=== PATIENT | male | born 1945 | race Caucasian/White ===

== ENCOUNTER → 2019-11-22 09:41 | Outpatient (BNVA) | payer MEDICARE, MEDICAID, SELFPAY | PROVIDERS: Family Provider Nurse Practitioner Family; PCP Nurse Practitioner Family; Visit Provider Nurse Practitioner Family | DX: I10 Essential (primary) hypertension (principal); E78.5 Hyperlipidemia, unspecified; E11.9 Type 2 diabetes mellitus without complications | CPT/HCPCS: 80053; 80061; 83036; 85025 ==

== ENCOUNTER 2019-11-30 23:14 | Emergency (ER) | payer MEDICARE, MEDICAID, SELFPAY ==
[2019-11-30 23:17] VITALS: BP 130/69; PULSE 69; RESP 18; TEMP 36.6; O2SAT 96; BMI 29.5
--- NOTE | 2019-11-30 23:30 | W.ED.NAVMDI ---
HPI - Nausea/Vomiting/Diarrhea General: Chief complaint: Nausea/Vomiting/Diarrhea Stated complaint: N/V/D Time Seen by Provider: 11/30/19 23:24 History of Present Illness: HPI Narrative: Patient is a 74-year-old male who comes to the ED nausea, vomiting, diarrhea. The symptoms started 5 days ago. The diarrhea occurs 5+ times throughout the day for the last 5 days. Stool is brown liquid and does not have any blood in it. He has vomited about 3 times a day for the last 5 days. Vomited does not have any blood in it. He says the vomiting and nausea only occurs after he eats something. He says he has some mild abdominal pain. He feels like he is getting dehydrated and weak over the past 2 days. Denies any fever,chills, chest pain, shortness of breath, constipation, hematuria, dysuria. Review of Systems General: Reports: 10 or more systems reviewed and unremarkable except in HPI and below PFSH ED PFSH: Statuses (acute, chronic, etc) shown below reflect problem list status as previously entered and may not be historically accurate Medical History GERD (gastroesophageal reflux disease) (Acute) Hyperlipidemia (Acute) Hypertension (Acute) Surgical History Hx of cholecystectomy (Acute) Family History Other Diabetes Hypertension Social History Smoking and tobacco status: never smoked Quit status (tobacco): not considering quitting Physical Exam Const: COMMON NORMALS: oriented x3 HENMT: COMMON NORMALS: normocephalic and external nose normal HEAD & SCALP: normocephalic NOSE: external nose normal and no nasal discharge MOUTH: moist mucous membranes abnormal (Mild dryness) Details: parched THROAT: posterior oropharynx normal and uvula midline Eye: COMMON NORMALS: PERRL and conjunctivae normal CONJUNCTIVA: Yes conjunctivae normal PUPIL: Yes PERRL Neck/C-Spine: COMMON NORMALS: supple GENERAL: Yes normal visual inspection Resp: COMMON NORMALS: normal respiratory effort, no retractions, no use of accessory muscles and clear to auscultation bilaterally AUSCULTATION: clear to auscultation bilaterally Cardio: COMMON NORMALS: regular rate, regular rhythm, S1 normal heart sound, S2 normal heart sound, no gallops, no clicks, no murmurs and peripheral pulses 2+ throughout RATE: regular rate RHYTHM: regular rhythm HEART SOUNDS: S1 normal and S2 normal PERIPHERAL PULSES: pulses 2+ throughout GI: COMMON NORMALS: soft to palpation, non-tender, no hepatosplenomegaly and no masses INSPECTION: Yes normal to inspection AUSCULTATION: Yes hyperactive bowel sounds and Yes high-pitched bowel sounds PALPATION: Yes soft, No tender and Yes no hepatosplenomegaly : COMMON NORMALS: Yes no CVA tenderness BLADDER/KIDNEY EXAM: Yes no CVA tenderness Back/Pelvis: COMMON NORMALS: no CVA tenderness Extremity: COMMON NORMALS: normal to inspection Neuro: COMMON NORMALS: oriented x3 and moves all extremities Skin: COMMON NORMALS: skin turgor normal GENERAL SKIN EXAM: turgor normal Course ED course: While in the ED patient has been able to keep Sprite and crackers down and has not had any episodes of vomiting. Patient did have an episode when he called diarrhea. The nurse stated the stool was soft and not liquid. Vital Signs: Vital signs: Vital Signs Temperature 97.5 F L 12/01/19 02:18 Pulse Rate 63 12/01/19 02:18 Respiratory Rate 18 12/01/19 02:18 Blood Pressure 130/69 11/30/19 23:17 Pulse Oximetry 98 12/01/19 02:18 MDM - Nausea/Vomiting/Diarrhea Lab Data: Attestation: I reviewed the patient's lab results. Labs: Lab Results 11/30/19 11/30/19 11/30/19 Range/Units 23:35 23:35 23:35 WBC 9.3 (4.0-10.0) 10^3/ uL RBC 5.42 H (4.1-5.3) 10^6/u L Hgb 15.2 (11.7-16.6) g/dL Hct 45.9 (42.0-52.0) % MCV 84.7 (80-94) fL MCH 28.0 (28.0-34.0) pg MCHC 33.1 (30.0-36.0) g/dL RDW 13.0 (12.1-15.1) % Plt Count 169 (130-400) 10^3/c mm MPV 9.3 (7.4-10.4) fL Neut % (Auto) 69.3 % Lymph % (Auto) 21.4 % [place] % (Auto) 7.3 % Eos % (Auto) 1.3 % Baso % (Auto) 0.4 % Neut # (Auto) 6.4 (1.8-7.7) 10^3/u L Lymph # (Auto) 2.0 (0.8-4.8) 10^3/u L [place] # (Auto) 0.7 (0.2-0.9) 10^3/u L Eos # (Auto) 0.1 (0.0-0.8) 10^3/u L Baso # (Auto) 0.0 (0.0-0.1) 10^3/u L Nucleated RBC % (a uto) 0 % Nucleated RBCs # 0.0 /100WBC Sodium 133 L (136-145) mmol/L Potassium 3.9 (3.5-5.1) mmol/L Chloride 99 (98-107) mmol/L Carbon Dioxide 24 (22-29) mmol/L Anion Gap 13.9 (5-19) BUN 21 (8-23) mg/dL Creatinine 0.9 (0.7-1.2) mg/dL Glucose 160 H (65-115) mg/dL POC Glucose (70-110) mg/dL Calcium 9.7 (8.5-10.5) mg/dL Total Bilirubin 0.5 (0.15-1.2) mg/dL AST 19 (0-40) U/L ALT 17 (0-41) U/L Alkaline Phosphata se 80 (40-130) IU/L Total Protein 6.2 L (6.6-8.7) g/dL Albumin 4.0 (3.5-5.2) g/dL Globulin 2.2 (1.3-4.6) g/dL Lipase 27 (13-60) U/L Urine Color Yellow (Yellow) Urine Appearance Clear (CLEAR) Urine pH 5 (5-7) Ur Specific Gravit y 1.015 (1.005-1.030) Urine Protein Neg (Negative) Urine Glucose (UA) Norm (Normal) Urine Ketones Negative (Negative) Urine Occult Blood Neg (Negative) Urine Nitrate Negative (Negative) Urine Bilirubin Neg (NEGATIVE) Urine Urobilinogen Norm (Negative) mg/dL Ur Leukocyte Isela ase Negative (Negative) 12/01/19 Range/Units 00:39 WBC (4.0-10.0) 10^3/ uL RBC (4.1-5.3) 10^6/u L Hgb (11.7-16.6) g/dL Hct (42.0-52.0) % MCV (80-94) fL MCH (28.0-34.0) pg MCHC (30.0-36.0) g/dL RDW (12.1-15.1) % Plt Count (130-400) 10^3/c mm MPV (7.4-10.4) fL Neut % (Auto) % Lymph % (Auto) % [place] % (Auto) % Eos % (Auto) % Baso % (Auto) % Neut # (Auto) (1.8-7.7) 10^3/u L Lymph # (Auto) (0.8-4.8) 10^3/u L [place] # (Auto) (0.2-0.9) 10^3/u L Eos # (Auto) (0.0-0.8) 10^3/u L Baso # (Auto) (0.0-0.1) 10^3/u L Nucleated RBC % (a uto) % Nucleated RBCs # /100WBC Sodium (136-145) mmol/L Potassium (3.5-5.1) mmol/L Chloride (98-107) mmol/L Carbon Dioxide (22-29) mmol/L Anion Gap (5-19) BUN (8-23) mg/dL Creatinine (0.7-1.2) mg/dL Glucose (65-115) mg/dL POC Glucose 146 (70-110) mg/dL Calcium (8.5-10.5) mg/dL Total Bilirubin (0.15-1.2) mg/dL AST (0-40) U/L ALT (0-41) U/L Alkaline Phosphata se (40-130) IU/L Total Protein (6.6-8.7) g/dL Albumin (3.5-5.2) g/dL Globulin (1.3-4.6) g/dL Lipase (13-60) U/L Urine Color (Yellow) Urine Appearance (CLEAR) Urine pH (5-7) Ur Specific Gravit y (1.005-1.030) Urine Protein (Negative) Urine Glucose (UA) (Normal) Urine Ketones (Negative) Urine Occult Blood (Negative) Urine Nitrate (Negative) Urine Bilirubin (NEGATIVE) Urine Urobilinogen (Negative) mg/dL Ur Leukocyte Isela ase (Negative) Imaging Data^: CT Abd/Pel: Attestation: I personally reviewed and interpreted this imaging study as follows: Radiologist's impression: [place] [address] CT Scan Report Signed Patient: Christ Garza Unit #: [id number] : 1945 Age/Sex: 74 / M ADM Date: 11/30/19 Loc: ER Room/Bed: Attending Dr: Ordering Provider/Ordering MD: Bart Thomas Date of Service: 12/01/19 Procedure(s): CT abdomen pelvis w con* [id number] Accession Number(s): [id number] Report Number: [id number] PROCEDURE INFORMATION: Exam: CT Abdomen And Pelvis With Contrast Exam date and time: 12/01/2019 12:22 AM Age: 74 years old Clinical indication: Nausea and vomiting; Prior surgery; Surgery date: 6+ months; Surgery type: Cholecystectomy, back; Additional info: N/v/d TECHNIQUE: Imaging protocol: Computed tomography of the abdomen and pelvis with intravenous contrast. Total DLP: 1556.76 mGy-cm Radiation optimization: All CT scans at this facility use at least one of these dose optimization techniques: automated exposure control; mA and/or kV adjustment per patient size (includes targeted exams where dose is matched to clinical indication); or iterative reconstruction. Contrast material: OMNI 300; Contrast volume: 95 ml; Contrast route: 20G; COMPARISON: CT abdomen pelvis w con* [id number] 2016-12-02 00:15 FINDINGS: Lungs: There is a pulmonary parenchymal calcification consistent with remote granulomatous organism exposure. Dependent subsegmental pulmonary atelectasis. Liver: Small, less than 5 mm, liver hypodensity. Highly likely to be benign and does not require follow-up imaging or biopsy per ACR. Gallbladder and bile ducts: Cholecystectomy. Pancreas: Normal. No ductal dilation. Spleen: The spleen demonstrates punctate calcifications, consistent with remote granulomatous organism exposure. Adrenals: Left adrenal gland thickening. Kidneys and ureters: 11 mm indeterminate right inferior renal pole exophytic lesion and 12 mm lateral left exophytic renal lesion, previously 6 mm. Small, less than 5 mm, renal hypodensity. Highly likely to be benign and does not require follow-up imaging or biopsy per ACR. Stomach and bowel: Mild colonic diverticula. Appendix: No evidence of appendicitis. Intraperitoneal space: Unremarkable. No free air. No significant fluid collection. Vasculature: Mild to moderate aortic and iliac artery atherosclerotic calcification. Lymph nodes: Unremarkable. No enlarged lymph nodes. Bladder: Unremarkable as visualized. Reproductive: Prostate gland enlargement. Bones/joints: Lumbar laminectomy. Soft tissues: Unremarkable. CT/CT abdomen pelvis w con* [id number] IMPRESSION: 1. No acute abnormality. 2. 11 mm indeterminate right inferior renal pole exophytic lesion and 12 mm lateral left exophytic renal lesion, previously 6 mm. Recommend follow-up. COMMENT: Consistent with the [employer]'s Incidental Findings Committee white paper (J Am Reece Radiol 2018): Any incidental cystic renal lesion classified in this report as too small to characterize or simple appearing is likely a benign cyst. No follow-up imaging is recommended for these lesions per consensus recommendations based on imaging criteria. . Radiation Dose CTDIVOL = (mGy): DLP = 1556.76 (mGy-cm) Dictated By: Zane Hameed MD Signed By: Zane Hameed MD Signed Date/Time: 12/01/19142 DD/ 0 Discharge Plan Discharge Patient Disposition: Home, Self-Care Clinical Impression: Nausea vomiting and diarrhea Condition: Stable Prescriptions: New Zofran 4 mg tablet 4 mg PO Q8H 5 Days Qty: 15 RF: 0 No Action sertraline 100 mg tablet 100 mg PO DAILY RF: 0 quetiapine [Seroquel] 50 mg tablet 50 mg PO DAILY RF: 0 aripiprazole [Abilify] 5 mg tablet 5 mg PO DAILY RF: 0 meloxicam 7.5 mg tablet 7.5 mg PO DAILY RF: 0 Novolog Flexpen U-100 Insulin 100 unit/mL (3 mL) insulin pen 24 unit SUBCUT TID RF: 0 nitroglycerin [Nitrostat] 0.4 mg tablet, sublingual 0.4 mg SUBLINGUAL Q5M PRN (Reason: Chest Pain) RF: 0 pantoprazole [Protonix] 40 mg tablet,delayed release (DR/EC) 40 mg PO DAILY RF: 0 trazodone 50 mg tablet 25 mg PO .HS RF: 0 losartan 50 mg tablet 50 mg PO BID RF: 0 atenolol 25 mg tablet 25 mg PO DAILY RF: 0 buspirone 15 mg tablet 15 mg PO TID PRN (Reason: Anxiety) RF: 0 simvastatin 40 mg tablet 40 mg PO DAILY RF: 0 (DME) blood-glucose meter [Blood Glucose Monitoring] Kit See Rx Instructions .ROUTE .MEDSUPPLY Qty: 1 RF: 0 (DME) Blood Glucose Test Strip See Rx Instructions .ROUTE .MEDSUPPLY Qty: 10 RF: 0 famotidine 20 mg tablet 20 mg PO BID RF: 0 sertraline 50 mg tablet 50 mg PO QDAY RF: 0 Victoza 3-Ata 0.6 mg/0.1 mL (18 mg/3 mL) pen injector 1.8 mg SUBCUT Q24H Qty: 9 RF: 1 metformin 500 mg tablet extended release 24 hr 1,000 mg PO DAILY Qty: 60 RF: 2 insulin detemir U-100 100 unit/mL (3 mL) insulin pen 44 unit SUBCUT DAILY Qty: 3 RF: 2 Discharge Orders: Discharge Order (Routine); Ordered 12/01/19 Ordered By: Bart Thomas Discharge Diet: Regular Discharge Activity: Increase activity as tolerated Patient Instructions: Acute Nausea and Vomiting (ED) Activity Restrictions/Additional Instructions: Follow-up with PCP in 7 days for reevaluation. Take Tylenol or ibuprofen for fevers. I'm giving a prescription for Zofran and he can take this as needed for nausea and vomiting. Drink plenty of fluids and stay hydrated. Discuss with your PCP about the CT findings of left kidney lesion that increased in size from 6 mm to 12 mm--further evaluation and follow-up recommended. Coding Level of Care Code ED [employer] for Any Olguin
[2019-11-30 23:45] LABS: Basophils % 0.4 %; Eosinophils # 0.1 10^3/uL (0.0-0.8); Eosinophils % 1.3 %; Hematocrit 45.9 % (42.0-52.0); Hemoglobin 15.2 g/dL (11.7-16.6); Lymphocytes % 21.4 %; Mean Corpuscular HGB Conc 33.1 g/dL (30.0-36.0); Mean Corpuscular Volume 84.7 fL (80-94); Mean Platelet Volume 9.3 fL (7.4-10.4); Monocytes # 0.7 10^3/uL (0.2-0.9); Monocytes % 7.3 %; Neutrophils # 6.4 10^3/uL (1.8-7.7); Neutrophils % 69.3 %; Nucleated Red Blood Cells % 0 %; Platelet Count 169 10^3/cmm (130-400); Red Blood Count 5.42 10^6/uL (4.1-5.3); White Blood Count 9.3 10^3/uL (4.0-10.0)
[2019-11-30] MEDS: ondansetron 2 mg/ML SDV 2 mL 4 MG IVP (23:47)
[2019-11-30] MEDS: sodium chloride 0.9% 1,000 ML 750 ML IV (23:48)
[2019-12-01 00:07] LABS: Alanine Aminotransferase 17 U/L (0-41); Alkaline Phosphatase 80 IU/L (40-130); Anion Gap 13.9 (5-19); Aspartate Amino Transferase 19 U/L (0-40); Blood Urea Nitrogen 21 mg/dL (8-23); Calcium 9.7 mg/dL (8.5-10.5); Carbon Dioxide 24 mmol/L (22-29); Chloride 99 mmol/L (98-107); Creatinine Clr Calc Pharmacy 81.3794; Globulin 2.2 g/dL (1.3-4.6); Glucose 160 mg/dL (65-115); Lipase 27 U/L (13-60); Potassium 3.9 mmol/L (3.5-5.1); Sodium 133 mmol/L (136-145); Total Bilirubin 0.5 mg/dL (0.15-1.2); Total Protein 6.2 g/dL (6.6-8.7)
--- NOTE | 2019-12-01 00:17 | CTR_ITS ---
PROCEDURE INFORMATION: Exam: CT Abdomen And Pelvis With Contrast Exam date and time: 12/01/2019 12:22 AM Age: 74 years old Clinical indication: Nausea and vomiting; Prior surgery; Surgery date: 6+ months; Surgery type: Cholecystectomy, back; Additional info: N/v/d TECHNIQUE: Imaging protocol: Computed tomography of the abdomen and pelvis with intravenous contrast. Total DLP: 1556.76 mGy-cm Radiation optimization: All CT scans at this facility use at least one of these dose optimization techniques: automated exposure control; mA and/or kV adjustment per patient size (includes targeted exams where dose is matched to clinical indication); or iterative reconstruction. Contrast material: OMNI 300; Contrast volume: 95 ml; Contrast route: 20G; COMPARISON: CT abdomen pelvis w con* [id number] 2016-12-02 00:15 FINDINGS: Lungs: There is a pulmonary parenchymal calcification consistent with remote granulomatous organism exposure. Dependent subsegmental pulmonary atelectasis. Liver: Small, less than 5 mm, liver hypodensity. Highly likely to be benign and does not require follow-up imaging or biopsy per ACR. Gallbladder and bile ducts: Cholecystectomy. Pancreas: Normal. No ductal dilation. Spleen: The spleen demonstrates punctate calcifications, consistent with remote granulomatous organism exposure. Adrenals: Left adrenal gland thickening. Kidneys and ureters: 11 mm indeterminate right inferior renal pole exophytic lesion and 12 mm lateral left exophytic renal lesion, previously 6 mm. Small, less than 5 mm, renal hypodensity. Highly likely to be benign and does not require follow-up imaging or biopsy per ACR. Stomach and bowel: Mild colonic diverticula. Appendix: No evidence of appendicitis. Intraperitoneal space: Unremarkable. No free air. No significant fluid collection. Vasculature: Mild to moderate aortic and iliac artery atherosclerotic calcification. Lymph nodes: Unremarkable. No enlarged lymph nodes. Bladder: Unremarkable as visualized. Reproductive: Prostate gland enlargement. Bones/joints: Lumbar laminectomy. Soft tissues: Unremarkable. CT/CT abdomen pelvis w con* [id number] IMPRESSION: 1. No acute abnormality. 2. 11 mm indeterminate right inferior renal pole exophytic lesion and 12 mm lateral left exophytic renal lesion, previously 6 mm. Recommend follow-up. COMMENT: Consistent with the [employer]'s Incidental Findings Committee white paper (J Am Reece Radiol 2018): Any incidental cystic renal lesion classified in this report as too small to characterize or simple appearing is likely a benign cyst. No follow-up imaging is recommended for these lesions per consensus recommendations based on imaging criteria. . Radiation Dose CTDIVOL = (mGy): DLP = 1556.76 (mGy-cm)
[2019-12-01 00:22] LABS: Add Urine Microscopic? NO
[2019-12-01 00:25] LABS: Bilirubin Urine Neg (NEGATIVE); Blood Urine Neg (Negative); Glucose Urine UA Norm (Normal); Ketones Urine Negative (Negative); Leukocyte Esterase Urine Negative (Negative); Nitrate Urine Negative (Negative); Protein Urine Neg (Negative); Specific Gravity, Urine 1.015 (1.005-1.030); Urine Appearance Clear (CLEAR); Urine Color Yellow (Yellow); Urobilinogen Urine Norm (Negative); pH Urine 5 (5-7)
--- NOTE | 2019-12-01 00:41 | PC.NURSE ---
Blood sugar is 146, nurse notified.
[2019-12-01 00:43] LABS: Glucose Point of Care 146 mg/dL (70-110)
[2019-12-01] MEDS: iohexol 300 mg/mL 100 mL Btl IV (01:04)
[2019-12-01 02:18] VITALS: BP 129/62; PULSE 63; RESP 18; TEMP 36.4; O2SAT 98
--- NOTE | 2019-12-01 03:19 | PC.NURSE ---
resting quietly without c/o's
--- NOTE | 2019-12-01 04:40 | PC.NURSE ---
resting with eyes closed in attitude of sleep. no c/o's voiced
--- NOTE | 2019-12-01 05:49 | PC.NURSE ---
awake and alert sitting up on side of bed drinking coffe
== END 2019-12-01 07:56 | disposition home or self-care (01) ==
PROVIDERS: Emergency Provider Physician Assistant
DX: R11.2 Nausea with vomiting, unspecified (principal); R19.7 Diarrhea, unspecified; E78.5 Hyperlipidemia, unspecified; I10 Essential (primary) hypertension
CPT/HCPCS: 36415; 36416; 74177; 80053; 81003; 82962; 83690; 85025; 96361; 96374; 96375; 99283; A9270; J2405; J7030; Q9967

== ENCOUNTER → 2019-12-09 12:08 | Outpatient (BNVA) | payer MEDICARE, MEDICAID, SELFPAY | PROVIDERS: PCP Nurse Practitioner Family; Visit Provider Nurse Practitioner Family | DX: R19.7 Diarrhea, unspecified (principal) | CPT/HCPCS: 82270; 87493; 87505 ==

== ENCOUNTER 2019-12-29 07:20 | Day surgery (SDC) | payer MEDICARE, MEDICAID, SELFPAY ==
[2019-12-28 10:31] VITALS: BMI 31.0
--- NOTE | 2019-12-29 07:28 | ANES.PREANE2 ---
Pre-Anesthetic Assessment Pre-Anesthetic Assessment: Height/Weight: Height 1.75 m Weight 95.254 kg Preop Diagnosis: chronic diarrhea Proposed Procedure: Operation Date: 12/22/19 11:30 Proposed Procedures p [id number](Not Applicable) - Guzman Alonzo MD Operation Date: 12/29/19 08:30 Proposed Procedures p Colonoscopy(Not Applicable) - Guzman Alonzo MD Was Beta Laurie taken within 24 hours: Yes Last Intake: 18:00 Social: Packs per day: 1-2 cigs/d Pack years: 10 Exam: Pre-Anes Outpt Exam: alert, oriented x 3, clear to auscultation bilaterally and regular rate & rhythm Airway: Submandibular: WNL Cervical ROM: Other MP: 2 Dentition: False CV/HEM: CV/HEM: HTN Comments: rx'd x 10y : Comments: BPH, frequency GI: GI: GERD Metabolic: Metabolic: DM and Hyperlipidemia Comments: rx'd x 15y, normally 135-160 Musc/skel: Musc/skel: Lower Back Pain Comments: right radiculopathy Neuropsych: Neuropsych: Bipolar and Depression Anesthetic Plan: ASA status: 3 Anesthesia: MAC PFSH Anesthesia PFSH: Social History Smoking and tobacco status: never smoked Quit status (tobacco): has quit using tobacco Year quit tobacco: 1997 Former quit date comment: .5 PPD Alcohol intake: never Lives independently: Yes Marital status: Single Current occupational status: retired History of recent travel: No Current gender identity: Male Data Anesthesia Cardiac Studies: No Data to Display
[2019-12-29 07:57] VITALS: BP 128/66; PULSE 66; RESP 18; TEMP 36.4; O2SAT 96
[2019-12-29] MEDS: sodium chloride 0.9% 1,000 ML 30 ML (08:09)
[2019-12-29 08:10] LABS: Glucose Point of Care 248 mg/dL (70-110)
--- NOTE | 2019-12-29 08:45 | W.PM.OPSUD ---
Surgery/Procedure H&P Update DATE OF PROCEDURE: December 29, 2019 DATE H&P PERFORMED: 12/09/19 PREOP DIAGNOSIS: Chronic diarrhea PLANNED PROCEDURE: Operation Date: 12/22/19 11:30 Proposed Procedures p [id number](Not Applicable) - Guzman Alonzo MD Operation Date: 12/29/19 08:30 Proposed Procedures p Colonoscopy(Not Applicable) - Guzman Alonzo MD
[2019-12-29 08:58] VITALS: BP 108/49; PULSE 69; RESP 16; TEMP 36.4; O2SAT 95
--- NOTE | 2019-12-29 09:07 | P.PCN_ITS ---
PACU note Post-Anesthesia Exam: awake Disposition: discharged
--- NOTE | 2019-12-29 09:07 | PM.PACU ---
PACU note Post-Anesthesia Exam: awake Disposition: discharged
--- NOTE | 2019-12-29 09:07 | ANE.PACU2 ---
 Inpatient post-anesthesia follow up: Airway intact: Yes Vital signs: Temperature 97.6 F Pulse Rate 69 Respiratory Rate 16 Blood Pressure 108/49 Pulse Oximetry 95 Oxygen Delivery Me thod Nasal Cannula Oxygen Flow Rate 2 Fraction of Inspir ed Oxygen Hydration adequate: Yes Nausea and vomiting: No Pain level: 1 Mental status: Baseline
[2019-12-29 09:10] VITALS: BP 124/72; PULSE 62; RESP 18; O2SAT 95
== END 2019-12-29 09:20 | disposition home or self-care (01) ==
PROVIDERS: PCP Nurse Practitioner Family; Visit Provider Surgery
PROC: 0DJD8ZZ Inspection of Lower Intestinal Tract, Via Natural or Artificial Opening Endoscopic (ICD-10-PCS; CPT 45378; principal; 2019-12-29 08:30)
DX: K52.9 Noninfective gastroenteritis and colitis, unspecified (principal); Z79.4 Long term (current) use of insulin; E11.9 Type 2 diabetes mellitus without complications; E78.5 Hyperlipidemia, unspecified; I10 Essential (primary) hypertension; Z82.49 Family history of ischemic heart disease and other diseases of the circulatory system; Z53.8 Procedure and treatment not carried out for other reasons
CPT/HCPCS: 12345; 36416; 45330; 82962; J2704; J7030

== ENCOUNTER 2019-12-30 06:49 | Day surgery (SDC) | payer MEDICARE, MEDICAID, SELFPAY ==
--- NOTE | 2019-12-30 07:17 | P.ANESUD_ITS ---
Pre-Anesthetic Update Pre-Anesthetic Assessment: Date of Surgery/Procedure: 12/30/19 Preop Halima gnosis: Chronic diarrhea Proposed Procedure: Operation Date: 12/30/19 12:00 Proposed Procedures p Colonoscopy(Not Applicable) - Guzman Alonzo MD Any changes to Pre-Anesthetic Assessment?: No Last Intake: NPO > 8 hrs black coffee 4 am Exam: Pre-Anes Outpt Exam: alert, oriented x 3, clear to auscultation bilaterally and regular rate & rhythm Other Pertinent Information: Other Pertinent Information: Patient had attempted colonoscopy yesterday, but had inadequate prep. REpeat for today Cardiac Studies: No Data to Display
[2019-12-30 07:35] VITALS: BMI 29.5
[2019-12-30] MEDS: sodium chloride 0.9% 1,000 ML 30 ML IV (07:52)
[2019-12-30 07:54] VITALS: BP 119/65; PULSE 61; RESP 16; TEMP 36.2; O2SAT 99
[2019-12-30 07:56] LABS: Glucose Point of Care 305 mg/dL (70-110)
[2019-12-30 12:39] VITALS: BP 98/53; PULSE 60; RESP 16; TEMP 36.7; O2SAT 96
--- NOTE | 2019-12-30 12:39 | W.PM.OPSUD ---
Surgery/Procedure H&P Update DATE OF PROCEDURE: December 30, 2019 DATE H&P PERFORMED: 12/29/19 H&P UPDATE INFORMATION: I have reviewed H&P completed within last 30 days, I have examined patient prior to procedure and No changes to prior documentation PREOP DIAGNOSIS: diarrhea PLANNED PROCEDURE: Operation Date: 12/30/19 12:00 Proposed Procedures p Colonoscopy(Not Applicable) - Guzman Alonzo MD
[2019-12-30 12:45] VITALS: BP 89/45; PULSE 55; RESP 18; O2SAT 99
== END 2019-12-30 13:05 | disposition home or self-care (01) ==
PROVIDERS: PCP Nurse Practitioner Family; Visit Provider Surgery
PROC: 0DJD8ZZ Inspection of Lower Intestinal Tract, Via Natural or Artificial Opening Endoscopic (ICD-10-PCS; CPT 45378; principal; 2019-12-30 12:00)
DX: K52.9 Noninfective gastroenteritis and colitis, unspecified (principal); D12.3 Benign neoplasm of transverse colon; K57.30 Diverticulosis of large intestine without perforation or abscess without bleeding; E78.5 Hyperlipidemia, unspecified; I10 Essential (primary) hypertension; E11.9 Type 2 diabetes mellitus without complications; Z79.84 Long term (current) use of oral hypoglycemic drugs; Z87.891 Personal history of nicotine dependence
CPT/HCPCS: 12345; 36416; 45380; 82962; 88305; J2001; J2704; J7030

== ENCOUNTER 2020-01-06 10:40 | Emergency (ER) | payer MEDICARE, MEDICAID, SELFPAY ==
[2020-01-06 10:41] VITALS: BP 121/65; PULSE 66; RESP 17; TEMP 36.8; O2SAT 95; BMI 28.0
[2020-01-06 10:47] VITALS: BP 121/65; PULSE 68; RESP 16; O2SAT 94
[2020-01-06 10:58] LABS: Glucose Point of Care 201 mg/dL (70-110)
--- NOTE | 2020-01-06 11:17 | XR_ITS ---
WS: [id number] Portable AP upright chest, 01/06/2020 Clinical Data: dyspnea/cough Comparison: Portable chest, 07/31/2019. Findings: No nodules, masses or effusions are seen. The heart is normal. The pulmonary vascularity is not increased. No pneumonia or pneumothorax is seen. There are pellets overlying the right shoulder and the right chest. There is a single pellet overlying the left side of the T2 vertebra. XR/XR chest 1V portable [id number] Impression: Negative chest.
--- NOTE | 2020-01-06 11:26 | ED_ITS ---
Entered by Huseyin Denton LPN, acting as scribe for Bryan Cameron DO Jan 06, 2020 10:40 HPI - Nausea/Vomiting/Diarrhea General: Chief complaint: Nausea/Vomiting/Diarrhea Stated complaint: NAUSEA/ diarrhea, increased blood sugar Time Seen by Provider: 01/06/20 11:03 Source: patient Limitations: no limitations History of Present Illness: HPI Narrative: 74 yo male with h/o DM for 15 years presents stating he woke up this am with a sugar of 500. He reports nausea and diarrhea for quite awhile . Also c/o abd pain in the mid abd. No recent abx treatment. No recent med changes. Admits to recent cough, productive of green phlegm. Denies fever, sweats, chills. Denies any chest pain or sob. Smoker, < 1/2 ppd. PCP- [facility] in [place]. MD elicited complaint: nausea and diarrhea Associated nausea: Yes Associated symtoms: Reports nausea; Denies anxiety, change in vision, chest pain, dizziness, dysuria, fatigue, headache(s), malaise, palpitations or syncope Review of Systems Const: Reports: other (increased blood sugar this am); Denies: fever, chills, body aches, fatigue, malaise or night sweats Eyes: Denies: change in vision or blurry vision ENMT: Denies: throat pain, oral sores/lesions, dental pain, nasal discharge or nasal congestion Card: Denies: chest pain, palpitations, irregular heart rhythm, edema, syncope, shortness of breath on exertion, shortness of breath when lying down or leg pain with exertion Resp: Reports: productive cough; Denies: shortness of breath, non-productive cough or wheezing GI: Reports: abdominal pain, nausea and diarrhea; Denies: vomiting, vomiting blood, coffee grounds in vomit, difficulty swallowing, heartburn/indigestion, constipation, cramping, blood in stool or black tarry stool : Denies: flank pain, difficulty urinating, painful urination, urinary frequency, urinary urgency, urinary incontinence or blood in urine Musc: Denies: neck pain, back pain, extremity pain, extremity swelling, joint pain or joint swelling Skin/Breast: Denies: rash, itching or redness Neuro: Denies: headache, numbness in extremities, weakness in extremities, changes in sensation, lack of coordination, difficulty walking, frequent falls, dizziness, vertigo or confusion Psych: Denies: anxiety, depression, loss of interest, visual hallucinations, auditory hallucinations, suicidal ideation or homicidal ideation Endo: Denies: excessive urination, excessive thirst, tired all the time or cold intolerance Travis/Lymph: Denies: easy bruising, easy bleeding, petechiae, enlarged lymph nodes or tender lymph nodes PFSH ED PFSH: Medical History (Updated 01/06/20 @ 13:10 by Bryan Cameron DO) Bipolar 2 disorder Decreased hearing of right ear Diabetes Hyperlipidemia Hypertension Surgical History (Updated 12/30/19 @ 12:36 by Guzman Alonzo MD) H/O colonoscopy 12/29/19: transverse colon polyp, poor prep, sigmoid diverticulosis History of back surgery History of hand surgery due to injury and needed reattachment History of shoulder surgery Hx of cholecystectomy Social History Smoking and tobacco status: current some day smoker Quit status (tobacco): has quit using tobacco Year quit tobacco: 1997 Former quit date comment: .5 PPD Alcohol intake: never Lives independently: Yes Marital status: Single Current occupational status: retired History of recent travel: No Current gender identity: Male Physical Exam Const: COMMON NORMALS: average body habitus, oriented x3 and alert GENERAL APPEARANCE: cooperative, comfortable, well kempt and well developed NUTRITIONAL APPEARANCE: obese ORIENTATION/CONSCIOUSNESS: Yes awake, Yes oriented to person and Yes oriented to place HENMT: COMMON NORMALS: normocephalic, head/scalp atraumatic, EAC's normal, TM's normal bilaterally, external nose normal, moist oral mucous membranes and oropharynx normal HEAD & SCALP: normocephalic and atraumatic NOSE: external nose normal EXTERNAL AUDITORY CANAL: EAC's normal TYMPANIC MEMBRANE: TM's normal bilaterally MOUTH: oral and palatal mucosa normal, lip normal and tongue normal THROAT: posterior oropharynx normal and tonsils normal Eye: COMMON NORMALS: PERRL, EOMs intact bilaterally, conjunctivae normal and no scleral icterus CONJUNCTIVA: Yes conjunctivae normal PUPIL: Yes PERRL Neck/C-Spine: COMMON NORMALS: full ROM, no lymphadenopathy, supple, no meningeal signs and thyroid normal THYROID: thyroid normal and asymmetrical Lymph: LYMPHATIC: no lymphadenopathy noted Resp: COMMON NORMALS: normal respiratory effort, no retractions, no use of accessory muscles and clear to auscultation bilaterally AUSCULTATION: clear to auscultation bilaterally Cardio: COMMON NORMALS: regular rate and regular rhythm RATE: regular rate RHYTHM: regular rhythm HEART SOUNDS: no murmurs GI: COMMON NORMALS: normal to inspection, nondistended, normoactive bowel sounds, soft to palpation and no hepatosplenomegaly PALPATION: Yes soft and Yes no hepatosplenomegaly : COMMON NORMALS: Yes no CVA tenderness BLADDER/KIDNEY EXAM: Yes no CVA tenderness Back/Pelvis: COMMON NORMALS: no CVA tenderness LUMBAR SPINE/LOWER BACK: Yes normal to inspection Extremity: COMMON NORMALS: no clubbing, cyanosis or edema, no calf tenderness and no pedal edema Neuro: COMMON NORMALS: oriented x3 SENSORIUM/ORIENTATION: Yes alert, Yes oriented to person and Yes oriented to place MENINGEAL SIGNS: Yes no meningeal signs Psych: APPEARANCE: Yes well kempt Skin: COMMON NORMALS: no rashes or lesions noted and skin turgor normal GENERAL SKIN EXAM: no rashes or lesions noted and turgor normal Course ED course: Patient is feeling much better blood sugars improved. We will go ahead and discharge him home with Chong and Elie. He should have a clear liquid diet for the next 24 hours and then advance monitor blood sugars closely if has any worsening or change return immediately. Vital Signs: Vital signs: Vital Signs Temperature 98.2 F 01/06/20 10:41 Pulse Rate 65 01/06/20 13:23 Respiratory Rate 16 01/06/20 13:23 Blood Pressure 132/67 01/06/20 13:23 Pulse Oximetry 97 01/06/20 13:23 MDM - Nausea/Vomiting/Diarrhea Lab Data: Attestation: I reviewed the patient's lab results. Labs: Lab Results 01/06/20 01/06/20 01/06/20 Range/Units 10:53 10:56 10:56 WBC 7.1 (4.0-10.0) 10^3/ uL RBC 5.29 (4.1-5.3) 10^6/u L Hgb 15.5 (11.7-16.6) g/dL Hct 46.8 (42.0-52.0) % MCV 88.5 (80-94) fL MCH 29.3 (28.0-34.0) pg MCHC 33.1 (30.0-36.0) g/dL RDW 13.2 (12.1-15.1) % Plt Count 169 (130-400) 10^3/c mm MPV 10.1 (7.4-10.4) fL Neut % (Auto) 68.2 % Lymph % (Auto) 22.6 % [place] % (Auto) 7.4 % Eos % (Auto) 1.0 % Baso % (Auto) 0.4 % Neut # (Auto) 4.9 (1.8-7.7) 10^3/u L Lymph # (Auto) 1.6 (0.8-4.8) 10^3/u L [place] # (Auto) 0.5 (0.2-0.9) 10^3/u L Eos # (Auto) 0.1 (0.0-0.8) 10^3/u L Baso # (Auto) 0.0 (0.0-0.1) 10^3/u L Nucleated RBC % (a uto) 0 % Nucleated RBCs # 0.0 /100WBC Specimen Type Sample Site ABG pH (7.35-7.45) ABG pCO2 (35-45) mmHg ABG pO2 (80.0-100.0) mmH g ABG HCO3 (22-26) mmol/L ABG O2 Saturation ABG Base Excess (-2.0-2.0) mmol/ L Lucas Test A-a O2 Gradient (5-10) mmHg Hematocrit (42-52) % Hgb O2 Saturation (95-100) % Carboxyhemoglobin (0.4-20.1) %THgb Methemoglobin (0.4-1.5) % Total Hemoglobin (14-18) g/dL Ionized Calcium (1.1-1.4) mmol/L O2 Delivery Device Medical Physicist ID Sodium 139 (136-145) mmol/L Potassium 4.2 (3.5-5.1) mmol/L Chloride 102 (98-107) mmol/L Carbon Dioxide 27 (22-29) mmol/L Anion Gap 14.2 (5-19) BUN 21 (8-23) mg/dL Creatinine 0.9 (0.7-1.2) mg/dL Glucose 226 H (65-115) mg/dL POC Glucose 201 (70-110) mg/dL Calculated Osmolal ity 292 (285-295) mOsm/k g Calcium 10.3 (8.5-10.5) mg/dL Total Bilirubin 0.3 (0.15-1.2) mg/dL AST 15 (0-40) U/L ALT 22 (0-41) U/L Alkaline Phosphata se 115 (40-130) IU/L Total Protein 6.8 (6.6-8.7) g/dL Albumin 4.5 (3.5-5.2) g/dL Globulin 2.3 (1.3-4.6) g/dL Lipase 51 (13-60) U/L Urine Color (Yellow) Urine Appearance (CLEAR) Urine pH (5-7) Ur Specific Gravit y (1.005-1.030) Urine Protein (Negative) Urine Glucose (UA) (Normal) Urine Ketones (Negative) Urine Blood (Negative) Urine Nitrate (Negative) Urine Bilirubin (NEGATIVE) Urine Urobilinogen (Negative) mg/dL Ur Leukocyte Isela ase (Negative) Urine RBC (0-2) /hpf Urine WBC (0-5) /hpf Ur Squamous Epith Cells (0-5) Urine Bacteria (NONE) Serum Ketones (Negative) 01/06/20 01/06/20 01/06/20 Range/Units 10:56 11:28 11:57 WBC (4.0-10.0) 10^3/ uL RBC (4.1-5.3) 10^6/u L Hgb (11.7-16.6) g/dL Hct (42.0-52.0) % MCV (80-94) fL MCH (28.0-34.0) pg MCHC (30.0-36.0) g/dL RDW (12.1-15.1) % Plt Count (130-400) 10^3/c mm MPV (7.4-10.4) fL Neut % (Auto) % Lymph % (Auto) % [place] % (Auto) % Eos % (Auto) % Baso % (Auto) % Neut # (Auto) (1.8-7.7) 10^3/u L Lymph # (Auto) (0.8-4.8) 10^3/u L Osage # (Auto) (0.2-0.9) 10^3/u L Eos # (Auto) (0.0-0.8) 10^3/u L Baso # (Auto) (0.0-0.1) 10^3/u L Nucleated RBC % (a uto) % Nucleated RBCs # /100WBC Specimen Type Arterial Sample Site Radial, left ABG pH 7.38 (7.35-7.45) ABG pCO2 42.7 (35-45) mmHg ABG pO2 77.0 L (80.0-100.0) mmH g ABG HCO3 25.2 (22-26) mmol/L ABG O2 Saturation 97.5 ABG Base Excess -0.2 (-2.0-2.0) mmol/ L Lucas Test Pos A-a O2 Gradient 20.8 H (5-10) mmHg Hematocrit 47.3 (42-52) % Hgb O2 Saturation 93.3 L (95-100) % Carboxyhemoglobin 3.6 (0.4-20.1) %THgb Methemoglobin 0.8 (0.4-1.5) % Total Hemoglobin 15.4 (14-18) g/dL Ionized Calcium 1.3 (1.1-1.4) mmol/L O2 Delivery Device Room air Medical Physicist ID [id number] Sodium 139.0 (136-145) mmol/L Potassium 4.1 (3.5-5.1) mmol/L Chloride (98-107) mmol/L Carbon Dioxide (22-29) mmol/L Anion Gap (5-19) BUN (8-23) mg/dL Creatinine (0.7-1.2) mg/dL Glucose 178.0 H (65-115) mg/dL POC Glucose (70-110) mg/dL Calculated Osmolal ity (285-295) mOsm/k g Calcium (8.5-10.5) mg/dL Total Bilirubin (0.15-1.2) mg/dL AST (0-40) U/L ALT (0-41) U/L Alkaline Phosphata se (40-130) IU/L Total Protein (6.6-8.7) g/dL Albumin (3.5-5.2) g/dL Globulin (1.3-4.6) g/dL Lipase (13-60) U/L Urine Color Yellow (Yellow) Urine Appearance Clear (CLEAR) Urine pH 5 (5-7) Ur Specific Gravit y 1.015 (1.005-1.030) Urine Protein Neg (Negative) Urine Glucose (UA) 4+ H (Normal) Urine Ketones Negative (Negative) Urine Blood Trace H (Negative) Urine Nitrate Negative (Negative) Urine Bilirubin 1+ H (NEGATIVE) Urine Urobilinogen Norm (Negative) mg/dL Ur Leukocyte Isela ase Negative (Negative) Urine RBC 0-4 H (0-2) /hpf Urine WBC Rare (0-5) /hpf Ur Squamous Epith Cells None (0-5) Urine Bacteria Trace (NONE) Serum Ketones Negative (Negative) 01/06/20 Range/Units 13:18 WBC (4.0-10.0) 10^3/ uL RBC (4.1-5.3) 10^6/u L Hgb (11.7-16.6) g/dL Hct (42.0-52.0) % MCV (80-94) fL MCH (28.0-34.0) pg MCHC (30.0-36.0) g/dL RDW (12.1-15.1) % Plt Count (130-400) 10^3/c mm MPV (7.4-10.4) fL Neut % (Auto) % Lymph % (Auto) % [place] % (Auto) % Eos % (Auto) % Baso % (Auto) % Neut # (Auto) (1.8-7.7) 10^3/u L Lymph # (Auto) (0.8-4.8) 10^3/u L [place] # (Auto) (0.2-0.9) 10^3/u L Eos # (Auto) (0.0-0.8) 10^3/u L Baso # (Auto) (0.0-0.1) 10^3/u L Nucleated RBC % (a uto) % Nucleated RBCs # /100WBC Specimen Type Sample Site ABG pH (7.35-7.45) ABG pCO2 (35-45) mmHg ABG pO2 (80.0-100.0) mmH g ABG HCO3 (22-26) mmol/L ABG O2 Saturation ABG Base Excess (-2.0-2.0) mmol/ L Lucas Test A-a O2 Gradient (5-10) mmHg Hematocrit (42-52) % Hgb O2 Saturation (95-100) % Carboxyhemoglobin (0.4-20.1) %THgb Methemoglobin (0.4-1.5) % Total Hemoglobin (14-18) g/dL Ionized Calcium (1.1-1.4) mmol/L O2 Delivery Device Medical Physicist ID Sodium (136-145) mmol/L Potassium (3.5-5.1) mmol/L Chloride (98-107) mmol/L Carbon Dioxide (22-29) mmol/L Anion Gap (5-19) BUN (8-23) mg/dL Creatinine (0.7-1.2) mg/dL Glucose (65-115) mg/dL POC Glucose 101 (70-110) mg/dL Calculated Osmolal ity (285-295) mOsm/k g Calcium (8.5-10.5) mg/dL Total Bilirubin (0.15-1.2) mg/dL AST (0-40) U/L ALT (0-41) U/L Alkaline Phosphata se (40-130) IU/L Total Protein (6.6-8.7) g/dL Albumin (3.5-5.2) g/dL Globulin (1.3-4.6) g/dL Lipase (13-60) U/L Urine Color (Yellow) Urine Appearance (CLEAR) Urine pH (5-7) Ur Specific Gravit y (1.005-1.030) Urine Protein (Negative) Urine Glucose (UA) (Normal) Urine Ketones (Negative) Urine Blood (Negative) Urine Nitrate (Negative) Urine Bilirubin (NEGATIVE) Urine Urobilinogen (Negative) mg/dL Ur Leukocyte Isela ase (Negative) Urine RBC (0-2) /hpf Urine WBC (0-5) /hpf Ur Squamous Epith Cells (0-5) Urine Bacteria (NONE) Serum Ketones (Negative) Imaging Data^: CXR: Radiologist's impression: Impression: Negative chest. Dictated By:Em Palencia MD CT Abd/Pel: Radiologist's impression: Per Dr. Perez: possible small bowel enteritis, bladder wall thickening. Discharge Plan Discharge Patient Disposition: Home, Self-Care Clinical Impression: Colitis Condition: Stable Prescriptions: New ciprofloxacin HCl 500 mg tablet 500 mg PO BID Qty: 14 RF: 0 Flagyl 500 mg tablet 500 mg PO Q8H 7 Days Qty: 21 RF: 0 No Action quetiapine [Seroquel] 50 mg tablet 50 mg PO DAILY RF: 0 Novolog Flexpen U-100 Insulin 100 unit/mL (3 mL) insulin pen 24 unit SUBCUT TID RF: 0 nitroglycerin [Nitrostat] 0.4 mg tablet, sublingual 0.4 mg SUBLINGUAL Q5M PRN (Reason: Chest Pain) RF: 0 pantoprazole [Protonix] 40 mg tablet,delayed release (DR/EC) 40 mg PO DAILY RF: 0 trazodone 50 mg tablet 25 mg PO BEDTIME RF: 0 losartan 50 mg tablet 50 mg PO BID RF: 0 atenolol 25 mg tablet 25 mg PO DAILY RF: 0 (DME) blood-glucose meter [Blood Glucose Monitoring] Kit See Rx Instructions .ROUTE .MEDSUPPLY Qty: 1 RF: 0 (DME) Blood Glucose Test Strip See Rx Instructions .ROUTE .MEDSUPPLY Qty: 10 RF: 0 aripiprazole [Abilify] 5 mg tablet 5 mg PO DAILY Qty: 30 RF: 2 sertraline 100 mg tablet 100 mg PO DAILY Qty: 30 RF: 2 sertraline 50 mg tablet 50 mg PO QDAY Qty: 30 RF: 2 famotidine 20 mg tablet 20 mg PO BID RF: 0 Victoza 3-Ata 0.6 mg/0.1 mL (18 mg/3 mL) pen injector 1.8 mg SUBCUT Q24H Qty: 9 RF: 1 metformin 500 mg tablet extended release 24 hr 1,000 mg PO DAILY Qty: 60 RF: 2 insulin detemir U-100 100 unit/mL (3 mL) insulin pen 44 unit SUBCUT DAILY Qty: 3 RF: 2 (DME) OneTouch Ultra Blue Test Strip Strip See Rx Instructions .ROUTE .MEDSUPPLY Qty: 100 RF: 5 meloxicam 7.5 mg tablet 7.5 mg PO DAILY Qty: 30 RF: 0 buspirone 15 mg tablet 15 mg PO TID PRN (Reason: Anxiety) Qty: 90 RF: 0 simvastatin 40 mg tablet 40 mg PO DAILY Qty: 30 RF: 3 Discharge Orders: Discharge Order (Routine); Ordered 01/06/20 Ordered By: Bryan Cameron Referrals: Brandy Zamarripa FNP [Primary Care Provider] - Discharge Diet: Clear Liquid Discharge Activity: Increase activity as tolerated Activity Restrictions/Additional Instructions: Follow-up with your primary care doctor in 4 to 5 days Discharge Date/Time: 01/06/20 13:30 Coding Level of Care Code ED Cv Tech for Chg Fwd Exam Comprehensive The documentation recorded by the Bertin ford Dani Elizabeth, LPN, accurately reflects the service I personally performed and the decisions made by Nisha catherine Curtis L, DO Jan 06, 2020 10:40
[2020-01-06 11:27] VITALS: BP 104/74; PULSE 69; RESP 16; O2SAT 97
[2020-01-06 11:30] LABS: Basophils % 0.4 %; Eosinophils # 0.1 10^3/uL (0.0-0.8); Hematocrit 46.8 % (42.0-52.0); Hemoglobin 15.5 g/dL (11.7-16.6); Lymphocytes # 1.6 10^3/uL (0.8-4.8); Lymphocytes % 22.6 %; Mean Corpuscular HGB Conc 33.1 g/dL (30.0-36.0); Mean Corpuscular Hemoglobin 29.3 pg (28.0-34.0); Mean Corpuscular Volume 88.5 fL (80-94); Mean Platelet Volume 10.1 fL (7.4-10.4); Monocytes # 0.5 10^3/uL (0.2-0.9); Monocytes % 7.4 %; Neutrophils # 4.9 10^3/uL (1.8-7.7); Neutrophils % 68.2 %; Nucleated Red Blood Cells % 0 %; Platelet Count 169 10^3/cmm (130-400); Red Blood Count 5.29 10^6/uL (4.1-5.3); Red Cell Distribution Width 13.2 % (12.1-15.1); White Blood Count 7.1 10^3/uL (4.0-10.0)
--- NOTE | 2020-01-06 11:37 | CT_ITS ---
WS: [id number] CT ABDOMEN PELVIS TECHNIQUE: Contrast-enhanced CT of the abdomen and pelvis with coronal and sagittal reformatted image s. CLINICAL INFORMATION: abd pain COMPARISON: December 01, 2019 DLP: [id number] scans at [facility] use at least one of these dose optimization techniques: automat ed exposure control; mA and/or kV adjustment per patient size (includes targeted exams where dose is matched to clinical indication); or iterative reconstruction. FINDINGS: Liver is normal. Cholecystectomy clips. Normal spleen. Splenic granulomas. Normal GE junction. Subseg mental atelectasis the lung bases. Normal pancreas. Adrenal glands are normal. Normal renal parenchymal enhancement. No hydronephrosis. Cortical atrophy. Peripheral enhancing right lower pole exophytic lesion measuring 11 mm is stable since the recent examination. This is increase d since 2017. Additional left midpole 12 mm lesion left kidney with increased attenuation also increa sed since 2017. Recommend 6 month interval follow-up with CT. Normal caliber abdominal aorta. Fluid-filled loops of small bowel in the lower abdomen and pelvis judie suring 2.0 CM. Normal caliber colon. No evidence of high-grade small or large bowel obstruction. Sigm oid colon is decompressed. No abdominal lymphadenopathy. Diffuse bladder wall thickening can be seen with chronic cystitis. Blad rolly is decompressed. Prostate is slightly enlarged measuring 4.4 x 5.4 CM. Grade 1 anterolisthesis L5 on S1 with pedicle screw fixation. Notified Bryan Cameron DO at 01/06/2020 12:[address]/CT abdomen pelvis w con* [id number] IMPRESSION: 1. Slightly distended fluid-filled loops of small bowel in the lower abdomen a nd pelvis can be seen with small bowel enteritis 2. No evidence of small or large bowel obstruction. Colon is decompressed. 3. Prior cholecystectomy. 4. Diffuse bladder wall thickening can be seen with bladder outlet obstruction or chronic cystitis. 5. Slightly enlarged prostate measuring 4.4 x 5.1 CM. Recommend correlation PS A. 6. Indeterminant Small renal lesions described above increased since 2017. Rec ommend 6 month follow-up CT.
[2020-01-06 11:40] LABS: Alanine Aminotransferase 22 U/L (0-41); Albumin Level 4.5 g/dL (3.5-5.2); Alkaline Phosphatase 115 IU/L (40-130); Anion Gap 14.2 (5-19); Aspartate Amino Transferase 15 U/L (0-40); Blood Urea Nitrogen 21 mg/dL (8-23); Calcium 10.3 mg/dL (8.5-10.5); Carbon Dioxide 27 mmol/L (22-29); Chloride 102 mmol/L (98-107); Globulin 2.3 g/dL (1.3-4.6); Glucose 226 mg/dL (65-115); Lipase 51 U/L (13-60); Osmolality Calculated 292 mOsm/kg (285-295); Potassium 4.2 mmol/L (3.5-5.1); Sodium 139 mmol/L (136-145); Total Bilirubin 0.3 mg/dL (0.15-1.2); Total Protein 6.8 g/dL (6.6-8.7)
[2020-01-06 11:41] LABS: ABG PCO2 42.7 mmHg (35-45); ABG PH Result 7.38 (7.35-7.45); Alveolar-Arterial Oxygen Gradi 20.8 mmHg (5-10); Arterial Blood Gas Hematocrit 47.3 % (42-52); Base Excess ABG -0.2 mmol/L (-2.0-2.0); Blood Gas Allen Test Pos; Blood Gas Sample Site Radial, left; Blood Gas Sample Type Arterial; Carboxyhemoglobin 3.6 %THgb (0.4-20.1); HCO3 ABG 25.2 mmol/L (22-26); HGB O2 Sat 93.3 % (95-100); Ionized Calcium Level - ABG 1.3 mmol/L (1.1-1.4); Methemoglobin 0.8 % (0.4-1.5); Oxygen Device ROOM AIR; Oxygen Saturation ABG 97.5; Potassium Level - ABG 4.1 mmol/L (3.5-5.0); Total Hemoglobin 15.4 g/dL (14-18)
[2020-01-06 11:44] LABS: Ketone (Acetest) Serum Negative (Negative)
--- NOTE | 2020-01-06 11:54 | PC.NURSE ---
Pt to CT via ambulance
[2020-01-06 12:04] VITALS: BP 105/61; PULSE 69; RESP 16; O2SAT 97
[2020-01-06] MEDS: iohexol 300 mg/mL 100 mL Btl IV (12:15)
[2020-01-06 12:22] LABS: Add Urine Microscopic? YES; Bilirubin Urine 1+ (NEGATIVE); Blood Urine Trace (Negative); Glucose Urine UA 4+ (Normal); Ketones Urine Negative (Negative); Leukocyte Esterase Urine Negative (Negative); Nitrate Urine Negative (Negative); Protein Urine Neg (Negative); Specific Gravity, Urine 1.015 (1.005-1.030); Urine Appearance Clear (CLEAR); Urine Color Yellow (Yellow); Urobilinogen Urine Norm (Negative); pH Urine 5 (5-7)
[2020-01-06 12:29] LABS: Add Urine Culture? No; Bacteria Urine TRACE; RBC Urine 0-4 /hpf (0-2); WBC Urine RARE /hpf (0-5)
[2020-01-06] MEDS: sodium chloride 0.9% 500 ML 999 ML IV (12:43)
[2020-01-06] MEDS: insulin regular-human 100 units/1 mL 5 UNIT IVP (12:43)
[2020-01-06 12:46] VITALS: BP 134/75; PULSE 68; RESP 16; O2SAT 97
[2020-01-06 13:21] LABS: Glucose Point of Care 101 mg/dL (70-110)
[2020-01-06 13:23] VITALS: BP 132/67; PULSE 65; RESP 16; O2SAT 97
== END 2020-01-06 13:30 | disposition home or self-care (01) ==
PROVIDERS: Emergency Provider Family Medicine; PCP Nurse Practitioner Family
DX: K52.9 Noninfective gastroenteritis and colitis, unspecified (principal); E11.9 Type 2 diabetes mellitus without complications; I10 Essential (primary) hypertension; E78.5 Hyperlipidemia, unspecified; F17.200 Nicotine dependence, unspecified, uncomplicated; E66.9 Obesity, unspecified; Z68.28 Body mass index [BMI] 28.0-28.9, adult; Z79.4 Long term (current) use of insulin
CPT/HCPCS: 12345; 36415; 36416; 36600; 71045; 74177; 80051; 80053; 81001; 82009; 82810; 82962; 83690; 83986; 85025; 96360; 96374; 96375; 99283; 99284; A9270; J1815; J7040; Q9967

== ENCOUNTER 2020-01-20 11:47 | Outpatient (CLI) | payer MEDICARE, MEDICAID, SELFPAY ==
--- NOTE | 2020-01-20 11:56 | XR_ITS ---
WS: [id number] KUB, 01/20/2020 Clinical Data: rule out kidney stone Comparison: Abdomen series, 12/01/2016. Findings: No abnormal intraabdominal masses are seen. There is no dilatated small bowel or evidence of obstruc tion. The patient has a posterior lumbar fusion with bilateral pedicle screws and connecting rods at L5-S1. There are clips in the right upper abdomen from a cholecystectomy. There is a large amount of air th roughout the colon. The bladder is partly full. No definite renal or ureteral calculi are seen. There are vascular calcifications from the iliac arteries in the true pelvis. Degenerative change of both hips is seen. XR/XR abdomen 1V* [id number] Impression: Negative for definite renal or ureteral calculi.
== END 2020-01-20 11:48 | disposition home or self-care (01) ==
LOC: RADWPI 11:52
PROVIDERS: PCP Nurse Practitioner Family; Visit Provider Nurse Practitioner Family
DX: N39.0 Urinary tract infection, site not specified (principal); M54.5 Low back pain; E78.5 Hyperlipidemia, unspecified; I10 Essential (primary) hypertension; E11.9 Type 2 diabetes mellitus without complications
CPT/HCPCS: 74018; 80053; 80061; 81000; 83036; 85025

== ENCOUNTER → 2020-03-14 11:34 | Outpatient (BNVA) | payer MEDICARE, MEDICAID, SELFPAY | PROVIDERS: PCP Family Medicine; Visit Provider Family Medicine | DX: E11.65 Type 2 diabetes mellitus with hyperglycemia (principal); Z79.4 Long term (current) use of insulin; E78.5 Hyperlipidemia, unspecified; I10 Essential (primary) hypertension; K21.9 Gastro-esophageal reflux disease without esophagitis | CPT/HCPCS: 80053; 80061; 83036; 85025 ==

== ENCOUNTER 2020-05-16 21:52 | Emergency (ER) | payer MEDICARE, MEDICAID, SELFPAY ==
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
--- NOTE | 2020-05-16 22:09 | ECG_ITS ---
[facility] Test Date: 2020-05-16 Pat Name: Christ Garza Department: Room: Gender: Male [employer]: : 1945 Requested By: Mario Rodarte Order Number: [id number] Rebecca MD: Jorge A Ortega M.D. Measurements Intervals [place] Rate: 64 P: 73 TX: 218 QRS: 30 QRSD: 108 T: 60 QT: 388 QTc: 402 Interpretive Statements SINUS RHYTHM WITH FIRST DEGREE AV BLOCK WITH OCCASIONAL VENTRICULAR PREMATURE COMPLEXES Compared to ECG 07/31/2019 15:53:39 Right bundle-branch block no longer present Electronically Signed On 05-17-2020 17:06:31 CDT by Jorge A Ortega M.D. [email or web address]
[2020-05-16 22:24] VITALS: BP 135/64; PULSE 61; RESP 16; TEMP 36.8; O2SAT 95; BMI 29.5
[2020-05-16 22:33] VITALS: BP 129/61; PULSE 62; RESP 18; O2SAT 96
[2020-05-16 22:33] LABS: Basophils % 0.7 %; Eosinophils # 0.1 10^3/uL (0.0-0.8); Eosinophils % 1.8 %; Hematocrit 44.7 % (42.0-52.0); Hemoglobin 14.2 g/dL (11.7-16.6); Lymphocytes # 1.8 10^3/uL (0.8-4.8); Mean Corpuscular HGB Conc 31.8 g/dL (30.0-36.0); Mean Corpuscular Hemoglobin 28.3 pg (28.0-34.0); Mean Corpuscular Volume 89.2 fL (80-94); Mean Platelet Volume 9.8 fL (7.4-10.4); Monocytes # 0.5 10^3/uL (0.2-0.9); Monocytes % 8.3 %; Neutrophils % 58.9 %; Nucleated Red Blood Cells % 0 %; Platelet Count 151 10^3/cmm (130-400); Red Blood Count 5.01 10^6/uL (4.1-5.3); Red Cell Distribution Width 12.5 % (12.1-15.1); White Blood Count 6.1 10^3/uL (4.0-10.0)
[2020-05-16 22:47] VITALS: RESP 14; O2SAT 95
[2020-05-16] MEDS: morphine 4 mg/mL SDV 1 mL IVP (22:47)
[2020-05-16] MEDS: ondansetron 2 mg/ML SDV 2 mL 4 MG IVP (22:48)
[2020-05-16 22:55] LABS: Troponin(5th) Baseline 20 ng/L (0-15)
--- NOTE | 2020-05-16 23:02 | ED_ITS ---
HPI - SOB/Dyspnea General: Chief Complaint: Shortness of Breath/Dyspnea Stated Complaint: SOB Time Seen by Provider: 05/16/20 22:08 Source: patient and EMS Mode of arrival: EMS Limitations: no limitations History of Present Illness: HPI Narrative: 74-year-old male who came in by EMS for shortness of breath and chest pain. He states he is been having chest pains over the last week. He states the pain is sharp in nature rates it a 3 out of 10. He denies any worsening or improving factors. States his dyspnea is very mild. Patient here is 93% on room air. He denies any vomiting or diaphoresis. Associated symptoms: Reports chest pain; Deny abdominal pain, fever(s), nausea or vomiting Review of Systems Const: Denies: fever(s), chills, body aches or change in appetite Eyes: Denies: blurry vision or eye discomfort ENMT: Denies: throat pain or dental pain Card: Reports: chest pain Resp: Reports: dyspnea GI: Denies: abdominal pain, nausea, vomiting or diarrhea : Denies: dysuria Musc: Denies: neck pain or back pain Skin/Breast: Denies: rash Neuro: Denies: headache(s) Psych: Denies: depression Travis/Lymph: Denies: easy bruising All/Imm: Denies: urticaria PFSH ED PFSH: Medical History Bipolar 2 disorder Controlled diabetes mellitus with hyperglycemia, with long-term current use of insulin Decreased hearing of right ear Hyperlipidemia Hypertension Surgical History H/O colonoscopy 12/29/19: transverse colon polyp, poor prep, sigmoid diverticulosis History of back surgery History of hand surgery due to injury and needed reattachment History of shoulder surgery Hx of cholecystectomy Family History Other Diabetes Hypertension Denies family history of Anesthesia complication Bleeding disorder Social History Smoking and tobacco status: current every day smoker Alcohol intake: never Caregiver/support person: No Lives independently: Yes Household members: none Housing: Apartment Marital status: Single Number of children: 3 Current occupational status: retired History of recent travel: No Current gender identity: Male Physical Exam Const: COMMON NORMALS: no acute distress, patient oriented x3 and healthy appearing HENMT: COMMON NORMALS: normocephalic and atraumatic HEAD & SCALP: normocephalic and atraumatic Eye: COMMON NORMALS: Equal, round and reactive pupils present and EOMs intact bilaterally PUPIL: Yes Equal, round and reactive pupils present Neck/C-Spine: COMMON NORMALS: full ROM and supple Chest: COMMONS NORMALS: normal inspection of the chest and normal palpation of entire chest wall Resp: COMMON NORMALS: normal respiratory effort, No retractions, No use of accessory muscles and clear to auscultation bilaterally AUSCULTATION: clear to auscultation bilaterally Cardio: COMMON NORMALS: regular rate, regular rhythm and No murmurs present (Cardio) RATE: regular rate RHYTHM: regular rhythm GI: COMMON NORMALS: Normal to inspection, nondistended, normoactive bowel sounds present, Soft to palpation, non-tender and no masses PALPATION: Yes Soft to palpation Extremity: COMMON NORMALS: normal to inspection and full ROM Neuro: COMMON NORMALS: patient oriented x3, moves all extremities and no focal motor deficits Psych: COMMON NORMALS: mental status grossly normal, Normal thought process present and cooperative THOUGHT PROCESS: Normal thought process present Skin: COMMON NORMALS: no rashes or lesions noted and no wounds GENERAL SKIN EXAM: no rashes or lesions noted Course Vital Signs: Vital signs: Vital Signs Temperature 98.2 F 05/16/20 22:24 Pulse Rate 62 05/16/20 22:33 Respiratory Rate 18 05/17/20 01:30 Blood Pressure 129/61 05/16/20 22:33 Pulse Oximetry 95 05/16/20 22:47 MDM - SOB/Dyspnea MDM Narrative: Medical decision making narrative: Christ presents with chest pain that is atypical in nature. Patient's initial and repeat troponins here are negative CT chest is negative as well. He has had no pain here. He is stable for discharge and is to follow-up with his primary care doctor in 3 to 5 days. He is to return to the ER if worsening. Lab Data: Labs: Lab Results 05/16/20 05/16/20 05/16/20 Range/Units 22:23 22:23 22:23 WBC 6.1 (4.0-10.0) 10^3/ uL RBC 5.01 (4.1-5.3) 10^6/u L Hgb 14.2 (11.7-16.6) g/dL Hct 44.7 (42.0-52.0) % MCV 89.2 (80-94) fL MCH 28.3 (28.0-34.0) pg MCHC 31.8 (30.0-36.0) g/dL RDW 12.5 (12.1-15.1) % Plt Count 151 (130-400) 10^3/c mm MPV 9.8 (7.4-10.4) fL Neut % (Auto) 58.9 % Lymph % (Auto) 30.0 % [place] % (Auto) 8.3 % Eos % (Auto) 1.8 % Baso % (Auto) 0.7 % Neut # (Auto) 3.60 (1.8-7.7) 10^3/u L Lymph # (Auto) 1.8 (0.8-4.8) 10^3/u L [place] # (Auto) 0.5 (0.2-0.9) 10^3/u L Eos # (Auto) 0.1 (0.0-0.8) 10^3/u L Baso # (Auto) 0.0 (0.0-0.1) 10^3/u L Nucleated RBC % (a uto) 0 % Nucleated RBCs # 0.0 /100WBC APTT 35.0 (23.9-36.7) SECO NDS Sodium 136 (136-145) mmol/L Potassium 4.4 (3.5-5.1) mmol/L Chloride 100 (98-107) mmol/L Carbon Dioxide 27 (22-29) mmol/L Anion Gap 13.4 (5-19) BUN 19 (8-23) mg/dL Creatinine 0.8 (0.7-1.2) mg/dL GFR Calculation Not Reportable Glucose 395 H (65-115) mg/dL Calculated Osmolal ity 295 (285-295) mOsm/k g Calcium 9.8 (8.5-10.5) mg/dL Total Bilirubin 0.3 (0.15-1.2) mg/dL AST 17 (0-40) U/L ALT 23 (0-41) U/L Alkaline Phosphata se 113 (40-130) IU/L Troponin T Baselin e (0-15) ng/L Troponin T 120 Min cheesh-na (0-15) ng/L Delta Troponin T (0-10) ABS# NT-Pro-B Natriuret Pep 44 (0-125) pg/mL Total Protein 6.2 L (6.6-8.7) g/dL Albumin 4.4 (3.5-5.2) g/dL Globulin 1.8 (1.3-4.6) g/dL 05/16/20 05/17/20 Range/Units 22:23 00:17 WBC (4.0-10.0) 10^3/ uL RBC (4.1-5.3) 10^6/u L Hgb (11.7-16.6) g/dL Hct (42.0-52.0) % MCV (80-94) fL MCH (28.0-34.0) pg MCHC (30.0-36.0) g/dL RDW (12.1-15.1) % Plt Count (130-400) 10^3/c mm MPV (7.4-10.4) fL Neut % (Auto) % Lymph % (Auto) % [place] % (Auto) % Eos % (Auto) % Baso % (Auto) % Neut # (Auto) (1.8-7.7) 10^3/u L Lymph # (Auto) (0.8-4.8) 10^3/u L [place] # (Auto) (0.2-0.9) 10^3/u L Eos # (Auto) (0.0-0.8) 10^3/u L Baso # (Auto) (0.0-0.1) 10^3/u L Nucleated RBC % (a uto) % Nucleated RBCs # /100WBC APTT (23.9-36.7) SECO NDS Sodium (136-145) mmol/L Potassium (3.5-5.1) mmol/L Chloride (98-107) mmol/L Carbon Dioxide (22-29) mmol/L Anion Gap (5-19) BUN (8-23) mg/dL Creatinine (0.7-1.2) mg/dL GFR Calculation Glucose (65-115) mg/dL Calculated Osmolal ity (285-295) mOsm/k g Calcium (8.5-10.5) mg/dL Total Bilirubin (0.15-1.2) mg/dL AST (0-40) U/L ALT (0-41) U/L Alkaline Phosphata se (40-130) IU/L Troponin T Baselin e 20 H (0-15) ng/L Troponin T 120 Min cheesh-na 18.83 H (0-15) ng/L Delta Troponin T -1.17 L (0-10) ABS# NT-Pro-B Natriuret Pep (0-125) pg/mL Total Protein (6.6-8.7) g/dL Albumin (3.5-5.2) g/dL Globulin (1.3-4.6) g/dL Imaging Data^: CT Chest: Attestation: I personally reviewed and interpreted this imaging study as follows: Radiologist's impression: [place] [address] CT Scan Report Signed Patient: Christ Garza Unit #: [id number] : 1945 Age/Sex: 74 / M ADM Date: 05/16/20 Loc: ER Room/Bed: Attending Dr: Ordering Provider/Ordering MD: Mario Rodarte MD Date of Service: 05/16/20 Procedure(s): CT angio chest PE protcl [id number] Accession Number(s): [id number] Report Number: [id number] PROCEDURE INFORMATION: Exam: CT Angiography Chest With Contrast Exam date and time: 05/16/2020 11:13 PM Age: 74 years old Clinical indication: Pain; Shortness of breath; Prior surgery; Surgery type: Gb; Patient HX: Anterior chest pressure with SOB. TECHNIQUE: Imaging protocol: Computed tomographic angiography of the chest with intravenous contrast. 3D rendering (Not supervised by radiologist): MIP and/or 3D reconstructed images were created by the technologist. Radiation optimization: All CT scans at this facility use at least one of these dose optimization techniques: automated exposure control; mA and/or kV adjustment per patient size (includes targeted exams where dose is matched to clinical indication); or iterative reconstruction. Contrast material: OMNI 350; Contrast volume: 74 ml; Contrast route: INTRAVENOUS (IV); COMPARISON: CR XR chest 1V portable [id number] 05/16/2020 10:07 PM RADIATION DOSE METRICS: Total DLP (mGy-cm): 543.97 FINDINGS: Pulmonary arteries: Normal. No pulmonary emboli. Aorta: Unremarkable. No aortic aneurysm. No aortic dissection. Lungs: Right lower lobe atelectasis versus minimal infiltrate. Right lower lobe punctate metallic density likely reflecting a chronic foreign body. Pleural space: Unremarkable. No pneumothorax. No pleural effusion. Heart: Coronary artery atherosclerotic calcifications. Lymph nodes: Unremarkable. No enlarged lymph nodes. Bones/joints: Unremarkable. No acute fracture. Soft tissues: Unremarkable. CT/CT angio chest PE protcl [id number] IMPRESSION: 1. Negative for pulmonary embolus 2. Coronary artery atherosclerotic calcifications. 3. Right lower lobe atelectasis versus minimal infiltrate. 4. Right lower lobe punctate metallic density likely reflecting a chronic foreign body. EKG Data^: EKG 1: Attestation: I personally reviewed and interpreted this EKG as follows: EKG Interpretation Date: 05/16/20 EKG interpretation time: 22:41 Interpretation: nsr hr [address] or t wave abnormalities Discharge Plan Discharge Patient Disposition: Home, Self-Care Clinical Impression: Chest pain Qualifiers: Chest pain type: unspecified Qualified Code(s): R07.9 - Chest pain, unspecified Condition: Stable Prescriptions: No Action nitroglycerin [Nitrostat] 0.4 mg tablet, sublingual 0.4 mg SUBLINGUAL Q5M PRN (Reason: Chest Pain) RF: 0 (DME) blood-glucose meter [Blood Glucose Monitoring] Kit See Rx Instructions .ROUTE .MEDSUPPLY Qty: 1 RF: 0 (DME) Blood Glucose Test Strip See Rx Instructions .ROUTE .MEDSUPPLY Qty: 10 RF: 0 aripiprazole [Abilify] 5 mg tablet 5 mg PO DAILY Qty: 30 RF: 2 atenolol 25 mg tablet 25 mg PO DAILY Qty: 30 RF: 2 metformin 500 mg tablet extended release 24 hr 1,000 mg PO DAILY Qty: 60 RF: 2 sertraline 50 mg tablet 50 mg PO QDAY Qty: 30 RF: 2 trazodone 50 mg tablet 50 mg PO BEDTIME Qty: 30 RF: 2 Novolog Flexpen U-100 Insulin 100 unit/mL (3 mL) insulin pen 12 unit SUBCUT TID RF: 0 (DME) OneTouch Ultra Blue Test Strip Strip See Rx Instructions .ROUTE .MEDSUPPLY Qty: 100 RF: 5 (DME) lancets [OneTouch Delica Lancets] 30 gauge misc See Rx Instructions .ROUTE .MEDSUPPLY Qty: 100 RF: 2 insulin detemir U-100 100 unit/mL (3 mL) insulin pen 50 unit SUBCUT DAILY Qty: 15 RF: 2 simvastatin 40 mg tablet See Rx Instructions .ROUTE .COMPLEX Qty: 30 RF: 1 Victoza 3-Ata 0.6 mg/0.1 mL (18 mg/3 mL) pen injector 1.8 mg SUBCUT Q24H Qty: 9 RF: 0 buspirone 15 mg tablet See Rx Instructions .ROUTE .COMPLEX Qty: 90 RF: 1 sertraline 100 mg tablet See Rx Instructions .ROUTE .COMPLEX Qty: 30 RF: 0 famotidine 20 mg tablet See Rx Instructions .ROUTE .COMPLEX Qty: 60 RF: 0 meloxicam 7.5 mg tablet See Rx Instructions .ROUTE .COMPLEX Qty: 30 RF: 0 losartan 50 mg tablet 50 mg PO BID Qty: 120 RF: 0 Discharge Orders: Discharge Order (Routine); Ordered 05/17/20 Ordered By: Mario Rodarte Referrals: Laura John MD [Primary Care Provider] - 1-3 days Discharge Diet: Advance as tolerated Discharge Activity: Resume usual activity Patient Instructions: Chest Pain (ED) Discharge Date/Time: 05/17/20 01:30 Coding Level of Care Code ED Research Support Specialist for Chg Fwd Exam Comprehensive
[2020-05-16 23:04] LABS: Alanine Aminotransferase 23 U/L (0-41); Albumin Level 4.4 g/dL (3.5-5.2); Alkaline Phosphatase 113 IU/L (40-130); Anion Gap 13.4 (5-19); Aspartate Amino Transferase 17 U/L (0-40); Blood Urea Nitrogen 19 mg/dL (8-23); Calcium 9.8 mg/dL (8.5-10.5); Carbon Dioxide 27 mmol/L (22-29); Chloride 100 mmol/L (98-107); Globulin 1.8 g/dL (1.3-4.6); Glucose 395 mg/dL (65-115); NT Pro B Type Natriuretic Pept 44 pg/mL (0-125); Osmolality Calculated 295 mOsm/kg (285-295); Potassium 4.4 mmol/L (3.5-5.1); Sodium 136 mmol/L (136-145); Total Bilirubin 0.3 mg/dL (0.15-1.2); Total Protein 6.2 g/dL (6.6-8.7)
--- NOTE | 2020-05-16 23:12 | CTR_ITS ---
PROCEDURE INFORMATION: Exam: CT Angiography Chest With Contrast Exam date and time: 05/16/2020 11:13 PM Age: 74 years old Clinical indication: Pain; Shortness of breath; Prior surgery; Surgery type: Gb; Patient HX: Anterior chest pressure with SOB. TECHNIQUE: Imaging protocol: Computed tomographic angiography of the chest with intravenous contrast. 3D rendering (Not supervised by radiologist): MIP and/or 3D reconstructed images were created by the technologist. Radiation optimization: All CT scans at this facility use at least one of these dose optimization techniques: automated exposure control; mA and/or kV adjustment per patient size (includes targeted exams where dose is matched to clinical indication); or iterative reconstruction. Contrast material: OMNI 350; Contrast volume: 74 ml; Contrast route: INTRAVENOUS (IV); COMPARISON: CR XR chest 1V portable [id number] 05/16/2020 10:07 PM RADIATION DOSE METRICS: Total DLP (mGy-cm): 543.97 FINDINGS: Pulmonary arteries: Normal. No pulmonary emboli. Aorta: Unremarkable. No aortic aneurysm. No aortic dissection. Lungs: Right lower lobe atelectasis versus minimal infiltrate. Right lower lobe punctate metallic density likely reflecting a chronic foreign body. Pleural space: Unremarkable. No pneumothorax. No pleural effusion. Heart: Coronary artery atherosclerotic calcifications. Lymph nodes: Unremarkable. No enlarged lymph nodes. Bones/joints: Unremarkable. No acute fracture. Soft tissues: Unremarkable. CT/CT angio chest PE protcl [id number] IMPRESSION: 1. Negative for pulmonary embolus 2. Coronary artery atherosclerotic calcifications. 3. Right lower lobe atelectasis versus minimal infiltrate. 4. Right lower lobe punctate metallic density likely reflecting a chronic foreign body. Radiation Dose CTDIVOL = (mGy): DLP = 543.97 (mGy-cm)
--- NOTE | 2020-05-16 23:19 | PC.NURSE ---
REPORT GIVEN TO MARYANNE FERRO ASSUMED CARE.
[2020-05-16] MEDS: iohexol 350 mg/mL 100 mL Btl IV (23:25)
[2020-05-17 00:42] LABS: Troponin 5 2HR 18.83 ng/L (0-15)
[2020-05-17 00:47] LABS: Troponin 5 2HR Delta -1.17 ABS# (0-10)
[2020-05-17 01:25] VITALS: RESP 18
[2020-05-17 01:30] VITALS: RESP 18
== END 2020-05-17 01:30 | disposition home or self-care (01) ==
PROVIDERS: Emergency Provider Emergency Medicine; PCP Family Medicine
DX: R07.9 Chest pain, unspecified (principal); Z79.4 Long term (current) use of insulin; F17.210 Nicotine dependence, cigarettes, uncomplicated; E11.9 Type 2 diabetes mellitus without complications; E78.5 Hyperlipidemia, unspecified; I10 Essential (primary) hypertension
CPT/HCPCS: 12345; 36415; 71045; 71275; 80053; 83880; 84484; 85025; 85730; 93005; 96374; 96375; 99282; 99284; J2270; J2405; Q9967

== ENCOUNTER → 2020-06-09 19:10 | Outpatient (BNVA) | payer MEDICARE, MEDICAID, SELFPAY | PROVIDERS: PCP Family Medicine; Visit Provider Nurse Practitioner | DX: R19.7 Diarrhea, unspecified (principal); E11.9 Type 2 diabetes mellitus without complications; Z68.29 Body mass index [BMI] 29.0-29.9, adult; F17.210 Nicotine dependence, cigarettes, uncomplicated; Z71.89 Other specified counseling | CPT/HCPCS: 81000 ==

== ENCOUNTER → 2020-07-24 11:57 | Outpatient (BNVA) | payer MEDICARE, MEDICAID, SELFPAY | PROVIDERS: PCP Family Medicine; Visit Provider Nurse Practitioner Family | DX: E11.65 Type 2 diabetes mellitus with hyperglycemia (principal); F31.81 Bipolar II disorder; I10 Essential (primary) hypertension; E78.5 Hyperlipidemia, unspecified; K21.9 Gastro-esophageal reflux disease without esophagitis; H91.93 Unspecified hearing loss, bilateral; Z79.4 Long term (current) use of insulin | CPT/HCPCS: 80053; 80061; 82043; 83036; 85025 ==

== ENCOUNTER 2020-09-03 22:53 | Inpatient (IN) | payer MEDICARE, MEDICAID, SELFPAY ==
--- NOTE | 2020-09-03 23:08 | XR_ITS ---
WS: [id number] XR chest 1V portable [id number] REASON FOR EXAM: Chest pain FINDINGS: The chest is unchanged compared to 05/16/2020. The heart and mediastinum are within normal limits for age. There is calcified granulomatous change in both lungs. No acute lung infiltrate or acute pleural abno rmality is identified. There is parenchymal scarring in both lower lobes most notably the right. Mild changes of degenerative spondylosis in the lower thoracic spine. XR/XR chest 1V portable [id number] IMPRESSION: No acute chest abnormality.
--- NOTE | 2020-09-03 23:09 | ECG_ITS ---
[facility] Test Date: 2020-09-03 Pat Name: Christ Garza Department: Room: Gender: Male [employer] Supervisor: : 1945 Requested By: Ibeth Goncalves Order Number: [id number] MD: Miriam Felix M.D. Measurements Intervals [place] Rate: 51 P: 58 [place]: 231 QRS: 67 QRSD: 153 T: 49 QT: 464 QTc: 430 Interpretive Statements SINUS BRADYCARDIA WITH FIRST DEGREE AV BLOCK RIGHT BUNDLE BRANCH BLOCK [120+ ms QRS DURATION, UPRIGHT V1, 40+ ms S IN I/aVL/V4/V5/V6] Compared to ECG 05/16/2020 22:41:00 Right bundle-branch block now present Sinus rhythm no longer present Electronically Signed On 09-03-2020 23:39:15 COSMETOLOGY INSTRUCTOR by Miriam Felix M.D. [id number]
[2020-09-03 23:18] VITALS: BP 111/58; PULSE 52; RESP 16; TEMP 36.8; O2SAT 95; BMI 29.5
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
[2020-09-03 23:52] VITALS: BP 106/57
--- NOTE | 2020-09-03 23:52 | W.ED.CHESTPA ---
HPI - Chest Pain General: Chief Complaint: Chest Pain Stated Complaint: CP Time Seen by Provider: 09/03/20 23:08 Source: patient Mode of arrival: EMS Limitations: no limitations History of Present Illness: HPI narrative: Mr. Garza is a nice 75-year-old male who comes in with chest pain. States he got the pain at home while he was at rest. Describes it as a pressure. He has associated shortness of breath and diaphoresis. Patient denies any radiation of the pain. He took a nitroglycerin at home and then got up to walk to the kitchen and had a syncopal spell. He hit his head but denies any headache at this time. Patient denies any neck pain. He still states that he has chest pain at a 5 out of 10. Associated symptoms: Reports syncope; Deny abdominal pain, diaphoresis, dyspnea, fever(s), nausea, palpitations or vomiting Review of Systems Const: Denies: fever(s), chills, body aches, fatigue, malaise or diaphoresis Eyes: Denies: change in vision, blurry vision, photophobia, eye discomfort, eye discharge, eye redness or yellow eyes ENMT: Denies: throat pain, odynophagia, hoarseness, swelling of lips/tongue, ear or mastoid pain, ear discharge, change in hearing or nasal discharge Card: Reports: chest pain and syncope; Denies: palpitations, irregular heart rhythm, edema, lightheadedness, pre-syncope, dyspnea on exertion or orthopnea Resp: Denies: dyspnea, productive cough, non-productive cough, wheezing, hemoptysis or chest congestion GI: Denies: abdominal pain, nausea, vomiting, hematemesis, coffee ground emesis, heartburn, diarrhea, constipation, GI cramping, hematochezia or melena : Denies: flank pain, dysuria, urinary frequency, urinary urgency or hematuria Musc: Denies: neck pain, back pain, extremity pain, extremity swelling, joint pain, joint swelling, joint redness, joint warmth or joint stiffness Skin/Breast: Denies: rash, pruritus, erythema, skin pain or skin tenderness Neuro: Denies: headache(s), numbness in extremities, weakness in extremities, sensory changes, lack of coordination, difficulty walking, dizziness, vertigo, confusion, Slurred speech present or seizure-like activity Travis/Lymph: Denies: easy bruising, easy bleeding, petechiae, purpura or enlarged lymph nodes All/Imm: Denies: urticaria, throat swelling, tongue swelling, facial swelling or acute wheezing PFSH ED PFSH: Medical History (Updated 09/04/20 @ 02:34 by Ibeth Pandya) Bipolar 2 disorder Controlled diabetes mellitus with hyperglycemia, with long-term current use of insulin Decreased hearing of right ear Hyperlipidemia Hypertension Surgical History H/O colonoscopy 12/29/19: transverse colon polyp, poor prep, sigmoid diverticulosis History of back surgery History of hand surgery due to injury and needed reattachment History of shoulder surgery Hx of cholecystectomy Family History Other Diabetes Hypertension Denies family history of Anesthesia complication Bleeding disorder Social History Smoking and tobacco status: current some day smoker Alcohol intake: never Caregiver/support person: No Lives independently: Yes Household members: none Housing: Apartment Marital status: Single Number of children: 3 Current occupational status: retired History of recent travel: No Current gender identity: Male Physical Exam Const: COMMON NORMALS: no acute distress, patient oriented x3, no limitations and alert GENERAL APPEARANCE: cooperative HENMT: COMMON NORMALS: normocephalic, atraumatic, external ears normal, EAC's normal and Normal external nose present HEAD & SCALP: normal to inspection, normocephalic and atraumatic FACE & SINUS: normal facial exam and face symmetric NOSE: Normal external nose present and Normal nares present EXTERNAL EAR: Yes external ears normal EXTERNAL AUDITORY CANAL: EAC's normal MOUTH: Normal oral and palatal mucosa present, lip normal and tongue normal Eye: COMMON NORMALS: Equal, round and reactive pupils present and conjunctivae normal GENERAL EYE: appearance normal, both eyes and all related structures ALIGNMENT: Yes alignment normal PERIORBITAL: periorbital findings normal EYELID: eyelids normal CONJUNCTIVA: Yes conjunctivae normal SCLERA: sclerae normal PUPIL: Yes Equal, round and reactive pupils present Neck/C-Spine: COMMON NORMALS: full ROM, no lymphadenopathy, supple, no meningeal signs and no JVD GENERAL: Yes normal visual inspection and Yes trachea midline Chest: COMMONS NORMALS: normal inspection of the chest and normal palpation of entire chest wall Resp: COMMON NORMALS: normal respiratory effort, No retractions, No use of accessory muscles and clear to auscultation bilaterally EFFORT & INSPECTION: Yes able to speak in complete sentences and Yes symmetric chest movement AUSCULTATION: clear to auscultation bilaterally, no crackles, no rales, no rhonchi and no wheezes Cardio: COMMON NORMALS: no JVD, regular rate, regular rhythm, S1 normal heart sound present and S2 normal heart sound present RATE: regular rate RHYTHM: regular rhythm HEART SOUNDS: S1 normal heart sound present, S2 normal heart sound present, no click, no gallops, no murmurs and no rubs GI: COMMON NORMALS: Soft to palpation and No hepatosplenomegaly present PALPATION: Yes Soft to palpation, No Tenderness to palpation present (GI), No Guarding due to palpation present (GI), No Rigid due to palpation, Yes No hepatosplenomegaly present, No Hernia present, No Palpable mass present and No Pulsatile mass present : COMMON NORMALS: Yes no CVA tenderness BLADDER/KIDNEY EXAM: Yes no CVA tenderness Back/Pelvis: COMMON NORMALS: no CVA tenderness, thoracic and lumbar spine normal to inspection, no thoracic nor lumbar tenderness and thoraco-lumbar ROM normal Extremity: COMMON NORMALS: normal to inspection, full ROM, capillary refill normal, no joint enlargement, no clubbing, cyanosis or edema and no calf tenderness Neuro: COMMON NORMALS: patient oriented x3, CN's II-XII intact bilaterally, moves all extremities, no focal motor deficits and no sensory deficits noted SENSORIUM/ORIENTATION: Yes alert MENINGEAL SIGNS: Yes no meningeal signs SPEECH: speech normal Psych: COMMON NORMALS: mental status grossly normal, Normal thought process present, cooperative, normal affect, speech normal and activity/motor behavior normal SPEECH: Yes normal speech THOUGHT PROCESS: Normal thought process present Skin: COMMON NORMALS: no rashes or lesions noted, turgor normal, no jaundice, no petechiae and no mottling GENERAL SKIN EXAM: no rashes or lesions noted and turgor normal Course Vital Signs: Vital signs: Vital Signs Temperature 98.3 F 09/03/20 23:18 Pulse Rate 52 L 09/04/20 02:20 Respiratory Rate 15 09/04/20 02:20 Blood Pressure 94/49 09/04/20 02:20 Pulse Oximetry 95 09/04/20 02:20 MDM - Chest Pain MDM Narrative: Medical decision making narrative: 0226 -patient is pain-free and resting comfortably at this time. Patient has a new right bundle branch block, slightly elevated troponin and multiple risk factors for heart disease. I discussed the case with Dr. Hyde he is agreeable to admission and will place orders for the cardiac stepdown unit. Lab Data: Attestation: I reviewed the patient's lab results. Labs: Lab Results 09/03/20 09/03/20 09/03/20 Range/Units 00:30 00:30 00:30 WBC 11.3 H (4.0-10.0) 10^3/ uL RBC 5.01 (4.1-5.3) 10^6/u L Hgb 14.5 (11.7-16.6) g/dL Hct 44.6 (42.0-52.0) % MCV 89.0 (80-94) fL MCH 28.9 (28.0-34.0) pg MCHC 32.5 (30.0-36.0) g/dL RDW 12.7 (12.1-15.1) % Plt Count 151 (130-400) 10^3/c mm MPV 9.7 (7.4-10.4) fL Neut % (Auto) 80.3 % Lymph % (Auto) 12.3 % Williamson % (Auto) 6.3 % Eos % (Auto) 0.4 % Baso % (Auto) 0.3 % Neut # (Auto) 9.07 H (1.8-7.7) 10^3/u L Lymph # (Auto) 1.4 (0.8-4.8) 10^3/u L Williamson # (Auto) 0.7 (0.2-0.9) 10^3/u L Eos # (Auto) 0.1 (0.0-0.8) 10^3/u L Baso # (Auto) 0.0 (0.0-0.1) 10^3/u L Nucleated RBC % (a uto) 0 % Nucleated RBCs # 0.0 /100WBC PT 13.50 (12.1-14.9) SECO NDS INR 1.00 (0.8-1.2) Sodium 136 (136-145) mmol/L Potassium 4.2 (3.5-5.1) mmol/L Chloride 101 (98-107) mmol/L Carbon Dioxide 27 (22-29) mmol/L Anion Gap 12.2 (5-19) BUN 31 H (8-23) mg/dL Creatinine 0.9 (0.7-1.2) mg/dL GFR Calculation Not Reportable Glucose 178 H (65-115) mg/dL Calculated Osmolal ity 293 (285-295) mOsm/k g Calcium 9.1 (8.5-10.5) mg/dL Magnesium 1.9 (1.7-2.3) mg/dL Total Bilirubin 0.3 (0.15-1.2) mg/dL AST 16 (0-40) U/L ALT 33 (0-41) U/L Alkaline Phosphata se 83 (40-130) IU/L Troponin T Baselin e (0-15) ng/L Total Protein 5.6 L (6.6-8.7) g/dL Albumin 3.8 (3.5-5.2) g/dL Globulin 1.8 (1.3-4.6) g/dL Lipase 34 (13-60) U/L Urine Color (Yellow) Urine Appearance (CLEAR) Urine pH (5-7) Ur Specific Gravit y (1.005-1.030) Urine Protein (Negative) Urine Glucose (UA) (Normal) Urine Ketones (Negative) Urine Blood (Negative) Urine Nitrate (Negative) Urine Bilirubin (Negative) Urine Urobilinogen (Negative) mg/dL Ur Leukocyte Isela ase (Negative) 09/03/20 09/04/20 Range/Units 00:30 00:20 WBC (4.0-10.0) 10^3/ uL RBC (4.1-5.3) 10^6/u L Hgb (11.7-16.6) g/dL Hct (42.0-52.0) % MCV (80-94) fL MCH (28.0-34.0) pg MCHC (30.0-36.0) g/dL RDW (12.1-15.1) % Plt Count (130-400) 10^3/c mm MPV (7.4-10.4) fL Neut % (Auto) % Lymph % (Auto) % Williamson % (Auto) % Eos % (Auto) % Baso % (Auto) % Neut # (Auto) (1.8-7.7) 10^3/u L Lymph # (Auto) (0.8-4.8) 10^3/u L Williamson # (Auto) (0.2-0.9) 10^3/u L Eos # (Auto) (0.0-0.8) 10^3/u L Baso # (Auto) (0.0-0.1) 10^3/u L Nucleated RBC % (a uto) % Nucleated RBCs # /100WBC PT (12.1-14.9) SECO NDS INR (0.8-1.2) Sodium (136-145) mmol/L Potassium (3.5-5.1) mmol/L Chloride (98-107) mmol/L Carbon Dioxide (22-29) mmol/L Anion Gap (5-19) BUN (8-23) mg/dL Creatinine (0.7-1.2) mg/dL GFR Calculation Glucose (65-115) mg/dL Calculated Osmolal ity (285-295) mOsm/k g Calcium (8.5-10.5) mg/dL Magnesium (1.7-2.3) mg/dL Total Bilirubin (0.15-1.2) mg/dL AST (0-40) U/L ALT (0-41) U/L Alkaline Phosphata se (40-130) IU/L Troponin T Baselin e 22 H (0-15) ng/L Total Protein (6.6-8.7) g/dL Albumin (3.5-5.2) g/dL Globulin (1.3-4.6) g/dL Lipase (13-60) U/L Urine Color Yellow (Yellow) Urine Appearance Clear (CLEAR) Urine pH 5.0 (5-7) Ur Specific Gravit y 1.015 (1.005-1.030) Urine Protein Neg (Negative) Urine Glucose (UA) Trace H (Normal) Urine Ketones Negative (Negative) Urine Blood Neg (Negative) Urine Nitrate Negative (Negative) Urine Bilirubin Neg (Negative) Urine Urobilinogen Norm (Negative) mg/dL Ur Leukocyte Isela ase Negative (Negative) EKG Data^: EKG 1: Attestation: I personally reviewed and interpreted this EKG as follows: EKG interpretation date: 09/03/20 EKG interpretation time: 23:26 Interpretation: Normal sinus rhythm at 51 beats a minute, right bundle branch block, first-degree AV block, nonspecific ST and T wave changes. EKG 2: Attestation: I personally reviewed and interpreted this EKG as follows: EKG interpretation date: 09/04/20 EKG interpretation time: 00:55 Interpretation: Normal sinus rhythm at 53 beats a minute, right bundle branch block, non specific ST-T wave changes. Discharge Plan Discharge Patient Disposition: Placed in Observation Clinical Impression: Chest pain Condition: Stable Prescriptions: No Action nitroglycerin [Nitrostat] 0.4 mg tablet, sublingual 0.4 mg SUBLINGUAL Q5M PRN (Reason: Chest Pain) RF: 0 (DME) blood-glucose meter [Blood Glucose Monitoring] Kit See Rx Instructions .ROUTE .MEDSUPPLY Qty: 1 RF: 0 (DME) Blood Glucose Test Strip See Rx Instructions .ROUTE .MEDSUPPLY Qty: 10 RF: 0 (DME) OneTouch Ultra Blue Test Strip Strip See Rx Instructions .ROUTE .MEDSUPPLY Qty: 100 RF: 5 buspirone 30 mg tablet 30 mg PO BID Qty: 60 RF: 5 aripiprazole [Abilify] 10 mg tablet 10 mg PO DAILY Qty: 30 RF: 4 cefdinir 300 mg capsule 300 mg PO BID 10 Days Qty: 20 RF: 0 atenolol 25 mg tablet See Rx Instructions .ROUTE .COMPLEX Qty: 30 RF: 2 famotidine 20 mg tablet See Rx Instructions .ROUTE .COMPLEX Qty: 60 RF: 2 Victoza 3-Ata 0.6 mg/0.1 mL (18 mg/3 mL) pen injector See Rx Instructions .ROUTE .COMPLEX Qty: 9 RF: 2 losartan 50 mg tablet 50 mg PO BID Qty: 120 RF: 2 meloxicam 7.5 mg tablet See Rx Instructions .ROUTE .COMPLEX Qty: 30 RF: 2 metformin 500 mg tablet extended release 24 hr See Rx Instructions .ROUTE .COMPLEX Qty: 60 RF: 2 pantoprazole 40 mg tablet,delayed release (DR/EC) 40 mg PO DAILY Qty: 30 RF: 2 sertraline 50 mg tablet See Rx Instructions .ROUTE .COMPLEX Qty: 30 RF: 2 sertraline 100 mg tablet See Rx Instructions .ROUTE .COMPLEX Qty: 30 RF: 2 simvastatin 40 mg tablet See Rx Instructions .ROUTE .COMPLEX Qty: 30 RF: 2 trazodone 50 mg tablet See Rx Instructions .ROUTE .COMPLEX Qty: 30 RF: 2 loperamide [Imodium A-D] 2 mg capsule 2 mg PO QID PRN (Reason: loose stool) Qty: 20 RF: 0 (DME) lancets [OneTouch Delica Lancets] 30 gauge misc See Rx Instructions .ROUTE .MEDSUPPLY Qty: 100 RF: 2 Levemir FlexTouch U-100 Insuln 100 unit/mL (3 mL) insulin pen See Rx Instructions .ROUTE .COMPLEX Qty: 15 RF: 2 meclizine 25 mg tablet 25 mg .ROUTE BID PRN (Reason: dizziness) 15 Days Qty: 30 RF: 0 Referrals: Laura John MD [Primary Care Provider] - Coding Level of Care Code ED Registered Nurse for Chg Fwd Exam Comprehensive
--- NOTE | 2020-09-03 23:53 | PC.NURSE ---
Received report from KASIE Lucas. Pt in CT Assume care
[2020-09-03 23:55] VITALS: BP 106/57
[2020-09-04] VITALS (85 sets, daily range): BP systolic 81–144; BP diastolic 49–77; PULSE 46–67; RESP 10–27; TEMP 36.6–37.2; O2SAT 88–98
--- NOTE | 2020-09-04 00:11 | PC.NURSE ---
pt return from CT. stated he had pain in chest /, SOA, no N/V
[2020-09-04] MEDS: ondansetron 2 mg/ML SDV 2 mL 4 MG IVP (00:16)
[2020-09-04] MEDS: morphine 4 mg/mL SDV 1 mL IVP (00:16)
--- NOTE | 2020-09-04 00:36 | PC.NURSE ---
lab drawn and sent from [facility], per protocol.
[2020-09-04 00:39] LABS: Add Urine Microscopic? NO
[2020-09-04 00:43] LABS: Basophils % 0.3 %; Eosinophils # 0.1 10^3/uL (0.0-0.8); Eosinophils % 0.4 %; Hematocrit 44.6 % (42.0-52.0); Hemoglobin 14.5 g/dL (11.7-16.6); Lymphocytes # 1.4 10^3/uL (0.8-4.8); Lymphocytes % 12.3 %; Mean Corpuscular HGB Conc 32.5 g/dL (30.0-36.0); Mean Corpuscular Hemoglobin 28.9 pg (28.0-34.0); Mean Platelet Volume 9.7 fL (7.4-10.4); Monocytes # 0.7 10^3/uL (0.2-0.9); Monocytes % 6.3 %; Neutrophils # 9.07 10^3/uL (1.8-7.7); Neutrophils % 80.3 %; Nucleated Red Blood Cells % 0 %; Platelet Count 151 10^3/cmm (130-400); Red Blood Count 5.01 10^6/uL (4.1-5.3); Red Cell Distribution Width 12.7 % (12.1-15.1); White Blood Count 11.3 10^3/uL (4.0-10.0)
--- NOTE | 2020-09-04 01:09 | ECG_ITS ---
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 Measurements Intervals [place] Rate: 53 P: 61 UT: 224 QRS: 63 QRSD: 143 T: 42 QT: 455 QTc: 428 Interpretive Statements SINUS BRADYCARDIA WITH FIRST DEGREE AV BLOCK RIGHT BUNDLE BRANCH BLOCK [120+ ms QRS DURATION, UPRIGHT V1, 40+ ms S IN I/aVL/V4/V5/V6] Compared to ECG 09/03/2020 23:26:38 No significant changes Electronically Signed On 09-04-2020 19:24:47 CLINICAL SUPPORT SPECIALIST by Angel Orta M.D. [id number]
[2020-09-04 01:11] LABS: Specific Gravity, Urine 1.015 (1.005-1.030); Urine Appearance Clear (CLEAR); Urine Color Yellow (Yellow)
[2020-09-04 01:12] LABS: Bilirubin Urine Neg (Negative); Blood Urine Neg (Negative); Glucose Urine UA Trace (Normal); Ketones Urine Negative (Negative); Leukocyte Esterase Urine Negative (Negative); Nitrate Urine Negative (Negative); Protein Urine Neg (Negative); Urobilinogen Urine Norm (Negative)
[2020-09-04 01:14] LABS: Alanine Aminotransferase 33 U/L (0-41); Albumin Level 3.8 g/dL (3.5-5.2); Alkaline Phosphatase 83 IU/L (40-130); Anion Gap 12.2 (5-19); Aspartate Amino Transferase 16 U/L (0-40); Blood Urea Nitrogen 31 mg/dL (8-23); Calcium 9.1 mg/dL (8.5-10.5); Carbon Dioxide 27 mmol/L (22-29); Chloride 101 mmol/L (98-107); Globulin 1.8 g/dL (1.3-4.6); Glucose 178 mg/dL (65-115); Lipase 34 U/L (13-60); Magnesium 1.9 mg/dL (1.7-2.3); Osmolality Calculated 293 mOsm/kg (285-295); Potassium 4.2 mmol/L (3.5-5.1); Sodium 136 mmol/L (136-145); Total Bilirubin 0.3 mg/dL (0.15-1.2); Total Protein 5.6 g/dL (6.6-8.7)
[2020-09-04 01:16] LABS: Troponin(5th) Baseline 22 ng/L (0-15)
--- NOTE | 2020-09-04 01:48 | PC.NURSE ---
waiting on results
--- NOTE | 2020-09-04 02:23 | PM.HP ---
Providers/Chief Complaint Primary Care Provider: Laura John MD Chief Complaint: CP History of Present Illness Christ Garza is a 75 year old male who does not carry significant cardiac history came in today with chief complaint of chest pain. Patient is stating that today chest discomfort woke him up while he was in his bed, he went to the kitchen took 1 dose of sublingual nitroglycerin, shortly after taking nitroglycerin he experienced syncopal event. EMS was called, he was hypotensive, bradycardic, he was managed conservatively. Patient is describing chest discomfort as pressure-like sensation, 5-6/10 intensity, nonradiating, not associated with vomiting however he is endorsing nausea and diaphoresis. Denies previous history of [place] CHF coronary disease/CABG. He smokes 2 to 3 cigarettes occasionally, does not drink alcohol. Chest pain subsided after taking sublingual nitroglycerin. Diagnosis in the ER revealed soft blood pressure, bradycardia, new right bundle branch block, I have requested D-dimer and TSH, hold atenolol, EKG is showing new right bundle branch block, sinus bradycardia, at the time my evaluation patient is not complaining of active chest pain, he was asleep when I entered the room, patient is stating that nitroglycerin really helped to relieve his chest discomfort. Troponin not significantly high, TSH 1.5, D-dimer 0.6 Review of Systems Const: Reports: fatigue; Denies: fever(s) Eyes: Denies: change in vision ENMT: Denies: throat pain Card: Reports: chest pain and syncope; Denies: irregular heart rhythm or dyspnea on exertion Resp: Denies: dyspnea GI: Denies: abdominal pain : Denies: flank pain Musc: Denies: neck pain Skin/Breast: Denies: rash Neuro: Denies: headache(s) Psych: Denies: anxiety Endo: Denies: polyuria Travis/Lymph: Denies: easy bruising All/Imm: Denies: urticaria Medications/Allergies Home Medications Medication Instructions Recorded Confirmed Last Taken Type blood sugar diagnostic #10 each 10/21/19 07/24/20 Unknown History blood-glucose meter #1 each 10/21/19 07/24/20 Unknown History nitroglycerin 0.4 mg sublingual 0.4 mg SUBLINGUAL Q5M PRN 10/21/19 07/24/20 Unknown History tablet lancets 30 gauge #100 each 04/24/20 09/29/20 Unknown Rx loperamide 2 mg capsule 2 mg PO QID PRN #20 cap 06/09/20 07/24/20 Unknown Rx aripiprazole 10 mg tablet 10 mg PO DAILY #30 tab 06/18/20 07/24/20 Unknown Rx blood sugar diagnostic #100 each 06/18/20 07/24/20 Unknown Rx buspirone 30 mg tablet 30 mg PO BID #60 tab 06/18/20 07/24/20 Unknown Rx cefdinir 300 mg capsule 300 mg PO BID 10 Days #20 cap 07/16/20 07/24/20 Unknown Rx atenolol 25 mg tablet See Rx Instructions .ROUTE 07/24/20 07/24/20 Unknown Rx .COMPLEX #30 tab famotidine 20 mg tablet See Rx Instructions .ROUTE 07/24/20 07/24/20 Unknown Rx .COMPLEX #60 tab liraglutide 0.6 mg/0.1 mL (18 mg/3 See Rx Instructions .ROUTE 07/24/20 07/24/20 Unknown Rx mL) subcutaneous pen injector .COMPLEX #9 ml losartan 50 mg tablet 50 mg PO BID #120 tab 07/24/20 07/24/20 Unknown Rx meloxicam 7.5 mg tablet See Rx Instructions .ROUTE 07/24/20 07/24/20 Unknown Rx .COMPLEX #30 tab metformin 500 mg tablet,extended See Rx Instructions .ROUTE 07/24/20 07/24/20 Unknown Rx release 24 hr .COMPLEX #60 tab pantoprazole 40 mg tablet,delayed 40 mg PO DAILY #30 tab 07/24/20 07/24/20 Unknown Rx release sertraline 100 mg tablet See Rx Instructions .ROUTE 07/24/20 07/24/20 Unknown Rx .COMPLEX #30 tab sertraline 50 mg tablet See Rx Instructions .ROUTE 07/24/20 07/24/20 Unknown Rx .COMPLEX #30 tab simvastatin 40 mg tablet See Rx Instructions .ROUTE 07/24/20 07/24/20 Unknown Rx .COMPLEX #30 tab trazodone 50 mg tablet See Rx Instructions .ROUTE 07/24/20 07/24/20 Unknown Rx .COMPLEX #30 tab insulin detemir U-100 100 unit/mL See Rx Instructions .ROUTE 07/26/20 Unknown Rx (3 mL) subcutaneous pen .COMPLEX #15 ml meclizine 25 mg tablet 25 mg .ROUTE BID PRN 15 Days #30 08/03/20 Unknown Rx tab Allergies Allergy/AdvReac Type Severity Reaction Status Date / Time No Known Allergies Allergy Verified 07/24/20 11:26 PFSH Acute PFSH: Medical History (Updated 09/04/20 @ 03:22 by Maria De Jesus Hyde MD) Bipolar 2 disorder Controlled diabetes mellitus with hyperglycemia, with long-term current use of insulin Decreased hearing of right ear Hyperlipidemia Hypertension Surgical History H/O colonoscopy 12/29/19: transverse colon polyp, poor prep, sigmoid diverticulosis History of back surgery History of hand surgery due to injury and needed reattachment History of shoulder surgery Hx of cholecystectomy Family History Other Diabetes Hypertension Denies family history of Anesthesia complication Bleeding disorder Social History Smoking and tobacco status: current some day smoker Alcohol intake: never Caregiver/support person: No Lives independently: Yes Household members: none Housing: Apartment Marital status: Single Number of children: 3 Current occupational status: retired History of recent travel: No Current gender identity: Male Vitals/I&O/Wt Last Vital Signs Temp 98.3 F 09/03/20 23:18 Pulse 52 L 09/04/20 01:45 Resp 17 09/04/20 01:45 BP 125/69 09/04/20 01:45 Pulse Ox 95 09/04/20 01:45 Weight last 48 hrs Weight 90.718 kg Physical Exam Narrative: EXAM NARRATIVE: Elderly male Very pleasant Saturating well on room air No active chest discomfort Patient was asleep when I entered the room Soft systolic blood pressure 99-100, heart rate in low 50s Patient is able to protect airways, awake alert oriented x3 GCS 15 EOMI, PERRLA S1, S2 sinus bradycardia, no sign of heart failure Abdomen soft distended bowel sound present nontender Lower extremity no edema gangrene or ulcer Appropriate mood and affect No active respiratory distress Data : 09/03/20 00:30 09/03/20 00:30 A&P Assessment and plan (1) Unstable angina: Unstable angina, typical chest pain substernal lasting more than 30 minutes relieved with nitroglycerin, Has multiple risk factors for coronary disease such as hypertension, diabetes, dyslipidemia, age, smoker, Considering moderate risk factors for cardiac disease I would proceed with Lexiscan stress test and echo Patient is currently chest pain-free, Status: Acute (2) New onset right bundle branch block (RBBB): New onset right bundle branch block, D-dimer not significantly high I would not order CTA chest at this point Status: Acute (3) Sinus bradycardia: Hold atenolol Right bundle branch block, sinus bradycardia, check TSH Syncopal event most likely secondary to nitroglycerin use, closely monitor overnight on telemetry monitored floor No arrhythmia noted on EKG Status: Acute Additional A&P Information Cardiac diet/consistent carb DVT prophylaxis Lovenox Full code Type 2 diabetes continue long-acting insulin, repeat A1c level last A1c 9 Attestations Medical Necessity Statement*: Anticipating discharge in less than 48 hours continue Lexiscan stress test rule out coronary ischemia for his symptoms of chest discomfort, bradycardia & syncopal Time Spent in Patient Care: (>than 50% of time spent in counselling and/or direct pt care on unit). 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
[2020-09-04] MEDS: acetaminophen 500 mg Tablet 1000 MG PO (02:41)
[2020-09-04 02:52] LABS: D Dimer 0.67 ug/mIFEU (0-0.59)
[2020-09-04 03:03] LABS: Thyroid Stimulating Hormone 1.59 uIU/mL (0.27-4.20)
[2020-09-04 03:44] LABS: Troponin 5 2HR 19.81 ng/L (0-15)
--- NOTE | 2020-09-04 05:09 | ECG_ITS ---
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 Measurements Intervals [place] Rate: 49 P: [place]: -1 QRS: 76 QRSD: 156 T: 32 QT: 452 QTc: 409 Interpretive Statements IDIOVENTRICULAR RHYTHM CRITICAL TEST RESULT Compared to ECG 09/04/2020 00:55:27 Idioventricular rhythm now present Sinus bradycardia no longer present First degree AV block no longer present Right bundle-branch block no longer present Electronically Signed On 09-04-2020 19:25:14 SOFTWARE APPLICATIONS DEVELOPER by Angle Orta M.D. [id number]
--- NOTE | 2020-09-04 06:17 | PC.NURSE ---
Pt resting with eyes closed. pt aware of admission.
--- NOTE | 2020-09-04 07:02 | PC.NURSE ---
Report to KASIE Sandoval
--- NOTE | 2020-09-04 17:22 | P.PN_ITS ---
Subjective Subjective: Interval history: no acute evnets , no chest pain, stres test tomorrow Medications: Reviewed: Yes Vitals/I&O/Wt Last Vital Signs Temp 98.7 F 09/04/20 10:55 Pulse 60 09/04/20 10:55 Resp 18 09/04/20 10:55 BP 97/57 09/04/20 10:55 Pulse Ox 95 09/04/20 10:55 Weight last 48 hrs Weight 90.718 kg Physical Exam Narrative: EXAM NARRATIVE: GEN: Awake, alert and oriented, no acute distress CVS: S1S2 N RS: CTA B/L Abd: Soft, nt/nd , bs+ FINANCIAL COST ANALYST: no focal neuro deficits Data : 09/03/20 00:30 09/03/20 00:30 A&P Assessment and plan (1) Unstable angina: Unstable angina, typical chest pain substernal lasting more than 30 minutes relieved with nitroglycerin, Has multiple risk factors for coronary disease such as hypertension, diabetes, dyslipidemia, age, smoker, Considering moderate risk factors for cardiac disease I would proceed with Rigoberto iscan stress test and echo Patient is currently chest pain-free, Status: Acute (2) New onset right bundle branch block (RBBB): New onset right bundle branch block, D-dimer not significantly high I would not order CTA chest at this point Status: Acute (3) Sinus bradycardia: Hold atenolol Right bundle branch block, sinus bradycardia, check TSH Syncopal event most likely secondary to nitroglycerin use, closely monitor overnight on telemetry monitored floor No arrhythmia noted on EKG Status: Acute Additional A&P Information Cardiac diet/consistent carb DVT prophylaxis Lovenox Full code Type 2 diabetes continue long-acting insulin, repeat A1c level last A1c 9 Attestations Medical Necessity Statement*: stresstest tomorrow Coding Level of Care Code Acute Geological E Logger for Chg Fwd Diagnoses Unstable angina I20.0 New onset right bundle branch block (RBBB) I45.10 Sinus bradycardia R00.1
[2020-09-04] MEDS: enoxaparin 40 mg/0.4 mL Syringe SUBCUT (18:42)
[2020-09-04] MEDS: pantoprazole DR 40 mg Tablet PO (18:42)
[2020-09-04 18:48] LABS: Glucose Point of Care 251 mg/dL (70-110)
[2020-09-04] MEDS: insulin glargine 100 units/1 mL 25 UNIT SUBCUT (20:41)
[2020-09-04 21:53] LABS: Glucose Point of Care 284 mg/dL (70-110)
[2020-09-04] MEDS: atorvastatin 40 mg Tablet 20 MG PO (22:24)
[2020-09-05] VITALS: BP 142/71; PULSE 60; RESP 16; TEMP 36.6; O2SAT 95
[2020-09-05 04:00] VITALS: BP 119/57; PULSE 70; RESP 18; TEMP 37.1; O2SAT 93
--- NOTE | 2020-09-05 06:00 | ECG_ITS ---
[facility] Test Date: 2020-09-05 Pat Name: Christ Garza Department: Room: 254 Gender: Male Hand Inspector: Angeles Clark : 1945 Requested By: Maria De Jesus Hyde Order Number: [id number] Rebecca MD: Angle Orta M.D. Interpretive Statements NAME OF STUDY: LEXISCAN SESTAMIBI STRESS TEST INDICATION: Chest Pain, PROCEDURE: At the baseline, the EKG revealed normal sinus rhythm with right bundle branch block pattern. The baseline blood pressure was 144/71 mm Hg with a heart rate of 64 beats/min. Lexiscan was infused over a period of 20 seconds. A total of 0.4 milligrams of Lexiscan was infused. The stress phase was continued for a total of 5 minutes. Heart rate at the end of the stress phase was 88 with a blood pressure 173/65. The EKG at the peak infusion revealed no significant changes. Sestamibi was injected 20 seconds after the Lexiscan infusion. Blood pressure at the end of the recovery phase was 174/63 with a heart rate of 87 per minute. CONCLUSION: 1. No significant EKG changes with the LexiScan infusion 2. No LexiScan induced chest pain or cardiac arrhythmia 3. Normal blood pressure and heart rate response 4. Sestamibi/sestamibi perfusion scan pending; see separate report. Electronically Signed On 09-05-2020 19:11:36 DRAFTER CARTOGRAPHIC by Angle Orta M.D. [id number]
[2020-09-05 06:55] LABS: Glucose Point of Care 203 mg/dL (70-110)
[2020-09-05 07:48] VITALS: BP 132/70; PULSE 67; RESP 18; TEMP 36.9; O2SAT 94
[2020-09-05 10:40] LABS: Glucose Point of Care 178 mg/dL (70-110)
[2020-09-05 11:09] LABS: Glucose Point of Care 182 mg/dL (70-110)
[2020-09-05 12:50] VITALS: BP 173/75; PULSE 85
[2020-09-05] MEDS: regadenoson 0.4 Mg/5 ml Syringe IVP (12:50)
--- NOTE | 2020-09-05 13:13 | PC.CHAP ---
Pastoral Care Encounter/Spiritual Assessment Type of Contact [] Declined gallery or museum technician visit [] Patient/Family/Request visit [] Outpatient visit [] Follow-up visit [] Physician referral [] Code/Alert [xx] Routine visit [] Staff referral [] Actively dying [] Patient sleeping [] Family support [] [xx] Out of room [] Palliative care [] [] Receiving care in room [] Pre-surgical visit [] Trauma [] Long length of stay [] ICU visit [] Other: Relational/Emotional Strength [] Patient feels connected with others/family/visitors/staff [] Distress [] Loneliness/isolation [] Abandonment Spirituality of Patient [] Person of Claudia [] Attends Shinto of their Claudia [] Believes in Prayer [] Reads Bible or Episcopalian materials [] There are Spiritual issues to be addressed Scraper Operator Interventions [] Prayer [] Active listening [] Non-anxious presence [] Spiritual/emotional support [] Crisis/trauma care [] Spiritual counseling [] Bereavement support [] Provided bereavement packet [] Provided Bible/devotional materials [] Provided toy/stuffed animal, coloring book to patient or family member [] Provided Communion [] Anointing/[place] [] Salvation [] Completed spiritual assessment [] Other: Impact on Illness or Injury [] Angry [] Fearful [] Anxious [] Often cries [] Exhaustion [] Unable to work [] Unable to attend baptist [] Unable to walk/stand [] Unable to read [] Unable to drive [] Unable to eat/drink [] Unable to sleep [] Unable to be with family [] Patient intubated [] Other: Summary Scraper Operator visit attempted but patient was out of room for tests. Follow up needed. Time spent with patient 2 minutes
[2020-09-05 15:07] VITALS: BP 119/55; PULSE 85; RESP 18; TEMP 36.9; O2SAT 92
[2020-09-05 16:54] LABS: Glucose Point of Care 314 mg/dL (70-110)
--- NOTE | 2020-09-05 17:11 | PC.RESP ---
Smoking Cessation information sent to patient.
[2020-09-05] MEDS: enoxaparin 40 mg/0.4 mL Syringe SUBCUT (17:34)
--- NOTE | 2020-09-05 18:20 | PC.NURSE ---
SHIFT SUMMARY PATIENT HAS DONE WELL TODAY. AMBULATING WELL. RONEN THIS AM. DR. CONTRERAS WOULD LIKE TO KEEP PATIENT OVERNIGHT TO MONITOR. PATIENT HAD A 4 SECOND PAUSE IN HIS HEART RHYTHM AT 1130 THIS AM. PATIENT MADE AWARE. CONTINUE TO MONITOR.
--- NOTE | 2020-09-05 18:22 | P.PN_ITS ---
Subjective Subjective: Interval history: He says he is doing well. Denies any chest pain or pressure. Denies any shortness of breath. Denies any lightheadedness or presyncopal symptoms. Vitals/I&O/Wt Last Vital Signs Temp 98.4 F 09/05/20 15:07 Pulse 85 09/05/20 15:07 Resp 18 09/05/20 15:07 BP 119/55 09/05/20 15:07 Pulse Ox 92 09/05/20 15:07 09/05/20 09/05/20 09/05/20 06:59 14:59 22:59 Intake Total 240 / 240 Output Total 1100 / 1600 440 / 440 375 / 815 Balance -1100 / -1600 -440 / -440 -135 / -575 Weight last 48 hrs Weight 90.718 kg Physical Exam Const: COMMON NORMALS: no acute distress, patient oriented x3 and alert GENERAL APPEARANCE: cooperative and comfortable ORIENTATION/CONSCIOUSNESS: Yes awake OTHER: Pleasant elderly gentleman. HENMT: COMMON NORMALS: oropharynx normal OTHER: Well-healing shallow abrasion on the right forehead. Neck/C-Spine: COMMON NORMALS: no JVD Resp: COMMON NORMALS: normal respiratory effort and clear to auscultation bilaterally AUSCULTATION: clear to auscultation bilaterally Cardio: COMMON NORMALS: no JVD, regular rhythm, S1 normal heart sound present, S2 normal heart sound present and No murmurs present (Cardio) RHYTHM: regular rhythm HEART SOUNDS: S1 normal heart sound present and S2 normal heart sound present GI: COMMON NORMALS: Normal to inspection, nondistended, normoactive bowel s ounds present, Soft to palpation and non-tender PALPATION: Yes Soft to palpation Extremity: COMMON NORMALS: no joint enlargement and no pedal edema Neuro: COMMON NORMALS: patient oriented x3 and moves all extremities SENSORIUM/ORIENTATION: Yes alert Skin: COMMON NORMALS: no rashes or lesions noted GENERAL SKIN EXAM: no rashes or lesions noted Data : 09/03/20 00:30 09/03/20 00:30 A&P Assessment and plan (1) Sinus bradycardia: Atenolol had not been restarted. Heart rate is otherwise better, however, this morning at 1126 noted to have 4.15-second pause. Deferred discharge at this time. Discussed with cardiology. Will monitor additionally on telemetry. Will be assessed in consultation. TSH is normal. Magnesium, potassium normal. No chest pain. Stress test not suggestive of acute ischemia. Status: Acute (2) Unstable angina: Chest pain-free. No suggestion of acute ischemia on stress test currently. Myocardial perfusion imaging revealing moderate area of persistent decreased uptake in the inferior, inferoseptal and inferolateral regions suggestive of myocardial scarring versus attenuation artifacts. After discharge continue to optimize multiple risk factors for coronary disease such as hypertension, diabetes, dyslipidemia, age, smoking Status: Acute (3) New onset right bundle branch block (RBBB): New onset right bundle branch block, D-dimer not significantly high enough to order CTA chest at this point Status: Acute Additional A&P Information Cardiac diet/consistent carb DVT prophylaxis Lovenox Full code Type 2 diabetes continue long-acting insulin, repeat A1c level last A1c 9 Attestations Medical Necessity Statement*: Continued hospitalization is needed for additional monitoring due to prolonged pauses on telemetry, cardiology assessm ent due to this after syncopal event. 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
--- NOTE | 2020-09-05 18:24 | USCV_ITS ---
Christ Garza Age: 75 Gender: M : 1945 Exam Date: 09/05/2020 05:17 Ordering Phys: Maria De Jesus Hyde MD Technologist: Teetee Abarca [place] [facility] [place]: SY[place] BP: 142 / 71 HR: 63 Rhythm: Sinus Technical Quality: Adequate MEASUREMENTS (Male / Female) Normal Values 2D ECHO LV Diastolic Diameter PLAX 3.0 cm 4.2 - 5.9 / 3.9 - 5.3 cm LV Systolic Diameter PLAX 2.3 cm LV Chamber Size 3.3 cm IVS Diastolic Thickness 1.5 cm 0.6 - 1.0 / 0.6 - 0.9 cm IVS Systolic Thickness 1.8 cm LVPW Diastolic Thickness 2.2 cm 0.6 - 1.0 / 0.6 - 0.9 cm LVPW Systolic Thickness 2.5 cm RV Chamber Size 3.1 cm LVOT Diameter 2.1 cm LV Ejection Fraction 2D Teich 49.7 % LV Ejection Fraction MOD 2C 53.6 % LV Ejection Fraction 2C AL 52.3 % LA Diameter 3.6 cm LA Width 2.6 cm LA Height 5.4 cm RA Width 3.6 cm RA Height 4.5 cm Aorta at Sinotubular Diameter 2.7 cm M-MODE LV Diastolic Diameter MM 4.7 cm 4.2 - 5.9 / 3.9 - 5.3 cm LV Systolic Diameter MM 2.2 cm LV Ejection Fraction MM Teich 84.9 % IVS Diastolic Thickness MM 1.1 cm 0.6 - 1.0 / 0.6 - 0.9 cm IVS Systolic Thickness MM 1.4 cm LVPW Diastolic Thickness MM 1.1 cm 0.6 - 1.0 / 0.6 - 0.9 cm LVPW Systolic Thickness MM 1.6 cm Aortic Annulus Diameter 3.2 cm LA Ao Ratio MM 1.4 MV E Point Septal Separation 0.6 cm DOPPLER AV Peak Velocity 156.0 cm/s LVOT Peak Velocity 104.0 cm/s AV Area Cont Eq vti 2.1 cm squared AV Area Cont Eq pk 2.2 cm squared MV Area PHT 3.0 cm squared Mitral E to A Ratio 0.8 MV E' Velocity 45.5 cm/s Mitral E to MV E' Ratio 9.3 Mitral E to LV E' Lateral Ratio 9.7 Mitral E to LV E' Septal Ratio 9.0 TR Peak Velocity 128.0 cm/s TR Peak Gradient 6.6 mmHg TV Peak E Velocity 67.0 cm/s Right Atrial Pressure 3.0 mmHg Pulmonary Artery Systolic Pressu 9.6 mmHg PV Peak Velocity 78.0 cm/s RV Acceleration Time 0.2 s RV Ejection Time 0.4 s RV AcT/ET 0.4 FINDINGS Left Ventricle Normal left ventricular cavity size. Normal left ventricular systolic function. No regional wall motion abnormalities. Left ventricular ejection fraction is estimated at 65 %. Grade I/IV diastolic dysfunction (abnormal relaxation filling pattern), normal to mildly elevated filling pressures. Right Ventricle The right ventricle is normal in size and function. Right Atrium The right atrium is normal in size. Left Atrium The left atrium is normal in size. Mitral Valve Structurally normal mitral valve without significant stenosis or prolapse. There is no mitral regurgitation. Aortic Valve Structurally normal aortic valve without significant sclerosis or stenosis. There is no aortic regurgitation. Tricuspid Valve Structurally normal tricuspid valve without significant stenosis or regurgitation. Pulmonary artery systolic pressure is normal. Pulmonic Valve Structurally normal pulmonic valve without significant stenosis. There is no pulmonic regurgitation. Pericardium Normal pericardium without effusion. Aorta Normal ascending aorta dimension. CONCLUSIONS 1-Normal left ventricular cavity size. Normal left ventricular systolic function. No regional wall motion abnormalities. Left ventricular ejection fraction is estimated at 65 %. Grade I/IV diastolic dysfunction (abnormal relaxation filling pattern), normal to mildly elevated filling pressures. 2-There is no pericardial effusion. 3-No significant valve abnormalities. 4-Pulmonary artery systolic pressure is within normal limits. 5-Right atrial pressure is around 5 mm of mercury. 6-No significant change since the prior echocardiogram study of 03/09/2018. Maria De Jesus Willoughby MD (Electronically Signed) Final Date: 05 September 2020 18:48 S
--- NOTE | 2020-09-05 18:24 | NMCV_ITS ---
NM lilly perf SPECT r/s* [id number] Christ Garza Age: 75 Gender: M : 1945 Exam Date: 09/05/2020 11:43 Ordering Phys: Maria De Jesus Hyde MD Technologist: TAYLA Cevallos Exam Location: [facility] Indications: CHEST PAIN STRESS TEST Please see separate stress test report in [facility] for full findings IMAGE PROTOCOL Rest/Stress 1 Lexiscan Day Radiopharmaceutical Dose (mCi) Administration Site Administered by Rest: Tc-99m 11.0 IV TAYLA Cevallos Sestamibi Stress:Tc-99m 32.5 IV TAYLA Ribeiro Sestamibi Rest: 05-Sep-2020 60 Discovery 630 Stress: 05-Sep-2020 30 Discovery 630 0.4mg Lexiscan. Images obtained in supine and prone position. SPECT RESULTS Technical Quality: Excellent Raw Data Analysis: Normal Image Corrections: No attenuation or motion correction applied Summed Stress Score: 8 Summed Rest Score: 7 Summed Difference Score: 1 PERFUSION FINDINGS Moderate area of decreased tracer uptake was noted in the basal, mid and apical inferior, basal inferolateral and mid inferoseptal regions. No significant reversibility was noted in these regions. FUNCTIONAL RESULTS (calculated via Gated SPECT) Stress Image LV EF (%): 68 Stress EDV (mL):90 TID: 1 Stress ESV (mL):29 FUNCTIONAL FINDINGS: Segmental wall motion analysis revealing no gross wall motion normalities. IMPRESSIONS 1. Myocardial perfusion imaging revealing moderate area of persistent decreased uptake in the inferior, inferoseptal and inferolateral regions suggestive of myocardial scarring versus attenuation artifacts. 2. Normal LV ejection fraction of 68%. 3. LV wall motion analysis revealing no gross wall motion normalities 4. Normal LV volume No significant coronary ischemia, based on the above findings Dr Angle Orta MD FACC (Electronically Signed) Final Date: 05 September 2020 16:28 S
[2020-09-05 20:00] VITALS: BP 153/80; PULSE 72; RESP 17; TEMP 36.7; O2SAT 94
--- NOTE | 2020-09-05 20:26 | PM.CONSULT ---
Providers/Reason For Consult Consulting Physican/Specialty*: Cardiology Reason for Consult*: Syncope with symptomatic bradycardia Attending Physician: Laisha Nino MD Primary Care Provider: Laura John MD History of Present Illness History of Present Illness Christ Garza is a 75 year old male past medical history significant for hypertension hyperlipidemia diabetes mellitus hypertension on atenolol presented with syncope. According to the patient he got off from his bed may be too quickly while walking towards washroom he fell but regained conscious within few seconds it is the reason he was brought to the emergency room. Patient was ruled out for acute coronary syndrome and electrolyte imbalance however on telemetry he was noted to have 4.1-second pause while awake patient did not report significant dizziness. Please note that atenolol was not on board at that time last dose was given 12-hour before. During my interview patient denies any prior history of bradycardia shortness of breath dizziness presyncope or syncope while sitting he admits to occasional lightheadedness while standing up from a sitting position. He denies chest pain PND orthopnea. Echocardiogram was also normal without any significant valvular or structural abnormality. Review of Systems Const: Reports: fatigue; Denies: fever(s), chills, body aches, malaise or diaphoresis Eyes: Denies: change in vision, blurry vision, photophobia, eye discomfort, eye discharge, eye redness or yellow eyes ENMT: Denies: throat pain, odynophagia, hoarseness, swelling of lips/tongue, ear or mastoid pain, ear discharge, change in hearing or nasal discharge Card: Reports: chest pain and syncope; Denies: palpitations, irregular heart rhythm, edema, lightheadedness, pre-syncope, dyspnea on exertion or orthopnea Resp: Denies: dyspnea, productive cough, non-productive cough, wheezing, hemoptysis or chest congestion GI: Denies: abdominal pain, nausea, vomiting, hematemesis, coffee ground emesis, heartburn, diarrhea, constipation, GI cramping, hematochezia or melena : Denies: flank pain, dysuria, urinary frequency, urinary urgency or hematuria Musc: Denies: neck pain, back pain, extremity pain, extremity swelling, joint pain, joint swelling, joint redness, joint warmth or joint stiffness Skin/Breast: Denies: rash, pruritus, erythema, skin pain or skin tenderness Neuro: Denies: headache(s), numbness in extremities, weakness in extremities, sensory changes, lack of coordination, difficulty walking, dizziness, vertigo, confusion, Slurred speech present or seizure-like activity Psych: Denies: anxiety Endo: Denies: polyuria Travis/Lymph: Denies: easy bruising, easy bleeding, petechiae, purpura or enlarged lymph nodes All/Imm: Denies: urticaria, throat swelling, tongue swelling, facial swelling or acute wheezing Meds/Allergies Home Medications and Allergies Home Medications Medication Instructions Recorded Confirmed Last Taken Type nitroglycerin 0.4 mg sublingual 0.4 mg SUBLINGUAL Q5M PRN 10/21/19 09/04/20 Unknown History tablet aripiprazole 10 mg tablet 10 mg PO DAILY #30 tab 06/18/20 09/04/20 Unknown Rx buspirone 30 mg tablet 30 mg PO BID #60 tab 06/18/20 09/04/20 Unknown Rx liraglutide 0.6 mg/0.1 mL (18 mg/3 See Rx Instructions .ROUTE 07/24/20 09/04/20 Unknown Rx mL) subcutaneous pen injector .COMPLEX #9 ml losartan 50 mg tablet 50 mg PO BID #120 tab 07/24/20 09/04/20 Unknown Rx pantoprazole 40 mg tablet,delayed 40 mg PO DAILY #30 tab 07/24/20 09/04/20 Unknown Rx release acetaminophen [Tylenol Extra 1,000 mg PO PRN 09/04/20 09/04/20 Unknown History Strength] albuterol sulfate 2.5 mg INHALATION QID PRN 09/04/20 09/04/20 Unknown History atenolol 25 mg PO DAILY 09/04/20 09/04/20 Unknown History famotidine 20 mg PO BID 09/04/20 09/04/20 Unknown History insulin aspart U-100 [Novolog See Rx Instructions .ROUTE .COMPLEX 09/04/20 09/04/20 Unknown History Flexpen U-100 Insulin] insulin detemir U-100 [Levemir 30 unit SUBCUT BID 09/04/20 09/04/20 Unknown History FlexTouch U-100 Insuln] meclizine 25 mg PO BID PRN 09/04/20 09/04/20 Unknown History meloxicam 7.5 mg PO DAILY 09/04/20 09/04/20 Unknown History metformin 1,000 mg PO DAILY 09/04/20 09/04/20 Unknown History sertraline 50 mg PO DAILY 09/04/20 09/04/20 Unknown History sertraline 100 mg PO DAILY 09/04/20 09/04/20 Unknown History simvastatin 40 mg PO DAILY 09/04/20 09/04/20 Unknown History trazodone 50 mg PO BEDTIME 09/04/20 09/04/20 Unknown History Allergies Allergy/AdvReac Type Severity Reaction Status Date / Time No Known Allergies Allergy Verified 09/04/20 10:22 Current Medications Current Medications Generic Name Dose Route Start Last Admin Trade Name Freq PRN Reason Stop Dose Admin Atorvastatin Calcium 20 mg 09/04/20 21:00 09/04/20 22:24 Atorvastatin 40 Mg Tablet PO 20 mg BEDTIME CALVIN Administration Enoxaparin Sodium 40 mg 09/04/20 19:00 09/05/20 17:34 Enoxaparin 40 Mg/0.4 Ml Syringe SUBCUT 40 mg Q24H CALVIN Administration Insulin Aspart 0 unit 09/04/20 18:24 09/05/20 17:33 Insulin Aspart 100 Unit/1 Ml SUBCUT 10 unit WM&BEDTIME CALVIN Administration Protocol Insulin Glargine 25 unit 09/04/20 19:00 09/04/20 22:15 Insulin Glargine 100 Units/1 Ml SUBCUT Not Given BEDTIME CALVIN Pantoprazole Sodium 40 mg 09/04/20 18:24 09/05/20 07:[address] 40 Mg Tablet PO Not Given DAILY CALVIN Sertraline HCl 150 mg 09/05/20 09:00 09/05/20 10:05 Sertraline 100 Mg Tablet PO Not Given DAILY CALVIN PFSH Acute PFSH: Medical History (Updated 09/05/20 @ 20:59 by Maria De Jesus Willoughby MD) Bipolar 2 disorder Controlled diabetes mellitus with hyperglycemia, with long-term current use of insulin Decreased hearing of right ear Hyperlipidemia Hypertension Uncontrolled diabetes mellitus Surgical History H/O colonoscopy 12/29/19: transverse colon polyp, poor prep, sigmoid diverticulosis History of back surgery History of hand surgery due to injury and needed reattachment History of shoulder surgery Hx of cholecystectomy Family History Other Diabetes Hypertension Denies family history of Anesthesia complication Bleeding disorder Social History Smoking and tobacco status: current some day smoker Alcohol intake: never Caregiver/support person: No Lives independently: Yes Household members: none Housing: Apartment Marital status: Single Number of children: 3 Current occupational status: retired History of recent travel: No Current gender identity: Male Dietary Habits: Current diet type/program: regular Caffeine: Yes Safety: Seatbelt use: always Helmet use: No Drive intoxicated or ride with intoxicated front loader residential driver?: never NHANES Social Connection/Isolation: Are you now , , , , never or living with a partner?: Social isolation score (0-1 are the most socially isolated patients): 0 Vitals/I&O/Wt Last Vital Signs Temp 98.4 F 09/05/20 15:07 Pulse 85 09/05/20 15:07 Resp 18 09/05/20 15:07 BP 119/55 09/05/20 15:07 Pulse Ox 92 09/05/20 15:07 09/05/20 09/05/20 09/05/20 06:59 14:59 22:59 Intake Total 240 / 240 Output Total 1100 / 1600 440 / 440 675 / 1115 Balance -1100 / -1600 -440 / -440 -435 / -875 Weight last 48 hrs Weight 200 lb Physical Exam Narrative: EXAM NARRATIVE: GENERAL: Patient is alert, awake and oriented x3. NECK: No jugular vein distension. HEENT: No cyanosis. No icterus. No pallor. HEART: Regular S1 and S2. No murmur, rub or gallop. LUNGS: Clear to auscultate bilaterally. ABDOMEN: Soft, nontender and nondistended. Positive bowel sounds. No guarding, rebound or tenderness. CENTRAL NERVOUS SYSTEM: Grossly nonfocal. EXTREMITIES: Lower extremities without edema bilaterally. Pulses palpable in the lower extremities, both dorsalis pedis and posterior tibial. A&P Assessment and plan (1) Sinus pause: Patient had syncope at home and noted to have sinus pause more than 4-second on the telemetry while awake. There is no report regarding patient's symptoms. Patient was on atenolol which was discontinued nearly 12 hours before the pause. Since he continues to be in sinus rhythm without any more significant bradycardia or pauses we therefore recommend discontinuing atenolol and watch him for next 12 hours on telemetry. If we do not record any further significant bradycardia or pauses he may will be discharged home on event monitor for 21 days to rule out intermittent heart block. Further plan will be advised as per progress of the patient. Status: Acute (2) Sinus bradycardia: Atenolol was discontinued. Continue to monitor. Status: Acute (3) Syncope: Could be orthostatic however in the face of recent documented 4-second pause cannot rule out intermittent heart block. Atenolol has been discontinued continue to monitor on telemetry. Echocardiogram did not reveal any structural heart problem. Status: Acute Coding Level of Care Code New Pt Acute Safety Equipment Tester for Any Olguin Patient Type New History Detailed Exam Detailed Medical Decision Making Moderate Complexity Diagnoses Sinus pause I45.5 Sinus bradycardia R00.1 Syncope R55
[2020-09-05 21:30] LABS: Glucose Point of Care 188 mg/dL (70-110)
[2020-09-05] MEDS: atorvastatin 40 mg Tablet 20 MG PO (22:05)
[2020-09-05] MEDS: insulin glargine 100 units/1 mL 25 UNIT SUBCUT (22:06)
[2020-09-06] VITALS: BP 114/68; PULSE 66; RESP 18; TEMP 37.1; O2SAT 96
[2020-09-06 04:00] VITALS: BP 138/86; PULSE 65; RESP 18; TEMP 36.4; O2SAT 94
[2020-09-06 05:24] LABS: Basophils % 0.4 %; Eosinophils # 0.2 10^3/uL (0.0-0.8); Eosinophils % 2.4 %; Hemoglobin 15.3 g/dL (11.7-16.6); Lymphocytes # 1.6 10^3/uL (0.8-4.8); Lymphocytes % 23.6 %; Mean Corpuscular HGB Conc 32.6 g/dL (30.0-36.0); Mean Corpuscular Hemoglobin 28.5 pg (28.0-34.0); Mean Corpuscular Volume 87.7 fL (80-94); Mean Platelet Volume 9.7 fL (7.4-10.4); Monocytes # 0.5 10^3/uL (0.2-0.9); Monocytes % 7.7 %; Neutrophils # 4.41 10^3/uL (1.8-7.7); Neutrophils % 65.3 %; Nucleated Red Blood Cells % 0 %; Platelet Count 159 10^3/cmm (130-400); Red Blood Count 5.36 10^6/uL (4.1-5.3); Red Cell Distribution Width 12.5 % (12.1-15.1); White Blood Count 6.8 10^3/uL (4.0-10.0)
[2020-09-06 05:47] LABS: Alanine Aminotransferase 25 U/L (0-41); Albumin Level 3.8 g/dL (3.5-5.2); Alkaline Phosphatase 77 IU/L (40-130); Anion Gap 11.8 (5-19); Aspartate Amino Transferase 15 U/L (0-40); Blood Urea Nitrogen 13 mg/dL (8-23); Calcium 9.4 mg/dL (8.5-10.5); Carbon Dioxide 28 mmol/L (22-29); Chloride 103 mmol/L (98-107); Globulin 2.1 g/dL (1.3-4.6); Glucose 176 mg/dL (65-115); Magnesium 1.8 mg/dL (1.7-2.3); Osmolality Calculated 292 mOsm/kg (285-295); Potassium 3.8 mmol/L (3.5-5.1); Sodium 139 mmol/L (136-145); Total Bilirubin 0.5 mg/dL (0.15-1.2); Total Protein 5.9 g/dL (6.6-8.7)
[2020-09-06 07:09] LABS: Glucose Point of Care 170 mg/dL (70-110)
[2020-09-06] MEDS: sertraline 100 mg Tablet 150 MG PO (07:43)
[2020-09-06] MEDS: pantoprazole DR 40 mg Tablet PO (07:44)
[2020-09-06 07:55] VITALS: BP 134/83; PULSE 66; RESP 18; TEMP 36.8; O2SAT 94
--- NOTE | 2020-09-06 10:37 | PC.CHAP ---
Pastoral Care Encounter/Spiritual Assessment Type of Contact [] Declined paper sheeter visit [] Patient/Family/Request visit [] Outpatient visit [] Follow-up visit [] Physician referral [] Code/Alert [x] Routine visit [] Staff referral [] Actively dying [] Patient sleeping [] Family support [] [] Out of room [] Palliative care [] [x] Receiving care in room [] Pre-surgical visit [] Trauma [] Long length of stay [] ICU visit [] Other: Relational/Emotional Strength [x] Patient feels connected with others/family/visitors/staff [] Distress [] Loneliness/isolation [] Abandonment Spirituality of Patient [x] Person of Claudia [] Attends Judaism of their Claudia [x] Believes in Prayer [] Reads Bible or Druze materials [] There are Spiritual issues to be addressed Water Quality Specialist Interventions [x] Prayer [x] Active listening [x] Non-anxious presence [x] Spiritual/emotional support [] Crisis/trauma care [x] Spiritual counseling [] Bereavement support [] Provided bereavement packet [] Provided Bible/devotional materials [] Provided toy/stuffed animal, coloring book to patient or family member [] Provided Communion [] Anointing/Brady [] Salvation [x] Completed spiritual assessment [] Other: Impact on Illness or Injury [] Angry [] Fearful [] Anxious [] Often cries [] Exhaustion [] Unable to work [] Unable to attend sabianism [] Unable to walk/stand [] Unable to read [] Unable to drive [] Unable to eat/drink [] Unable to sleep [] Unable to be with family [] Patient intubated [] Other: Summary waiting for doctors report from tests, the heart not functing right, may need a Pace-maker has a good attirude, looking foeward to going home Time spent with patient 10 mins
[2020-09-06 11:32] VITALS: BP 163/75; PULSE 82; RESP 16; TEMP 36.4; O2SAT 95
[2020-09-06 11:33] LABS: Glucose Point of Care 228 mg/dL (70-110)
--- NOTE | 2020-09-06 12:23 | PM.PN ---
Subjective Subjective: Interval history: No significant bradycardia or pauses noted overnight. Artifact noted, 3-4 beats run of VT noted Vitals/I&O/Wt Last Vital Signs Temp 97.5 F L 09/06/20 11:32 Pulse 82 09/06/20 11:32 Resp 16 09/06/20 11:32 BP 163/75 09/06/20 11:32 Pulse Ox 95 09/06/20 11:32 09/05/20 09/06/20 09/06/20 22:59 06:59 14:59 Intake Total 480 / 480 360 / 360 Output Total 675 / 1115 775 / 1890 275 / 275 Balance -195 / -635 -775 / -1410 85 / 85 Physical Exam Narrative: EXAM NARRATIVE: GENERAL: Patient is alert, awake and oriented x3. NECK: No jugular vein distension. HEENT: No cyanosis. No icterus. No pallor. HEART: Regular S1 and S2. No murmur, rub or gallop. LUNGS: Clear to auscultate bilaterally. ABDOMEN: Soft, nontender and nondistended. Positive bowel sounds. No guarding, rebound or tenderness. CENTRAL NERVOUS SYSTEM: Grossly nonfocal. EXTREMITIES: Lower extremities without edema bilaterally. Data : 09/06/20 04:40 09/06/20 04:40 A&P Assessment and plan (1) Syncope: Most likely was vasovagal. Since we have seen month significant for second pause after taking off of atenolol not seen anymore. We recommend event monitor for 21 days if continues to have significant pauses or symptomatic bradycardia may will be requiring a pacemaker. We will follow up patient in the clinic. Status: Acute Qualifiers: Syncope type: vasovagal syncope Qualified Code(s): R55 - Syncope and collapse (2) Sinus pause: We will stop atenolol after that we have not seen any more sinus pauses or symptomatic bradycardia. As above we will discharge patient on event monitor Status: Acute Attestations Medical Necessity Statement*: Patient will be discharged today on event monitor Coding Level of Care Code Established Pt Acute Learning Disabilities Specialist for Chg Fwd Patient Type Established History Expanded Problem Focused Exam Expanded Problem Focused Medical Decision Making Moderate Complexity Diagnoses Syncope R55 Syncope type: vasovagal syncope Sinus pause I45.5
--- NOTE | 2020-09-06 12:54 | P.DS_ITS ---
Discharge Providers Date of Admission: 09/05/20 18:46 Date of Discharge: September 06, 2020 Attending Provider at Admission: Sohail Couch MD Attending Provider at Discharge: Garima Joseph MD Consults: Cardiology Primary Care Provider: Laura John MD Diagnoses at Discharge Discharge Diagnosis (1) Syncope: Status: Acute Permanent problem details: -likely vasovagal Qualifiers: Syncope type: vasovagal syncope Qualified Code(s): R55 - Syncope and collapse (2) Sinus pause: Status: Acute Permanent problem details: -Atenolol discontinued -ordered 21-day event monitor per discussion with Dr. Willoughby, f/u at clinic in 4 weeks -TSH wnl Other Information Additional DC diagnoses/information: -Unstable angina with noted new onset RBBB; no ischemia on nuclear stress testing -IDDM type II; A1c-9, repeat ordered, adjustments made to insulin and hypoglycemics regimen -HTN; continue meds, hold BB -GERD; on PPI Reason for Visit Reason for Visit: CP Hospital Course Hospital Course Patient was admitted to the medical surgical floor and placed on telemetry monitoring. He had presented with complaints of chest pain with noted bradycardia and new right bundle branch block noted on telemetry. Due to bradycardia, his atenolol has been on hold and has been discontinued indefinite ly. He has had a nuclear stress testing done which is negative and due to noted pause on telemetry cardiology was consulted and recommended 21-day event monitoring and appropriate follow-up in 1 month. He has been chest pain-free during his hospital stay. He has been hemodynamically stable, afebrile and on room air. Due to changes in his medications as well as need for continued monitoring of vital signs, home health services have been requested. He will be discharged home with appropriate primary care follow-up as well and is advised to seek medical attention immediately should any of his symptoms worsen or recur. Physical Exam Const: COMMON NORMALS: no acute distress, patient oriented x3 and alert GENERAL APPEARANCE: cooperative and comfortable ORIENTATION/CONSCIOUSNESS: Yes awake OTHER: -looks appropriate for age HENMT: COMMON NORMALS: normocephalic, atraumatic, hearing grossly normal bilaterally and moist oral mucous membranes HEAD & SCALP: normocephalic, atraumatic and abrasion (R forehead) Eye: COMMON NORMALS: Equal, round and reactive pupils present, EOMs intact bilaterally and conjunctivae normal CONJUNCTIVA: Yes conjunctivae normal PUPIL: Yes Equal, round and reactive pupils present Neck/C-Spine: COMMON NORMALS: full ROM GENERAL: Yes normal visual inspection and Yes trachea midline Resp: COMMON NORMALS: normal respiratory effort, No retractions, No use of accessory muscles and clear to auscultation bilaterally EFFORT & INSPECTION: Yes able to speak in complete sentences, Yes symmetric chest movement and No tachypneic AUSCULTATION: clear to auscultation bilaterally OTHER: -on RA Cardio: COMMON NORMALS: regular rate, regular rhythm, S1 normal heart sound present, S2 normal heart sound present and No murmurs present (Cardio) RATE: regular rate RHYTHM: regular rhythm HEART SOUNDS: S1 normal heart sound present and S2 normal heart sound present GI: COMMON NORMALS: Normal to inspection, nondistended, normoactive bowel sounds present, Soft to palpation and non-tender INSPECTION: Yes central obesity PALPATION: Yes Soft to palpation Extremity: COMMON NORMALS: normal to inspection, full ROM and no clubbing, cyanosis or edema; negative for no pedal edema Neuro: COMMON NORMALS: patient oriented x3, moves all extremities, no focal motor deficits, no sensory deficits noted and gait normal SEN SORIUM/ORIENTATION: Yes alert Psych: COMMON NORMALS: mental status grossly normal, Normal thought process present, cooperative, normal affect and speech normal SPEECH: Yes normal speech THOUGHT PROCESS: Normal thought process present Skin: COMMON NORMALS: no rashes or lesions noted, no jaundice, no petechiae and no mottling GENERAL SKIN EXAM: no rashes or lesions noted Discharge Data Data Completed and Pending: Completed Studies During Hospitalization Category Date Time Status CT head wo con* 7 0450 Stat Cat Scan 09/03/20 23:23 Completed Sestamibi Stress Test Request Routi ne Exams 09/05/20 06:00 Completed XR chest 1V cruzito ble [id number] Stat Exams 09/03/20 23:08 Completed NM lilly perf SPECT r/s* [id number] Routin e Nuc Med 09/05/20 18:24 Completed CV echo complete* [id number] Routine Ultrasound 09/05/20 18:24 Completed Pending at discharge Category Date Time Status Complete Blood Co unt w/Auto AM [facility]S Lab 09/07/20 04:00 Ordered Complete Blood Co unt w/Auto AM [facility]S Lab 09/08/20 04:00 Ordered Comprehensive Met abolic Panel AM [facility] Lab 09/07/20 04:00 Ordered Comprehensive Met abolic Panel AM [facility] Lab 09/08/20 04:00 Ordered Labs from last 24 hours 09/06/20 09/06/20 09/06/20 11:27 06:51 04:40 WBC RBC Hgb Hct MCV MCH MCHC RDW Plt Count MPV Neut % (Auto) Lymph % (Auto) [place] % (Auto) Eos % (Auto) Baso % (Auto) Neut # (Auto) Lymph # (Auto) [place] # (Auto) Eos # (Auto) Baso # (Auto) Nucleated RBC % (a uto) Nucleated RBCs # Sodium 139 Potassium 3.8 Chloride 103 Carbon Dioxide 28 Anion Gap 11.8 BUN 13 Creatinine 0.7 GFR Calculation Not Reportable Glucose 176 H POC Glucose 228 170 Calculated Osmolal ity 292 Calcium 9.4 Magnesium 1.8 Total Bilirubin 0.5 AST 15 ALT 25 Alkaline Phosphata se 77 Total Protein 5.9 L Albumin 3.8 Globulin 2.1 09/06/20 09/05/20 09/05/20 04:40 21:09 16:52 WBC 6.8 RBC 5.36 H Hgb 15.3 Hct 47.0 MCV 87.7 MCH 28.5 MCHC 32.6 RDW 12.5 Plt Count 159 MPV 9.7 Neut % (Auto) 65.3 Lymph % (Auto) 23.6 [place] % (Auto) 7.7 Eos % (Auto) 2.4 Baso % (Auto) 0.4 Neut # (Auto) 4.41 Lymph # (Auto) 1.6 [place] # (Auto) 0.5 Eos # (Auto) 0.2 Baso # (Auto) 0.0 Nucleated RBC % (a uto) 0 Nucleated RBCs # 0.0 Sodium Potassium Chloride Carbon Dioxide Anion Gap BUN Creatinine GFR Calculation Glucose POC Glucose 188 314 Calculated Osmolal ity Calcium Magnesium Total Bilirubin AST ALT Alkaline Phosphata se Total Protein Albumin Globulin Vitals: Last Vital Signs Temp 97.5 F L 09/06/20 11:32 Pulse 82 09/06/20 11:32 Resp 16 09/06/20 11:32 BP 163/75 09/06/20 11:32 Pulse Ox 95 09/06/20 11:32 Discharge Plan Discharge Patient Disposition: Home Health Service Condition: Stable Prescriptions: New sertraline 100 mg Tablet 150 mg PO DAILY 30 Days Qty: 45 RF: 0 Continued nitroglycerin [Nitrostat] 0.4 mg tablet, sublingual 0.4 mg SUBLINGUAL Q5M PRN (Reason: Chest Pain) RF: 0 aripiprazole [Abilify] 10 mg tablet 10 mg PO DAILY Qty: 30 RF: 4 Victoza 3-Ata 0.6 mg/0.1 mL (18 mg/3 mL) pen injector See Rx Instructions .ROUTE .COMPLEX Qty: 9 RF: 2 pantoprazole 40 mg tablet,delayed release (DR/EC) 40 mg PO DAILY Qty: 30 RF: 2 simvastatin 40 mg tablet 40 mg PO DAILY RF: 0 meloxicam 7.5 mg tablet 7.5 mg PO DAILY RF: 0 famotidine 20 mg tablet 20 mg PO BID RF: 0 meclizine 25 mg tablet 25 mg PO BID PRN (Reason: dizziness) RF: 0 metformin 500 mg tablet extended release 24 hr 1,000 mg PO DAILY RF: 0 albuterol sulfate 2.5 mg /3 mL (0.083 %) Solution For Nebulization 2.5 mg INHALATION QID PRN (Reason: Shortness Of Breath) RF: 0 Tylenol Extra Strength 500 mg Tablet 1,000 mg PO PRN RF: 0 Changed losartan 50 mg tablet 50 mg PO DAILY Qty: 30 RF: 0 trazodone 50 mg tablet 50 mg PO BEDTIME PRN (Reason: Insomnia) Qty: 0 RF: 0 Levemir FlexTouch U-100 Insuln 100 unit/mL (3 mL) insulin pen 30 unit SUBCUT BEDTIME Qty: 0 RF: 0 Discontinued buspirone 30 mg tablet 30 mg PO BID Qty: 60 RF: 5 sertraline 100 mg tablet 100 mg PO DAILY RF: 0 atenolol 25 mg tablet 25 mg PO DAILY RF: 0 sertraline 50 mg tablet 50 mg PO DAILY RF: 0 insulin aspart U-100 [Novolog Flexpen U-100 Insulin] 100 unit/mL (3 mL) Insulin Pen See Rx Instructions .ROUTE .COMPLEX RF: 0 Discharge Orders: Discharge Order (Routine); Ordered 09/06/20 Ordered By: Garima Joseph Other Ambulatory Orders: [place] cardiac event monitor (Routine) Timeframe: 1 Day Facility: [facility] - Location: Cardiac Diagnostic Laboratory Ordered By: Garima Joseph Hemoglobin A1C (Routine) Timeframe: 1 Week Facility: [facility] - Location: Lab - Main Lab Ordered By: Emil White Referrals: [facility] [Outside] (Your information has been sent to [facility] to see if they can provide home health services for you. They will call you after you are discharged. If you do not hear from them in 1-2 days from being discharged, please call them at the phone number provided. ) Maria De Jesus Willoughby MD [Physician] - 1 month Laura John MD [Primary Care Provider] - Discharge Diet: Cardiac and Diabetic Discharge Activity: Increase activity as tolerated Discharge Attestations Time Spent in Discharge Care*: greater than 30 min Specific Discharge Activities: educating patient, discussing with case briefer/social workers/dc planners, documenting/other paperwork and evaluating patient/reviewing data Status at Discharge: Cognitive status at discharge: cognitively intact , Behavioral status at discharge: cooperative , Overall status at discharge: patient is progressing back to baseline Quality Metrics Clinical Quality Measures During this hospital stay, did patient experience: None Coding Level of Care Code Acute Letter Of Credit Document Examiner for Chg Fwd Diagnoses Syncope R55 Syncope type: vasovagal syncope Sinus pause I45.5
[2020-09-06 13:58] VITALS: BP 163/75; PULSE 82; RESP 16; TEMP 36.4; O2SAT 95
--- NOTE | 2020-09-06 14:48 | PC.NURSE ---
Discharge instructions provided to patient, denies further questions or concerns, left with personal clothes, meds to beds, taken via wheelchair to get heart monitor placed, [facility] called for ride by lead case manager, walker to be delivered while patient is receiving heart monitor.
== END 2020-09-06 14:50 | disposition home health service (06) | DRG 312 ==
LOC: ER 09-04 14:51 → MEDSURG 09-04 15:53
PROVIDERS: Emergency Medicine; Internal Medicine; Student in an Organized Health Care Education/Training Program; Admitting Provider Internal Medicine; Emergency Provider Family Medicine; PCP Family Medicine; Visit Provider Family Medicine
DX: R55 Syncope and collapse (principal); I20.0 Unstable angina; F31.81 Bipolar II disorder; I45.10 Unspecified right bundle-branch block; E11.65 Type 2 diabetes mellitus with hyperglycemia; E78.5 Hyperlipidemia, unspecified; I10 Essential (primary) hypertension; K57.30 Diverticulosis of large intestine without perforation or abscess without bleeding; F17.210 Nicotine dependence, cigarettes, uncomplicated; Z79.4 Long term (current) use of insulin
CPT/HCPCS: 12345; 36416; 70450; 71045; 78452; 80053; 81003; 82962; 83690; 83735; 84443; 84484; 85025; 85378; 85610; 93005; 93017; 93306; 96372; 99284; A9500; G0378; J1650; J1815 ×2; J2270; J2405; J2785

== ENCOUNTER 2020-10-20 15:11 | Emergency (ER) | payer MEDICARE, MEDICAID, SELFPAY ==
[2020-10-20 15:14] VITALS: BP 143/70; PULSE 77; RESP 18; O2SAT 94; BMI 29.5
--- NOTE | 2020-10-20 15:58 | XRR_ITS ---
PROCEDURE INFORMATION: Exam: XR Chest, 1 View Exam date and time: 10/20/2020 4:48 PM Age: 75 years old Clinical indication: Chest pain; Additional info: Dyspnea, cp TECHNIQUE: Imaging protocol: XR of the chest Views: 1 view. COMPARISON: CR XR chest 1V portable [id number] 09/04/2020 12:54 AM FINDINGS: Lungs: Multiple metallic densities seen overlying the soft tissues of the of the right hemithorax appearing similar to prior examination. Pleural space: Unremarkable. No pleural effusion. No pneumothorax. Heart/Mediastinum: Unremarkable. No cardiomegaly. Bones/joints: Unremarkable. XR/XR chest 1V portable [id number] IMPRESSION: 1. No acute findings. 2. Stable metallic densities overlying the right hemithorax
[2020-10-20 16:50] LABS: Add Urine Microscopic? NO
[2020-10-20 16:51] LABS: Basophils % 0.3 %; Eosinophils # 0.1 10^3/uL (0.0-0.8); Eosinophils % 1.8 %; Hematocrit 43.5 % (42.0-52.0); Hemoglobin 14.5 g/dL (11.7-16.6); Lymphocytes # 1.8 10^3/uL (0.8-4.8); Lymphocytes % 25.4 %; Mean Corpuscular HGB Conc 33.3 g/dL (30.0-36.0); Mean Platelet Volume 10.6 fL (7.4-10.4); Monocytes # 0.6 10^3/uL (0.2-0.9); Monocytes % 7.9 %; Neutrophils # 4.58 10^3/uL (1.8-7.7); Neutrophils % 64.3 %; Nucleated Red Blood Cells % 0 %; Platelet Count 150 10^3/cmm (130-400); Red Cell Distribution Width 12.8 % (12.1-15.1); White Blood Count 7.1 10^3/uL (4.0-10.0)
[2020-10-20 17:00] LABS: Bilirubin Urine Neg (Negative); Blood Urine Neg (Negative); Glucose Urine UA Norm (Normal); Ketones Urine Negative (Negative); Leukocyte Esterase Urine Negative (Negative); Nitrate Urine Negative (Negative); Protein Urine Neg (Negative); Specific Gravity, Urine 1.015 (1.005-1.030); Urine Appearance Clear (CLEAR); Urine Color Straw (Yellow); Urobilinogen Urine Norm (Negative); pH Urine 5 (5-7)
[2020-10-20 17:21] LABS: Lactate (Lactic Acid level) 1.8 mmol/L (0.5-2.2)
[2020-10-20 17:24] LABS: Troponin(5th) Baseline 18 ng/L (0-15)
[2020-10-20 17:27] LABS: D Dimer 0.41 ug/mIFEU (0-0.59)
[2020-10-20 17:32] LABS: Alanine Aminotransferase 16 U/L (0-41); Albumin Level 4.1 g/dL (3.5-5.2); Alkaline Phosphatase 114 IU/L (40-130); Anion Gap 13.1 (5-19); Aspartate Amino Transferase 12 U/L (0-40); Blood Urea Nitrogen 25 mg/dL (8-23); Calcium 9.7 mg/dL (8.5-10.5); Carbon Dioxide 27 mmol/L (22-29); Chloride 101 mmol/L (98-107); Erythrocyte Sedimentation Rate 8 mm/hr (0-10); Globulin 1.7 g/dL (1.3-4.6); Glucose 405 mg/dL (65-115); NT Pro B Type Natriuretic Pept 27 pg/mL (0-125); Osmolality Calculated 305 mOsm/kg (285-295); Potassium 4.1 mmol/L (3.5-5.1); Sodium 137 mmol/L (136-145); Total Bilirubin 0.3 mg/dL (0.15-1.2); Total Protein 5.8 g/dL (6.6-8.7)
--- NOTE | 2020-10-20 18:07 | ECG_ITS ---
[facility] Test Date: 2020-10-20 Pat Name: Christ Garza Department: Room: Gender: Male Frame Maker: : 1945 Requested By: Jorge Colon Order Number: [id number] Rebecca MD: Andres Barnett M.D. Measurements Intervals [place] Rate: 67 P: 69 TN: 213 QRS: 49 QRSD: 139 T: 37 QT: 413 QTc: 437 Interpretive Statements SINUS RHYTHM WITH FIRST DEGREE AV BLOCK RIGHT BUNDLE BRANCH BLOCK [120+ ms QRS DURATION, UPRIGHT V1, 40+ ms S IN I/aVL/V4/V5/V6] Compared to ECG 09/04/2020 09:50:37 First degree AV block now present Right bundle-branch block now present ST (T wave) deviation now present Idioventricular rhythm no longer present Electronically Signed On 10-21-2020 11:07:35 DIRECTOR OF EXHIBITS by Andres Barnett M.D. [id number]
--- NOTE | 2020-10-20 18:18 | PC.NURSE ---
EKG done at 1814 and shown to ER doctor
[2020-10-20 18:50] LABS: Troponin 5 2HR 18.96 ng/L (0-15); Troponin 5 2HR Delta 0.96 ABS# (0-10)
[2020-10-20 19:19] VITALS: BP 136/80; PULSE 66; RESP 16; O2SAT 92
--- NOTE | 2020-10-20 19:24 | PC.NURSE ---
Aspirin not given as pt denies chest pain upon reevaulation.
[2020-10-20 20:00] VITALS: BP 102/57; PULSE 68; RESP 17; O2SAT 95
--- NOTE | 2020-10-20 20:11 | ED_ITS ---
HPI - Weakness General: Chief complaint: Weakness Stated complaint: WEAKNESS; DIZZINESS Time Seen by Provider: 10/20/20 15:46 History of Present Illness: HPI Narrative: The patient is a 75-year-old male who comes to the ER complaining he fell a month ago and has been unsteady on his feet at times. He says he felt that way today and came to the hospital for evaluation. He had time says he also has some kind of chest pain which then he later denied he had chest pain at all he is just frustrated and here to be checked out. When asked directly he denies headache, chest pain, shortness of breath, nausea, vomiting, diarrhea, abdominal pain. He admits to mild weakness but he is able to get around just fine. He was admitted approximately a month ago after the fall and had a negative nuclear stress test. Associated symptoms: Denies chest pain, confusion or headache(s) Review of Systems General: Reports: 10 or more systems reviewed and unremarkable except in HPI and below Const: Reports: fatigue Eyes: Denies: change in vision, blurry vision or eye redness ENMT: Denies: throat pain, swelling of lips/tongue, ear or mastoid pain or nasal congestion Card: Denies: chest pain, palpitations, irregular heart rhythm, edema, dyspnea on exertion or orthopnea Resp: Denies: dyspnea, productive cough or non-productive cough GI: Denies: abdominal pain, diarrhea or GI cramping : Denies: flank pain, urinary frequency or urinary urgency Musc: Denies: neck pain, back pain, extremity pain, joint pain, joint redness, limited range of motion or muscle weakness Skin/Breast: Denies: rash, pruritus, erythema, skin pain or skin tenderness Neuro: Denies: headache(s), numbness in extremities, weakness in extremities, sensory changes, difficulty walking, dizziness, confusion or Slurred speech present Psych: Denies: anxiety or depression Endo: Denies: polyuria All/Imm: Denies: urticaria, throat swelling or tongue swelling PFS ED PFSH: Medical History Bipolar 2 disorder Controlled diabetes mellitus with hyperglycemia, with long-term current use of insulin Decreased hearing of right ear Hyperlipidemia Hypertension Uncontrolled diabetes mellitus Surgical History H/O colonoscopy 12/29/19: transverse colon polyp, poor prep, sigmoid diverticulosis History of back surgery History of hand surgery due to injury and needed reattachment History of shoulder surgery Hx of cholecystectomy Family History Other Diabetes Hypertension Denies family history of Anesthesia complication Bleeding disorder Social History Smoking and tobacco status: current some day smoker Alcohol intake: never Caregiver/support person: No Lives independently: Yes Household members: none Housing: Apartment Marital status: Single Number of children: 3 Current occupational status: retired History of recent travel: No Current gender identity: Male Physical Exam Const: COMMON NORMALS: no acute distress, average body habitus, patient oriented x3, no limitations, healthy appearing, alert and well nourished GENERAL APPEARANCE: cooperative, comfortable, well kempt and well developed ORIENTATION/CONSCIOUSNESS: Yes awake, Yes oriented to person, Yes oriented to place and Yes oriented to time HENMT: COMMON NORMALS: normocephalic, external ears normal and Normal external nose present HEAD & SCALP: normal to inspection and normocephalic NOSE: Normal external nose present EXTERNAL EAR: Yes external ears normal MOUTH: Normal oral and palatal mucosa present THROAT: posterior oropharynx normal Eye: COMMON NORMALS: Equal, round and reactive pupils present and EOMs intact bilaterally GENERAL EYE: appearance normal, both eyes and all related structures PUPIL: Yes Equal, round and reactive pupils present Neck/C-Spine: COMMON NORMALS: full ROM, no lymphadenopathy, no meningeal signs and no JVD GENERAL: Yes normal visual inspection Lymph: LYMPHATIC: no lymphadenopathy noted Chest: COMMONS NORMALS: normal inspection of the chest and normal palpation of entire chest wall Resp: COMMON NORMALS: normal respiratory effort, No retractions, No use of accessory muscles, clear to auscultation bilaterally and percussion normal EFFORT & INSPECTION: Yes able to speak in complete sentences AUSCULTATION: clear to auscultation bilaterally PERCUSSION: percussion normal Cardio: COMMON NORMALS: no JVD, regular rate, regular rhythm, S1 normal heart sound present, S2 normal heart sound present and Peripheral pulses 2+ throughout RATE: regular rate RHYTHM: regular rhythm HEART SOUNDS: S1 normal heart sound present and S2 normal heart sound present PERIPHERAL PULSES: Peripheral pulses 2+ throughout GI: COMMON NORMALS: Normal to inspection, nondistended, normoactive bowel sounds present, Soft to palpation, non-tender and no masses INSPECTION: Yes normal to inspection PALPATION: Yes Soft to palpation : COMMON NORMALS: Yes no CVA tenderness BLADDER/KIDNEY EXAM: Yes no CVA tenderness Back/Pelvis: COMMON NORMALS: no CVA tenderness, thoracic and lumbar spine normal to inspection, no thoracic nor lumbar tenderness and thoraco-lumbar ROM normal Extremity: COMMON NORMALS: normal to inspection, full ROM, capillary refill normal, no joint enlargement and no pedal edema GENERAL: Yes normal exam except as noted Neuro: COMMON NORMALS: patient oriented x3, CN's II-XII intact bilaterally, moves all extremities, no focal motor deficits, no sensory deficits noted and gait normal SENSORIUM/ORIENTATION: Yes alert, Yes oriented to person, Yes or iented to place and Yes oriented to time MENINGEAL SIGNS: Yes no meningeal signs Psych: COMMON NORMALS: mental status grossly normal, Normal thought process present, cooperative, normal affect and speech normal APPEARANCE: Yes well kempt ATTITUDE: Yes calm SPEECH: Yes normal speech THOUGHT PROCESS: Normal thought process present Skin: COMMON NORMALS: no rashes or lesions noted GENERAL SKIN EXAM: no rashes or lesions noted Course Vital Signs: Vital signs: Vital Signs Temperature 98.1 F 10/20/20 20:39 Pulse Rate 64 10/20/20 20:39 Respiratory Rate 17 10/20/20 20:39 Blood Pressure 123/66 10/20/20 20:39 Pulse Oximetry 97 10/20/20 20:39 MDM - Weakness MDM Narrative: Medical decision making narrative: The patient came in most likely because he is frustrated and slightly fatigued. He was admitted a month ago for similar complaints and had bradycardia at that time and a negative nuclear stress test. His medications were adjusted and he is following up as an outpatient. Recommended continued follow-up as an outpatient for his medical problems and return to the ER with worsening symptoms Differential Diagnosis: Weakness Differential Diagnosis: Likely acute myocardial infarction and dehydration Lab Data: Labs: Lab Results 10/20/20 10/20/20 10/20/20 Range/Units 16:25 16:25 16:25 WBC 7.1 (4.0-10.0) 10^3/ uL RBC 5.00 (4.1-5.3) 10^6/u L Hgb 14.5 (11.7-16.6) g/dL Hct 43.5 (42.0-52.0) % MCV 87.0 (80-94) fL MCH 29.0 (28.0-34.0) pg MCHC 33.3 (30.0-36.0) g/dL RDW 12.8 (12.1-15.1) % Plt Count 150 (130-400) 10^3/c mm MPV 10.6 H (7.4-10.4) fL Neut % (Auto) 64.3 % Lymph % (Auto) 25.4 % Churchill % (Auto) 7.9 % Eos % (Auto) 1.8 % Baso % (Auto) 0.3 % Neut # (Auto) 4.58 (1.8-7.7) 10^3/u L Lymph # (Auto) 1.8 (0.8-4.8) 10^3/u L Churchill # (Auto) 0.6 (0.2-0.9) 10^3/u L Eos # (Auto) 0.1 (0.0-0.8) 10^3/u L Baso # (Auto) 0.0 (0.0-0.1) 10^3/u L Nucleated RBC % (a uto) 0 % Nucleated RBCs # 0.0 /100WBC ESR 8 (0-10) mm/hr D-Dimer 0.41 (0-0.59) ug/mIFE U Sodium (136-145) mmol/L Potassium (3.5-5.1) mmol/L Chloride (98-107) mmol/L Carbon Dioxide (22-29) mmol/L Anion Gap (5-19) BUN (8-23) mg/dL Creatinine (0.7-1.2) mg/dL GFR Calculation Glucose (65-115) mg/dL POC Glucose (70-110) mg/dL Calculated Osmolal ity (285-295) mOsm/k g Lactate (0.5-2.2) mmol/L Calcium (8.5-10.5) mg/dL Total Bilirubin (0.15-1.2) mg/dL AST (0-40) U/L ALT (0-41) U/L Alkaline Phosphata se (40-130) IU/L Troponin T Baselin e (0-15) ng/L Troponin T 120 Min [place] (0-15) ng/L Delta Troponin T (0-10) ABS# NT-Pro-B Natriuret Pep (0-125) pg/mL Total Protein (6.6-8.7) g/dL Albumin (3.5-5.2) g/dL Globulin (1.3-4.6) g/dL Urine Color (Yellow) Urine Appearance (CLEAR) Urine pH (5-7) Ur Specific Gravit y (1.005-1.030) Urine Protein (Negative) Urine Glucose (UA) (Normal) Urine Ketones (Negative) Urine Blood (Negative) Urine Nitrate (Negative) Urine Bilirubin (Negative) Urine Urobilinogen (Negative) mg/dL Ur Leukocyte Isela ase (Negative) 10/20/20 10/20/20 10/20/20 Range/Units 16:25 16:25 16:25 WBC (4.0-10.0) 10^3/ uL RBC (4.1-5.3) 10^6/u L Hgb (11.7-16.6) g/dL Hct (42.0-52.0) % MCV (80-94) fL MCH (28.0-34.0) pg MCHC (30.0-36.0) g/dL RDW (12.1-15.1) % Plt Count (130-400) 10^3/c mm MPV (7.4-10.4) fL Neut % (Auto) % Lymph % (Auto) % Churchill % (Auto) % Eos % (Auto) % Baso % (Auto) % Neut # (Auto) (1.8-7.7) 10^3/u L Lymph # (Auto) (0.8-4.8) 10^3/u L Churchill # (Auto) (0.2-0.9) 10^3/u L Eos # (Auto) (0.0-0.8) 10^3/u L Baso # (Auto) (0.0-0.1) 10^3/u L Nucleated RBC % (a uto) % Nucleated RBCs # /100WBC ESR (0-10) mm/hr D-Dimer (0-0.59) ug/mIFE U Sodium 137 (136-145) mmol/L Potassium 4.1 (3.5-5.1) mmol/L Chloride 101 (98-107) mmol/L Carbon Dioxide 27 (22-29) mmol/L Anion Gap 13.1 (5-19) BUN 25 H (8-23) mg/dL Creatinine 0.8 (0.7-1.2) mg/dL GFR Calculation Not Reportable Glucose 405 H (65-115) mg/dL POC Glucose (70-110) mg/dL Calculated Osmolal ity 305 H (285-295) mOsm/k g Lactate 1.8 (0.5-2.2) mmol/L Calcium 9.7 (8.5-10.5) mg/dL Total Bilirubin 0.3 (0.15-1.2) mg/dL AST 12 (0-40) U/L ALT 16 (0-41) U/L Alkaline Phosphata se 114 (40-130) IU/L Troponin T Baselin e 18 H (0-15) ng/L Troponin T 120 Min [place] (0-15) ng/L Delta Troponin T (0-10) ABS# NT-Pro-B Natriuret Pep 27 (0-125) pg/mL Total Protein 5.8 L (6.6-8.7) g/dL Albumin 4.1 (3.5-5.2) g/dL Globulin 1.7 (1.3-4.6) g/dL Urine Color (Yellow) Urine Appearance (CLEAR) Urine pH (5-7) Ur Specific Gravit y (1.005-1.030) Urine Protein (Negative) Urine Glucose (UA) (Normal) Urine Ketones (Negative) Urine Blood (Negative) Urine Nitrate (Negative) Urine Bilirubin (Negative) Urine Urobilinogen (Negative) mg/dL Ur Leukocyte Isela ase (Negative) 10/20/20 10/20/20 10/20/20 Range/Units 16:34 18:25 20:20 WBC (4.0-10.0) 10^3/ uL RBC (4.1-5.3) 10^6/u L Hgb (11.7-16.6) g/dL Hct (42.0-52.0) % MCV (80-94) fL MCH (28.0-34.0) pg MCHC (30.0-36.0) g/dL RDW (12.1-15.1) % Plt Count (130-400) 10^3/c mm MPV (7.4-10.4) fL Neut % (Auto) % Lymph % (Auto) % Churchill % (Auto) % Eos % (Auto) % Baso % (Auto) % Neut # (Auto) (1.8-7.7) 10^3/u L Lymph # (Auto) (0.8-4.8) 10^3/u L Churchill # (Auto) (0.2-0.9) 10^3/u L Eos # (Auto) (0.0-0.8) 10^3/u L Baso # (Auto) (0.0-0.1) 10^3/u L Nucleated RBC % (a uto) % Nucleated RBCs # /100WBC ESR (0-10) mm/hr D-Dimer (0-0.59) ug/mIFE U Sodium (136-145) mmol/L Potassium (3.5-5.1) mmol/L Chloride (98-107) mmol/L Carbon Dioxide (22-29) mmol/L Anion Gap (5-19) BUN (8-23) mg/dL Creatinine (0.7-1.2) mg/dL GFR Calculation Glucose (65-115) mg/dL POC Glucose 320 H (70-110) mg/dL Calculated Osmolal ity (285-295) mOsm/k g Lactate (0.5-2.2) mmol/L Calcium (8.5-10.5) mg/dL Total Bilirubin (0.15-1.2) mg/dL AST (0-40) U/L ALT (0-41) U/L Alkaline Phosphata se (40-130) IU/L Troponin T Baselin e (0-15) ng/L Troponin T 120 Min [place] 18.96 H (0-15) ng/L Delta Troponin T 0.96 (0-10) ABS# NT-Pro-B Natriuret Pep (0-125) pg/mL Total Protein (6.6-8.7) g/dL Albumin (3.5-5.2) g/dL Globulin (1.3-4.6) g/dL Urine Color Straw (Yellow) Urine Appearance Clear (CLEAR) Urine pH 5 (5-7) Ur Specific Gravit y 1.015 (1.005-1.030) Urine Protein Neg (Negative) Urine Glucose (UA) Norm (Normal) Urine Ketones Negative (Negative) Urine Blood Neg (Negative) Urine Nitrate Negative (Negative) Urine Bilirubin Neg (Negative) Urine Urobilinogen Norm (Negative) mg/dL Ur Leukocyte Siela ase Negative (Negative) Discharge Plan Discharge Patient Disposition: Home Clinical Impression: Fatigue Qualifiers: Fatigue type: chronic, unspecified Qualified Code(s): R53.82 - Chronic fatigue, unspecified Condition: Stable Prescriptions: No Action nitroglycerin [Nitrostat] 0.4 mg tablet, sublingual 0.4 mg SUBLINGUAL Q5M PRN (Reason: Chest Pain) RF: 0 aripiprazole [Abilify] 10 mg tablet 10 mg PO DAILY Qty: 30 RF: 4 Victoza 3-Ata 0.6 mg/0.1 mL (18 mg/3 mL) pen injector See Rx Instructions .ROUTE .COMPLEX Qty: 9 RF: 2 pantoprazole 40 mg tablet,delayed release (DR/EC) 40 mg PO DAILY Qty: 30 RF: 2 mupirocin 2 % ointment 1 applic topical BID Qty: 22 RF: 0 (DME) Blood Glucose Test Strip See Rx Instructions .ROUTE .MEDSUPPLY Qty: 100 RF: 1 simvastatin 40 mg tablet 40 mg PO DAILY RF: 0 meloxicam 7.5 mg tablet 7.5 mg PO DAILY RF: 0 famotidine 20 mg tablet 20 mg PO BID RF: 0 meclizine 25 mg tablet 25 mg PO BID PRN (Reason: dizziness) RF: 0 metformin 500 mg tablet extended release 24 hr 1,000 mg PO DAILY RF: 0 albuterol sulfate 2.5 mg /3 mL (0.083 %) Solution For Nebulization 2.5 mg INHALATION QID PRN (Reason: Shortness Of Breath) RF: 0 Tylenol Extra Strength 500 mg Tablet 1,000 mg PO PRN RF: 0 losartan 50 mg tablet 50 mg PO DAILY Qty: 30 RF: 0 trazodone 50 mg tablet 50 mg PO BEDTIME PRN (Reason: Insomnia) Qty: 0 RF: 0 Levemir FlexTouch U-100 Insuln 100 unit/mL (3 mL) insulin pen 30 unit SUBCUT BEDTIME Qty: 0 RF: 0 Discharge Orders: Discharge ED (Routine); Ordered 10/20/20 Ordered By: Jorge Colon Referrals: Laura John MD [Primary Care Provider] - Discharge Diet: Advance as tolerated Discharge Activity: Increase activity as tolerated Patient Instructions: Fatigue Activity Restrictions/Additional Instructions: You have fatigue. Please drink lots of fluids and use a walker to walk to help you prevent from falling. Please follow-up with your primary care physician in 3 to 5 days to monitor improvement of your symptoms. Return to the ER with worsening symptoms Coding Level of Care Code ED E Mail System Administrator for Any Fwd Exam Comprehensive
[2020-10-20 20:23] LABS: Glucose Point of Care 320 mg/dL (70-110)
--- NOTE | 2020-10-20 20:25 | PC.NURSE ---
Finger stick blood glucose done. BS 320.
[2020-10-20 20:39] VITALS: BP 123/66; PULSE 64; RESP 17; TEMP 36.7; O2SAT 97
== END 2020-10-20 20:46 | disposition home or self-care (01) ==
PROVIDERS: Emergency Provider Family Medicine; PCP Family Medicine
DX: R53.82 Chronic fatigue, unspecified (principal); Z79.4 Long term (current) use of insulin; E11.9 Type 2 diabetes mellitus without complications; E78.5 Hyperlipidemia, unspecified; I10 Essential (primary) hypertension; F17.210 Nicotine dependence, cigarettes, uncomplicated
CPT/HCPCS: 12345; 36416; 71045; 80053; 81003; 82962; 83605; 83880; 84484; 85025; 85378; 85651; 93005; 96372; 99283; J1815

== ENCOUNTER → 2020-10-30 12:17 | Outpatient (BNVA) | payer MEDICARE, MEDICAID, SELFPAY | PROVIDERS: PCP Family Medicine; Visit Provider Family Medicine | DX: E11.65 Type 2 diabetes mellitus with hyperglycemia (principal); Z79.4 Long term (current) use of insulin; K21.9 Gastro-esophageal reflux disease without esophagitis; E78.5 Hyperlipidemia, unspecified; I10 Essential (primary) hypertension; Z12.5 Encounter for screening for malignant neoplasm of prostate | CPT/HCPCS: 80053; 80061; 83036; 83721; 85025; G0103 ==

== ENCOUNTER → 2020-12-17 10:29 | Outpatient (BNVA) | payer MEDICARE, MEDICAID, SELFPAY | PROVIDERS: PCP Nurse Practitioner; Visit Provider Nurse Practitioner | DX: M25.511 Pain in right shoulder (principal) | CPT/HCPCS: 73030 ==

== ENCOUNTER → 2020-12-26 13:39 | Outpatient (BNVA) | payer MEDICARE, MEDICAID, SELFPAY | PROVIDERS: PCP Nurse Practitioner; Visit Provider Nurse Practitioner | DX: R06.02 Shortness of breath (principal); I10 Essential (primary) hypertension | CPT/HCPCS: 71046 ==

== ENCOUNTER → 2021-01-24 08:41 | Outpatient (BNVA) | payer MEDICARE, MEDICAID, SELFPAY | PROVIDERS: PCP Nurse Practitioner; Visit Provider Nurse Practitioner | DX: E11.65 Type 2 diabetes mellitus with hyperglycemia (principal); E78.5 Hyperlipidemia, unspecified; I10 Essential (primary) hypertension | CPT/HCPCS: 80053; 80061; 83036 ==

== ENCOUNTER → 2021-03-01 11:04 | Outpatient (BNVA) | payer MEDICARE, MEDICAID, SELFPAY | PROVIDERS: PCP Nurse Practitioner; Visit Provider Nurse Practitioner Family | DX: R10.9 Unspecified abdominal pain (principal); R19.7 Diarrhea, unspecified | CPT/HCPCS: 81000; 87506 ==

== ENCOUNTER → 2021-03-05 09:25 | Outpatient (BNVA) | payer MEDICARE, MEDICAID, SELFPAY | PROVIDERS: PCP Nurse Practitioner; Visit Provider Nurse Practitioner | DX: R19.7 Diarrhea, unspecified (principal); E11.65 Type 2 diabetes mellitus with hyperglycemia | CPT/HCPCS: 36416; 82962; 87506 ==

== ENCOUNTER 2021-04-20 19:08 | Emergency (ER) | payer MEDICARE, MEDICAID, SELFPAY ==
[2021-04-20 19:40] VITALS: BP 126/68; PULSE 78; RESP 18; TEMP 36.7; O2SAT 94; BMI 29.5
[2021-04-20 20:17] LABS: Basophils # 0.1 10^3/uL (0.0-0.1); Basophils % 0.4 %; Eosinophils % 0.4 %; Hematocrit 47.2 % (42.0-52.0); Hemoglobin 15.4 g/dL (11.7-16.6); Lymphocytes # 1.3 10^3/uL (0.8-4.8); Lymphocytes % 11.4 %; Mean Corpuscular HGB Conc 32.6 g/dL (30.0-36.0); Mean Corpuscular Hemoglobin 29.1 pg (28.0-34.0); Mean Corpuscular Volume 89.2 fL (80-94); Mean Platelet Volume 10.2 fL (7.4-10.4); Monocytes # 0.8 10^3/uL (0.2-0.9); Monocytes % 7.5 %; Neutrophils # 8.93 10^3/uL (1.8-7.7); Neutrophils % 79.9 %; Nucleated Red Blood Cells % 0 %; Platelet Count 166 10^3/cmm (130-400); Red Blood Count 5.29 10^6/uL (4.1-5.3); White Blood Count 11.2 10^3/uL (4.0-10.0)
[2021-04-20] MEDS: ondansetron 2 mg/ML SDV 2 mL 4 MG IVP (20:17)
[2021-04-20] MEDS: sodium chloride 0.9% 1,000 ML 999 ML IV (20:17)
[2021-04-20 20:34] LABS: Alanine Aminotransferase 19 U/L (0-41); Albumin Level 3.5 g/dL (3.5-5.2); Alkaline Phosphatase 71 IU/L (40-130); Blood Urea Nitrogen 22 mg/dL (8-23); C Reactive Protein 1.6 mg/L (0.0-4.9); Calcium 8.3 mg/dL (8.5-10.5); Carbon Dioxide 25 mmol/L (22-29); Chloride 106 mmol/L (98-107); Globulin 2.1 g/dL (1.3-4.6); Glucose 127 mg/dL (65-115); Lipase 33 U/L (13-60); Osmolality Calculated 293 mOsm/kg (285-295); Sodium 139 mmol/L (136-145); Total Bilirubin 0.2 mg/dL (0.15-1.2); Total Protein 5.6 g/dL (6.6-8.7)
[2021-04-20 20:36] LABS: Add Urine Microscopic? NO; Charge for UA Resulting for Rev
[2021-04-20 20:37] LABS: Anion Gap 11.9 (5-19)
[2021-04-20 20:38] LABS: Aspartate Amino Transferase 16 U/L (0-40); Potassium 3.9 mmol/L (3.5-5.1)
[2021-04-20 20:41] LABS: Urine Appearance Clear (CLEAR); Urine Color Yellow (Yellow); pH Urine 5 (5-7)
[2021-04-20 20:42] LABS: Bilirubin Urine Neg (Negative); Blood Urine Neg (Negative); Glucose Urine UA 4+ (Normal); Ketones Urine Negative (Negative); Leukocyte Esterase Urine Negative (Negative); Nitrate Urine Negative (Negative); Protein Urine Neg (Negative); Urobilinogen Urine Norm (Negative)
--- NOTE | 2021-04-20 20:42 | CTR_ITS ---
PROCEDURE INFORMATION: Exam: CT Abdomen And Pelvis With Contrast Exam date and time: 04/20/2021 8:42 PM Age: 75 years old Clinical indication: Nausea and vomiting; Patient HX: C/O n/v/d; Additional info: Abd pain TECHNIQUE: Imaging protocol: Computed tomography of the abdomen and pelvis with contrast. Total images: 259 Radiation optimization: All CT scans at this facility use at least one of these dose optimization techniques: automated exposure control; mA and/or kV adjustment per patient size (includes targeted exams where dose is matched to clinical indication); or iterative reconstruction. Contrast material: OMNI 300; Contrast volume: 95 ml; Contrast route: INTRAVENOUS (IV); COMPARISON: CT abdomen pelvis w con* [id number] 01/06/2020 12:08 PM RADIATION DOSE METRICS: Total DLP (mGy-cm): 1807.33 FINDINGS: Lungs: Limited assessment of the lung bases fails to reveal evidence for active cardiopulmonary process. COPD/chronic bronchitis. Senile fibrosis. Calcified granulomas of antecedent disease. Liver: No visible hepatic mass or cystic structure. Rare calcified hepatic granuloma. Gallbladder and bile ducts: Status post cholecystectomy. Pancreas: Pancreas is unremarkable. No visible pancreatic ductal ectasia. Spleen: Scattered calcified splenic granulomas of antecedent disease. Spleen otherwise unremarkable. Adrenal glands: Adrenal glands unremarkable. Kidneys and ureters: There is an exophytic structure extending off the inferior pole of the right kidney that measures 21 mm x 15 mm x 18 mm that does not have simple cyst characteristics. Potential renal cell carcinoma. Would initially recommend follow-up with ultrasound of the kidney to assess cyst versus solid. MRI of the kidneys is an option for further evaluation. No hydronephrosis or perinephric fluid. No visible nephrolithiasis. Rare bilateral small simple renal cortical cysts. No follow-up recommended. Stomach and bowel: Assessment of the hollow viscus fails to reveal evidence of active or acute pathology. Nonobstructed bowel pattern. No visible acute diverticulitis. No visible adynamic or reactive ileus. Appendix: The appendix is visualized and appears noninflamed. Intraperitoneal space: No visible evidence of mesenteric lymphadenitis or active mesenteritis/panniculitis. No visible pneumoperitoneum or intraperitoneal ascites. Vasculature: Coronary artery disease. The abdominal aorta is nonaneurysmal. Moderate arterial sclerotic disease. Lymph nodes: No current visible evidence of active mesenteric or retroperitoneal lymphadenopathy. Urinary bladder: Urinary bladder unremarkable. Reproductive: Prostate hypertrophy. Bones/joints: No visible active or acute osseous pathology. Inter pedicle screw and side bar fixation L5 and S1 stabilizing a grade 1 anterior spondylolisthesis. Soft tissues: Unremarkable. Other findings: Obesity. CT/CT abdomen pelvis w con* [id number] IMPRESSION: 1. Currently no visible evidence for acute abdominal or pelvic pathologic process. 2. There is an exophytic structure extending off the inferior pole of the right kidney that measures 21 mm x 15 mm x 18 mm that does not have simple cyst characteristics. Potential renal cell carcinoma. Would initially recommend follow-up with ultrasound of the kidney to assess cyst versus solid. MRI of the kidneys is an option for further evaluation. 3. Other nonurgent, nonemergent, chronic, postoperative, and age related findings as detailed in text above. COMMENTS: Consistent with the [employer]'s Incidental Findings Committee white paper (J Am Reece Radiol 2018): Any incidental renal lesion less than 1 cm or classified as too small to characterize, or any incidental cystic renal lesion characterized as simple-appearing, is likely benign. No follow-up imaging is recommended for these lesions per consensus recommendations based on imaging criteria. Radiation Dose CTDIVOL = (mGy): DLP = 1807.33 (mGy-cm)
[2021-04-20] MEDS: iohexol 300 mg/mL 100 mL Btl IV (21:04)
--- NOTE | 2021-04-20 21:39 | ED_ITS ---
HPI - Nausea/Vomiting/Diarrhea General: Chief complaint: Nausea/Vomiting/Diarrhea Stated complaint: NEAR SYNCOPE/ N/D/ FATIGUE Time Seen by Provider: 04/20/21 20:05 History of Present Illness: HPI Narrative: 75-year-old gentleman he states he has had diarrhea for 2 to 3 weeks. He had vomiting on and off. He denies any fever. No prior belly surgeries. No colonoscopies. His belly has become more tender. He complains of pain to the left and right lower quadrants. MD elicited complaint: nausea, vomiting, diarrhea and abdominal pain Onset (ago): week(s) Description of vomiting: watery Description of diarrhea: watery Associated nausea: Yes Associated abdominal pain: Yes Location of pain: RLQ and LLQ Radiation: diffuse Pain consistency: intermittent Quality: cramping Exacerbating factors: vomiting Relieving factors: none Associated symtoms: Reports nausea and short of breath; Denies anxiety, change in vision, chest pain, cough, diaphoresis, dizziness, epistaxis, fevers/chills or headache(s) Review of Systems Const: Denies: diaphoresis Eyes: Denies: change in vision or blurry vision ENMT: Denies: epistaxis Card: Denies: chest pain Resp: Denies: dyspnea, productive cough, non-productive cough or wheezing GI: Reports: nausea : Denies: difficulty urinating or hematuria Musc: Denies: neck pain or back pain Skin/Breast: Denies: rash or erythema Neuro: Denies: headache(s) or dizziness Psych: Denies: anxiety PFSH ED PFSH: Medical History Bipolar 2 disorder Decreased hearing of right ear Hyperlipidemia Hypertension Noncompliance with dietary restriction Uncontrolled diabetes mellitus Surgical History H/O colonoscopy 12/29/19: transverse colon polyp, poor prep, sigmoid diverticulosis History of back surgery History of hand surgery due to injury and needed reattachment History of shoulder surgery Hx of cholecystectomy Family History Other Diabetes Hypertension Denies family history of Anesthesia complication Bleeding disorder Social History Smoking and tobacco status: former smoker Second hand smoke exposure: No Smoking risk assessment/counseling performed?: Yes Alcohol intake: never Desire information about alcohol rehabilitation?: No Counseling given: No Desire information about substance/drug rehabilitation?: No Counseling given: No Adopted: No Caregiver/support person: No Lives independently: Yes Household members: none Housing: Apartment Marital status: Single Number of children: 3 service: No Current occupational status: retired History of recent travel: No Current gender identity: Male Physical Exam Const: GENERAL APPEARANCE: frail appearing ORIENTATION/CONSCIOUSNESS: Yes oriented to person, Yes oriented to place and Yes oriented to time HENMT: COMMON NORMALS: normocephalic, external ears normal and Normal external nose present HEAD & SCALP: normocephalic FACE & SINUS: normal facial exam NOSE: Normal external nose present and No nasal discharge present EXTERNAL EAR: Yes external ears normal Eye: COMMON NORMALS: Equal, round and reactive pupils present, EOMs intact bilaterally and conjunctivae normal EYELID: eyelids normal CONJUNCTIVA: Yes conjunctivae normal PUPIL: Yes Equal, round and reactive pupils present Neck/C-Spine: COMMON NORMALS: full ROM GENERAL: No tracheal deviation Chest: COMMONS NORMALS: normal inspection of the chest CHEST: No tenderness Resp: COMMON NORMALS: clear to auscultation bilaterally EFFORT & INSPECTION: No tachypneic, No respiratory distress, No retractions, No uses accessory muscles and No tracheal deviation AUSCULTATION: clear to auscultation bilaterally, no rhonchi, no wheezes and lung sounds not diminished Cardio: COMMON NORMALS: regular rate and regular rhythm RATE: regular rate RHYTHM: regular rhythm HEART SOUNDS: no murmurs PERIPHERAL PULSES: radial pulses present GI: INSPECTION: No abdominal distension AUSCULTATION: No Hyperactive bowel sounds present and No Hypoactive bowel sounds present PALPATION: Yes Tenderness to palpation present (GI) (diffuse), No Guarding due to palpation present (GI) and No Rigid due to palpation PERCUSSION: no dullness to percussion and no tympanic to percussion Neuro: SENSORIUM/ORIENTATION: Yes oriented to person, Yes oriented to place and Yes oriented to time Psych: COMMON NORMALS: mental status grossly normal Skin: COMMON NORMALS: no rashes or lesions noted GENERAL SKIN EXAM: no rashes or lesions noted Course Vital Signs: Vital signs: Vital Signs Temperature 98.0 F 06/26/21 19:40 Pulse Rate 82 04/20/21 23:37 Respiratory Rate 18 04/20/21 23:37 Blood Pressure 120/68 04/20/21 23:37 Pulse Oximetry 94 04/20/21 23:37 MDM - Nausea/Vomiting/Diarrhea MDM Narrative: Medical decision making narrative: laboratory benign. ct showed nothing acute. there is no noted acute problem. The right kidney does show growth of a prior seen small mass. Ultrasound as an outpatient is recommended. An order for case management to set this up has been written. The patient has been informed of this. He will be treated symptomatically with Flagyl, in case this is a low-grade C. difficile infection as well as Lomotil for symptom control. Lab Data: Labs: Lab Results 04/20/21 04/20/21 04/20/21 Range/Units 19:57 19:57 20:28 WBC 11.2 H (4.0-10.0) 10^3/ uL RBC 5.29 (4.1-5.3) 10^6/u L Hgb 15.4 (11.7-16.6) g/dL Hct 47.2 (42.0-52.0) % MCV 89.2 (80-94) fL MCH 29.1 (28.0-34.0) pg MCHC 32.6 (30.0-36.0) g/dL RDW 13.0 (12.1-15.1) % Plt Count 166 (130-400) 10^3/c mm MPV 10.2 (7.4-10.4) fL Neut % (Auto) 79.9 % Lymph % (Auto) 11.4 % [place] % (Auto) 7.5 % Eos % (Auto) 0.4 % Baso % (Auto) 0.4 % Neut # (Auto) 8.93 H (1.8-7.7) 10^3/u L Lymph # (Auto) 1.3 (0.8-4.8) 10^3/u L [place] # (Auto) 0.8 (0.2-0.9) 10^3/u L Eos # (Auto) 0.0 (0.0-0.8) 10^3/u L Baso # (Auto) 0.1 (0.0-0.1) 10^3/u L Nucleated RBC % (a uto) 0 % Nucleated RBCs # 0.0 /100WBC Sodium 139 (136-145) mmol/L Potassium 3.9 (3.5-5.1) mmol/L Chloride 106 (98-107) mmol/L Carbon Dioxide 25 (22-29) mmol/L Anion Gap 11.9 (5-19) BUN 22 (8-23) mg/dL Creatinine 0.7 (0.7-1.2) mg/dL GFR Calculation Not Reportable Glucose 127 H (65-115) mg/dL Calculated Osmolal ity 293 (285-295) mOsm/k g Calcium 8.3 L (8.5-10.5) mg/dL Total Bilirubin 0.2 (0.15-1.2) mg/dL AST 16 (0-40) U/L ALT 19 (0-41) U/L Alkaline Phosphata se 71 (40-130) IU/L C-Reactive Protein 1.6 (0.0-4.9) mg/L Total Protein 5.6 L (6.6-8.7) g/dL Albumin 3.5 (3.5-5.2) g/dL Globulin 2.1 (1.3-4.6) g/dL Lipase 33 (13-60) U/L Urine Color Yellow (Yellow) Urine Appearance Clear (CLEAR) Urine pH 5 (5-7) Ur Specific Gravit y 1.010 (1.005-1.030) Urine Protein Neg (Negative) Urine Glucose (UA) 4+ H (Normal) Urine Ketones Negative (Negative) Urine Blood Neg (Negative) Urine Nitrate Negative (Negative) Urine Bilirubin Neg (Negative) Urine Urobilinogen Norm (Negative) mg/dL Ur Leukocyte Isela ase Negative (Negative) Discharge Plan Discharge Patient Disposition: Home Clinical Impression: Dehydration Diarrhea Qualifiers: Diarrhea type: unspecified type Qualified Code(s): R19.7 - Diarrhea, unspecified Condition: Stable Prescriptions: New Lomotil 2.5-0.025 mg tablet 1 tab PO Q8H PRN (Reason: diarrhea) Qty: 14 RF: 0 No Action nitroglycerin [Nitrostat] 0.4 mg tablet, sublingual 0.4 mg SUBLINGUAL Q5M PRN (Reason: Chest Pain) RF: 0 Fiasp FlexTouch U-100 Insulin 100 unit/mL (3 mL) insulin pen 8 unit SUBCUT TID Qty: 15 RF: 0 simvastatin 40 mg tablet 40 mg PO DAILY Qty: 30 RF: 0 aripiprazole [Abilify] 10 mg tablet 10 mg PO DAILY Qty: 30 RF: 2 Jardiance 25 mg tablet 25 mg PO QAM Qty: 30 RF: 2 famotidine 20 mg tablet 20 mg PO BID Qty: 30 RF: 2 Levemir FlexTouch U-100 Insuln 100 unit/mL (3 mL) insulin pen 50 unit SUBCUT BID 30 Days Qty: 30 RF: 2 Victoza 3-Taa 0.6 mg/0.1 mL (18 mg/3 mL) pen injector 1.8 mg SUBCUT DAILY Qty: 9 RF: 2 losartan 50 mg tablet 50 mg PO DAILY Qty: 30 RF: 2 meloxicam 7.5 mg tablet 7.5 mg PO DAILY Qty: 30 RF: 2 metformin 500 mg tablet extended release 24 hr 1,000 mg PO DAILY Qty: 60 RF: 2 sertraline 50 mg tablet 50 mg PO QDAY Qty: 30 RF: 2 sertraline 100 mg tablet 100 mg PO DAILY Qty: 30 RF: 1 trazodone 50 mg tablet 50 mg PO BEDTIME Qty: 30 RF: 2 cholestyramine (with sugar) [Questran] 4 gram powder 4 g PO BID Qty: 378 RF: 0 dicyclomine 10 mg capsule 10 mg PO BID 30 Days Qty: 60 RF: 0 (DME) Blood Glucose Test Strip See Rx Instructions .ROUTE .MEDSUPPLY Qty: 100 RF: 1 meclizine 25 mg tablet 25 mg PO BID PRN (Reason: dizziness) RF: 0 albuterol sulfate 2.5 mg /3 mL (0.083 %) Solution For Nebulization 2.5 mg INHALATION QID PRN (Reason: Shortness Of Breath) RF: 0 Tylenol Extra Strength 500 mg Tablet 1,000 mg PO PRN RF: 0 Discharge Orders: Discharge ED (Routine); Ordered 04/20/21 Ordered By: Juan Miguel Preciado Referrals: Jorden Adams, W[facility]ESSEL CAPTAIN-C [Primary Care Provider] - 4-7 days Patient Instructions: Diarrhea - Adult, Dehydration (ED) Activity Restrictions/Additional Instructions: Antibiotics as directed. Use the medication (Lomotil) for multiple episodes of diarrhea, to stop the diarrhea. Only use as needed. Return for fever greater than 100, vomiting liquids or medications, worsening diarrhea despite treatment, other concerning symptoms. Case management should call you with an appointment for your outpatient kidney ultrasound within the next week. If you do not hear from them, dial [phone] and ask for the ER sample case porter. Follow-up with your doctor. Coding Level of Care Code ED English Horn Player for Chg Fwd Exam Comprehensive
[2021-04-20 22:03] VITALS: BP 137/61; PULSE 86; RESP 19; O2SAT 93
[2021-04-20 23:14] VITALS: BP 119/70; PULSE 81; RESP 18; O2SAT 92
[2021-04-20 23:37] VITALS: BP 120/68; PULSE 82; RESP 18; O2SAT 94
--- NOTE | 2021-04-23 08:32 | PC.SOCIAL ---
Addendum entered by Chelsi John RN 04/24/21 07:46: [facility] scheduling this could not be scheduled until 05/23/2021 due to US staffing.They did get the referral though and have scheduled the patient for this date and left message as well as sent letter. Original Note: Sent order to [facility] scheduling regarding Renal US per Dr Preciado. Confirmation received that fax was sent successfully.
--- NOTE | 2021-06-14 12:36 | DCPLANNER ---
Patient had an out patient ultrasound scheduled for 21 - patient did not attend appointment.
== END 2021-04-20 23:37 | disposition home or self-care (01) ==
PROVIDERS: Emergency Provider Emergency Medicine; PCP Nurse Practitioner
DX: R19.7 Diarrhea, unspecified (principal); E86.0 Dehydration; Z79.4 Long term (current) use of insulin; I10 Essential (primary) hypertension; E11.9 Type 2 diabetes mellitus without complications; Z87.891 Personal history of nicotine dependence
CPT/HCPCS: 74177; 80053; 81003; 83690; 85025; 86140; 96361; 96374; 99283; J2405; J7030; Q9967

== ENCOUNTER → 2021-04-23 09:14 | Outpatient (BNVA) | payer MEDICARE, MEDICAID, SELFPAY | PROVIDERS: PCP Nurse Practitioner; Visit Provider Nurse Practitioner | DX: E11.65 Type 2 diabetes mellitus with hyperglycemia (principal); I10 Essential (primary) hypertension | CPT/HCPCS: 80053; 81000; 83036 ==

== ENCOUNTER → 2021-07-22 08:43 | Outpatient (BNVA) | payer MEDICARE, MEDICAID, SELFPAY | PROVIDERS: PCP Nurse Practitioner; Visit Provider Nurse Practitioner | DX: E11.65 Type 2 diabetes mellitus with hyperglycemia (principal); I10 Essential (primary) hypertension; E78.5 Hyperlipidemia, unspecified | CPT/HCPCS: 80053; 80061; 83036 ==

== ENCOUNTER → 2021-07-24 09:54 | Outpatient (BNVA) | payer MEDICARE, MEDICAID, SELFPAY | PROVIDERS: PCP Nurse Practitioner; Visit Provider Nurse Practitioner | DX: E11.65 Type 2 diabetes mellitus with hyperglycemia (principal); F41.9 Anxiety disorder, unspecified; F31.81 Bipolar II disorder; K21.9 Gastro-esophageal reflux disease without esophagitis; I10 Essential (primary) hypertension; E78.5 Hyperlipidemia, unspecified | CPT/HCPCS: 81000 ==

== ENCOUNTER → 2021-09-12 10:24 | Outpatient (BNVA) | payer MEDICARE, MEDICAID, SELFPAY | PROVIDERS: PCP Nurse Practitioner; Visit Provider Nurse Practitioner | DX: R19.7 Diarrhea, unspecified (principal) | CPT/HCPCS: 87506 ==

== ENCOUNTER 2021-10-12 21:04 | Observation (INO) | payer MEDICARE, MEDICAID, SELFPAY ==
[2021-10-12] VITALS (7 sets, daily range): BP systolic 127–130; BP diastolic 58–75; PULSE 82–94; RESP 18–20; O2SAT 92–98; BMI 29.5
--- NOTE | 2021-10-12 21:16 | ECG_ITS ---
[facility] Test Date: 2021-10-12 Pat Name: Christ Garza Department: Room: Gender: Male Plan Consultant: : 1945 Requested By: Jaskaran More Order Number: [id number] Reading MD: DMITRIY GIBSON Measurements Intervals [place] Rate: 87 P: 65 OR: 180 QRS: 85 QRSD: 149 T: 57 QT: 377 QTc: 456 Interpretive Statements SINUS RHYTHM INDETERMINATE AXIS RIGHT BUNDLE BRANCH BLOCK [120+ ms QRS DURATION, UPRIGHT V1, 40+ ms S IN I/aVL/V4/V5/V6] Compared to ECG 10/20/2020 18:15:53 Indeterminate axis now present First degree AV block no longer present Electronically Signed On 10-13-2021 19:58:39 VEHICLE MONITOR TECHNICIAN by DMITRIY GIBSON [id number]
--- NOTE | 2021-10-12 21:16 | CTR_ITS ---
PROCEDURE INFORMATION: Exam: CT Lumbar Spine Without Contrast Exam date and time: 10/12/2021 9:16 PM Age: 76 years old Clinical indication: Injury or trauma; Fall; Blunt trauma (contusions or hematomas); Prior surgery; Surgery type: Lumbar fusion; Patient HX: Patient had syncopal episode while taking a shower. C/O low back pain. TECHNIQUE: Imaging protocol: Computed tomography images of the lumbar spine without contrast. Radiation optimization: All CT scans at this facility use at least one of these dose optimization techniques: automated exposure control; mA and/or kV adjustment per patient size (includes targeted exams where dose is matched to clinical indication); or iterative reconstruction. COMPARISON: CT abdomen pelvis w con* [id number] 04/20/2021 9:00 PM RADIATION DOSE METRICS: Total DLP (mGy-cm): 2254.24 FINDINGS: Vertebrae: There is grade 2 anterolisthesis of L5 on S1. There is intact posterolateral fusion at L5-S1. Vertebral body height is maintained. There is moderate multilevel facet spondylosis. No acute fracture. There are bilateral L5 laminectomies. Discs/Spinal canal/Neural foramina: There is diffuse lumbar disc space narrowing. No visible disc herniation. There is no spinal canal stenosis. Sacrum/coccyx: There is osseous fusion of the right SI joint. Other bones/joints: The visible portion of the pelvis and sacrum is intact. Vasculature: There is moderate aortic atherosclerotic disease. Soft tissues: Paraspinal soft tissues are unremarkable. CT/CT lumbar spine wo con* [id number] IMPRESSION: 1. No acute findings. 2. Degenerative and postoperative findings above.
--- NOTE | 2021-10-12 21:16 | XRR_ITS ---
PROCEDURE INFORMATION: Exam: XR Chest Exam date and time: 10/12/2021 9:16 PM Age: 76 years old Clinical indication: Injury or trauma; Fall; Blunt trauma (contusions or hematomas); Prior surgery; Surgery type: Gb; Patient HX: Patient had syncopal episode while taking a shower. History of hypertension. Currently on lovenox. ; Additional info: Chest pain TECHNIQUE: Imaging protocol: XR of the chest. Views: 1 view. COMPARISON: CR XR chest 2V* [id number] 12/26/2020 1:40 PM FINDINGS: Lungs: There is no consolidation. Stable calcified granuloma in the right lower lobe. Pleural spaces: There is no pleural effusion or pneumothorax. Heart/Mediastinum: Cardiomediastinal contours are unremarkable. Bones/joints: Bones are unremarkable. XR/XR chest 1V portable [id number] IMPRESSION: No acute findings.
[2021-10-12] MEDS: aspirin 325 mg Tablet PO (21:23)
[2021-10-12 21:35] LABS: Basophils # 0.1 10^3/uL (0.0-0.1); Basophils % 0.6 %; Eosinophils # 0.1 10^3/uL (0.0-0.8); Eosinophils % 1.4 %; Hematocrit 47.8 % (42.0-52.0); Hemoglobin 15.7 g/dL (11.7-16.6); Lymphocytes % 25.5 %; Mean Corpuscular HGB Conc 32.8 g/dL (30.0-36.0); Mean Corpuscular Hemoglobin 29.3 pg (28.0-34.0); Mean Corpuscular Volume 89.3 fl (80-94); Monocytes # 0.6 10^3/uL (0.2-0.9); Nucleated Red Blood Cells % 0 %; Platelet Count 148 10^3/cmm (130-400); Red Blood Count 5.35 10^6/uL (4.1-5.3); Red Cell Distribution Width 13.1 % (12.1-15.1)
[2021-10-12 21:49] LABS: Troponin(5th) Baseline 25 ng/L (0-15)
[2021-10-12 21:51] LABS: Blood Urea Nitrogen 27 mg/dL (8-23); Calcium 8.7 mg/dL (8.5-10.5); Carbon Dioxide 23 mmol/L (22-29); Chloride 102 mmol/L (98-107); Glucose 334 mg/dL (65-115); Osmolality Calculated 304 mOsm/kg (285-295); Sodium 138 mmol/L (136-145)
--- NOTE | 2021-10-12 21:51 | W.ED.GENADLT ---
HPI - General Adult General: Chief complaint: Syncope Stated complaint: FAINTING AND BACK PAIN Time Seen by Provider: 10/12/21 21:05 History of Present Illness: HPI narrative: Patient is a 76-year-old male with history of diabetes, hypertension, no prior cardiac evaluation presenting to emergency room after mechanical fall while in the bathroom. Shortly after the fall, patient reported having chest pain and passing out. Patient did not remember what happened however patient was able to call EMS was brought to the emergency room for evaluation. On arrival, patient denies having any active chest pain, exertional shortness of breath palpitation or lightheadedness. Patient has lower lumbar area back pain. Patient has history of cervical fusion in the past. Denies any saddle anesthesia, bowel or bladder problem, weakness in the lower extremity. Denies any pain or any injuries. Onset: 1 hr and 30 minutes ago Duration:1 hr Location:home Severity:moderate Review of Systems Narrative: Constitutional: No fever, no chills. HEENT: No vision changes CV: +chest pain, no palpitations PULM: no cough, no dyspnea. GI: No abdominal pain, no N/V/D. : No dysuria MSKEL: No muscle pain SKIN: No new rashes, no lesions. NEURO: No headache, no focal weakness. +passed out HEME: No visible bruises PSYCH: Normal mood PFSH ED PFSH: Medical History Bipolar 2 disorder Decreased hearing of right ear Hyperlipidemia Hypertension Irritable bowel syndrome with diarrhea Noncompliance with dietary restriction Uncontrolled diabetes mellitus Surgical History H/O colonoscopy 12/29/19: transverse colon polyp, poor prep, sigmoid diverticulosis History of back surgery History of hand surgery due to injury and needed reattachment History of shoulder surgery Hx of cholecystectomy Family History Other Diabetes Hypertension Denies family history of Anesthesia complication Bleeding disorder Social History Second hand smoke exposure: No Smoking risk assessment/counseling performed?: Yes Alcohol intake: never Desire information about alcohol rehabilitation?: No Counseling given: No Desire information about substance/drug rehabilitation?: No Counseling given: No Adopted: No Caregiver/support person: No Lives independently: Yes Household members: none Housing: Apartment Marital status: Single Number of children: 3 service: No Current occupational status: retired History of recent travel: No Current gender identity: Male Physical Exam Narrative: EXAM NARRATIVE: Head: Atraumatic Eyes: PERRL, conjunctiva without injection ENT: Mucous membrane moist NECK: Supple, ROM intact LUNGS: LCTAB, no crackles/rhonchi CV: RRR ABDOMEN: Soft, nontender in all quadrants EXTREMITY: Normal ROM SKIN: No rash or erythema NEURO: Mental status? Awake, alert, and oriented to self, year, month, location, and situation.? Following simple axial and appendicular commands.? Has appropriate fund of knowledge, comprehension, and insight.? Able to recall and understands pertinent aspects of medical history and current treatment status.? ? Language? Speech is fluent without word-finding difficulties.? Intact naming, expression, receptionist nurse, and repetition.? ? Cranial nerves? 2,3,4,6: PERRL, EOMI with no nystagmus. 5: Intact sensation to light touch, symmetric? 7: Smile symmetrical, no facial droop.? 8: Hearing grossly intact.? 9,10: Normal palate movement.? 11: Normal strength in trapezius bilaterally 12: Tongue protrudes midline.? ? Motor examination? Normal bulk & tone. Strength as follows (R/L): Delts (5/5), Biceps (5/5), Triceps (5/5), Wrist ext (5/5), hip flexors (5/5), plantarflexors (5/5), dorsiflexors (5/5). ? Sensation? Light Touch: Grossly intact and equal in upper and lower extremities bilaterally? Romberg: Negative.? Distal joint position sense intact ? Coordination? Vdmeqa-mh-[id number]-finger movements intact without dysmetria or past-pointing.? Rapid fingertaps: preserved amplitude without decriment.? No tremor, myoclonus or truncal ataxia.? ? Gait/stance? Steady, normal narrow base gait with appropriate arm swing and turning.? Tandem gait without hesitation or loss of balance. PSYCH: Normal mood and affect BACK: +midline lumbar L2-L3 tenderness to palpation Course Vital Signs: Vital signs: Vital Signs Pulse Rate 93 10/12/21 21:50 Respiratory Rate 18 10/12/21 21:50 Blood Pressure 127/58 10/12/21 21:50 Pulse Oximetry 96 10/12/21 21:50 MDM - General Adult MDM Narrative: Medical decision making narrative: 76-year-old male with history of diabetes hypertension presents emergency room with syncope and chest pain. On exam, patient is hemodynamically stable, mild wheezing bilaterally. Patient has intact neurological exam. +mild midline lumbar tenderness to palpation. XR chest negative. CT lumbar w/o acute fracture. EKG showing regular sinus rhythm at HT of [88]. Normal axis. RBBB No ST elevations/depressions to suggest coronary occlusion. Normal [place], QRS, QT intervals. S/p aspirin, DuoNeb, 1 L IVF. Patient is currently chest pain-free. First troponin of 25. Given previous stress test was over a year ago, patient admitted to hospital for chest pain work-up and high risk syncope. Disposition: Admission Lab Data: Labs: Lab Results 10/12/21 10/12/21 10/12/21 21:25 21:25 21:25 WBC 8.0 10^3/uL 10^3/ uL (4.0-10.0) RBC 5.35 10^6/uL H 10 ^6/uL (4.1-5.3) Hgb 15.7 g/dL g/dL (11.7-16.6) Hct 47.8 % % (42.0-52.0) MCV 89.3 fl fl (80-94) MCH 29.3 pg pg (28.0-34.0) MCHC 32.8 g/dL g/dL (30.0-36.0) RDW 13.1 % % (12.1-15.1) Plt Count 148 10^3/cmm 10^3 /cmm (130-400) MPV 10.0 fL fL (7.4-10.4) Neut % (Auto) 64.0 % % Lymph % (Auto) 25.5 % % [place] % (Auto) 8.0 % % Eos % (Auto) 1.4 % % Baso % (Auto) 0.6 % % Neut # (Auto) 5.10 10^3/uL 10^3 /uL (1.8-7.7) Lymph # (Auto) 2.0 10^3/uL 10^3/ uL (0.8-4.8) [place] # (Auto) 0.6 10^3/uL 10^3/ uL (0.2-0.9) Eos # (Auto) 0.1 10^3/uL 10^3/ uL (0.0-0.8) Baso # (Auto) 0.1 10^3/uL 10^3/ uL (0.0-0.1) Nucleated RBC % (a uto) 0 % % Nucleated RBCs # 0.0 /100WBC /100W BC Sodium 138 mmol/L mmol/L (136-145) Potassium 4.0 mmol/L mmol/L (3.5-5.1) Chloride 102 mmol/L mmol/L (98-107) Carbon Dioxide 23 mmol/L mmol/L (22-29) Anion Gap 17.0 (5-19) BUN 27 mg/dL H mg/dL (8-23) Creatinine 0.8 mg/dL mg/dL (0.7-1.2) GFR Calculation Not Reportable Glucose 334 mg/dL H mg/dL (65-115) Calculated Osmolal ity 304 mOsm/kg H mOs m/kg (285-295) Calcium 8.7 mg/dL mg/dL (8.5-10.5) Troponin T Baselin e 25 ng/L H ng/L (0-15) Imaging Data^: Other Imaging: Radiologist's impression: [address] [id number] Scan ReportSigned Patient: Edelmira Garza #: [id number]: 1945cct#:[id number]/Sex: 76 / MADM Date: 10/12/21Loc: ERRoom/Bed:Attending Dr: Ordering Provider/Ordering MD: Jaskaran More MD Date of Service: 10/12/21 Procedure(s): CT lumbar spine wo con* [id number] Accession Number(s): [id number] Report Number: [id number] PROCEDURE INFORMATION: Exam: CT Lumbar Spine Without Contrast Exam date and time: 10/12/2021 9:16 PM Age: 76 years old Clinical indication: Injury or trauma; Fall; Blunt trauma (contusions or hematomas); Prior surgery; Surgery type: Lumbar fusion; Patient HX: Patient had syncopal episode while taking a shower. C/O low back pain. TECHNIQUE: Imaging protocol: Computed tomography images of the lumbar spine without contrast. Radiation optimization: All CT scans at this facility use at least one of these dose optimization techniques: automated exposure control; mA and/or kV adjustment per patient size (includes targeted exams where dose is matched to clinical indication); or iterative reconstruction. COMPARISON: CT abdomen pelvis w con* [id number] 04/20/2021 9:00 PM RADIATION DOSE METRICS: Total DLP (mGy-cm): 2254.24 FINDINGS: Vertebrae: There is grade 2 anterolisthesis of L5 on S1. There is intact posterolateral fusion at L5-S1. Vertebral body height is maintained. There is moderate multilevel facet spondylosis. No acute fracture. There are bilateral L5 laminectomies. Discs/Spinal canal/Neural foramina: There is diffuse lumbar disc space narrowing. No visible disc herniation. There is no spinal canal stenosis. Sacrum/coccyx: There is osseous fusion of the right SI joint. Other bones/joints: The visible portion of the pelvis and sacrum is intact. Vasculature: There is moderate aortic atherosclerotic disease. Soft tissues: Paraspinal soft tissues are unremarkable. CT/CT lumbar spine wo con* [id number] IMPRESSION: 1. No acute findings. 2. Degenerative and postoperative findings above. Dictated By:Chucky Grimes MDSigned By:Chucky Grimes MDSigned Date/Time:10/12/211DD/ [address] [id number] ReportSigned Patient: Edelmira Garza #: [id number]: 1945cct#:[id number]/Sex: 76 / MADM Date: 10/12/21Loc: ERRoom/Bed:Attending Dr: Ordering Provider/Ordering MD: Jaskaran More MD Date of Service: 10/12/21 Procedure(s): XR chest 1V portable [id number] Accession Number(s): [id number] Report Number: [id number] PROCEDURE INFORMATION: Exam: XR Chest Exam date and time: 10/12/2021 9:16 PM Age: 76 years old Clinical indication: Injury or trauma; Fall; Blunt trauma (contusions or hematomas); Prior surgery; Surgery type: Gb; Patient HX: Patient had syncopal episode while taking a shower. History of hypertension. Currently on lovenox. ; Additional info: Chest pain TECHNIQUE: Imaging protocol: XR of the chest. Views: 1 view. COMPARISON: CR XR chest 2V* [id number] 12/26/2020 1:40 PM FINDINGS: Lungs: There is no consolidation. Stable calcified granuloma in the right lower lobe. Pleural spaces: There is no pleural effusion or pneumothorax. Heart/Mediastinum: Cardiomediastinal contours are unremarkable. Bones/joints: Bones are unremarkable. XR/XR chest 1V portable [id number] IMPRESSION: No acute findings. Dictated By:Chucky Grimes MDSigned By:Chucky Grimesigned Date/Time:10/12/21 2153DD/ Discharge Plan Discharge Patient Disposition: Admitted As Inpatient Clinical Impression: Syncope, Chest pain, Fall Condition: Stable Coding Level of Care Code ED Wick And Base Assembler for Any [place]
[2021-10-12 22:22] LABS: SARS Covid-2 Antigen Negative (Negative)
[2021-10-12] MEDS: ipratropium-albuterol 3 mL Neb INHALATION ×3 (22:31→22:54)
[2021-10-12] MEDS: sodium chloride 0.9% 1,000 ML 999 ML IV (22:36)
--- NOTE | 2021-10-12 23:16 | ECG_ITS ---
[facility] Test Date: 2021-10-12 Pat Name: Christ Garza Department: Room: 252 Gender: Male Hand I Thermal Cutter: : 1945 Requested By: Jaskaran More Order Number: [id number] Reading MD: DMITRIY GIBSON Measurements Intervals [place] Rate: 91 P: 61 NH: 211 QRS: 62 QRSD: 150 T: 49 QT: 393 QTc: 484 Interpretive Statements SINUS RHYTHM WITH FIRST DEGREE AV BLOCK RIGHT BUNDLE BRANCH BLOCK [120+ ms QRS DURATION, UPRIGHT V1, 40+ ms S IN I/aVL/V4/V5/V6] Compared to ECG 10/12/2021 21:40:26 First degree AV block now present Indeterminate axis no longer present Electronically Signed On 10-13-2021 19:59:40 SLEEVE SETTER LOCKSTITCH by DMITRIY GIBSON [id number]
[2021-10-12 23:43] LABS: Troponin 5 2HR 23.63 ng/L (0-15)
[2021-10-12 23:45] LABS: Troponin 5 2HR Delta -1.37 ABS# (0-10)
[2021-10-13] VITALS (12 sets, daily range): BP systolic 91–172; BP diastolic 48–82; PULSE 67–96; RESP 16–22; TEMP 36.3–36.8; O2SAT 91–97; BMI 32.3
--- NOTE | 2021-10-13 03:16 | ECG_ITS ---
[facility] Test Date: 2021-10-12 Pat Name: Christ Garza Department: Room: 252 Gender: Male Pricing Director: : 1945 Requested By: Jaskaran More Order Number: [id number] Reading MD: DMITRIY GIBSON Measurements Intervals [place] Rate: 88 P: 67 UT: 180 QRS: 94 QRSD: 143 T: 34 QT: 382 QTc: 464 Interpretive Statements SINUS RHYTHM RIGHT BUNDLE BRANCH BLOCK [120+ ms QRS DURATION, UPRIGHT V1, 40+ ms S IN I/aVL/V4/V5/V6] ST ELEVATION, CONSIDER INFERIOR INJURY [MARKED ST ELEVATION W/O NORMALLY INFLECTED T-WAVE IN II/aVF] ACUTE CA Compared to ECG 10/20/2020 18:15:53 ST (T wave) deviation now present Myocardial infarct finding now present First degree AV block no longer present Electronically Signed On 10-13-2021 19:59:46 BRIDGES AND BUILDINGS SUPERVISOR by DMITRIY GIBSON [id number]
[2021-10-13 03:31] LABS: Troponin 5 6HR 28.18 ng/L (0-15); Troponin 5 6HR Delta 3.18 ng/L (0-12)
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
--- NOTE | 2021-10-13 06:03 | P.HP_ITS ---
Providers/Chief Complaint Admitting Physician: Laisha Nino MD Primary Care Provider: Jorden Adams, SHINGLE SHEARING MACHINE OPERATOR-C Chief Complaint: FAINTING AND BACK PAIN History of Present Illness Christ Garza is a 76 year old male history of diabetes, hypertension, h/o syncope 2020 due to bradycardia presenting with mechnaical fall in his bathroom this evening following which he experienced left side chest discomfort and presented for evaluation. Patient is a poor historian and unable to clearly state what happened exactly but remebers calling the EMS. ROS + chest pin, no dyspnea, palpitations Review of Systems General: Reports: 10 or more systems reviewed and unremarkable except in HPI and below Const: Denies: fever(s), chills or body aches Eyes: Denies: change in vision, blurry vision or photophobia ENMT: Reports: hoarseness; Denies: throat pain, enlarged tonsils, odynophagia or nasal congestion Card: Denies: chest pain, palpitations, irregular heart rhythm, edema, swelling of feet/ankles, lightheadedness, pre-syncope, dyspnea on exertion or orthopnea Resp: Denies: dyspnea, productive cough, non-productive cough, wheezing, stridor, pain on inspiration, change in phlegm color, hemoptysis or chest congestion GI: Denies: abdominal pain, nausea, vomiting, hematemesis, coffee ground emesis, dysphagia, heartburn, diarrhea, constipation, GI cramping, change in stool character, hematochezia or melena : Denies: flank pain, dysuria, urinary frequency, urinary urgency, urinary hesitancy or hematuria Musc: Denies: neck pain, back pain, extremity pain, joint swelling, joint warmth or deformity Neuro: Denies: headache(s), numbness in extremities, weakness in extremities, sensory changes, difficulty walking, frequent falls, dizziness, vertigo, behavioral changes, Slurred speech present or seizure-like activity Psych: Denies: anxiety, depression, suicidal ideation or homicidal ideation Endo: Denies: polyuria, polydipsia, tired all the time, cold intolerance or hot flashes Travis/Lymph: Denies: easy bruising or easy bleeding Medications/Allergies Home Medications Medication Instructions Recorded Confirmed Last Taken Type nitroglycerin 0.4 mg sublingual 0.4 mg SUBLINGUAL Q5M PRN 10/21/19 09/11/21 Unknown History tablet Tylenol Extra Strength 1,000 mg PO PRN 09/04/20 09/11/21 Unknown History albuterol sulfate 2.5 mg INHALATION QID PRN 09/04/20 09/11/21 Unknown History aripiprazole 10 mg tablet 10 mg PO DAILY #30 tab 07/24/21 09/11/21 Unknown Rx blood sugar diagnostic #100 ea 07/24/21 09/11/21 Unknown Rx empagliflozin 25 mg tablet 25 mg PO QAM #30 tab 07/24/21 09/11/21 Unknown Rx famotidine 20 mg tablet 20 mg PO BID #30 tab 07/24/21 09/11/21 Unknown Rx insulin aspart U-100 100 unit/mL 6 unit SUBCUT TID #15 ml 07/24/21 09/11/21 Unknown Rx (3 mL) subcutaneous pen insulin detemir U-100 100 unit/mL 60 unit SUBCUT BID 30 Days #36 ml 07/24/21 09/11/21 Unknown Rx (3 mL) subcutaneous pen liraglutide 0.6 mg/0.1 mL (18 mg/3 1.8 mg SUBCUT DAILY #9 ml 07/24/21 09/11/21 Unknown Rx mL) subcutaneous pen injector losartan 50 mg tablet 50 mg PO DAILY #30 tab 07/24/21 09/11/21 Unknown Rx meloxicam 7.5 mg tablet 7.5 mg PO DAILY #30 tab 07/24/21 09/11/21 Unknown Rx metformin 500 mg tablet,extended 1,000 mg PO DAILY #60 tab 07/24/21 09/11/21 Unknown Rx release 24 hr sertraline 100 mg tablet 100 mg PO DAILY #30 tab 07/24/21 09/11/21 Unknown Rx sertraline 50 mg tablet 50 mg PO QDAY #30 tab 07/24/21 09/11/21 Unknown Rx simvastatin 40 mg tablet 40 mg PO DAILY #30 tab 07/24/21 09/11/21 Unknown Rx trazodone 50 mg tablet 50 mg PO BEDTIME #30 tab 07/24/21 09/11/21 Unknown Rx isosorbide mononitrate 30 mg 15 mg PO BID #90 tab 08/14/21 09/11/21 Unknown Rx tablet,extended release 24 hr Allergies Allergy/AdvReac Type Severity Reaction Status Date / Time No Known Allergies Allergy Verified 04/19/21 13:53 PFSH Acute PFSH: Medical History Bipolar 2 disorder Decreased hearing of right ear Hyperlipidemia Hypertension Irritable bowel syndrome with diarrhea Noncompliance with dietary restriction Uncontrolled diabetes mellitus Surgical History H/O colonoscopy 12/29/19: transverse colon polyp, poor prep, sigmoid diverticulosis History of back surgery History of hand surgery due to injury and needed reattachment History of shoulder surgery Hx of cholecystectomy Family History Other Diabetes Hypertension Denies family history of Anesthesia complication Bleeding disorder Social History Second hand smoke exposure: No Smoking risk assessment/counseling performed?: Yes Alcohol intake: never Desire information about alcohol rehabilitation?: No Counseling given: No Desire information about substance/drug rehabilitation?: No Counseling given: No Adopted: No Caregiver/support person: No Lives independently: Yes Household members: none Housing: Apartment Marital status: Single Number of children: 3 service: No Current occupational status: retired History of recent travel: No Current gender identity: Male Vitals/I&O/Wt Last Vital Signs Temp 98.0 F 10/13/21 04:00 Pulse 80 10/13/21 05:48 Resp 18 10/13/21 04:00 BP 120/70 10/13/21 04:00 Pulse Ox 91 10/13/21 04:00 10/12/21 10/12/21 10/13/21 14:59 22:59 06:59 Intake Total 2680 / 2680 Output Total 1100 / 1100 Balance 1580 / 1580 Weight last 48 hrs Weight 99.365 kg Weight 90.718 kg Physical Exam Narrative: EXAM NARRATIVE: General: No acute distress, AO x3 HEENT: PERRLA, pupils bilaterally equal and reactive, pallors not present Chest: Normal vesicular breath sounds, no added sounds, equal good air entry bilaterally CVS: S1-S2 regular, no murmurs, no tachycardia, no gallops, no rubs Abdomen: Soft, nontender, no organomegaly, bowel sounds present Neuro: No focal deficits, no facial deformity, AO x3, power 5/5 in all limbs . Data : 10/12/21 21:25 10/12/21 21:25 A&P Assessment and plan (1) Chest pain: unclear if pain preceeded the fall or vice versa Baseline troponin at 25, awaiting 2 hr and 6 hr troponins CXR without rib fracture Status: Acute Qualifiers: Chest pain type: unspecified Qualified Code(s): R07.9 - Chest pain, unspecified (2) Syncope: Ct head now to evaluate for any head trauma CT lumbar sine negative telemetry monitoring- has a h/o bradycardia related syncope in the past year- per review of outpatient cardiology notes, was planned to have a holter monitor placed if any further episodes of unexplained syncope echo 08/2020 left ventricular ejection fraction is estimated at 65 %. Grade I/IV diastolic dysfunction. 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
[2021-10-13 06:37] LABS: Glucose Point of Care 372 mg/dL (70-110)
[2021-10-13] MEDS: insulin lispro 100 unit/1 mL SUBCUT ×4 (09:01→20:47)
[2021-10-13] MEDS: sertraline 100 mg Tablet PO (09:02)
[2021-10-13] MEDS: losartan 50 mg Tablet PO (09:02)
[2021-10-13] MEDS: isosorbide mononitrate ER 30 mg Tablet 15 MG PO ×2 (09:02→17:32)
--- NOTE | 2021-10-13 10:05 | PC.CHAP ---
Pastoral Care Encounter/Spiritual Assessment Type of Contact [] Declined bulk mail clerk visit [] Patient/Family/Request visit [] Outpatient visit [] Follow-up visit [] Physician referral [] Code/Alert [x] Routine visit [] Staff referral [] Actively dying [] Patient sleeping [] Family support [] [] Out of room [] Palliative care [] [] Receiving care in room [] Pre-surgical visit [] Trauma [] Long length of stay [] ICU visit [] Other: Relational/Emotional Strength [x] Patient feels connected with others/family/visitors/staff [] Distress [] Loneliness/isolation [] Abandonment Spirituality of Patient [x] Person of Claudia [] Attends Yazidism of their Claudia [x] Believes in Prayer [] Reads Bible or Bahai materials [] There are Spiritual issues to be addressed Proposal Engineer Interventions [x] Prayer [x] Active listening [x] Non-anxious presence [x] Spiritual/emotional support [] Crisis/trauma care [] Spiritual counseling [] Bereavement support [] Provided bereavement packet [] Provided Bible/devotional materials [] Provided toy/stuffed animal, coloring book to patient or family member [] Provided Communion [] Anointing/[place] [] Salvation [x] Completed spiritual assessment [] Other: Impact on Illness or Injury [] Angry [] Fearful [] Anxious [] Often cries [] Exhaustion [] Unable to work [] Unable to attend jehovah's witness [] Unable to walk/stand [] Unable to read [] Unable to drive [] Unable to eat/drink [] Unable to sleep [] Unable to be with family [] Patient intubated [] Other: Summary Proposal Engineer prayed with Patient. Time spent with patient 7 minutes.
--- NOTE | 2021-10-13 10:50 | USR_ITS ---
PROCEDURE INFORMATION: Exam: US Duplex Bilateral Extracranial Arteries Exam date and time: 10/13/2021 10:50 AM Age: 76 years old Clinical indication: Syncope and collapse TECHNIQUE: Imaging protocol: Real-time Duplex ultrasound scan of the bilateral carotid and vertebral arteries combining lynch scale, color Doppler and spectral waveform analysis. Bilateral exam. COMPARISON: CT head wo con* [id number] 10/13/2021 12:32 PM FINDINGS: Right common carotid artery: There is mild atherosclerotic plaque in the right common carotid artery and moderate plaque in the carotid bulb. Waveforms are normal. Right internal carotid artery: The right internal carotid artery is totally occluded at its origin. Right ICA/CCA ratio: Within normal limits. Right external carotid artery: No stenosis in the origin. Right vertebral artery: Unremarkable. Antegrade flow. Left common carotid artery: There is moderate atherosclerotic plaquing in the left common carotid artery. Images and waveforms are consistent with moderate 50-75% stenosis. Left internal carotid artery: There is atherosclerotic plaquing in the left internal carotid artery. Images and waveforms are consistent with moderate left internal carotid stenosis. Left ICA/CCA ratio: Within normal limits. Left external carotid artery: There is moderate stenosis at the origin of the left external carotid artery. Left vertebral artery: Unremarkable. Antegrade flow. US/CV carotid duplex BI* [id number] IMPRESSION: 1. There is complete occlusion of the right internal carotid artery at the origin. 2. Moderate stenosis at the origin of the left internal carotid artery. REFERENCES: SRU CRITERIA. The degree of internal carotid artery stenosis is based on criteria defined by the Society of Radiologists in Ultrasound (SRU). Normal is no stenosis. Mild is less than 50% stenosis. Moderate is 50-69% stenosis. Severe is greater than 69% stenosis to near occlusion. Near occlusion is a markedly narrowed lumen. Total occlusion is no detectable patent lumen.
[2021-10-13] MEDS: aspirin 81 mg EC Tablet PO (11:46)
[2021-10-13] MEDS: insulin glargine 100 units/1 mL 60 UNIT SUBCUT ×2 (11:46→20:48)
[2021-10-13 12:27] LABS: Glucose Point of Care 388 mg/dL (70-110)
[2021-10-13 12:37] LABS: Estmated Average Glucose 255; Hemoglobin A1C 10.5 % (4.0-6.0)
[2021-10-13 12:48] LABS: Basophils % 0.5 %; Eosinophils # 0.1 10^3/uL (0.0-0.8); Eosinophils % 1.2 %; Hematocrit 48.3 % (42.0-52.0); Hemoglobin 15.9 g/dL (11.7-16.6); Lymphocytes # 1.6 10^3/uL (0.8-4.8); Lymphocytes % 20.9 %; Mean Corpuscular HGB Conc 32.9 g/dL (30.0-36.0); Mean Corpuscular Hemoglobin 28.8 pg (28.0-34.0); Mean Corpuscular Volume 87.5 fl (80-94); Mean Platelet Volume 10.2 fL (7.4-10.4); Monocytes # 0.6 10^3/uL (0.2-0.9); Monocytes % 8.5 %; Neutrophils # 5.07 10^3/uL (1.8-7.7); Neutrophils % 68.6 %; Nucleated Red Blood Cells % 0 %; Platelet Count 153 10^3/cmm (130-400); Red Blood Count 5.52 10^6/uL (4.1-5.3); Red Cell Distribution Width 12.9 % (12.1-15.1); White Blood Count 7.4 10^3/uL (4.0-10.0)
--- NOTE | 2021-10-13 13:03 | PM.PN ---
Subjective Subjective: Interval history: Admitted overnight. On examination laying comfortably in bed. On telemetry had a possible run of tachycardia forward with bradycardia though as per the nurse at that time one of the leads were off. Patient states he was feeling mildly dizzy sometime during the night. Currently denies any nausea vomiting, headache, chest pain. Vitals/I&O/Wt Last Vital Signs Temp 97.6 F 10/13/21 07:41 Pulse 72 10/13/21 07:41 Resp 16 10/13/21 07:41 BP 136/78 10/13/21 09:02 Pulse Ox 93 10/13/21 07:41 10/12/21 10/13/21 10/13/21 22:59 06:59 14:59 Intake Total 2920 / 2920 840 / 840 Output Total 1700 / 1700 2300 / 2300 Balance 1220 / 1220 -1460 / -1460 Weight last 48 hrs Weight 99.365 kg Weight 90.718 kg Physical Exam Narrative: EXAM NARRATIVE: General: No acute distress, AO x3 HEENT: PERRLA, pupils bilaterally equal and reactive, pallors not present Chest: Normal vesicular breath sounds, no added sounds, equal good air entry bilaterally CVS: S1-S2 regular, no murmurs, no tachycardia, no gallops, no rubs Abdomen: Soft, nontender, no organomegaly, bowel sounds present Neuro: No focal deficits, no facial deformity, AO x3, power 5/5 in all limbs . Data : 10/13/21 11:55 10/12/21 21:25 A&P Assessment and plan (1) Syncope: Most likely cardiac in nature. CT head still pending. Has a history of similar presentation in the past. Telemetry monitoring- has a h/o bradycardia related syncope in the past year- per review of outpatient cardiology notes, was planned to have a holter monitor placed if any further episodes of unexplained syncope. Echocardiogram 08/2020 left ventricular ejection fraction is estimated at 65 %. Grade I/IV diastolic dysfunction. Stress test 08/2020 normal Carotid Dopplers. Orthostatic check. Physical therapy eval. Most likely patient would need to be discharged with event monitor to rule out tachybradycardia syndrome versus continuance of sinus pauses of beta-romel. Status: Acute Qualifiers: Syncope type: unspecified Qualified Code(s): R55 - Syncope and collapse (2) Chest pain: Troponin cycle negative. Denies any further chest pain. Recent stress test in 08/2020 within normal limits. Continue with home dose of aspirin, statin. Status: Acute Qualifiers: Chest pain type: unspecified Qualified Code(s): R07.9 - Chest pain, unspecified (3) Uncontrolled diabetes mellitus: Check HbA1c. Continue with insulin sliding scale at high-dose protocol. Lantus 60 units twice daily at home dose. Cardiac carb consistent diet. Status: Chronic Qualifiers: Diabetes mellitus type: type 2 Glycemic state: with hyperglycemia Qualified Code(s): E11.65 - Type 2 diabetes mellitus with hyperglycemia (4) Sinus bradycardia: Status: Acute (5) New onset right bundle branch block (RBBB): Status: Acute (6) Sinus pause: History of sinus pause with sinus bradycardia in the past for which beta-romel was discontinued. Status: Acute (7) Anxiety: Status: Chronic Additional A&P Information Continue other chronic medication for anxiety. Hypertension: Goal blood pressure less than 140/90 on Hg. Check orthostatic as above. Continue with home dose of losartan, Imdur. Full code. Observation admission. Cardiac carb consistent diet. Famotidine for PUD prophylaxis. Heparin for DVT prophylaxis Attestations Medical Necessity Statement*: Requires further hospitalization under observation for evaluation of syncope Time Spent in Patient Care: Greater than 35 minutes (>than 50% of time spent in counselling and/or direct pt care on unit). Coding Level of Care Code Acute Fourdrinier Wire Weaver for Any Fwd Diagnoses Syncope R55 Syncope type: unspecified Chest pain R07.9 Chest pain type: unspecified Uncontrolled diabetes mellitus E11.65 Diabetes mellitus type: type 2 Glycemic state: with hyperglycemia Sinus bradycardia R00.1 New onset right bundle branch block (RBBB) I45.10 Sinus pause I45.5 Anxiety F41.9
[2021-10-13 13:17] LABS: Alanine Aminotransferase 16 U/L (0-41); Alkaline Phosphatase 114 IU/L (40-130); Anion Gap 18.4 (5-19); Aspartate Amino Transferase 11 U/L (0-40); Blood Urea Nitrogen 28 mg/dL (8-23); Calcium 8.9 mg/dL (8.5-10.5); Carbon Dioxide 21 mmol/L (22-29); Chloride 102 mmol/L (98-107); Globulin 2.1 g/dL (1.3-4.6); Glucose 304 mg/dL (65-115); Iron 143 ug/dL (59-158); NT Pro B Type Natriuretic Pept 77 pg/mL (0-450); Osmolality Calculated 301 mOsm/kg (285-295); Percent Saturation 50.7 % (20-50); Potassium 4.4 mmol/L (3.5-5.1); Sodium 137 mmol/L (136-145); Thyroid Stimulating Hormone 0.62 uIU/mL (0.27-4.20); Total Bilirubin 0.4 mg/dL (0.15-1.2); Total Iron Binding Capacity 282 mcg/dl; Total Protein 6.1 g/dL (6.6-8.7); Unsaturated Iron Binding 139 ug/dL (112-347)
--- NOTE | 2021-10-13 14:05 | CTR_ITS ---
PROCEDURE INFORMATION: Exam: CT Angiography Head With Contrast, Arteriography Exam date and time: 10/13/2021 2:05 PM Age: 76 years old Clinical indication: Syncope and collapse; Patient HX: HX: Livier; Additional info: Syncope, right caritid occlusion TECHNIQUE: Imaging protocol: Computed tomography angiography of the head with contrast. Exam focused on the arteries. 3D rendering (Not supervised by radiologist): MIP and/or 3D reconstructed images were created by the technologist. Radiation optimization: All CT scans at this facility use at least one of these dose optimization techniques: automated exposure control; mA and/or kV adjustment per patient size (includes targeted exams where dose is matched to clinical indication); or iterative reconstruction. Contrast material: OMNI 350; Contrast volume: 95 ml; Contrast route: INTRAVENOUS (IV); COMPARISON: CT head wo con* [id number] 10/13/2021 12:32 PM RADIATION DOSE METRICS: Total DLP (mGy-cm): 2573.76 FINDINGS: ANTERIOR CIRCULATION: Right internal carotid artery: Occlusion of the right internal carotid artery. There is some retrograde filling of the supraclinoid portion due to collateralized flow via the anterior and posterior communicating branches. Right middle cerebral artery: Unremarkable. No occlusion or significant stenosis. No aneurysm. 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 Left internal carotid artery: Unremarkable. Intracranial segment is patent with no significant stenosis. No aneurysm. Left middle cerebral artery: Unremarkable. No occlusion or significant stenosis. No aneurysm. Left anterior cerebral artery: Unremarkable. No occlusion or significant stenosis. No aneurysm. POSTERIOR CIRCULATION: Right vertebral artery: Unremarkable. No occlusion or significant stenosis. No aneurysm. Left vertebral artery: Unremarkable. No occlusion or significant stenosis. No aneurysm. Basilar artery: Unremarkable. No occlusion or significant stenosis. No aneurysm. Right posterior cerebral artery: Congenitally small P1 segment of the right posterior cerebral artery with a widely patent communicating artery branch. Left posterior cerebral artery: Congenitally small P1 segment of the left posterior cerebral artery with a widely patent communicating artery branch. Brain: No definite mass, mass effect, or midline shift. Cerebral ventricles: No ventriculomegaly. Bones/joints: Unremarkable. No acute fracture. Soft tissues: Unremarkable. PROCEDURE INFORMATION: Exam: CT Angiography Neck With Contrast Exam date and time: 10/13/2021 2:05 PM Age: 76 years old Clinical indication: Syncope and collapse; Patient HX: HX: Livier; Additional info: Syncope, right caritid occlusion TECHNIQUE: Imaging protocol: Computed tomography angiography of the neck with contrast. 3D rendering (Not supervised by radiologist): MIP and/or 3D reconstructed images were created by the technologist. Radiation optimization: All CT scans at this facility use at least one of these dose optimization techniques: automated exposure control; mA and/or kV adjustment per patient size (includes targeted exams where dose is matched to clinical indication); or iterative reconstruction. Contrast material: OMNI 350; Contrast volume: 95 ml; Contrast route: INTRAVENOUS (IV); COMPARISON: 1. CT head wo con* [id number] 10/13/2021 12:32 PM 2. US CV carotid duplex BI* [id number] 10/13/2021 12:41:59 PM RADIATION DOSE METRICS: Total DLP (mGy-cm): 2573.76 FINDINGS: Right common carotid artery: Calcified plaque in the distal right common carotid artery with 20% diameter stenosis. Right internal carotid artery: Calcified plaque with complete occlusion of the right internal carotid artery at its origin. Right external carotid artery: Calcified plaque with mild stenosis in the proximal right external carotid artery. Left common carotid artery: Calcified plaque in the distal left common carotid artery without significant stenosis. Left internal carotid artery: Calcified plaque in the proximal and mid left internal carotid artery with 35% stenosis. Left external carotid artery: No occlusion or stenosis of the origin. Right vertebral artery: Calcified plaque in the proximal right vertebral artery with mild stenosis. Left vertebral artery: No stenosis. No dissection or occlusion. Left subclavian artery: Calcified plaque in the proximal left subclavian artery without significant stenosis. Soft tissues: Normal. No significant soft tissue swelling. Bones/joints: No acute fracture. CT/CT angio headneck* [id number] IMPRESSION: 1. Occlusion of the intracranial right internal carotid artery with reconstituted flow to the supraclinoid portion via patent anterior and and bilateral posterior communicating artery branches. 2. No other large artery occlusion or stenosis. IMPRESSION: 1. Complete occlusion of the right internal carotid artery at its origin. 2. Calcified plaque in the proximal and mid left internal carotid artery with 35% stenosis. REFERENCES: NASCET CRITERIA. The degree of internal carotid artery stenosis is based on NASCET criteria. Normal is no stenosis. Mild is less than 50% stenosis. Moderate is 50-69% stenosis. Severe is 70% to 99% stenosis. Total occlusion is no detectable patent lumen.
[2021-10-13 16:58] LABS: Glucose Point of Care 250 mg/dL (70-110)
[2021-10-13] MEDS: heparin 5,000 unit/mL INJ 1 mL 5000 UNIT SUBCUT (17:33)
[2021-10-13] MEDS: famotidine 20 mg/2 mL INJ IVP (17:34)
[2021-10-13] MEDS: iohexol 350 mg/mL 100 mL Btl IV (18:12)
[2021-10-13] MEDS: atorvastatin 40 mg Tablet PO (20:49)
[2021-10-14] VITALS (7 sets, daily range): BP systolic 94–134; BP diastolic 50–71; PULSE 64–77; RESP 16–17; TEMP 36.6–37.1; O2SAT 93–95
[2021-10-14 05:16] LABS: Chol HDL Ratio 4.09 mg/dL (1.0-5.00); Cholesterol 131 mg/dL (0-200); HDL Cholesterol 32 mg/dL (60-100); LDL Cholesterol Calculated 48 mg/dL (50-129); Triglycerides 255 mg/dL (0-150); VLDL Cholestrol Calculation 51 mg/dL (0-30)
[2021-10-14] MEDS: famotidine 20 mg/2 mL INJ IVP (06:05)
[2021-10-14] MEDS: heparin 5,000 unit/mL INJ 1 mL 5000 UNIT SUBCUT (06:05)
[2021-10-14 06:52] LABS: Glucose Point of Care 172 mg/dL (70-110)
[2021-10-14] MEDS: insulin lispro 100 unit/1 mL SUBCUT ×2 (08:32→12:09)
[2021-10-14] MEDS: sertraline 100 mg Tablet PO (08:33)
[2021-10-14] MEDS: aspirin 81 mg EC Tablet PO (08:33)
[2021-10-14] MEDS: isosorbide mononitrate ER 30 mg Tablet 15 MG PO (08:33)
[2021-10-14] MEDS: losartan 50 mg Tablet PO (08:33)
[2021-10-14] MEDS: insulin glargine 100 units/1 mL 60 UNIT SUBCUT (08:33)
[2021-10-14 11:36] LABS: Glucose Point of Care 275 mg/dL (70-110)
[2021-10-14 12:07] LABS: Glucose Point of Care 199 mg/dL (70-110)
--- NOTE | 2021-10-14 13:26 | P.DS_ITS ---
Discharge Providers Date of Admission: 10/12/21 22:40 Date of Discharge: October 14, 2021 Attending Provider at Admission: Laisha Nino MD Attending Provider at Discharge: Emil White Primary Care Provider: ELKIN Luna Diagnoses at Discharge Discharge Diagnosis (1) Syncope: Status: Acute Qualifiers: Syncope type: unspecified Qualified Code(s): R55 - Syncope and collapse (2) Chest pain: Status: Acute Qualifiers: Chest pain type: unspecified Qualified Code(s): R07.9 - Chest pain, unspecified (3) Uncontrolled diabetes mellitus: Status: Chronic Qualifiers: Diabetes mellitus type: type 2 Glycemic state: with hyperglycemia Qualified Code(s): E11.65 - Type 2 diabetes mellitus with hyperglycemia (4) Sinus bradycardia: Status: Acute (5) New onset right bundle branch block (RBBB): Status: Acute (6) Sinus pause: Status: Acute Permanent problem details: -Atenolol discontinued -TSH wnl (7) Anxiety: Status: Chronic Reason for Visit Reason for Visit: FAINTING AND BACK PAIN Hospital Course Hospital Course Pleasant 76-year-old gentleman with history of bradycardia, sinus pauses, previously requiring discontinuation of beta-romel, was hospitalized after an episode of syncope at home after fall in the bathroom, possibly mechanical, but also with left-sided chest discomfort, reporting was feeling mildly dizzy during the night. Orthostatic blood pressures were assessed and were not significant. On telemetry noted bradycardia with heart rates down into the 30s no pauses noted at this time. No recurrence of syncopal episode while in the hospital. 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 35% stenosis on the left in the mid internal carotid artery. Calcified plaque. Troponin with mild elevation without peak 25-23.6-28. No recurrence of chest pain in the hospital. D-dimer not elevated. Oxygenating well on room air. Given progression of peripheral vascular disease, started on aspirin, statin changed to atorvastatin 40 mg. Needs continued optimization of diabetes control, with A1c of 10.5. Counseled to monitor blood glucose closely, continue insulin. Please assist him with continued optimization of control. Target A1c of 8. Please assist him with other risk factors including management of weight, diet and healthy lifestyle on which he was also instructed here. At discharge due to progression of vascular disease he is referred additionally for assessment by stress testing. He is also set up with 21-day cardiac cath technician due to noted bradycardia and presentation with syncope. He is asked to discontinue meloxicam due to risk of GA and CVA with this medication. Physical Exam Const: COMMON NORMALS: no acute distress, patient oriented x3 and alert NUTRITIONAL APPEARANCE: overweight ORIENTATION/CONSCIOUSNESS: Yes awake OTHER: Pleasant, conversant, in good spirits. HENMT: COMMON NORMALS: oropharynx normal Neck/C-Spine: COMMON NORMALS: no JVD Resp: COMMON NORMALS: normal respiratory effort and clear to auscultation bilaterally AUSCULTATION: clear to auscultation bilaterally Cardio: COMMON NORMALS: no JVD, regular rhythm, S1 normal heart sound present, S2 normal heart sound present and No murmurs present (Cardio) RHYTHM: regular rhythm HEART SOUNDS: S1 normal heart sound present and S2 normal heart sound present GI: COMMON NORMALS: Normal to inspection, nondistended, normoactive bowel sounds present, Soft to palpation and non-tender PALPATION: Yes Soft to palpation Extremity: COMMON NORMALS: no joint enlargement and no pedal edema Neuro: COMMON NORMALS: patient oriented x3 and moves all extremities SENSORIUM/ORIENTATION: Yes alert Skin: COMMON NORMALS: no rashes or lesions noted GENERAL SKIN EXAM: no rashes or lesions noted Discharge Data Data Completed and Pending: Completed Studies During Hospitalization Category Date Time Status CT angio headneck * [id number] Rout ine Cat Scan 10/13/21 14:[address] head wo con* [id number] Routine Cat Scan 10/13/21 06:[address] lumbar spine w o con* [id number] Urgen t Cat Scan 10/12/21 21:16 Completed XR chest 1V cruzito ble [id number] Urgent Exams 10/12/21 21:16 Completed CV carotid duplex BI* [id number] Routine Ultrasound 10/13/21 10:50 Completed Labs from last 24 hours 10/14/21 10/14/21 10/14/21 11:00 06:50 04:23 Sodium Potassium Chloride Carbon Dioxide Anion Gap BUN Creatinine Glucose POC Glucose 275 H 172 H Calculated Osmolal ity Calcium Iron TIBC % Saturation Unsat Iron Binding Total Bilirubin AST ALT Alkaline Phosphata se NT-Pro-B Natriuret Pep Total Protein Albumin Globulin Triglycerides 255 H Cholesterol 131 LDL Cholesterol, C alc 48 L Total VLDL Cholest esdras 51 H HDL Cholesterol 32 L Cholesterol/HDL Ra wily 4.09 TSH 10/13/21 10/13/21 10/13/21 20:42 16:46 11:55 Sodium 137 Potassium 4.4 Chloride 102 Carbon Dioxide 21 L Anion Gap 18.4 BUN 28 H Creatinine 0.8 Glucose 304 H POC Glucose 199 H 250 H Calculated Osmolal ity 301 H Calcium 8.9 Iron 143 TIBC 282 % Saturation 50.7 H Unsat Iron Binding 139 Total Bilirubin 0.4 AST 11 ALT 16 Alkaline Phosphata se 114 NT-Pro-B Natriuret Pep 77 Total Protein 6.1 L Albumin 4.0 Globulin 2.1 Triglycerides Cholesterol LDL Cholesterol, C alc Total VLDL Cholest esdras HDL Cholesterol Cholesterol/HDL Ra wily TSH 0.62 Vitals: Last Vital Signs Temp 97.8 F 10/14/21 11:02 Pulse 72 10/14/21 11:02 Resp 16 10/14/21 11:02 BP 121/69 10/14/21 11:02 Pulse Ox 95 10/14/21 11:02 Discharge Plan Discharge Patient Disposition: Home Condition: Stable Prescriptions: New aspirin 81 mg tablet,delayed release (DR/EC) 81 mg PO DAILY Qty: 90 RF: 0 atorvastatin 40 mg tablet 40 mg PO QPM Qty: 90 RF: 0 Continued nitroglycerin [Nitrostat] 0.4 mg tablet, sublingual 0.4 mg SUBLINGUAL Q5M PRN (Reason: Chest Pain) RF: 0 isosorbide mononitrate 30 mg tablet extended release 24 hr 15 mg PO BID Qty: 90 RF: 3 Novolog Flexpen U-100 Insulin 100 unit/mL (3 mL) insulin pen 6 unit SUBCUT TID Qty: 15 RF: 0 aripiprazole [Abilify] 10 mg tablet 10 mg PO DAILY Qty: 30 RF: 2 (DME) Blood Glucose Test Strip See Rx Instructions .ROUTE .MEDSUPPLY Qty: 100 RF: 5 Jardiance 25 mg tablet 25 mg PO QAM Qty: 30 RF: 2 famotidine 20 mg tablet 20 mg PO BID Qty: 30 RF: 2 Levemir FlexTouch U-100 Insuln 100 unit/mL (3 mL) insulin pen 60 unit SUBCUT BID 30 Days Qty: 36 RF: 2 Victoza 3-Ata 0.6 mg/0.1 mL (18 mg/3 mL) pen injector 1.8 mg SUBCUT DAILY Qty: 9 RF: 2 losartan 50 mg tablet 50 mg PO DAILY Qty: 30 RF: 2 metformin 500 mg tablet extended release 24 hr 1,000 mg PO DAILY Qty: 60 RF: 2 sertraline 50 mg tablet 50 mg PO QDAY Qty: 30 RF: 2 sertraline 100 mg tablet 100 mg PO DAILY Qty: 30 RF: 2 trazodone 50 mg tablet 50 mg PO BEDTIME Qty: 30 RF: 2 albuterol sulfate 2.5 mg /3 mL (0.083 %) Solution For Nebulization 2.5 mg INHALATION QID PRN (Reason: Shortness Of Breath) RF: 0 acetaminophen [Tylenol Extra Strength] 500 mg Tablet 1,000 mg PO PRN RF: 0 Discontinued meloxicam 7.5 mg tablet 7.5 mg PO DAILY Qty: 30 RF: 2 simvastatin 40 mg tablet 40 mg PO DAILY Qty: 30 RF: 2 Discharge Orders: Discharge Order (Routine); Ordered 10/14/21 Ordered By: Emil White Other Ambulatory Orders: Sestamibi Stress Test Request (Routine) Timeframe: 2 Days Facility: [facility] - Location: Cardiac Diagnostic Laboratory Ordered By: Emil MURPHY cardiac event monitor (Routine) Timeframe: 1 Day Facility: [facility] - Location: Cardiac Diagnostic Laboratory Ordered By: Emil White Referrals: Jorden Adams, RAILROAD INSPECTOR-C [Primary Care Provider] - 4-7 days (Please call to make an appointment to be seen in 4-7 days.) Discharge Diet: Cardiac and Diabetic Discharge Activity: Increase activity as tolerated Patient Instructions: Aspirin (By mouth), Atorvastatin (By mouth), Carotid Artery Disease (GEN), Bradycardia (GEN), Diabetes and Your Skin (GEN), Type 2 Diabetes in the Older Adult (GEN), Diabetes and Nutrition (GEN), Diabetes and Exercise (GEN) Activity Restrictions/Additional Instructions: Please follow-up with your primary doctor and safety engineer pressure vessels regarding slow heart rate, as well as for the results of the event monitor. In case you experience fainting, chest pain or pressure, or other concerning symptoms, please return to emergency department. Please discuss with your primary doctor regarding blocked internal carotid artery on the right side. Please discuss continued optimization of risk factors of cardiovascular disease to decrease risk of stroke and other complications. Please continue to optimize management of diabetes. Your diabetes control has room for improvement, current A1c is 10.5, with target A1c of 8. Please note you are also started on aspirin and cholesterol medication to decrease risks of cardiovascular complication. Please follow-up with your primary doctor with regards to this. You are also referred for a stress test to close assess for coronary artery disease. Please discontinue meloxicam as it can increase risk of heart attack or stroke in addition to other possible complications. Discharge Attestations Time Spent in Discharge Care*: greater than 30 min Status at Discharge: Cognitive status at discharge: cognitively intact , Behavioral status at discharge: cooperative , Quality Metrics Clinical Quality Measures During this hospital stay, did patient experience: None Coding Level of Care Code Acute Chg FW MI note Diagnoses Syncope R55 Syncope type: unspecified Chest pain R07.9 Chest pain type: unspecified Uncontrolled diabetes mellitus E11.65 Diabetes mellitus type: type 2 Glycemic state: with hyperglycemia Sinus bradycardia R00.1 New onset right bundle branch block (RBBB) I45.10 Sinus pause I45.5 Anxiety F41.9
== END 2021-10-14 14:47 | disposition home or self-care (01) ==
LOC: ER 22:32 → MEDSURG 22:58
PROVIDERS: Student in an Organized Health Care Education/Training Program; Admitting Provider Student in an Organized Health Care Education/Training Program; Emergency Provider Emergency Medicine; PCP Nurse Practitioner; Visit Provider Internal Medicine
DX: R55 Syncope and collapse (principal); R07.9 Chest pain, unspecified; E11.65 Type 2 diabetes mellitus with hyperglycemia; R00.1 Bradycardia, unspecified; I45.10 Unspecified right bundle-branch block; F41.9 Anxiety disorder, unspecified; I45.5 Other specified heart block; I10 Essential (primary) hypertension; Z79.84 Long term (current) use of oral hypoglycemic drugs; Z82.49 Family history of ischemic heart disease and other diseases of the circulatory system; Z83.3 Family history of diabetes mellitus; I65.21 Occlusion and stenosis of right carotid artery
CPT/HCPCS: 36415; 36416; 70450; 70496; 70498; 71045; 72131; 80048; 80053; 80061; 82962; 83036; 83540; 83550; 83880; 84443; 84484; 85025; 87426; 93005; 93880; 94640; 96360; 96372; 97161; 99285; G0378; J1644; J1815 ×2; J3490; J7030; Q9967

== ENCOUNTER → 2021-10-29 11:02 | Outpatient (BNVA) | payer MEDICARE, MEDICAID, SELFPAY | PROVIDERS: PCP Nurse Practitioner; Visit Provider Nurse Practitioner | DX: E11.65 Type 2 diabetes mellitus with hyperglycemia (principal) | CPT/HCPCS: 81000 ==

== ENCOUNTER 2022-01-17 03:26 | Emergency (ER) | payer MEDICARE, MEDICAID, SELFPAY ==
--- NOTE | 2022-01-17 03:34 | W.ED.ABDPA2 ---
HPI - Abdominal Pain General: Chief Complaint: GI Bleed Stated Complaint: bloody stool Time Seen by Provider: 01/17/22 03:27 Source: patient and EMS Mode of arrival: EMS Limitations: no limitations History of Present Illness: 76-year-old male states that starting yesterday she had some slight blood in his stools. He states has been bright red small amount that he is went to the bathroom twice over the last 12 hours. Denies any lightheadedness denies any feeling weak. States he has had some slight abdominal cramping denies any fever vomiting he is not on any blood thinners he denies any history of any GI bleeds in the past. Denies any worsening improving factors. Associated Symptoms: Reports hematochezia; Denies chills, dysuria and fever(s) Review of Systems Const: Denies: fever(s), chills, body aches or change in appetite Eyes: Denies: blurry vision or eye discomfort ENMT: Denies: throat pain or dental pain Card: Denies: chest pain Resp: Denies: dyspnea GI: Reports: abdominal pain and hematochezia : Denies: dysuria Musc: Denies: neck pain or back pain Skin/Breast: Denies: rash Neuro: Denies: headache(s) Psych: Denies: depression Travis/Lymph: Denies: easy bruising All/Imm: Denies: urticaria PFSH ED PFSH: Medical History Anxiety Bipolar 2 disorder Decreased hearing of right ear Hyperlipidemia Hypertension Irritable bowel syndrome with diarrhea New onset right bundle branch block (RBBB) Noncompliance with dietary restriction Sinus bradycardia Uncontrolled diabetes mellitus Surgical History H/O colonoscopy 12/29/19: transverse colon polyp, poor prep, sigmoid diverticulosis History of back surgery History of hand surgery due to injury and needed reattachment History of shoulder surgery Hx of cholecystectomy Family History Other Diabetes Hypertension Denies family history of Anesthesia complication Bleeding disorder Social History Smoking and tobacco status: former smoker Second hand smoke exposure: No Smoking risk assessment/counseling performed?: Yes Alcohol intake: never Desire information about alcohol rehabilitation?: No Counseling given: No Desire information about substance/drug rehabilitation?: No Counseling given: No Adopted: No Caregiver/support person: No Lives independently: Yes Household members: none Housing: Apartment Marital status: Single Number of children: 3 service: No Current occupational status: retired History of recent travel: No Current gender identity: Male Physical Exam Const: COMMON NORMALS: no acute distress, patient oriented x3 and healthy appearing HENMT: COMMON NORMALS: normocephalic and atraumatic HEAD & SCALP: normocephalic and atraumatic Eye: COMMON NORMALS: Equal, round and reactive pupils present and EOMs intact bilaterally PUPIL: Yes Equal, round and reactive pupils present Neck/C-Spine: COMMON NORMALS: full ROM and supple Chest: COMMONS NORMALS: normal inspection of the chest and normal palpation of entire chest wall Resp: COMMON NORMALS: normal respiratory effort, No retractions, No use of accessory muscles and clear to auscultation bilaterally AUSCULTATION: clear to auscultation bilaterally Cardio: COMMON NORMALS: regular rate, regular rhythm and No murmurs present (Cardio) RATE: regular rate RHYTHM: regular rhythm GI: COMMON NORMALS: Normal to inspection, nondistended, normoactive bowel sounds present, Soft to palpation, non-tender and no masses PALPATION: Yes Soft to palpation OTHER: Mucousy bloody stool on rectal exam not a large amount Extremity: COMMON NORMALS: normal to inspection and full ROM Neuro: COMMON NORMALS: patient oriented x3, moves all extremities and no focal motor deficits Psych: COMMON NORMALS: mental status grossly normal, Normal thought process present and cooperative THOUGHT PROCESS: Normal thought process present Skin: COMMON NORMALS: no rashes or lesions noted and no wounds GENERAL SKIN EXAM: no rashes or lesions noted Course Vital Signs: Vital signs: Vital Signs Temperature 97.2 F L 01/17/22 03:41 Pulse Rate 70 01/17/22 04:18 Respiratory Rate 18 01/17/22 04:18 Blood Pressure 106/53 01/17/22 04:18 Pulse Oximetry 92 01/17/22 04:18 MDM - Abdominal Pain Medical Decision Making Patient presents here with lower GI bleed likely from diverticulosis he had a small amount of mucousy blood on my rectal exam no large amount has had no bloody bowel movements here his blood pressures been stable his hemoglobin is normal. I informed patient of this and he states that he would like to go home he does not want to stay in the hospital I did offer him admission. He states that he will follow-up with surgery I informed her he needs a colonoscopy informed if he has any heavier bleeding he is return immediately he understands agrees to plan. Lab Data : 01/17/22 03:51 01/17/22 03:51 Labs/Radiology: Radiology Impressions Abdomen/Pelvis CT 01/17/22 03:36 IMPRESSION: 1. Diverticulosis without diverticulitis. 2. No cause for rectal bleeding is identified. COMMENTS: Consistent with the [employer]'s Incidental Findings Committee white paper (J Am Reece Radiol 2018): Any incidental renal lesion less than 1 cm or classified as too small to characterize, or any incidental cystic renal lesion characterized as simple-appearing, is likely benign. No follow-up imaging is recommended for these lesions per consensus recommendations based on imaging criteria. Laboratory Results WBC 8.0 10^3/uL (4.0-10.0) 01/17/22 03:51 RBC 5.23 10^6/uL (4.1-5.3) 01/17/22 03:51 Hgb 15.3 g/dL (11.7-16.6) 01/17/22 03:51 Hct 45.7 % (42.0-52.0) 01/17/22 03:51 MCV 87.4 fl (80-94) 01/17/22 03:51 MCH 29.3 pg (28.0-34.0) 01/17/22 03:51 MCHC 33.5 g/dL (30.0-36.0) 01/17/22 03:51 RDW 12.9 % (12.1-15.1) 01/17/22 03:51 Plt Count 148 10^3/cmm (130-400) 01/17/22 03:51 MPV 10.1 fL (7.4-10.4) 01/17/22 03:51 Neut % (Auto) 73.1 % 01/17/22 03:51 Lymph % (Auto) 18.6 % 01/17/22 03:51 [place] % (Auto) 6.5 % 01/17/22 03:51 Eos % (Auto) 0.9 % 01/17/22 03:51 Baso % (Auto) 0.5 % 01/17/22 03:51 Neut # (Auto) 5.82 10^3/uL (1.8-7.7) 01/17/22 03:51 Lymph # (Auto) 1.5 10^3/uL (0.8-4.8) 01/17/22 03:51 Clinton # (Auto) 0.5 10^3/uL (0.2-0.9) 01/17/22 03:51 Eos # (Auto) 0.1 10^3/uL (0.0-0.8) 01/17/22 03:51 Baso # (Auto) 0.0 10^3/uL (0.0-0.1) 01/17/22 03:51 Nucleated RBC % (auto) 0 % 01/17/22 03:51 Nucleated RBCs # 0.0 /100WBC 01/17/22 03:51 PT 13.40 SECONDS (12.1-14.9) 01/17/22 03:51 INR 0.99 (0.8-1.2) 01/17/22 03:51 Sodium 138 mmol/L (136-145) 01/17/22 03:51 Potassium 4.5 mmol/L (3.5-5.1) 01/17/22 03:51 Chloride 104 mmol/L (98-107) 01/17/22 03:51 Carbon Dioxide 23 mmol/L (22-29) 01/17/22 03:51 Anion Gap 15.5 (5-19) 01/17/22 03:51 BUN 34 mg/dL (8-23) H 01/17/22 03:51 Creatinine 1.1 mg/dL (0.7-1.2) 01/17/22 03:51 GFR Calculation Not Reportable 01/17/22 03:51 Glucose 257 mg/dL (65-115) H 01/17/22 03:51 POC Glucose 237 mg/dL (70-110) H 01/17/22 04:03 Calculated Osmolality 302 mOsm/kg (285-295) H 01/17/22 03:51 Calcium 9.5 mg/dL (8.5-10.5) 01/17/22 03:51 Total Bilirubin 0.4 mg/dL (0.15-1.2) 01/17/22 03:51 AST 17 U/L (0-40) 01/17/22 03:51 ALT 25 U/L (0-41) 01/17/22 03:51 Alkaline Phosphatase 85 IU/L (40-130) 01/17/22 03:51 Total Protein 6.1 g/dL (6.6-8.7) L 01/17/22 03:51 Albumin 4.1 g/dL (3.5-5.2) 01/17/22 03:51 Globulin 2.0 g/dL (1.3-4.6) 01/17/22 03:51 Lipase 30 U/L (13-60) 01/17/22 03:51 Discharge Plan Discharge Patient Disposition: Home Clinical Impression: Acute lower GI bleeding Condition: Stable Prescriptions: No Action nitroglycerin [Nitrostat] 0.4 mg tablet, sublingual 0.4 mg SUBLINGUAL Q5M PRN (Reason: Chest Pain) 0RF isosorbide mononitrate 30 mg tablet extended release 24 hr 15 mg PO BID Qty: 90 3RF Levemir FlexTouch U-100 Insuln 100 unit/mL (3 mL) insulin pen 70 unit SUBCUT BID 30 Days Qty: 42 2RF Novolog Flexpen U-100 Insulin 100 unit/mL (3 mL) insulin pen 10 unit SUBCUT TID Qty: 15 0RF (DME) Blood Glucose Test Strip See Rx Instructions .ROUTE .MEDSUPPLY Qty: 100 5RF Rx Instructions: testing 3 times daily aripiprazole [Abilify] 10 mg tablet 10 mg PO DAILY Qty: 30 2RF Jardiance 25 mg tablet 25 mg PO QAM Qty: 30 2RF famotidine 20 mg tablet 20 mg PO BID Qty: 30 2RF Victoza 3-Ata 0.6 mg/0.1 mL (18 mg/3 mL) pen injector 1.8 mg SUBCUT DAILY Qty: 9 2RF losartan 50 mg tablet 50 mg PO DAILY Qty: 30 2RF sertraline 50 mg tablet 50 mg PO QDAY Qty: 30 2RF Rx Instructions: TAKES WITH SERTRALINE 100 MG TO 150 MG DAILY sertraline 100 mg tablet 100 mg PO DAILY Qty: 30 2RF Rx Instructions: take with 59au=128me day trazodone 50 mg tablet 50 mg PO BEDTIME Qty: 30 2RF (DME) pen needle, diabetic 33 gauge x 5/32 needle See Rx Instructions .ROUTE .MEDSUPPLY Qty: 100 5RF Rx Instructions: 5 times day albuterol sulfate 2.5 mg /3 mL (0.083 %) Solution For Nebulization 2.5 mg INHALATION QID PRN (Reason: Shortness Of Breath) 0RF acetaminophen [Tylenol Extra Strength] 500 mg Tablet 1,000 mg PO PRN 0RF aspirin 81 mg tablet,delayed release (DR/EC) 81 mg PO DAILY Qty: 90 0RF atorvastatin 40 mg tablet 40 mg PO QPM Qty: 90 0RF Discharge Orders: Discharge ED (Routine); Ordered 01/17/22 Ordered By: Mario Rodarte Referrals: Jorden Adams, HAT BODY INSPECTOR-C [Primary Care Provider] - Discharge Diet: Advance as tolerated Discharge Activity: Resume usual activity Patient Instructions: Rectal Bleeding (ED) Coding Level of Care Code ED Steak Tenderizer Machine for Chg Fwd Exam Comprehensive
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
[2022-01-17 03:41] VITALS: BP 112/58; PULSE 68; RESP 14; TEMP 36.2; O2SAT 94; BMI 29.5
[2022-01-17 04:05] LABS: Basophils % 0.5 %; Eosinophils # 0.1 10^3/uL (0.0-0.8); Eosinophils % 0.9 %; Hematocrit 45.7 % (42.0-52.0); Hemoglobin 15.3 g/dL (11.7-16.6); Lymphocytes # 1.5 10^3/uL (0.8-4.8); Lymphocytes % 18.6 %; Mean Corpuscular HGB Conc 33.5 g/dL (30.0-36.0); Mean Corpuscular Hemoglobin 29.3 pg (28.0-34.0); Mean Corpuscular Volume 87.4 fl (80-94); Mean Platelet Volume 10.1 fL (7.4-10.4); Monocytes # 0.5 10^3/uL (0.2-0.9); Monocytes % 6.5 %; Neutrophils # 5.82 10^3/uL (1.8-7.7); Neutrophils % 73.1 %; Nucleated Red Blood Cells % 0 %; Platelet Count 148 10^3/cmm (130-400); Red Blood Count 5.23 10^6/uL (4.1-5.3); Red Cell Distribution Width 12.9 % (12.1-15.1)
[2022-01-17 04:06] LABS: Glucose Point of Care 237 mg/dL (70-110)
[2022-01-17 04:15] LABS: INR 0.99 (0.8-1.2)
[2022-01-17 04:18] VITALS: BP 106/53; PULSE 70; RESP 18; O2SAT 92
[2022-01-17 04:23] LABS: Alanine Aminotransferase 25 U/L (0-41); Albumin Level 4.1 g/dL (3.5-5.2); Alkaline Phosphatase 85 IU/L (40-130); Anion Gap 15.5 (5-19); Aspartate Amino Transferase 17 U/L (0-40); Blood Urea Nitrogen 34 mg/dL (8-23); Calcium 9.5 mg/dL (8.5-10.5); Carbon Dioxide 23 mmol/L (22-29); Chloride 104 mmol/L (98-107); Glucose 257 mg/dL (65-115); Lipase 30 U/L (13-60); Osmolality Calculated 302 mOsm/kg (285-295); Potassium 4.5 mmol/L (3.5-5.1); Sodium 138 mmol/L (136-145); Total Bilirubin 0.4 mg/dL (0.15-1.2); Total Protein 6.1 g/dL (6.6-8.7)
[2022-01-17] MEDS: iohexol 300 mg/mL 100 mL Btl IV (04:35)
[2022-01-17 05:00] VITALS: BP 123/64; PULSE 67; RESP 18; O2SAT 92
[2022-01-17 06:06] VITALS: BP 130/98; PULSE 67; RESP 16; O2SAT 94
--- NOTE | 2022-01-17 06:28 | PC.NURSE ---
Pt needs ride home, Logistics ride assistance called for ride
--- NOTE | 2022-01-17 10:40 | DCPLANNER ---
Addendum entered by Lalita Ahmadi 01/29/22 15:20: Charted on wrong patient, this patient stated that when clinic called patient, he stated that he was feeling better and did not need the appointment at this time. Addendum entered by Lalita Ahmadi 01/29/22 15:18: food and beverage manager spoke with Je at the office of Dr. Gill to confirm that an appointment was scheduled for patient. food and beverage manager was told that clinic has called patient and left a voicemail for patient to call the clinic to schedule an appointment. Original Note: food and beverage manager had message to schedule a follow up appointment for patient with Dr. Gill. food and beverage manager faxed patients information to the office of Dr. Gill. Patients information will be reviewed, clinic will call patient with appointment information.
== END 2022-01-17 06:00 | disposition home or self-care (01) ==
PROVIDERS: Emergency Provider Emergency Medicine; PCP Nurse Practitioner
DX: K92.2 Gastrointestinal hemorrhage, unspecified (principal); Z79.4 Long term (current) use of insulin; Z79.82 Long term (current) use of aspirin; E78.5 Hyperlipidemia, unspecified; I10 Essential (primary) hypertension; E11.9 Type 2 diabetes mellitus without complications; Z87.891 Personal history of nicotine dependence
CPT/HCPCS: 36416; 74177; 80053; 82962; 83690; 85025; 85610; 99283; Q9967

== ENCOUNTER → 2022-01-21 10:40 | Outpatient (BNVA) | payer MEDICARE, MEDICAID, SELFPAY | PROVIDERS: PCP Nurse Practitioner; Visit Provider Nurse Practitioner | DX: E11.65 Type 2 diabetes mellitus with hyperglycemia (principal); F31.81 Bipolar II disorder; K21.9 Gastro-esophageal reflux disease without esophagitis; I10 Essential (primary) hypertension; F41.9 Anxiety disorder, unspecified; K58.0 Irritable bowel syndrome with diarrhea | CPT/HCPCS: 81000; 83036 ==

== ENCOUNTER → 2022-02-19 10:22 | Outpatient (BNVA) | payer MEDICARE, MEDICAID, SELFPAY | PROVIDERS: PCP Nurse Practitioner; Visit Provider Nurse Practitioner Family | DX: R42 Dizziness and giddiness (principal); R26.81 Unsteadiness on feet; H65.193 Other acute nonsuppurative otitis media, bilateral; R19.7 Diarrhea, unspecified | CPT/HCPCS: 80053; 81000; 85025 ==

== ENCOUNTER → 2022-04-02 15:13 | Outpatient (BNVA) | payer MEDICARE, MEDICAID, SELFPAY | PROVIDERS: PCP Nurse Practitioner; Visit Provider Internal Medicine Cardiovascular Disease | DX: R00.1 Bradycardia, unspecified (principal); E78.5 Hyperlipidemia, unspecified; I10 Essential (primary) hypertension; E11.65 Type 2 diabetes mellitus with hyperglycemia; F31.81 Bipolar II disorder; Z79.4 Long term (current) use of insulin | CPT/HCPCS: 99213; 99214 ==

== ENCOUNTER → 2022-04-15 10:33 | Outpatient (BNVA) | payer MEDICARE, MEDICAID, SELFPAY | PROVIDERS: PCP Nurse Practitioner; Visit Provider Nurse Practitioner | DX: E11.65 Type 2 diabetes mellitus with hyperglycemia (principal); F31.81 Bipolar II disorder; K21.9 Gastro-esophageal reflux disease without esophagitis; I10 Essential (primary) hypertension; F41.9 Anxiety disorder, unspecified; J30.89 Other allergic rhinitis | CPT/HCPCS: 80053; 80061; 83036 ==

== ENCOUNTER → 2022-05-06 11:16 | Outpatient (BNVA) | payer MEDICARE, MEDICAID, SELFPAY | PROVIDERS: PCP Nurse Practitioner; Visit Provider Nurse Practitioner Family | DX: R10.9 Unspecified abdominal pain (principal); R35.1 Nocturia | CPT/HCPCS: 81000 ==

== ENCOUNTER → 2022-05-15 14:45 | Outpatient (BNVA) | payer MEDICARE, MEDICAID, SELFPAY | PROVIDERS: PCP Nurse Practitioner; Visit Provider Nurse Practitioner | DX: Z20.822 Contact with and (suspected) exposure to COVID-19 (principal); R35.1 Nocturia; J06.9 Acute upper respiratory infection, unspecified | CPT/HCPCS: 87635 ==

== ENCOUNTER → 2022-07-01 10:27 | Outpatient (BNVA) | payer MEDICARE, MEDICAID, SELFPAY | PROVIDERS: PCP Nurse Practitioner; Visit Provider Nurse Practitioner | DX: E11.65 Type 2 diabetes mellitus with hyperglycemia (principal); F31.81 Bipolar II disorder; K21.9 Gastro-esophageal reflux disease without esophagitis; I10 Essential (primary) hypertension; F41.9 Anxiety disorder, unspecified; J30.89 Other allergic rhinitis; R35.1 Nocturia; E78.5 Hyperlipidemia, unspecified; Z91.11 Patient's noncompliance with dietary regimen; K58.0 Irritable bowel syndrome with diarrhea | CPT/HCPCS: 80053; 81000; 83036; 84443 ==

== ENCOUNTER → 2022-07-02 10:56 | Outpatient (BNVA) | payer MEDICARE, MEDICAID, SELFPAY | PROVIDERS: PCP Nurse Practitioner; Visit Provider Nurse Practitioner | DX: R05.9 Cough, unspecified (principal); R06.02 Shortness of breath | CPT/HCPCS: 71046 ==

== ENCOUNTER 2022-09-21 02:30 | Inpatient (IN) | payer MEDICARE, MEDICAID, SELFPAY ==
[2022-09-21] VITALS (83 sets, daily range): BP systolic 98–163; BP diastolic 49–114; PULSE 0–95; RESP 12–37; TEMP 36.4–36.7; O2SAT 83–97; BMI 29.5; BMI 30.2
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
--- NOTE | 2022-09-21 02:32 | ECG_ITS ---
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 Measurements Intervals [place] Rate: 96 P: 33 TX: 172 QRS: 142 QRSD: 149 T: 32 QT: 392 QTc: 497 Interpretive Statements SINUS RHYTHM INDETERMINATE AXIS RIGHT BUNDLE BRANCH BLOCK [120+ ms QRS DURATION, UPRIGHT V1, 40+ ms S IN I/aVL/V4/V5/V6] LEFT POSTERIOR FASCICULAR BLOCK [QRS AXIS > 109, INFERIOR Q] Poor R wave progression Q waves in inferior leads, suggesting recent inferior wall [place] INTERPRETATION BASED ON A DEFAULT AGE OF 40 YEARS Compared to ECG 10/12/2021 23:07:12 Indeterminate axis now present Left posterior fascicular block now present Myocardial infarct finding now present ST (T wave) deviation now present First degree AV block no longer present Electronically Signed On 09-22-2022 13:52:47 MACHINE DEICER ELEMENT WINDER by Angle Orta M.D. [id number] f
--- NOTE | 2022-09-21 02:36 | W.ED.CHESTPA ---
HPI - Chest Pain General: Chief Complaint: Chest Pain Stated Complaint: CP Time Seen by Provider: 09/21/22 02:31 Source: patient Mode of arrival: ambulatory Limitations: no limitations History of Present Illness: 77-year-old male is here by EMS he states he been having chest pain since 10:00. States it is a pressure pain in the center of his chest states now a 2 out of 10 he denies any dyspnea denies any cough denies any fever denies any worsening improving factors. Associated symptoms: Deny abdominal pain, dyspnea, fever(s), nausea or vomiting Review of Systems Const: Denies: fever(s), chills, body aches or change in appetite Eyes: Denies: blurry vision or eye discomfort ENMT: Denies: throat pain or dental pain Card: Reports: chest pain Resp: Denies: dyspnea GI: Denies: abdominal pain, nausea, vomiting or diarrhea : Denies: dysuria Musc: Denies: neck pain or back pain Skin/Breast: Denies: rash Neuro: Denies: headache(s) Psych: Denies: depression Travis/Lymph: Denies: easy bruising All/Imm: Denies: urticaria PFSH ED PFSH: Medical History Anxiety Bipolar 2 disorder Decreased hearing of right ear Hyperlipidemia Hypertension Irritable bowel syndrome with diarrhea New onset right bundle branch block (RBBB) Noncompliance with dietary restriction Sinus bradycardia Uncontrolled diabetes mellitus Surgical History H/O colonoscopy 12/29/19: transverse colon polyp, poor prep, sigmoid diverticulosis History of back surgery History of hand surgery due to injury and needed reattachment History of shoulder surgery Hx of cholecystectomy Family History Father CAD (coronary artery disease) DC @ 69 - Mother Dementia Brother Diabetes Other Hypertension Denies family history of Clotting disorder Chronic kidney disease (CKD) Suicide Anesthesia complication Bleeding disorder Lung disease Cancer Stroke Social History Smoking and tobacco status: current every day smoker Second hand smoke exposure: No Smoking risk assessment/counseling performed?: Yes Alcohol intake: never Desire information about alcohol rehabilitation?: No Counseling given: No Desire information about substance/drug rehabilitation?: No Counseling given: No Adopted: No Caregiver/support person: No Lives independently: Yes Household members: none Housing: Apartment Marital status: Single Number of children: 3 service: No Current occupational status: retired History of recent travel: No Current gender identity: Male Physical Exam Const: COMMON NORMALS: patient oriented x3 HENMT: COMMON NORMALS: normocephalic and atraumatic HEAD & SCALP: normocephalic and atraumatic Eye: COMMON NORMALS: Equal, round and reactive pupils present and EOMs intact bilaterally PUPIL: Yes Equal, round and reactive pupils present Neck/C-Spine: COMMON NORMALS: full ROM and supple Chest: COMMONS NORMALS: normal inspection of the chest and normal palpation of entire chest wall Resp: COMMON NORMALS: normal respiratory effort, No retractions, No use of accessory muscles and clear to auscultation bilaterally AUSCULTATION: clear to auscultation bilaterally Cardio: COMMON NORMALS: regular rate, regular rhythm and No murmurs present (Cardio) RATE: regular rate RHYTHM: regular rhythm GI: COMMON NORMALS: Normal to inspection, nondistended, normoactive bowel sounds present, Soft to palpation, non-tender and no masses PALPATION: Yes Soft to palpation Extremity: COMMON NORMALS: normal to inspection and full ROM Neuro: COMMON NORMALS: patient oriented x3, moves all extremities and no focal motor deficits Psych: COMMON NORMALS: mental status grossly normal, Normal thought process present and cooperative THOUGHT PROCESS: Normal thought process present Skin: COMMON NORMALS: no rashes or lesions noted and no wounds GENERAL SKIN EXAM: no rashes or lesions noted Course Reevaluation(s): Reevaluation #1: Patient is currently pain-free his first EKG showed slight elevation in inferior leads patient is pain-free I did discuss this with paint mixer machine at this time does not meet STEMI criteria but will repeat an EKG due to the concerning nature of the EKG Time: 02:45 Reevaluation #2: Second EKG shows worsening elevation in inferior leads likely an inferior DC I did activate Nursing Education Consultant at this time of the second EKG which was done at 257 Time: 02:57 Vital Signs: Vital signs: Vital Signs Temperature 97.9 F 09/21/22 02:38 Pulse Rate 95 09/21/22 02:33 Respiratory Rate 24 H 09/21/22 02:33 Blood Pressure 131/88 09/21/22 02:33 Pulse Oximetry 91 09/21/22 02:33 Oxygen Delivery Me thod 09/21/22 02:33 MDM - Chest Pain Medical Decision Making Patient presents here with an ST elevation DC. He is currently pain-free he did receive nitro in route second EKG done here shows an acute DC I spoke to paint mixer machine Nursing Education Consultant was activated at 0300 off of the second EKG which was done at 257. Lab Data 09/21/22 02:47 09/21/22 02:47 Laboratory Results WBC 9.1 10^3/uL (4.0-10.0) 09/21/22 02:47 RBC 5.72 10^6/uL (4.1-5.3) H 09/21/22 02:47 Hgb 16.0 g/dL (11.7-16.6) 09/21/22 02:47 Hct 50.3 % (42.0-52.0) 09/21/22 02:47 MCV 87.9 fl (80-94) 09/21/22 02:47 MCH 28.0 pg (28.0-34.0) 09/21/22 02:47 MCHC 31.8 g/dL (30.0-36.0) 09/21/22 02:47 RDW 13.1 % (12.1-15.1) 09/21/22 02:47 Plt Count 148 10^3/cmm (130-400) 09/21/22 02:47 MPV 9.6 fL (7.4-10.4) 09/21/22 02:47 Neut % (Auto) 74.7 % 09/21/22 02:47 Lymph % (Auto) 14.7 % 09/21/22 02:47 [place] % (Auto) 8.9 % 09/21/22 02:47 Eos % (Auto) 0.9 % 09/21/22 02:47 Baso % (Auto) 0.4 % 09/21/22 02:47 Neut # (Auto) 6.83 10^3/uL (1.8-7.7) 09/21/22 02:47 Lymph # (Auto) 1.3 10^3/uL (0.8-4.8) 09/21/22 02:47 [place] # (Auto) 0.8 10^3/uL (0.2-0.9) 09/21/22 02:47 Eos # (Auto) 0.1 10^3/uL (0.0-0.8) 09/21/22 02:47 Baso # (Auto) 0.0 10^3/uL (0.0-0.1) 09/21/22 02:47 Nucleated RBC % (auto) 0 % 09/21/22 02:47 Nucleated RBCs # 0.0 /100WBC 09/21/22 02:47 POC Glucose 264 mg/dL (70-110) H 09/21/22 02:45 Discharge Plan Discharge Patient Disposition: Admitted As Inpatient Clinical Impression: ST elevation myocardial infarction (STEMI) Condition: Stable Prescriptions: No Action nitroglycerin [Nitrostat] 0.4 mg tablet, sublingual 0.4 mg SUBLINGUAL Q5M PRN (Reason: Chest Pain) (DME) Blood Glucose Test Strip See Rx Instructions .ROUTE .MEDSUPPLY Qty: 100 5RF Rx Instructions: testing 3 times daily aripiprazole [Abilify] 10 mg tablet 10 mg PO DAILY Qty: 30 2RF atorvastatin 40 mg tablet 40 mg PO QPM Qty: 30 2RF Jardiance 25 mg tablet 25 mg PO QAM Qty: 30 2RF famotidine 20 mg tablet 20 mg PO BID Qty: 30 2RF fluticasone propionate [Flonase Allergy Relief] 50 mcg/actuation spray,suspension 1 spray intranasal DAILY Qty: 16 2RF Rx Instructions: administer into each nostril Levemir FlexTouch U-100 Insuln 100 unit/mL (3 mL) insulin pen 70 unit SUBCUT BID 30 Days Qty: 42 2RF Novolog Flexpen U-100 Insulin 100 unit/mL (3 mL) insulin pen 10 unit SUBCUT TID Qty: 15 0RF Victoza 3-Ata 0.6 mg/0.1 mL (18 mg/3 mL) pen injector 1.8 mg SUBCUT DAILY Qty: 9 2RF losartan 50 mg tablet 50 mg PO DAILY Qty: 30 2RF (DME) pen needle, diabetic 33 gauge x 5/32 needle See Rx Instructions .ROUTE .MEDSUPPLY Qty: 100 5RF Rx Instructions: 5 times day sertraline 50 mg tablet 50 mg PO DAILY Qty: 30 2RF Rx Instructions: TAKE 1 TABLET BY MOUTH 100MG TABLETS FOR A TOTAL OF 150MG/DAY sertraline 100 mg tablet 100 mg PO DAILY Qty: 30 2RF Rx Instructions: take with 91sb=521lo day tamsulosin 0.4 mg capsule 0.4 mg PO DAILY Qty: 30 2RF trazodone 50 mg tablet 50 mg PO BEDTIME Qty: 30 2RF isosorbide mononitrate 30 mg tablet extended release 24 hr 15 mg PO BID Qty: 90 3RF albuterol sulfate 2.5 mg /3 mL (0.083 %) Solution For Nebulization 2.5 mg INHALATION QID PRN (Reason: Shortness Of Breath) acetaminophen [Tylenol Extra Strength] 500 mg Tablet 1,000 mg PO PRN aspirin 81 mg tablet,delayed release (DR/EC) 81 mg PO DAILY Qty: 90 0RF Referrals: Jorden Adams, [facility] MACHINE FEEDER-C [Primary Care Provider] - Coding Level of Care Code ED Oil Producer for Chg Fwd Exam Comprehensive
[2022-09-21 02:48] LABS: Glucose Point of Care 264 mg/dL (70-110)
[2022-09-21 02:52] LABS: Basophils % 0.4 %; Eosinophils # 0.1 10^3/uL (0.0-0.8); Eosinophils % 0.9 %; Hematocrit 50.3 % (42.0-52.0); Lymphocytes # 1.3 10^3/uL (0.8-4.8); Lymphocytes % 14.7 %; Mean Corpuscular HGB Conc 31.8 g/dL (30.0-36.0); Mean Corpuscular Volume 87.9 fl (80-94); Mean Platelet Volume 9.6 fL (7.4-10.4); Monocytes # 0.8 10^3/uL (0.2-0.9); Monocytes % 8.9 %; Neutrophils # 6.83 10^3/uL (1.8-7.7); Neutrophils % 74.7 %; Nucleated Red Blood Cells % 0 %; Platelet Count 148 10^3/cmm (130-400); Red Blood Count 5.72 10^6/uL (4.1-5.3); Red Cell Distribution Width 13.1 % (12.1-15.1); White Blood Count 9.1 10^3/uL (4.0-10.0)
--- NOTE | 2022-09-21 02:57 | ECG_ITS ---
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 Measurements Intervals [place] Rate: 83 P: 59 IA: 212 QRS: 96 QRSD: 148 T: 31 QT: 395 QTc: 466 Interpretive Statements SINUS RHYTHM WITH FIRST DEGREE AV BLOCK Possible left atrial enlargement RIGHT BUNDLE BRANCH BLOCK [120+ ms QRS DURATION, UPRIGHT V1, 40+ ms S IN I/aVL/V4/V5/V6] Q waves in the inferior leads suggesting possible recent inferior wall [place]. INTERPRETATION BASED ON A DEFAULT AGE OF 40 YEARS Compared to ECG 09/21/2022 02:39:20 First degree AV block now present.ST (T wave) deviation now present Indeterminate axis no longer present.Left posterior fascicular block no longer present Poor R-wave progression no longer present Q waves no longer present Myocardial infarct finding still present Electronically Signed On 09-22-2022 18:03:27 HAND BOOKBINDER by Angle Orta M.D. [id number] jeremie
[2022-09-21] MEDS: heparin 5,000 unit/mL INJ 1 mL 4000 UNIT IVP (03:05)
[2022-09-21 03:10] LABS: Alanine Aminotransferase 20 U/L (0-41); Alkaline Phosphatase 114 U/L (40-130); Anion Gap 13.1 (5-19); Aspartate Amino Transferase 17 U/L (0-40); Blood Urea Nitrogen 28 mg/dL (8-23); Calcium 9.4 mg/dL (8.5-10.5); Carbon Dioxide 27 mmol/L (22-29); Chloride 98 mmol/L (98-107); Globulin 2.7 g/dL (1.3-4.6); Glucose 288 mg/dL (65-115); Osmolality Calculated 294 mOsm/kg (285-295); Potassium 4.1 mmol/L (3.5-5.1); Sodium 134 mmol/L (136-145); Total Bilirubin 0.4 mg/dL (0.15-1.2); Total Protein 6.7 g/dL (6.6-8.7)
[2022-09-21] MEDS: clopidogrel 300 mg Tablet 600 MG PO (03:10)
[2022-09-21 03:11] LABS: Troponin(5th) Baseline 26 ng/L (0-15)
--- NOTE | 2022-09-21 03:19 | XACV_ITS ---
Exam Room: ED.ROOM06 Ht: 175 cm Wt: 91 kg BSA: 2.12 m2 Gender: Male : 1945 Any Known Allergies: No known allergies Exam Priority: Routine Procedure(s): Procedure Description: Diagnostic procedure Procedure Description: Coronary Angiography Procedure Description: PCI procedure Procedure Description: Drug Eluting Coronary Stent Procedure Description: PTCA Diagnostic Cath Status: Emergency Diagnostic Findings * Almost separate ostia of the LAD and left circumflex artery. LAD: Has moderate 60% mid and distal vessel stenosis. Left circumflex artery: Large dominant vessel. Distal circumflex artery has 80% lesion. Given its distal location, we decided to medically treated. Large sized OM 1 branch has proximal hazy 70 to 80% stenosis.. * INDICATION: 77 year old male with past medical history of hypertension, hyperlipidemia, diabetes on insulin who presented to the hospital with 4 to 5 hours of substernal chest discomfort. He says it is radiating to the back. Initially was so severe however after receiving nitros, it has improved. Still going low. No prior history of cardiac problems. Initial EKG showed borderline ST changes in inferior leads. Repeat EKG showed more significant ST elevation. Cardiac Airline Mechanic was emergently activated. * Coronary angiography shows left dominance. PCI Status: Emergency PCI Indication: Immediate PCI for STEMI Interventional Findings * Procedure detail: We engaged left main artery with XB 3.5 guide catheter. IV heparin was administered to maintain ACT above 250 S. 0.014 run-through guidewire was used to cross into OM branch. Lesion was predilated with 2.5 x 12 mm noncompliant balloon. This was followed by placement of 0.75 x 18 mm resolute [place] drug-eluting stent. At this time final angiogram was performed that showed excellent stent expansion, no residual stenosis and JAMAR-3 flow. Guidewire and guide catheter were removed. Patient left the Airline Mechanic in a stable condition.. * First Obtuse Marginal Branch Segment: 70% stenosis treated with a AB TREK 2.50X12 RX BALLOON, and MDT R DORON 2.75X18 FAUSTO. 0% residual stenosis, JAMAR: 3 flow. Conclusions 1. Almost separate ostia of the LAD and left circumflex artery. LAD: Has moderate 60% mid and distal vessel stenosis. Left circumflex artery: Large dominant vessel. Distal circumflex artery has 80% lesion. Given its distal location, we decided to medically treated. Large sized OM 1 branch has proximal hazy 70 to 80% stenosis.. 2. S/p successful revascularization of OM 1 with FAUSTO x1. 3. First Obtuse Marginal Branch Segment was treated with a Balloon, and Drug Eluting Stent. Recommendations * Transferred to ICU. * High intensity statin. * Dual antiplatelet therapy with aspirin and Plavix for at least 1 year. * Outpatient cardiology follow-up in 4 weeks. Interventional RX Recommendation: PCI w/o planned CABG Diagnostic RX Recommendation: PCI w/o planned CABG Anticoagulation: Heparin Pressures Phase:Rest AO : 135 / 59 ( 81 ) @ 10:25:07 PM 94 / 63 ( 78 ) @ 10:25:07 PM 86 / 58 ( 71 ) @ 10:25:07 PM 81 / 56 ( 69 ) @ 10:25:07 PM 91 / 64 ( 77 ) @ 10:25:07 PM 104 / 63 ( 81 ) @ 4:00:00 AM 99 / 75 ( 87 ) @ 4:07:00 AM 107 / 82 ( 95 ) @ 4:09:00 AM 95 / 62 ( 77 ) @ 4:11:00 AM 80 / 54 ( 66 ) @ 4:12:00 AM 105 / 63 ( 77 ) @ 4:14:00 AM Clinical Evaluation EBL: 5mL-10mL Procedural Details Pre-Procedure Time Out. Identified patient by full name and date of as verbalized by the patient/guarantor. Does the consent match the physician's order: N/A Emergent. Accurate & Complete Informed Consent: N/A Emergent. Inpatient/Outpatient History & Physical on Chart: N/A Emergent. If H&P is completed, is and addenduem needed: N/A Emergent; If yes, is the addendum complete: N/A Emergent. Visualize and Verify Site with Patient/Guarantor: N/A. Relevant Radiology Images available: N/A Emergent. Pre-op teaching completed and patient verbalized understanding. The risks, benefits, and alternatives of sedation and/or procedure were discussed by physician. The patient agrees to continue. Procedure started. [facility] Clinical Fraility Score: 4: Vulnerable. Airline Mechanic Indications: ACS <= 24 hours. Chest Pain Symptom Assessment: Typical Angina Symptoms. Cardiovascular Instability: Yes, if yes, Persistant Ischemic Symptoms. Correct patient, site and procedure confirmed by cath team. Current diagnosis: STEMI. PERRLA. Strong, equal hand manager implementation bilaterally. Lungs clear x 5 lobes. IV Site on Arrival: 18 gauge in the left anticubital. IV Fluids: 0.9% NaCl at KVO. 0 mL infused prior to cathead operator. Oxygen started at 2liters/min via nasal canula. right groin was prepped with chloroprep then draped in the usual sterile fashion. right radial was prepped with chloroprep then draped in the usual sterile fashion. Baseline sample Acquired. HR: 60 BPM. Physician arrived. Physician scrubbed in. Immediate Pre-Procedure Time Out. Correct Patient: N/A Emergent; Correct Procedure: N/A Emergent; Correct Site: N/A Emergent; Correct Patient Position: N/A Emergent; Correct Supplies: N/A Emergent; Dried Flammable Prep: N/A Emergent; Blood Products Available: N/A Emergent;. Lidocaine 1% infiltrated to the right radial. Arterial access obtained. A 5 [place] citizen TIG catheter in over wire. Multiple views taken of left coronary artery. Catheter redirected to the RCA. Multiple views taken of right coronary artery. Physician review of cine films. Catheter redirected to the LCA. More views taken of left coronary artery. Catheter removed over the exchange wire. 6 [place] citizen XB 3 guide catheter was inserted over the wire. Runthrough guidewire was advanced through the guide catheter to lesion in the OM. Current Diagnosis : STEMI. PCI Indication : Immediate PCI for STEMI. Stent inserted to lesion in the OM. Intact stent out OTW. Inflation number : 1 A AB TREK 2.50X12 RX BALLOON was prepped and advanced across the 1st Ob Sonia , then inflated to 12 SONYA for 0:16 seconds. Inflation number: 2 The AB TREK 2.50X12 RX BALLOON was reinflated across the 1st Ob Sonia, to 12 SONYA for 0:14 seconds. Balloon out. Inflation Number : 3 Radha Walsh DORON 2.75X18 FAUSTO -Lot Number# _[id number] EXP: 12/02/2024 was prepped and advanced across the 1st Ob Sonia. The stent was deployed at 12 SONYA for 0:21 seconds. Stent balloon out over wire. Results checked. Wire out. ACT drawn. Results 222 seconds. Therapeutic limits - pre-heparin administration 90-150 seconds and monitoring heparin during a vascular procedure >250 seconds. Guide catheter out. Physician review of cine films. A TR Band was successful obtaining hemostatsis at the Right Radial artery insertion site. Post Procedure: Pulses reassessed and unchanged. PERRLA. Strong, equal hand manager implementation bilaterally. No VTE prophylaxis required. Medication's Wasted: Lidocaine 1% = 2 mL. Medication's Wasted: Nitro = 49.6 mg. Total IV fluids: 75 mL. PCI Indication: STEMI. Post-op diagnosis: CAD. Complications: None. Estimated blood loss: 5mL-10mL. Responsiveness - Normal response to verbal stimuli; alert and oriented, PERRLA. Airway - Unaffected, no intervention required; spontaneous ventilation. Circulation: W/N/L, pulses unchanged. Nausea/Vomiting: No. Vital chart was stopped. Procedure completed. Patient transferred by wheelchair to ICU. Access Site Site: Right Radial artery Sheath Size: 6 Fr Hemostasis Method: TR Band Hemostasis Success: Successful Procedure Medications Start: 3:43 AM Stop: 3:43 AM Medication: Versed Amount: 1 mg Route: I.V. Start: 3:43 AM Stop: 3:43 AM Medication: Fentanyl Amount: 50 mcg Route: I.V. Start: 3:46 AM Stop: 3:46 AM Medication: Versed Amount: 1 mg Route: I.V. Start: 3:47 AM Stop: 3:47 AM Medication: Nitrogylcerin Amount: 200 mcg Route: I.A. Start: 3:56 AM Stop: 3:56 AM Medication: Heparin Amount: 4000 units Route: I.V. Start: 4:01 AM Stop: 4:01 AM Medication: Heparin Amount: 1000 units Route: I.V. Start: 4:06 AM Stop: 4:06 AM Medication: Fentanyl Amount: 25 mcg Route: I.V. Start: 4:10 AM Stop: 4:10 AM Medication: Nitrogylcerin Amount: 200 mcg Route: I.C. Start: 4:13 AM Stop: 4:13 AM Medication: Aspirin Amount: 325 mg Route: P.O. Start: 4:16 AM Stop: 4:16 AM Medication: Heparin Amount: 3000 units Route: I.V. I, the attending physician, have reviewed and verified all procedure medications. Yes, all medications given per verbal order History/Risk Factors Hypertension: No Dyslipidemia: No Peripheral Arterial Disease (PAD): No Myocardial Infarction (LA): No Obesity: No Renal Disease: No Prior Interventions PCI: No CABG: No Valve Surgery: No Report Signatures Finalized by Andres Barnett MD on 09/30/2022 06:04 PM
--- NOTE | 2022-09-21 03:29 | P.HP_ITS ---
Providers/Chief Complaint Admitting Physician: Andres Barnett MD/ Cardiology Primary Care Provider: ELKIN Luna Chief Complaint: Chest pain History of Present Illness Christ Garza is a 77 year old male with past medical history of hypertension, hyperlipidemia, diabetes on insulin who presented to the hospital with 4 to 5 hours of substernal chest discomfort. He says it is radiating to the back. Initially was so severe however after receiving nitros, it has improved. Still going low. No prior history of cardiac problems. Initial EKG showed borderline ST changes in inferior leads. Repeat EKG showed more significant ST elevation. Cardiac Pan Tank Worker was emergently activated. Review of Systems Const: Denies: fever(s), chills, body aches or change in appetite Eyes: Denies: blurry vision or eye discomfort ENMT: Denies: throat pain or dental pain Card: Reports: chest pain Resp: Denies: dyspnea GI: Denies: abdominal pain, nausea, vomiting or diarrhea : Denies: dysuria Musc: Denies: neck pain or back pain Skin/Breast: Denies: rash Neuro: Denies: headache(s) Psych: Denies: depression Travis/Lymph: Denies: easy bruising All/Imm: Denies: urticaria Medications/Allergies Home Medications Medication Instructions Recorded Confirmed Last Taken Type nitroglycerin 0.4 mg sublingual 0.4 mg sublingual Q5M PRN Chest 10/21/19 09/01/22 Unknown History tablet (Nitrostat) Pain acetaminophen 500 mg tablet 1,000 mg PO PRN 09/04/20 09/01/22 Unknown History (Tylenol Extra Strength) albuterol sulfate 2.5 mg/3 mL 2.5 mg inhalation QID PRN 09/04/20 09/01/22 Unknown History (0.083 %) solution for nebulization Shortness Of Breath aspirin 81 mg tablet,delayed 81 mg PO DAILY #90 tabs 10/14/21 09/01/22 Unknown Rx release blood sugar diagnostic (Blood #100 ea 04/15/22 09/01/22 Unknown Rx Glucose Test strips) aripiprazole 10 mg tablet (Abilify) 10 mg PO DAILY #30 tabs 07/01/22 09/01/22 Unknown Rx atorvastatin 40 mg tablet 40 mg PO QPM #30 tabs 07/01/22 09/01/22 Unknown Rx empagliflozin 25 mg tablet 25 mg PO QAM #30 tabs 07/01/22 09/01/22 Unknown Rx (Jardiance) famotidine 20 mg tablet 20 mg PO BID #30 tabs 07/01/22 09/01/22 Unknown Rx fluticasone propionate 50 1 spray intranasal DAILY #16 grams 07/01/22 09/01/22 Unknown Rx mcg/actuation nasal spray,suspension (Flonase Allergy Relief) insulin aspart U-100 100 unit/mL 10 unit (0.1 mL) SUBCUT TID #15 mL 07/01/22 09/01/22 Unknown Rx (3 mL) subcutaneous pen (Novolog Flexpen U-100 Insulin aspart) insulin detemir U-100 100 unit/mL 70 unit (0.7 mL) SUBCUT BID 30 07/01/22 09/01/22 Unknown Rx (3 mL) subcutaneous pen (Levemir days #42 mL FlexTouch U-100 Insulin) liraglutide 0.6 mg/0.1 mL (18 mg/3 1.8 mg (0.3 mL) SUBCUT DAILY #9 mL 07/01/22 09/01/22 Unknown Rx mL) subcutaneous pen injector (Victoza 3-Ata) losartan 50 mg tablet 50 mg PO DAILY #30 tabs 07/01/22 09/01/22 Unknown Rx pen needle, diabetic 33 gauge x #100 ea 07/01/22 09/01/22 Unknown Rx 5/32 sertraline 100 mg tablet 100 mg PO DAILY #30 tabs 07/01/22 09/01/22 Unknown Rx sertraline 50 mg tablet 50 mg PO DAILY #30 tabs 07/01/22 09/01/22 Unknown Rx tamsulosin 0.4 mg capsule 0.4 mg PO DAILY #30 caps 07/01/22 09/01/22 Unknown Rx trazodone 50 mg tablet 50 mg PO BEDTIME Insomnia #30 tabs 07/01/22 09/01/22 Unknown Rx isosorbide mononitrate 30 mg 15 mg PO BID #90 tabs 08/26/22 09/01/22 Unknown Rx tablet,extended release 24 hr Allergies Allergy/AdvReac Type Severity Reaction Status Date / Time No Known Allergies Allergy Verified 09/01/22 10:11 PFSH Acute PFSH: Medical History Anxiety Bipolar 2 disorder Decreased hearing of right ear Hyperlipidemia Hypertension Irritable bowel syndrome with diarrhea New onset right bundle branch block (RBBB) Noncompliance with dietary restriction Sinus bradycardia Uncontrolled diabetes mellitus Surgical History H/O colonoscopy 12/29/19: transverse colon polyp, poor prep, sigmoid diverticulosis History of back surgery History of hand surgery due to injury and needed reattachment History of shoulder surgery Hx of cholecystectomy Family History Father CAD (coronary artery disease) [place] @ 69 - Mother Dementia Brother Diabetes Other Hypertension Denies family history of Clotting disorder Chronic kidney disease (CKD) Suicide Anesthesia complication Bleeding disorder Lung disease Cancer Stroke Social History Smoking and tobacco status: current every day smoker Second hand smoke exposure: No Smoking risk assessment/counseling performed?: Yes Alcohol intake: never Desire information about alcohol rehabilitation?: No Counseling given: No Desire information about substance/drug rehabilitation?: No Counseling given: No Adopted: No Caregiver/support person: No Lives independently: Yes Household members: none Housing: Apartment Marital status: Single Number of children: 3 service: No Current occupational status: retired History of recent travel: No Current gender identity: Male Vitals/I&O/Wt Last Vital Signs Temp 97.9 F 09/21/22 02:38 Pulse 95 09/21/22 02:33 Resp 24 H 09/21/22 02:33 BP 131/88 09/21/22 02:33 Pulse Ox 91 09/21/22 02:33 O2 Del Method 09/21/22 02:33 Weight last 48 hrs Weight 200 lb Physical Exam Narrative: GENERAL: Patient is alert, awake and oriented x3. [] NECK: No jugular vein distension. [] HEENT: No cyanosis. No icterus. No pallor. [] HEART: Regular S1 and S2. No murmur, rub or gallop. [] LUNGS: Clear to auscultate bilaterally. [] ABDOMEN: Soft, nontender and nondistended. Positive bowel sounds. No guarding, rebound or tenderness. [] CENTRAL NERVOUS SYSTEM: Grossly nonfocal. [] EXTREMITIES: Lower extremities with 1+ edema bilaterally. Pulses palpable in the lower extremities, both dorsalis pedis and posterior tibial. [] Data 09/21/22 02:47 09/21/22 02:47 A&P Assessment and plan (1) ST elevation myocardial infarction (STEMI): (2) Cigarette smoker: (3) Bipolar 2 disorder: (4) Hyperlipidemia: Qualifiers: Hyperlipidemia type: unspecified Qualified Code(s): E78.5 - Hyperlipidemia, unspecified (5) Hypertension: Qualifiers: Hypertension type: essential hypertension Qualified Code(s): I10 - Es sential (primary) hypertension (6) Diabetes: Plan Patient has presented with chest pain and ST elevations are noted in inferior leads on repeat EKG in the ER. Cardiac Pan Tank Worker activated emergently and patient is being transferred Loaded with aspirin and Plavix. Heparin bolus given We will obtain echocardiogram Will consult medicine team for management of medical issues. Attestations Medical Necessity Statement*: Care expected to cross [address] elevation OR and is being transferred to cardiac flue dust laborer emergently. Coding Level of Care Code Acute Drivers License Examiner for [facility] Fwd Diagnoses ST elevation myocardial infarction (STEMI) I21.3 Cigarette smoker F17.210 Bipolar 2 disorder F31.81 Hyperlipidemia E78.5 Hyperlipidemia type: unspecified Hypertension I10 Hypertension type: essential hypertension Diabetes E11.9
--- NOTE | 2022-09-21 04:39 | PM.CONSULT ---
Providers/Reason For Consult Consulting Physician/Specialty*: Teetee Sol MD/Internal Medicine Reason for Consult*: Medical management Requesting Physician: Dr. Barnett, Attending Physician: Andres Barnett M.D Primary Care Provider: ELKIN Luna History of Present Illness History of Present Illness Christ Garza is a 77 year old male with past medical history of right bundle branch block, sinus bradycardia, diabetes mellitus presented to the hospital today with complaint of chest pain that started last night. Patient lives alone at home. He called EMS and came to the hospital. Chest pain was radiating to the back. In the ER he received several nitros. Pain got better but stayed persistent. He does not have any other history of any cardiac issues. Initial EKG showed borderline ST changes in inferior leads. Repeat EKG did show significant ST elevation. Patient was emergently taken to Yard Switch Operator and a stent was placed and OM. There was also disease in distal left circumflex which was not amenable to intervention. LAD is to be medically managed. Patient has a history of diabetes, COPD. He is insulin-dependent. Takes 70 units of detemir twice daily with 10 units Premeal 3 times daily. Medicine was requested to consult for medical management of his comorbid conditions. Patient lives alone at home. He states he has a daughter who he would like us to contact but after 8:30 AM. He is a full code. He was seen after he got back from Yard Switch Operator. Patient asking for coffee. He says he is hungry. He did take his 70 units of detemir last night. Medications/Allergies Home Medications Medication Instructions Recorded Confirmed Last Taken Type nitroglycerin 0.4 mg sublingual 0.4 mg sublingual Q5M PRN Chest 10/21/19 09/01/22 Unknown History tablet (Nitrostat) Pain acetaminophen 500 mg tablet 1,000 mg PO PRN 09/04/20 09/01/22 Unknown History (Tylenol Extra Strength) albuterol sulfate 2.5 mg/3 mL 2.5 mg inhalation QID PRN 09/04/20 09/01/22 Unknown History (0.083 %) solution for nebulization Shortness Of Breath aspirin 81 mg tablet,delayed 81 mg PO DAILY #90 tabs 10/14/21 09/01/22 Unknown Rx release blood sugar diagnostic (Blood #100 ea 04/15/22 09/01/22 Unknown Rx Glucose Test strips) aripiprazole 10 mg tablet (Abilify) 10 mg PO DAILY #30 tabs 07/01/22 09/01/22 Unknown Rx atorvastatin 40 mg tablet 40 mg PO QPM #30 tabs 07/01/22 09/01/22 Unknown Rx empagliflozin 25 mg tablet 25 mg PO QAM #30 tabs 07/01/22 09/01/22 Unknown Rx (Jardiance) famotidine 20 mg tablet 20 mg PO BID #30 tabs 07/01/22 09/01/22 Unknown Rx fluticasone propionate 50 1 spray intranasal DAILY #16 grams 07/01/22 09/01/22 Unknown Rx mcg/actuation nasal spray,suspension (Flonase Allergy Relief) insulin aspart U-100 100 unit/mL 10 unit (0.1 mL) SUBCUT TID #15 mL 07/01/22 09/01/22 Unknown Rx (3 mL) subcutaneous pen (Novolog Flexpen U-100 Insulin aspart) insulin detemir U-100 100 unit/mL 70 unit (0.7 mL) SUBCUT BID 30 07/01/22 09/01/22 Unknown Rx (3 mL) subcutaneous pen (Levemir days #42 mL FlexTouch U-100 Insulin) liraglutide 0.6 mg/0.1 mL (18 mg/3 1.8 mg (0.3 mL) SUBCUT DAILY #9 mL 07/01/22 09/01/22 Unknown Rx mL) subcutaneous pen injector (Victoza 3-Ata) losartan 50 mg tablet 50 mg PO DAILY #30 tabs 07/01/22 09/01/22 Unknown Rx pen needle, diabetic 33 gauge x #100 ea 07/01/22 09/01/22 Unknown Rx 5/32 sertraline 100 mg tablet 100 mg PO DAILY #30 tabs 07/01/22 09/01/22 Unknown Rx sertraline 50 mg tablet 50 mg PO DAILY #30 tabs 07/01/22 09/01/22 Unknown Rx tamsulosin 0.4 mg capsule 0.4 mg PO DAILY #30 caps 07/01/22 09/01/22 Unknown Rx trazodone 50 mg tablet 50 mg PO BEDTIME Insomnia #30 tabs 07/01/22 09/01/22 Unknown Rx isosorbide mononitrate 30 mg 15 mg PO BID #90 tabs 08/26/22 09/01/22 Unknown Rx tablet,extended release 24 hr Allergies Allergy/AdvReac Type Severity Reaction Status Date / Time No Known Allergies Allergy Verified 09/01/22 10:11 PFSH Acute PFSH: Medical History Anxiety Bipolar 2 disorder Decreased hearing of right ear Hyperlipidemia Hypertension Irritable bowel syndrome with diarrhea New onset right bundle branch block (RBBB) Noncompliance with dietary restriction Sinus bradycardia Uncontrolled diabetes mellitus Surgical History H/O colonoscopy 12/29/19: transverse colon polyp, poor prep, sigmoid diverticulosis History of back surgery History of hand surgery due to injury and needed reattachment History of shoulder surgery Hx of cholecystectomy Family History Father CAD (coronary artery disease) [place] @ 69 - Mother Dementia Brother Diabetes Other Hypertension Denies family history of Clotting disorder Chronic kidney disease (CKD) Suicide Anesthesia complication Bleeding disorder Lung disease Cancer Stroke Social History Smoking and tobacco status: current every day smoker Second hand smoke exposure: No Smoking risk assessment/counseling performed?: Yes Alcohol intake: never Desire information about alcohol rehabilitation?: No Counseling given: No Desire information about substance/drug rehabilitation?: No Counseling given: No Adopted: No Caregiver/support person: No Lives independently: Yes Household members: none Housing: Apartment Marital status: Single Number of children: 3 service: No Current occupational status: retired History of recent travel: No Current gender identity: Male Vitals/I&O/Wt Last Vital Signs Temp 97.9 F 09/21/22 02:38 Pulse 95 09/21/22 02:33 Resp 24 H 09/21/22 02:33 BP 131/88 09/21/22 02:33 Pulse Ox 91 09/21/22 02:33 O2 Del Method 09/21/22 02:33 Weight last 48 hrs Weight 90.718 kg Physical Exam Narrative: General: Alert oriented x3, patient seen laying in bed appearing comfortable HEENT: Normocephalic, atraumatic, EOMI, breathing comfortably. Cardio: Regular rate rhythm, normal S1-S2 Respiratory: Clear to auscultation bilaterally. GI: Abdomen soft, nontender, nondistended, bowel sounds + Behavior: Appropriate and cooperative Extremities: 1+ edema bilateral, no cyanosis Data 09/21/22 02:47 09/21/22 02:47 A&P Assessment and plan (1) Diabetes: (2) ST elevation myocardial infarction (STEMI): (3) Cigarette smoker: (4) Uncontrolled diabetes mellitus: Qualifiers: Diabetes mellitus type: type 2 Glycemic state: with hyperglycemia Qualified Code(s): E11.65 - Type 2 diabetes mellitus with hyperglycemia (5) Anxiety: (6) Decreased hearing: Qualifiers: Laterality: bilateral Qualified Code(s): H91.93 - Unspecified hearing loss, bilateral (7) Bipolar 2 disorder: (8) GERD (gastroesophageal reflux disease): Qualifiers: Esophagitis presence: esophagitis presence not specified Qualified Code(s): K21.9 - Gastro-esophageal reflux disease without esophagitis (9) Hyperlipidemia: Qualifiers: Hyperlipidemia type: unspecified Qualified Code(s): E78.5 - Hyperlipidemia, unspecified (10) Hypertension: Qualifiers: Hypertension type: essential hypertension Qualified Code(s): I10 - Essential (primary) hypertension Plan #ST elevation DE status post PCI with FAUSTO x1 and OM #Diabetes mellitus, uncontrolled, insulin-dependent #Hypertension #Depression/anxiety ? Hold empagliflozin ? Continue aspirin, statin, Plavix, Imdur, aripiprazole, sertraline, trazodone, tamsulosin, losartan ? Lantus 70 units twice daily ? High-dose intensity sliding scale insulin ? Rest of management as per primary cardiology team ? Check lipid profile, hemoglobin A1c, TSH ? UA showed 3+ glucose ? Patient will need to be optimized for outpatient diabetic regimen prior to discharge. ? DuoNeb every 4 hours as needed. ? We will need to call pharmacy to confirm patient's medications. He is unable to verify them at this time. ? Daughter to be updated after 8:30 AM. Daytime hospitalist to take over care. Full code DVT prophylaxis: Lovenox Consult Attestations Medical Necessity Statement: Per primary team Coding Level of Care Code Acute Harmonica Maker for [facility] Fwd Diagnoses Diabetes E11.9 ST elevation myocardial infarction (STEMI) I21.3 Cigarette smoker F17.210 Uncontrolled diabetes mellitus E11.65 Diabetes mellitus type: type 2 Glycemic state: with hyperglycemia Anxiety F41.9 Decreased hearing H91.93 Laterality: bilateral Bipolar 2 disorder F31.81 GERD (gastroesophageal reflux disease) K21.9 Esophagitis presence: esophagitis presence not specified Hyperlipidemia E78.5 Hyperlipidemia type: unspecified Hypertension I10 Hypertension type: essential hypertension
--- NOTE | 2022-09-21 04:46 | USCV_ITS ---
Christ Garza Age: 77 Gender: M : 1945 Exam Date: 09/21/2022 07:27 Ordering Phys: Andres Barnett M.D ([email or web address]) Technologist: Vivek Cannon Exam Location: [facility] [place]ication: ? mi BP: 116 / 58 HR: 74 Rhythm: Sinus Technical Quality: Adequate MEASUREMENTS (Male / Female) Normal Values 2D ECHO LV Diastolic Diameter PLAX 4.0 cm 4.2 - 5.9 / 3.9 - 5.3 cm LV Systolic Diameter PLAX 3.2 cm IVS Diastolic Thickness 1.1 cm 0.6 - 1.0 / 0.6 - 0.9 cm IVS Systolic Thickness 1.5 cm LVPW Diastolic Thickness 1.2 cm 0.6 - 1.0 / 0.6 - 0.9 cm LVPW Systolic Thickness 1.5 cm LVOT Diameter 2.1 cm LV Ejection Fraction 2D Teich 34.5 % LV Ejection Fraction MOD 2C 70.9 % LV Ejection Fraction 2C AL 71.5 % LA Diameter 4.5 cm IVC Diameter 1.7 cm M-MODE LV Diastolic Diameter MM 5.6 cm 4.2 - 5.9 / 3.9 - 5.3 cm LV Systolic Diameter MM 3.8 cm LV Ejection Fraction MM Teich 59.8 % IVS Diastolic Thickness MM 1.2 cm 0.6 - 1.0 / 0.6 - 0.9 cm IVS Systolic Thickness MM 1.9 cm LVPW Diastolic Thickness MM 1.4 cm 0.6 - 1.0 / 0.6 - 0.9 cm LVPW Systolic Thickness MM 2.3 cm RV Diastolic Diameter MM 1.8 cm Aortic Annulus Diameter 3.3 cm LA Ao Ratio MM 1.4 MV E Point Septal Separation 1.1 cm DOPPLER AV Peak Velocity 147.0 cm/s LVOT Peak Velocity 105.0 cm/s AV Area Cont Eq vti 2.9 cm squared AV Area Cont Eq pk 2.5 cm squared MV Area PHT 5.0 cm squared Mitral E to A Ratio 1.1 MV E' Velocity 47.0 cm/s Mitral E to MV E' Ratio 10.9 Mitral E to LV E' Lateral Ratio 10.8 Mitral E to LV E' Septal Ratio 11.0 TR Peak Velocity 124.0 cm/s TR Peak Gradient 6.2 mmHg TV Peak E Velocity 64.0 cm/s Right Atrial Pressure 3.0 mmHg Pulmonary Artery Systolic Pressu 9.2 mmHg PV Peak Velocity 100.0 cm/s FINDINGS Left Ventricle Left ventricle is normal. LV systolic function is normal with EF of 55-60%. No regional wall motion abnormalities. Diastolic function is normal Right Ventricle Normal in size and function Right Atrium Normal in size Left Atrium Normal in size Mitral Valve Grossly normal. No significant stenosis or regurgitation. Aortic Valve Grossly normal. No significant stenosis or regurgitation. Tricuspid Valve Trace tricuspid regurgitation. Insufficient TR jet to calculate RVSP Pulmonic Valve Not well visualized Pericardium Normal Aorta Normal in size IVC Appears to be normal CONCLUSIONS LV systolic function is normal with EF of 55-60% Diastolic function is normal Trace tricuspid regurgitation Compared to prior echocardiogram from 08/2020, no significant changes are seen. Andres Barnett MD (Electronically Signed) Final Date: 21 September 2022 12:55 S
[2022-09-21] MEDS: sodium chloride 0.9% 1,000 ML 100 ML IV ×2 (05:04→14:12)
[2022-09-21 05:25] LABS: Glucose Point of Care 258 mg/dL (70-110)
--- NOTE | 2022-09-21 06:28 | ECG_ITS ---
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 Measurements Intervals [place] Rate: 86 P: 63 NC: 221 QRS: 97 QRSD: 150 T: 45 QT: 397 QTc: 475 Interpretive Statements SINUS RHYTHM WITH FIRST DEGREE AV BLOCK RIGHT BUNDLE BRANCH BLOCK [120+ ms QRS DURATION, UPRIGHT V1, 40+ ms S IN I/aVL/V4/V5/V6] MARKED ST ELEVATION, CONSIDER INFERIOR INJURY [MARKED ST ELEVATION W/O NORMALLY INFLECTED T-WAVE IN II/aVF] ACUTE NM Compared to ECG 09/21/2022 02:39:20 First degree AV block now present Indeterminate axis no longer present Left posterior fascicular block no longer present ST (T wave) deviation still present Myocardial infarct finding still present Electronically Signed On 09-23-2022 0:03:10 TRANSFUSION NURSE by Angle Orta M.D. [email or web address]
[2022-09-21 07:34] LABS: Glucose Point of Care 262 mg/dL (70-110)
[2022-09-21] MEDS: insulin lispro 100 unit/1 mL SUBCUT ×4 (08:21→20:25)
--- NOTE | 2022-09-21 09:04 | ECG_ITS ---
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 Measurements Intervals [place] Rate: 73 P: 65 VA: 220 QRS: 103 QRSD: 148 T: 62 QT: 410 QTc: 453 Interpretive Statements SINUS RHYTHM WITH FIRST DEGREE AV BLOCK RIGHT AXIS DEVIATION [QRS AXIS > 100] RIGHT BUNDLE BRANCH BLOCK [120+ ms QRS DURATION, UPRIGHT V1, 40+ ms S IN I/aVL/V4/V5/V6] MARKED ST ELEVATION, CONSIDER INFERIOR INJURY [MARKED ST ELEVATION W/O NORMALLY INFLECTED T-WAVE IN II/aVF] ACUTE SD Compared to ECG 09/21/2022 06:28:36 Right-axis deviation now present ST (T wave) deviation still present Myocardial infarct finding still present Electronically Signed On 09-23-2022 0:04:34 MACHINE SETTER by Angle Orta M.D. [id number]
[2022-09-21] MEDS: clopidogrel 75 mg Tablet PO (09:30)
[2022-09-21] MEDS: aspirin 81 mg EC Tablet PO (09:30)
[2022-09-21] MEDS: insulin glargine 100 units/1 mL 70 UNIT SUBCUT (09:31)
[2022-09-21 10:53] LABS: Iron 68 ug/dL (59-158); Percent Saturation 21.5 % (20-50); Total Iron Binding Capacity 316 mcg/dl; Unsaturated Iron Binding 248 ug/dL (112-347)
[2022-09-21 10:58] LABS: Estmated Average Glucose 223; Hemoglobin A1C 9.4 % (4.0-6.0)
[2022-09-21 11:08] LABS: Folate Level 9.2 ng/mL (4.5-32.2)
[2022-09-21 11:23] LABS: Glucose Point of Care 249 mg/dL (70-110)
[2022-09-21 11:23] LABS: Glucose Point of Care 411 mg/dL (70-110)
[2022-09-21 11:24] LABS: Thyroid Stimulating Hormone 1.18 uIU/mL (0.27-4.20); Vitamin B12 305 pg/mL (232-1245)
[2022-09-21] MEDS: FUROsemide 10 mg/mL SDV 2mL 20 MG IVP (12:56)
[2022-09-21 14:21] LABS: Add Urine Microscopic? NO; Charge for UA Resulting for Rev
[2022-09-21 14:33] LABS: Bilirubin Urine Neg (Negative); Blood Urine Neg (Negative); Glucose Urine UA 4+ (Normal); Ketones Urine Negative (Negative); Leukocyte Esterase Urine Negative (Negative); Nitrate Urine Negative (Negative); Protein Urine Neg (Negative); Specific Gravity, Urine 1.015 (1.005-1.030); Urine Appearance Clear (CLEAR); Urine Color Yellow (Yellow); Urobilinogen Urine Neg (Negative); pH Urine 5 (5-7)
[2022-09-21] MEDS: insulin glargine 100 units/1 mL 80 UNIT SUBCUT (17:49)
[2022-09-21 17:50] LABS: Glucose Point of Care 147 mg/dL (70-110)
[2022-09-21 20:21] LABS: Glucose Point of Care 210 mg/dL (70-110)
[2022-09-22] VITALS (84 sets, daily range): BP systolic 110–165; BP diastolic 55–99; PULSE 64–87; RESP 0–31; TEMP 36.7; O2SAT 80–100
[2022-09-22] MEDS: sodium chloride 0.9% 1,000 ML 100 ML IV (00:14)
[2022-09-22 03:52] LABS: Basophils % 0.4 %; Eosinophils # 0.1 10^3/uL (0.0-0.8); Eosinophils % 1.7 %; Hematocrit 51.3 % (42.0-52.0); Hemoglobin 16.1 g/dL (11.7-16.6); Lymphocytes # 1.6 10^3/uL (0.8-4.8); Lymphocytes % 19.3 %; Mean Corpuscular HGB Conc 31.4 g/dL (30.0-36.0); Mean Corpuscular Hemoglobin 27.6 pg (28.0-34.0); Mean Corpuscular Volume 87.8 fl (80-94); Mean Platelet Volume 9.6 fL (7.4-10.4); Monocytes # 0.7 10^3/uL (0.2-0.9); Monocytes % 8.4 %; Neutrophils # 5.69 10^3/uL (1.8-7.7); Neutrophils % 69.6 %; Nucleated Red Blood Cells % 0 %; Platelet Count 159 10^3/cmm (130-400); Red Blood Count 5.84 10^6/uL (4.1-5.3); Red Cell Distribution Width 13.1 % (12.1-15.1); White Blood Count 8.2 10^3/uL (4.0-10.0)
[2022-09-22 04:25] LABS: Alanine Aminotransferase 18 U/L (0-41); Albumin Level 3.8 g/dL (3.5-5.2); Alkaline Phosphatase 101 U/L (40-130); Aspartate Amino Transferase 14 U/L (0-40); Blood Urea Nitrogen 25 mg/dL (8-23); Calcium 9.6 mg/dL (8.5-10.5); Carbon Dioxide 29 mmol/L (22-29); Chloride 101 mmol/L (98-107); Chol HDL Ratio 3.45 mg/dL (1.0-5.00); Cholesterol 114 mg/dL (0-200); Globulin 2.7 g/dL (1.3-4.6); Glucose 123 mg/dL (65-115); HDL Cholesterol 33 mg/dL (60-100); LDL Cholesterol Calculated 54 mg/dL (50-129); NT Pro B Type Natriuretic Pept 20 pg/mL (0-450); Osmolality Calculated 292 mOsm/kg (285-295); Sodium 138 mmol/L (136-145); Total Bilirubin 0.4 mg/dL (0.15-1.2); Total Protein 6.5 g/dL (6.6-8.7); Triglycerides 136 mg/dL (0-150); VLDL Cholestrol Calculation 27 mg/dL (0-30)
--- NOTE | 2022-09-22 06:56 | PC.NURSE ---
Shift Note Frequent safety and comfort rounds continue. Orders and/or nursing care completed as indicated. Patient monitored for response to intervention and treatment(s). Education provided includes medication and treatment plan. Patient verbalized understanding of teaching. Patient had an uneventful shift, remains alert & oriented x4 on room air. No wounds or skin issues noted at this time. IVF infusing per order please see MAR for details. Voided 800 mls of urine overnight via urinal and also ambulates to restroom with nurse assist. No reports of pain overnight. Will continue to monitor.
[2022-09-22 08:10] LABS: Glucose Point of Care 96 mg/dL (70-110)
--- NOTE | 2022-09-22 09:00 | PM.DCS ---
Discharge Providers Date of Admission: 09/21/22 04:30 Date of Discharge: September 22, 2022 Attending Provider at Admission: Andres Barnett M.D Attending Provider at Discharge: Andres Barnett M.D Primary Care Provider: ELKIN Luna Diagnoses at Discharge Discharge Diagnosis (1) Diabetes: Status: Acute (2) ST elevation myocardial infarction (STEMI): Status: Acute (3) Cigarette smoker: Status: Acute (4) Uncontrolled diabetes mellitus: Status: Chronic Qualifiers: Diabetes mellitus type: type 2 Glycemic state: with hyperglycemia Qualified Code(s): E11.65 - Type 2 diabetes mellitus with hyperglycemia (5) Anxiety: Status: Chronic (6) Decreased hearing: Status: Acute Qualifiers: Laterality: bilateral Qualified Code(s): H91.93 - Unspecified hearing loss, bilateral (7) Bipolar 2 disorder: Status: Chronic (8) GERD (gastroesophageal reflux disease): Status: Chronic Qualifiers: Esophagitis presence: esophagitis presence not specified Qualified Code(s): K21.9 - Gastro-esophageal reflux disease without esophagitis (9) Hyperlipidemia: Status: Chronic Qualifiers: Hyperlipidemia type: unspecified Qualified Code(s): E78.5 - Hyperlipidemia, unspecified (10) Hypertension: Status: Chronic Qualifiers: Hypertension type: essential hypertension Qualified Code(s): I10 - Essential (primary) hypertension Reason for Visit Reason for Visit: Chest pain Brief History: 77 year old male with past medical history of hypertension, hyperlipidemia, diabetes on insulin who presented to the hospital with 4 to 5 hours of substernal chest discomfort.? He says it is radiating to the back.? Initially was severe however after receiving nitros, it has improved.? Still going low.? No prior history of cardiac problems.? Initial EKG showed borderline ST changes in inferior leads.? Repeat EKG showed more significant ST elevation.? Cardiac Rework Operator was emergently activated. Hospital Course Hospital Course Coronary angiogram demonstrated severe, hazy stenosis in large sized OM branch and severe distal left circumflex artery stenosis in setting of left dominant system. We performed PCI of OM with FAUSTO x1. Given very distal left circumflex artery disease, it was treated medically. Patient stayed stable during course of hospitalization with no recurrence of chest pain. Echocardiogram demonstrated normal LV systolic function. Medicine team helped with management of noncardiac meds and diabetes. He was discharged home in stable condition. Physical Exam Narrative: GENERAL: Patient is alert, awake and oriented x3. [] NECK: No jugular vein distension. [] HEENT: No cyanosis. No icterus. No pallor. [] HEART: Regular S1 and S2. No murmur, rub or gallop. [] LUNGS: Clear to auscultate bilaterally. [] ABDOMEN: Soft, nontender and nondistended. Positive bowel sounds. No guarding, rebound or tenderness. [] CENTRAL NERVOUS SYSTEM: Grossly nonfocal. [] EXTREMITIES: Lower extremities with 1+ edema bilaterally. Pulses palpable in the lower extremities, both dorsalis pedis and posterior tibial. [] Discharge Data Studies Completed and Pending Completed Studies During Hospitalization Category Date Time Status XR chest 1V portable [id number] Stat Exams 09/21/22 02:31 Completed CV. 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 Mildly prominent central pulmonary vasculature could represent pulmonary hypertension. 2. Interstitial opacities are seen in the mid lower hemithoraces and there is mild peribronchial cuffing present, findings that could represent pulmonary edema. Laboratory Results WBC 8.2 10^3/uL (4.0-10.0) 09/22/22 03:19 RBC 5.84 10^6/uL (4.1-5.3) H 09/22/22 03:19 Hgb 16.1 g/dL (11.7-16.6) 09/22/22 03:19 Hct 51.3 % (42.0-52.0) 09/22/22 03:19 MCV 87.8 fl (80-94) 09/22/22 03:19 MCH 27.6 pg (28.0-34.0) L 09/22/22 03:19 MCHC 31.4 g/dL (30.0-36.0) 09/22/22 03:19 RDW 13.1 % (12.1-15.1) 09/22/22 03:19 Plt Count 159 10^3/cmm (130-400) 09/22/22 03:19 MPV 9.6 fL (7.4-10.4) 09/22/22 03:19 Neut % (Auto) 69.6 % 09/22/22 03:19 Lymph % (Auto) 19.3 % 09/22/22 03:19 [place] % (Auto) 8.4 % 09/22/22 03:19 Eos % (Auto) 1.7 % 09/22/22 03:19 Baso % (Auto) 0.4 % 09/22/22 03:19 Neut # (Auto) 5.69 10^3/uL (1.8-7.7) 09/22/22 03:19 Lymph # (Auto) 1.6 10^3/uL (0.8-4.8) 09/22/22 03:19 [place] # (Auto) 0.7 10^3/uL (0.2-0.9) 09/22/22 03:19 Eos # (Auto) 0.1 10^3/uL (0.0-0.8) 09/22/22 03:19 Baso # (Auto) 0.0 10^3/uL (0.0-0.1) 09/22/22 03:19 Nucleated RBC % (auto) 0 % 09/22/22 03:19 Nucleated RBCs # 0.0 /100WBC 09/22/22 03:19 Sodium 138 mmol/L (136-145) 09/22/22 03:19 Potassium 4.0 mmol/L (3.5-5.1) 09/22/22 03:19 Chloride 101 mmol/L (98-107) 09/22/22 03:19 Carbon Dioxide 29 mmol/L (22-29) 09/22/22 03:19 Anion Gap 12.0 (5-19) 09/22/22 03:19 BUN 25 mg/dL (8-23) H 09/22/22 03:19 Creatinine 0.8 mg/dL (0.7-1.2) 09/22/22 03:19 GFR Calculation Not Reportable 09/22/22 03:19 Glucose 123 mg/dL (65-115) H 09/22/22 03:19 POC Glucose 96 mg/dL (70-110) 09/22/22 08:05 Estimat Average Glucose 223 09/21/22 02:47 Hemoglobin A1c 9.4 % (4.0-6.0) H 09/21/22 02:47 Calculated Osmolality 292 mOsm/kg (285-295) 09/22/22 03:19 Calcium 9.6 mg/dL (8.5-10.5) 09/22/22 03:19 Iron 68 ug/dL (59-158) 09/21/22 02:47 TIBC 316 mcg/dl 09/21/22 02:47 % Saturation 21.5 % (20-50) 09/21/22 02:47 Unsat Iron Binding 248 ug/dL (112-347) 09/21/22 02:47 Total Bilirubin 0.4 mg/dL (0.15-1.2) 09/22/22 03:19 AST 14 U/L (0-40) 09/22/22 03:19 ALT 18 U/L (0-41) 09/22/22 03:19 Alkaline Phosphatase 101 U/L (40-130) 09/22/22 03:19 Troponin T Baseline 26 ng/L (0-15) H 09/21/22 02:47 NT-Pro-B Natriuret Pep 20 pg/mL (0-450) 09/22/22 03:19 Total Protein 6.5 g/dL (6.6-8.7) L 09/22/22 03:19 Albumin 3.8 g/dL (3.5-5.2) 09/22/22 03:19 Globulin 2.7 g/dL (1.3-4.6) 09/22/22 03:19 Triglycerides 136 mg/dL (0-150) 09/22/22 03:19 Cholesterol 114 mg/dL (0-200) 09/22/22 03:19 LDL Cholesterol, Calc 54 mg/dL (50-129) 09/22/22 03:19 Total VLDL Cholesterol 27 mg/dL (0-30) 09/22/22 03:19 HDL Cholesterol 33 mg/dL (60-100) L 09/22/22 03:19 Cholesterol/HDL Ratio 3.45 mg/dL (1.0-5.00) 09/22/22 03:19 Vitamin B12 305 pg/mL (232-1245) 09/21/22 02:47 Folate 9.2 ng/mL (4.5-32.2) 09/21/22 02:47 TSH 1.18 uIU/mL (0.27-4.20) 09/21/22 02:47 Urine Color Yellow (Yellow) 09/21/22 13:42 Urine Appearance Clear (CLEAR) 09/21/22 13:42 Urine pH 5 (5-7) 09/21/22 13:42 Ur Specific [place] 1.015 (1.005-1.030) 09/21/22 13:42 Urine Protein Neg (Negative) 09/21/22 13:42 Urine Glucose (UA) 4+ (Normal) H 09/21/22 13:42 Urine Ketones Negative (Negative) 09/21/22 13:42 Urine Blood Neg (Negative) 09/21/22 13:42 Urine Nitrate Negative (Negative) 09/21/22 13:42 Urine Bilirubin Neg (Negative) 09/21/22 13:42 Urine Urobilinogen Neg mg/dL (Negative) 09/21/22 13:42 Ur Leukocyte Esterase Negative (Negative) 09/21/22 13:42 Vitals Last Vital Signs Temp 98.1 F 09/22/22 08:00 Pulse 67 09/22/22 08:00 Resp 20 H 09/22/22 06:45 BP 125/69 09/22/22 08:00 Pulse Ox 97 09/22/22 08:00 O2 Del Method 09/21/22 20:25 O2 Flow Rate 2 09/21/22 18:00 Discharge Plan Discharge Patient Disposition: Home Condition: Stable Prescriptions: New clopidogrel 75 mg tablet 75 mg PO DAILY Qty: 90 3RF Continued nitroglycerin [Nitrostat] 0.4 mg tablet, sublingual 0.4 mg SUBLINGUAL Q5M PRN (Reason: Chest Pain) (DME) Blood Glucose Test Strip See Rx Instructions .ROUTE .MEDSUPPLY Qty: 100 5RF Rx Instructions: testing 3 times daily aripiprazole [Abilify] 10 mg tablet 10 mg PO DAILY Qty: 30 2RF atorvastatin 40 mg tablet 40 mg PO QPM Qty: 30 2RF Jardiance 25 mg tablet 25 mg PO QAM Qty: 30 2RF famotidine 20 mg tablet 20 mg PO BID Qty: 30 2RF fluticasone propionate [Flonase Allergy Relief] 50 mcg/actuation spray,suspension 1 spray intranasal DAILY Qty: 16 2RF Rx Instructions: administer into each nostril Levemir FlexTouch U-100 Insuln 100 unit/mL (3 mL) insulin pen 70 unit SUBCUT BID 30 Days Qty: 42 2RF Novolog Flexpen U-100 Insulin 100 unit/mL (3 mL) insulin pen 10 unit SUBCUT TID Qty: 15 0RF Victoza 3-Ata 0.6 mg/0.1 mL (18 mg/3 mL) pen injector 1.8 mg SUBCUT DAILY Qty: 9 2RF losartan 50 mg tablet 50 mg PO DAILY Qty: 30 2RF (DME) pen needle, diabetic 33 gauge x 5/32 needle See Rx Instructions .ROUTE .MEDSUPPLY Qty: 100 5RF Rx Instructions: 5 times day sertraline 50 mg tablet 50 mg PO DAILY Qty: 30 2RF Rx Instructions: TAKE 1 TABLET BY MOUTH 100MG TABLETS FOR A TOTAL OF 150MG/DAY sertraline 100 mg tablet 100 mg PO DAILY Qty: 30 2RF Rx Instructions: take with [id number] day tamsulosin 0.4 mg capsule 0.4 mg PO DAILY Qty: 30 2RF trazodone 50 mg tablet 50 mg PO BEDTIME Qty: 30 2RF isosorbide mononitrate 30 mg tablet extended release 24 hr 15 mg PO BID Qty: 90 3RF albuterol sulfate 2.5 mg /3 mL (0.083 %) Solution For Nebulization 2.5 mg INHALATION QID PRN (Reason: Shortness Of Breath) acetaminophen [Tylenol Extra Strength] 500 mg Tablet 1,000 mg PO DAILY PRN (Reason: Pain) aspirin 81 mg tablet,delayed release (DR/EC) 81 mg PO DAILY Qty: 90 0RF Discharge Orders: Discharge Order (Routine); Ordered 09/22/22 Ordered By: Andres Barnett Referrals: Jorden Adams FNP-C [Primary Care Provider] - Andres Barnett M.D [Physician] - 2 months Donald,Nena, RAILWAY TRACK WORKER [Nurse Practitioner] - 7-10 days Discharge Diet: Diabetic Discharge Activity: Increase activity as tolerated Patient Instructions: Coronary Angioplasty (DC), Opioid Safety Discharge Attestations Time Spent in Discharge Care*: greater than 30 min Status at Discharge: Cognitive status at discharge: cognitively intact, Behavioral status at discharge: cooperative, Quality Metrics Clinical Quality Measures [ Acute Myocardial Infaction { Clinical Trial Participant: No; Contraindication to aspirin: None; Aspirin prescribed; Contraindication to statin: None; Statin prescribed; Contraindication to PCI: None; PCI performed;}] Coding Level of Care Code Acute Chg FW DC note Diagnoses Diabetes E11.9 ST elevation myocardial infarction (STEMI) I21.3 Cigarette smoker F17.210 Uncontrolled diabetes mellitus E11.65 Diabetes mellitus type: type 2 Glycemic state: with hyperglycemia Anxiety F41.9 Decreased hearing H91.93 Laterality: bilateral Bipolar 2 disorder F31.81 GERD (gastroesophageal reflux disease) K21.9 Esophagitis presence: esophagitis presence not specified Hyperlipidemia E78.5 Hyperlipidemia type: unspecified Hypertension I10 Hypertension type: essential hypertension
--- NOTE | 2022-09-22 09:19 | P.PN_ITS ---
Subjective Subjective: No acute events overnight. Patient denies of any chest pain. Patient has been discharged as per cardiology today. Hemodynamically has remained stable. Vitals/I&O/Wt Last Vital Signs Temp 98.1 F 09/22/22 08:00 Pulse 67 09/22/22 08:00 Resp 20 H 09/22/22 06:45 BP 125/69 09/22/22 08:00 Pulse Ox 97 09/22/22 08:00 O2 Del Method 09/21/22 20:25 O2 Flow Rate 2 09/21/22 18:00 09/21/22 09/22/22 09/22/22 22:59 06:59 14:59 Intake Total 480 / 2473.333 2000 / 4473.333 Output Total 1150 / 2150 800 / 2950 Balance -670 / 051.486 9330 / 1523.333 Weight last 48 hrs Weight 92.986 kg Weight 90.718 kg Physical Exam Narrative: General: Alert oriented x3, patient seen laying in bed appearing comfortable HEENT: Normocephalic, atraumatic, EOMI, breathing comfortably. Cardio: Regular rate rhythm, normal S1-S2 Respiratory: Clear to auscultation bilaterally. GI: Abdomen soft, nontender, nondistended, bowel sounds + Behavior: Appropriate and cooperative Extremities: 1+ edema bilateral, no cyanosis Data 09/22/22 03:19 09/22/22 03:19 A&P Assessment and plan (1) Diabetes: (2) ST elevation myocardial infarction (STEMI): (3) Cigarette smoker: (4) Uncontrolled diabetes mellitus: Qualifiers: Diabetes mellitus type: type 2 Glycemic state: with hyperglycemia Qualified Code(s): E11.65 - Type 2 diabetes mellitus with hyperglycemia (5) Anxiety: (6) Decreased hearing: Qualifiers: Laterality: bilateral Qualified Code(s): H91.93 - Unspecified hearing loss, bilateral (7) Bipolar 2 disorder: (8) GERD (gastroesophageal reflux disease): Qualifiers: Esophagitis presence: esophagitis presence not specified Qualified Code(s): K21.9 - Gastro-esophageal reflux disease without esophagitis (9) Hyperlipidemia: Qualifiers: Hyperlipidemia type: unspecified Qualified Code(s): E78.5 - Hyperlipidemia, unspecified (10) Hypertension: Qualifiers: Hypertension type: essential hypertension Qualified Code(s): I10 - Essential (primary) hypertension Plan #ST elevation MN status post PCI with FAUSTO x1 and OM #Diabetes mellitus, uncontrolled, insulin-dependent #Hypertension #Depression/anxiety Patient is stable to be discharged as per medical team. Patient is to be discharged home dose of insulin along with OHA. Patient was advised to follow-up with his primary care provider within next 1 week for further adjustment of antidiabetic medications. Attestations Medical Necessity Statement*: Patient to be discharged as per primary team. Time Spent in Patient Care: less than 15 minutes Coding Level of Care Code Acute Career Services Officer for g Fwd Diagnoses Diabetes E11.9 ST elevation myocardial infarction (STEMI) I21.3 Cigarette smoker F17.210 Uncontrolled diabetes mellitus E11.65 Diabetes mellitus type: type 2 Glycemic state: with hyperglycemia Anxiety F41.9 Decreased hearing H91.93 Laterality: bilateral Bipolar 2 disorder F31.81 GERD (gastroesophageal reflux disease) K21.9 Esophagitis presence: esophagitis presence not specified Hyperlipidemia E78.5 Hyperlipidemia type: unspecified Hypertension I10 Hypertension type: essential hypertension
--- NOTE | 2022-09-22 09:58 | PC.CHAP ---
Pastoral Care Encounter/Spiritual Assessment Type of Contact [] Declined senior lead developer visit [] Patient/Family/Request visit [] Outpatient visit [] Follow-up visit [] Physician referral [] Code/Alert [x] Routine visit [] Staff referral [] Actively dying [] Patient sleeping [] Family support [] [] Out of room [] Palliative care [] [x] Receiving care in room [] Pre-surgical visit [] Trauma [] Long length of stay [x] ICU visit [] Other: Relational/Emotional Strength [] Patient feels connected with others/family/visitors/staff [] Distress [] Loneliness/isolation [] Abandonment Spirituality of Patient [] Person of Claudia [] Attends Temple of their Claudia [] Believes in Prayer [] Reads Bible or Amish materials [] There are Spiritual issues to be addressed Medical Reimbursement Manager Interventions [x] Prayer [] Active listening [] Non-anxious presence [] Spiritual/emotional support [] Crisis/trauma care [] Spiritual counseling [] Bereavement support [] Provided bereavement packet [] Provided Bible/devotional materials [] Provided toy/stuffed animal, coloring book to patient or family member [] Provided Communion [] Anointing/Wilsey [] Salvation [x] Completed spiritual assessment [] Other: Impact on Illness or Injury [] Angry [] Fearful [] Anxious [] Often cries [] Exhaustion [] Unable to work [] Unable to attend buddhism [] Unable to walk/stand [] Unable to read [] Unable to drive [] Unable to eat/drink [] Unable to sleep [] Unable to be with family [] Patient intubated [] Other: Summary Time spent with patient
== END 2022-09-22 12:24 | disposition home or self-care (01) | DRG 247 ==
LOC: ER 03:36 → ICU 04:31
PROVIDERS: Student in an Organized Health Care Education/Training Program; Admitting Provider Internal Medicine; Emergency Provider Emergency Medicine; PCP Nurse Practitioner; Visit Provider Internal Medicine
PROC: 027034Z Dilation of Coronary Artery, One Artery with Drug-eluting Intraluminal Device, Percutaneous Approach (ICD-10-PCS; principal; 2022-09-21 03:00)
PROC: 027034Z Dilation of Coronary Artery, One Artery with Drug-eluting Intraluminal Device, Percutaneous Approach (ICD-10-PCS; 2022-09-21 03:00)
DX: I21.21 ST elevation (STEMI) myocardial infarction involving left circumflex coronary artery (principal); F31.81 Bipolar II disorder; I25.10 Atherosclerotic heart disease of native coronary artery without angina pectoris; I10 Essential (primary) hypertension; E78.5 Hyperlipidemia, unspecified; E11.65 Type 2 diabetes mellitus with hyperglycemia; F41.9 Anxiety disorder, unspecified; Z91.119 Patient's noncompliance with dietary regimen due to unspecified reason; F17.210 Nicotine dependence, cigarettes, uncomplicated; H91.93 Unspecified hearing loss, bilateral; K21.9 Gastro-esophageal reflux disease without esophagitis; Z79.84 Long term (current) use of oral hypoglycemic drugs; Z79.4 Long term (current) use of insulin; Z79.82 Long term (current) use of aspirin; Z79.891 Long term (current) use of opiate analgesic
CPT/HCPCS: 36415; 36416; 71045; 80053; 80061; 81003; 82607; 82746; 82962; 83036; 83540; 83550; 83880; 84443; 84484; 85025; 85347; 93005; 93306; 93454; 96365; 96372; 99152; 99153; 99285; 99291; C1725; C1769; C1874; C1887; C1894; C9600; J1644; J1815; J1940; J2250; J3010; J3490; J7030; Q9967

== ENCOUNTER → 2022-09-29 10:07 | Outpatient (BNVA) | payer MEDICARE, MEDICAID, SELFPAY | PROVIDERS: PCP Nurse Practitioner; Visit Provider Nurse Practitioner Family | DX: I25.2 Old myocardial infarction (principal); F17.200 Nicotine dependence, unspecified, uncomplicated; I25.10 Atherosclerotic heart disease of native coronary artery without angina pectoris; I10 Essential (primary) hypertension | CPT/HCPCS: 80048; 99214 ==

== ENCOUNTER → 2022-10-14 07:21 | Outpatient (BNVA) | payer MEDICARE, MEDICAID, SELFPAY | PROVIDERS: PCP Nurse Practitioner; Visit Provider Otolaryngology | DX: Z71.1 Person with feared health complaint in whom no diagnosis is made (principal); J34.89 Other specified disorders of nose and nasal sinuses | CPT/HCPCS: 99202; 99203 ==

== ENCOUNTER → 2022-10-23 13:40 | Outpatient (BNVA) | payer MEDICARE, MEDICAID, SELFPAY | PROVIDERS: PCP Nurse Practitioner; Visit Provider Internal Medicine Cardiovascular Disease | DX: I25.2 Old myocardial infarction (principal); I10 Essential (primary) hypertension; E78.5 Hyperlipidemia, unspecified; I25.10 Atherosclerotic heart disease of native coronary artery without angina pectoris; E11.65 Type 2 diabetes mellitus with hyperglycemia; Z79.4 Long term (current) use of insulin; F17.200 Nicotine dependence, unspecified, uncomplicated | CPT/HCPCS: 99214 ==

== ENCOUNTER 2022-10-31 10:30 | Emergency (ER) | payer MEDICARE, MEDICAID, SELFPAY ==
[2022-10-31 10:32] VITALS: BP 105/63; PULSE 90; RESP 16; TEMP 36.3; O2SAT 95; BMI 29.5
--- NOTE | 2022-10-31 10:46 | XRR_ITS ---
PROCEDURE INFORMATION: Exam: XR Left Hip Exam date and time: 10/31/2022 10:58 AM Age: 77 years old Clinical indication: Injury or trauma; Sprain or strain; Left; Injury details: History--lt hip pain x 2weeks. Twisted injury TECHNIQUE: Imaging protocol: Radiologic exam of the Left hip. Views: 2 or 3 views hip with pelvis when performed. COMPARISON: CT abdomen pelvis w con* [id number] 01/17/2022 4:36 AM FINDINGS: Bones/joints: Left hip joint space. Cam morphology of the left femoral head and neck. Mild osteophytic acetabular lipping. No acute fracture or dislocation. Soft tissues: Unremarkable. XR/XR hip LT 2-3V wo/w pel* [id number] IMPRESSION: 1. No left hip fracture or dislocation. 2. Degenerative changes noted. 3. Cam morphology of the femoral head and neck.
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
[2022-10-31] MEDS: ketorolac 30 mg/mL INJ IVP (11:13)
[2022-10-31 11:25] LABS: Basophils % 0.3 %; Eosinophils # 0.1 10^3/uL (0.0-0.8); Eosinophils % 0.8 %; Hematocrit 45.8 % (42.0-52.0); Hemoglobin 14.4 g/dL (11.7-16.6); Lymphocytes # 1.2 10^3/uL (0.8-4.8); Lymphocytes % 20.4 %; Mean Corpuscular HGB Conc 31.4 g/dL (30.0-36.0); Mean Corpuscular Hemoglobin 27.9 pg (28.0-34.0); Mean Corpuscular Volume 88.6 fl (80-94); Mean Platelet Volume 9.2 fL (7.4-10.4); Monocytes # 0.5 10^3/uL (0.2-0.9); Monocytes % 8.3 %; Neutrophils % 69.9 %; Nucleated Red Blood Cells % 0 %; Platelet Count 197 10^3/cmm (130-400); Red Blood Count 5.17 10^6/uL (4.1-5.3); Red Cell Distribution Width 12.9 % (12.1-15.1)
[2022-10-31 11:51] LABS: Alanine Aminotransferase 17 U/L (0-41); Albumin Level 3.6 g/dL (3.5-5.2); Alkaline Phosphatase 100 U/L (40-130); Aspartate Amino Transferase 15 U/L (0-40); Blood Urea Nitrogen 19 mg/dL (8-23); Calcium 8.4 mg/dL (8.5-10.5); Carbon Dioxide 23 mmol/L (22-29); Chloride 105 mmol/L (98-107); Creatinine Clr Calc Pharmacy 87.4524; Globulin 2.7 g/dL (1.3-4.6); Glucose 326 mg/dL (65-115); Osmolality Calculated 299 mOsm/kg (285-295); Sodium 137 mmol/L (136-145); Total Bilirubin 0.3 mg/dL (0.15-1.2); Total Protein 6.3 g/dL (6.6-8.7)
[2022-10-31 14:13] VITALS: BP 135/60; PULSE 67; RESP 18; O2SAT 96
== END 2022-10-31 14:14 | disposition home or self-care (01) ==
PROVIDERS: Emergency Provider Family Medicine; PCP Nurse Practitioner
DX: M19.90 Unspecified osteoarthritis, unspecified site (principal); Z79.82 Long term (current) use of aspirin; Z79.02 Long term (current) use of antithrombotics/antiplatelets; Z79.4 Long term (current) use of insulin; F17.210 Nicotine dependence, cigarettes, uncomplicated; I25.10 Atherosclerotic heart disease of native coronary artery without angina pectoris; E78.5 Hyperlipidemia, unspecified; I10 Essential (primary) hypertension; I25.2 Old myocardial infarction; E11.9 Type 2 diabetes mellitus without complications
CPT/HCPCS: 73502; 80053; 85025; 96374; 99284; J1885

== ENCOUNTER 2022-11-06 11:42 | Outpatient (CLI) | payer MEDICARE, MEDICAID, SELFPAY ==
--- NOTE | 2022-11-06 13:21 | XR_ITS ---
WS: [id number] XR femur LT min 2V* [id number] REASON FOR EXAM: M25.50 - Pain in unspecified joint FINDINGS: The femur is intact with no fracture, periosteal reaction, or focal lesion. Moderate amount of arterial calcification. No other soft tissue abnormality. XR/XR femur LT min 2V* [id number] IMPRESSION: No abnormality of the left femur.
--- NOTE | 2022-11-06 13:21 | XR_ITS ---
WS: [id number] XR lumbar spine 2-3V* [id number] REASON FOR EXAM: M25.50 - Pain in unspecified joint FINDINGS: There is a mild rotatory scoliosis of the lumbar spine convex right. No significant vertebral body lesion. Mild narrowing of the L4-L5 disc space. There has been previous posterior decompression with posterior pedicle screws and interconnecting bar s at L5-S1. Surgical appliances are in proper position and alignment. 8 millimeters of anterolisthesis of L5 on S1. Intervertebral disc space at L5-S1 is diminutive. XR/XR lumbar spine 2-3V* [id number] IMPRESSION: Postoperative lumbar spine with degenerative spondylosis as above.
== END 2022-11-06 11:43 | disposition home or self-care (01) ==
LOC: RAD 11:46
PROVIDERS: PCP Nurse Practitioner; Visit Provider Nurse Practitioner
DX: M25.50 Pain in unspecified joint; Z98.890 Other specified postprocedural states
CPT/HCPCS: 72100; 73552

== ENCOUNTER 2022-11-17 06:00 | Outpatient (RCR) | payer MEDICARE, MEDICAID, SELFPAY | END 2022-11-25 23:59 | disposition home or self-care (01) | LOC: APT 06:00 | PROVIDERS: PCP Nurse Practitioner; Visit Provider Nurse Practitioner | DX: M19.90 Unspecified osteoarthritis, unspecified site (principal) | CPT/HCPCS: 97110; 97163 ==

== ENCOUNTER 2022-11-26 06:00 | Outpatient (RCR) | payer MEDICARE, MEDICAID, SELFPAY | END 2022-12-23 23:59 | disposition home or self-care (01) | LOC: APT 06:00 | PROVIDERS: PCP Nurse Practitioner; Visit Provider Nurse Practitioner | DX: M19.90 Unspecified osteoarthritis, unspecified site (principal) | CPT/HCPCS: 97110 ==

== ENCOUNTER → 2022-12-09 11:09 | Outpatient (BNVA) | payer MEDICARE, MEDICAID, SELFPAY | PROVIDERS: PCP Nurse Practitioner; Visit Provider Nurse Practitioner | DX: E11.65 Type 2 diabetes mellitus with hyperglycemia (principal); F31.81 Bipolar II disorder; K21.9 Gastro-esophageal reflux disease without esophagitis; I10 Essential (primary) hypertension; F41.9 Anxiety disorder, unspecified; R35.1 Nocturia | CPT/HCPCS: 80053; 81000; 82043; 83036 ==

== ENCOUNTER 2022-12-24 06:00 | Outpatient (RCR) | payer MEDICARE, MEDICAID, SELFPAY | END 2023-01-23 23:59 | disposition home or self-care (01) | LOC: APT 06:00 | PROVIDERS: PCP Nurse Practitioner; Visit Provider Nurse Practitioner | DX: M19.90 Unspecified osteoarthritis, unspecified site (principal) | CPT/HCPCS: 97110; 97112; 97530 ==

== ENCOUNTER 2023-01-10 15:49 | Emergency (ER) | payer MEDICARE, MEDICAID, SELFPAY ==
[2023-01-10 16:03] VITALS: BP 100/61; PULSE 77; RESP 16; TEMP 36.7; O2SAT 94; BMI 29.5
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
[2023-01-10] MEDS: dexamethasone 10 mg/mL INJ IM (18:27)
[2023-01-10] MEDS: ketorolac 30 mg/mL INJ IM (18:27)
[2023-01-10 18:33] VITALS: BP 135/59; PULSE 64; RESP 14; O2SAT 100
== END 2023-01-10 18:33 | disposition home or self-care (01) ==
PROVIDERS: Emergency Provider Nurse Practitioner Family; PCP Nurse Practitioner
DX: M51.16 Intervertebral disc disorders with radiculopathy, lumbar region (principal); M16.12 Unilateral primary osteoarthritis, left hip; E11.9 Type 2 diabetes mellitus without complications; E78.5 Hyperlipidemia, unspecified; I10 Essential (primary) hypertension; I25.10 Atherosclerotic heart disease of native coronary artery without angina pectoris; I25.2 Old myocardial infarction; F17.200 Nicotine dependence, unspecified, uncomplicated; Z79.4 Long term (current) use of insulin; Z79.82 Long term (current) use of aspirin; Z79.84 Long term (current) use of oral hypoglycemic drugs; Z98.1 Arthrodesis status
CPT/HCPCS: 96372; 99284; J1100; J1885

== ENCOUNTER → 2023-01-20 09:30 | Outpatient (BNVA) | payer MEDICARE, MEDICAID, SELFPAY | PROVIDERS: PCP Nurse Practitioner; Visit Provider Nurse Practitioner Family | DX: R31.9 Hematuria, unspecified (principal); K92.1 Melena | CPT/HCPCS: 80053; 81000; 85025 ==

== ENCOUNTER → 2023-01-30 10:43 | Outpatient (BNVA) | payer MEDICARE, MEDICAID, SELFPAY | PROVIDERS: PCP Nurse Practitioner; Visit Provider Nurse Practitioner Family | DX: M16.11 Unilateral primary osteoarthritis, right hip (principal); M25.552 Pain in left hip; M79.652 Pain in left thigh; M79.651 Pain in right thigh | CPT/HCPCS: 73502 ==

== ENCOUNTER → 2023-02-18 13:43 | Outpatient (BNVA) | payer MEDICARE, MEDICAID, SELFPAY | PROVIDERS: Visit Provider Surgery | DX: Z12.11 Encounter for screening for malignant neoplasm of colon (principal) | CPT/HCPCS: 99024; 99213 ==

== ENCOUNTER 2023-02-23 13:29 | Outpatient (CLI) | payer MEDICARE, MEDICAID, SELFPAY ==
--- NOTE | 2023-02-23 14:30 | CT_ITS ---
WS: [id number] CT ABDOMEN AND PELVIS NONCONTRAST HISTORY: K58.0 - Irritable bowel syndrome with diarrhea TECHNIQUE: Imaging performed through the abdomen and pelvis. Coronal and sagittal reformats are submi tted. All CT scans at [facility] use at least one of these dose optimization techniques: auto mated exposure control; mA and/or kV adjustment per patient size (includes targeted exams where dose is matched to clinical indication); or iterative reconstruction. DLP: 722.31 mGy.cm COMPARISON: 01/17/2022, 01/06/2020 Lower thorax: Granulomata. Mild cardiomegaly. Mild pericardial thickening with no effusion. Liver: Normal size with granulomata. Gallbladder: Cholecystectomy. Pancreas: Normal size and attenuation. Normal pancreatic duct. No pancreatitis or mass. Spleen: Normal size with granulomata. Adrenal glands: Normal. No mass. Right kidney: Normal size kidney. There are a few scattered hyperechoic cortical lesions and is stabl e complex cyst lower pole measuring 13 mm. Left kidney: Multiple high attenuation cortical lesions throughout the kidney. Probably representing hemorrhagic cyst. Aorta: Mild atherosclerosis abdominal aorta with no aneurysm. No free fluid, intraperitoneal air or significant lymphadenopathy. GI tract: Normal stomach and small bowel. Moderate constipation. Normal appendix. Numerous diverticul a descending and sigmoid colon. Abdominal wall: Negative. No hernia. Pelvis: Mild bladder wall thickening may be due to underdistention. Prostate gland is mildly enlarged with a few calcifications. No free fluid or adenopathy. Osseous structures: Posterior lumbar fusion at L5-S1 with grade 2 anterolisthesis of L5 which is stab le. CT/CT abdomen pelvis wo con [id number] IMPRESSION: 1. No acute abdominal or pelvic abnormalities are identified. 2. No GI tract obstruction. 3. Moderate diverticular burden in the distal colon. No evidence for acute div erticulitis. 4. Prior cholecystectomy. 5. Bilateral high attenuation masses within each kidney. Probably hemorrhagic cyst. Stable over several prior years.
[2023-02-23] MEDS: iohexol 350 mg/mL 500 mL Btl (per mL) PO (14:52)
== END 2023-02-23 13:30 | disposition home or self-care (01) ==
LOC: RAD 13:33
PROVIDERS: PCP Nurse Practitioner; Visit Provider Nurse Practitioner
DX: K21.9 Gastro-esophageal reflux disease without esophagitis (principal); K58.0 Irritable bowel syndrome with diarrhea; K57.30 Diverticulosis of large intestine without perforation or abscess without bleeding
CPT/HCPCS: 74176; Q9967

== ENCOUNTER → 2023-03-02 10:55 | Outpatient (BNVA) | payer MEDICARE, MEDICAID, SELFPAY | PROVIDERS: PCP Nurse Practitioner; Visit Provider Nurse Practitioner | DX: E11.65 Type 2 diabetes mellitus with hyperglycemia (principal); I10 Essential (primary) hypertension | CPT/HCPCS: 80053; 80061; 81000; 83036; 85025 ==

== ENCOUNTER → 2023-03-10 10:24 | Outpatient (BNVA) | payer MEDICARE, MEDICAID, SELFPAY | PROVIDERS: PCP Nurse Practitioner; Visit Provider Nurse Practitioner | DX: E11.65 Type 2 diabetes mellitus with hyperglycemia (principal); I10 Essential (primary) hypertension | CPT/HCPCS: 80053; 80061; 83036 ==

== ENCOUNTER 2023-03-18 09:52 | Day surgery (SDC) | payer MEDICARE, MEDICAID, SELFPAY ==
[2023-03-16 09:55] VITALS: BMI 27.8
--- NOTE | 2023-03-18 10:12 | W.PM.OPSUD ---
Surgery/Procedure H&P Update DATE OF PROCEDURE: March 18, 2023 DATE H&P PERFORMED: 02/18/23 H&P UPDATE INFORMATION: I have reviewed H&P completed within last 30 days, I have examined patient prior to procedure and No changes to prior documentation PLANNED PROCEDURE: Operation Date: 03/18/23 11:15 Proposed Procedures p Colonoscopy 55309,Z12.11(Not Applicable) - Stef Liriano, DO
[2023-03-18 10:14] VITALS: BP 103/65; PULSE 81; RESP 16; TEMP 36.1; O2SAT 95
[2023-03-18] MEDS: sodium chloride 0.9% 1,000 ML 30 ML IV (10:27)
[2023-03-18 10:33] LABS: Glucose Point of Care 164 mg/dL (70-110)
== END 2023-03-18 11:15 | disposition home or self-care (01) ==
LOC: GILAB 09:52
PROVIDERS: PCP Nurse Practitioner; Visit Provider Surgery
PROC: 0DJD8ZZ Inspection of Lower Intestinal Tract, Via Natural or Artificial Opening Endoscopic (ICD-10-PCS; CPT 45378; principal; 2023-03-18 11:15)
DX: Z12.11 Encounter for screening for malignant neoplasm of colon (principal); Z53.9 Procedure and treatment not carried out, unspecified reason; E11.9 Type 2 diabetes mellitus without complications; Z79.4 Long term (current) use of insulin
CPT/HCPCS: 36416; 82962; J7030

== ENCOUNTER 2023-03-24 22:33 | Emergency (ER) | payer MEDICARE, MEDICAID, SELFPAY ==
[2023-03-24 22:34] VITALS: BP 120/56; PULSE 83; RESP 18; TEMP 36.7; O2SAT 93; BMI 27.3
--- NOTE | 2023-03-24 22:36 | XRR_ITS ---
PROCEDURE INFORMATION: Exam: XR Chest Exam date and time: 03/24/2023 10:44 PM Age: 77 years old Clinical indication: Pain; Chest pressure; Additional info: Chest pain TECHNIQUE: Imaging protocol: Radiologic exam of the chest. Views: 1 view. COMPARISON: CR XR chest 1V portable [id number] 09/21/2022 4:00 AM FINDINGS: Lungs: See Heart/Mediastinum finding. Pleural spaces: Unremarkable. No pleural effusion. No pneumothorax. Heart/Mediastinum: Cardiomegaly and mild pulmonary vascular congestion. Bones/joints: Unremarkable. Other findings: Punctate metallic densities over largely the right thorax similar to prior exam. XR/XR chest 1V portable [id number] IMPRESSION: 1. Cardiomegaly and mild pulmonary vascular congestion. 2. Punctate metallic densities over largely the right thorax similar to prior exam.
--- NOTE | 2023-03-24 22:36 | ECG_ITS ---
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 Measurements Intervals [place] Rate: 73 P: 67 WI: 229 QRS: 87 QRSD: 149 T: 66 QT: 411 QTc: 453 Interpretive Statements SINUS RHYTHM WITH FIRST DEGREE AV BLOCK RIGHT BUNDLE BRANCH BLOCK [120+ ms QRS DURATION, UPRIGHT V1, 40+ ms S IN I/aVL/V4/V5/V6] Compared to ECG 09/21/2022 09:04:39 Right-axis deviation no longer present ST (T wave) deviation no longer present Myocardial infarct finding no longer present Electronically Signed On 03-25-2023 8:13:26 CDT by Miriam Felix M.D. [email or web address]
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
[2023-03-24 22:47] VITALS: BP 120/56; PULSE 75; RESP 16; O2SAT 93
[2023-03-24 22:51] LABS: Basophils % 0.5 %; Eosinophils # 0.1 10^3/uL (0.0-0.8); Eosinophils % 0.9 %; Hematocrit 42.1 % (42.0-52.0); Lymphocytes # 1.5 10^3/uL (0.8-4.8); Lymphocytes % 20.3 %; Mean Corpuscular HGB Conc 30.9 g/dL (30.0-36.0); Mean Corpuscular Hemoglobin 25.7 pg (28.0-34.0); Mean Corpuscular Volume 83.2 fl (80-94); Mean Platelet Volume 9.6 fL (7.4-10.4); Monocytes # 0.6 10^3/uL (0.2-0.9); Monocytes % 8.3 %; Neutrophils % 69.7 %; Nucleated Red Blood Cells % 0 %; Platelet Count 173 10^3/cmm (130-400); Red Blood Count 5.06 10^6/uL (4.1-5.3); Red Cell Distribution Width 14.6 % (12.1-15.1); White Blood Count 7.6 10^3/uL (4.0-10.0)
[2023-03-24 23:11] LABS: Troponin(5th) Baseline 23 ng/L (0-15)
[2023-03-24 23:20] LABS: Alanine Aminotransferase 13 U/L (0-41); Albumin Level 3.7 g/dL (3.5-5.2); Alkaline Phosphatase 77 U/L (40-130); Anion Gap 13.7 (5-19); Aspartate Amino Transferase 12 U/L (0-40); Blood Urea Nitrogen 30 mg/dL (8-23); Calcium 9.1 mg/dL (8.5-10.5); Carbon Dioxide 25 mmol/L (22-29); Chloride 103 mmol/L (98-107); Globulin 2.1 g/dL (1.3-4.6); Glucose 202 mg/dL (65-115); Lipase 38 U/L (13-60); NT Pro B Type Natriuretic Pept 36 pg/mL (0-450); Osmolality Calculated 298 mOsm/kg (285-295); Potassium 3.7 mmol/L (3.5-5.1); Sodium 138 mmol/L (136-145); Total Bilirubin 0.2 mg/dL (0.15-1.2); Total Protein 5.8 g/dL (6.6-8.7)
[2023-03-25 00:30] VITALS: BP 135/67; PULSE 69; RESP 16; O2SAT 94
--- NOTE | 2023-03-25 00:36 | ECG_ITS ---
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 Measurements Intervals Bazine Rate: 71 P: 65 MS: 237 QRS: 79 QRSD: 159 T: 60 QT: 420 QTc: 457 Interpretive Statements SINUS RHYTHM WITH FIRST DEGREE AV BLOCK RIGHT BUNDLE BRANCH BLOCK [120+ ms QRS DURATION, UPRIGHT V1, 40+ ms S IN I/aVL/V4/V5/V6] ST ELEVATION, CONSIDER INFERIOR INJURY [MARKED ST ELEVATION W/O NORMALLY INFLECTED T-WAVE IN II/aVF] ACUTE VT Compared to ECG 03/24/2023 22:38:20 ST (T wave) deviation now present Myocardial infarct finding now present Electronically Signed On 03-25-2023 8:21:13 CDT by Miriam Felix M.D. [id number]
[2023-03-25 01:00] VITALS: BP 116/56; PULSE 85; RESP 16; O2SAT 93
[2023-03-25 01:29] LABS: Troponin 5 2HR 24.44 ng/L (0-15); Troponin 5 2HR Delta 1.44 ABS# (0-10)
[2023-03-25 02:00] VITALS: BP 139/63; PULSE 77; O2SAT 94
== END 2023-03-25 02:27 | disposition home or self-care (01) ==
PROVIDERS: Emergency Provider Nurse Practitioner Family; PCP Nurse Practitioner
DX: R07.9 Chest pain, unspecified (principal); I25.10 Atherosclerotic heart disease of native coronary artery without angina pectoris; I10 Essential (primary) hypertension; I25.2 Old myocardial infarction
CPT/HCPCS: 71045; 80053; 83690; 83880; 84484; 85025; 93005; 99285

== ENCOUNTER 2023-04-06 14:40 | Emergency (ER) | payer MEDICARE, MEDICAID, SELFPAY ==
[2023-04-06 14:44] VITALS: BP 123/43; PULSE 68; RESP 16; TEMP 36.6; O2SAT 96
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
[2023-04-06 15:14] VITALS: BP 123/50; PULSE 71; O2SAT 94
--- NOTE | 2023-04-06 15:33 | XR_ITS ---
WS: [id number] PORTABLE CHEST HISTORY: Hypotension COMPARISON: CT 02/23/2023, chest radiograph 03/24/2023 Slight volume loss and elevation the RIGHT hemidiaphragm. Focal opacification the RIGHT lung base not ed on the prior CT of 02/23/2013. Focal area of scarring. No areas of dense consolidation. No pneumonia . Normal vasculature. No pleural effusion or pneumothorax. Cardiac size: Normal. Mediastinum/Aorta: Normal mediastinum. No osseous abnormality seen. Metallic foreign bodies project over the thorax. XR/XR chest 1V portable [id number] IMPRESSION: Stable chest radiograph. Focal area of scarring and volume loss at the RIGHT alexis ng base.
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
[2023-04-06] MEDS: sodium chloride 0.9% 1,000 ML 999 ML IV (15:50)
[2023-04-06 16:04] VITALS: BP 127/57; PULSE 67; O2SAT 93
[2023-04-06 16:08] LABS: Basophils % 0.3 %; Eosinophils # 0.1 10^3/uL (0.0-0.8); Hematocrit 44.3 % (42.0-52.0); Hemoglobin 13.2 g/dL (11.7-16.6); Lymphocytes # 1.5 10^3/uL (0.8-4.8); Lymphocytes % 25.7 %; Mean Corpuscular HGB Conc 29.8 g/dL (30.0-36.0); Mean Corpuscular Hemoglobin 25.4 pg (28.0-34.0); Mean Corpuscular Volume 85.4 fl (80-94); Mean Platelet Volume 9.5 fL (7.4-10.4); Monocytes # 0.5 10^3/uL (0.2-0.9); Monocytes % 7.7 %; Neutrophils # 3.82 10^3/uL (1.8-7.7); Nucleated Red Blood Cells % 0 %; Platelet Count 153 10^3/cmm (130-400); Red Blood Count 5.19 10^6/uL (4.1-5.3); Red Cell Distribution Width 14.2 % (12.1-15.1); White Blood Count 5.9 10^3/uL (4.0-10.0)
[2023-04-06 16:22] LABS: Slide Review Slide Review Perform
[2023-04-06 16:42] LABS: Alanine Aminotransferase 18 U/L (0-41); Albumin Level 3.6 g/dL (3.5-5.2); Alkaline Phosphatase 98 U/L (40-130); Aspartate Amino Transferase 17 U/L (0-40); Blood Urea Nitrogen 33 mg/dL (8-23); Calcium 8.9 mg/dL (8.5-10.5); Carbon Dioxide 18 mmol/L (22-29); Chloride 101 mmol/L (98-107); Globulin 2.4 g/dL (1.3-4.6); Glucose 249 mg/dL (65-115); Osmolality Calculated 292 mOsm/kg (285-295); Sodium 133 mmol/L (136-145); Total Bilirubin 0.3 mg/dL (0.15-1.2)
[2023-04-06 16:57] VITALS: BP 130/48; PULSE 73; O2SAT 97
[2023-04-06 17:00] LABS: Add Urine Microscopic? NO; Charge for UA Resulting for Rev
[2023-04-06 17:16] LABS: Bilirubin Urine Neg (Negative); Blood Urine Neg (Negative); Glucose Urine UA 4+ (Normal); Ketones Urine Negative (Negative); Leukocyte Esterase Urine Negative (Negative); Nitrate Urine Negative (Negative); Protein Urine Neg (Negative); Urine Appearance Clear (CLEAR); Urine Color Yellow (Yellow); Urobilinogen Urine Norm (Negative); pH Urine 5 (5-7)
[2023-04-06 17:36] VITALS: BP 127/58; PULSE 89; O2SAT 94
[2023-04-06 17:48] VITALS: BP 127/58; PULSE 89; O2SAT 94
== END 2023-04-06 17:49 | disposition home or self-care (01) ==
PROVIDERS: Emergency Provider Family Medicine; PCP Nurse Practitioner
DX: R53.1 Weakness (principal); Z79.82 Long term (current) use of aspirin; Z79.02 Long term (current) use of antithrombotics/antiplatelets; Z79.4 Long term (current) use of insulin; Z87.891 Personal history of nicotine dependence; I25.10 Atherosclerotic heart disease of native coronary artery without angina pectoris; E78.5 Hyperlipidemia, unspecified; I10 Essential (primary) hypertension; I25.2 Old myocardial infarction; E11.9 Type 2 diabetes mellitus without complications
CPT/HCPCS: 36415; 70450; 71045; 80053; 81003; 85025; 96360; 96361; 99285; J7030

== ENCOUNTER → 2023-04-14 12:45 | Outpatient (BNVA) | payer MEDICARE, MEDICAID, SELFPAY | PROVIDERS: PCP Nurse Practitioner; Visit Provider Specialist | DX: I25.10 Atherosclerotic heart disease of native coronary artery without angina pectoris (principal); E78.5 Hyperlipidemia, unspecified; I10 Essential (primary) hypertension; Z87.891 Personal history of nicotine dependence | CPT/HCPCS: 99214 ==

== ENCOUNTER → 2023-04-25 17:42 | Outpatient (BNVA) | payer MEDICARE, MEDICAID, SELFPAY | PROVIDERS: PCP Nurse Practitioner; Visit Provider Nurse Practitioner Family | DX: R39.9 Unspecified symptoms and signs involving the genitourinary system (principal); N39.0 Urinary tract infection, site not specified; N30.00 Acute cystitis without hematuria | CPT/HCPCS: 81000; 87086 ==

== ENCOUNTER → 2023-05-21 08:44 | Outpatient (BNVA) | payer MEDICARE, MEDICAID, SELFPAY | PROVIDERS: PCP Nurse Practitioner; Visit Provider Nurse Practitioner | DX: E11.65 Type 2 diabetes mellitus with hyperglycemia (principal); I10 Essential (primary) hypertension | CPT/HCPCS: 80053; 80061; 83036 ==

== ENCOUNTER 2023-06-17 08:13 | Day surgery (SDC) | payer MEDICARE, MEDICAID, SELFPAY ==
[2023-04-20 08:30] VITALS: BMI 28.0
[2023-06-15 15:53] VITALS: BMI 27.3
[2023-06-17] MEDS: sodium chloride 0.9% 1,000 ML 30 ML IV (08:36)
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
[2023-06-17 08:48] VITALS: BP 123/63; PULSE 64; RESP 18; TEMP 36.6; O2SAT 96
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
[2023-06-17 10:14] VITALS: BP 98/62; PULSE 70; RESP 20; TEMP 36.1; O2SAT 92
[2023-06-17 10:18] LABS: Glucose Point of Care 115 mg/dL (70-110)
[2023-06-17 10:22] VITALS: BP 108/63; PULSE 64; RESP 20; O2SAT 96
[2023-06-17 10:33] VITALS: BP 131/70; PULSE 73; RESP 20; O2SAT 97
--- NOTE | 2023-06-17 13:30 | ANE.PACU2 ---
Inpatient post-anesthesia follow up: Airway intact: Yes Vital signs: Temperature 97.0 F Pulse Rate 73 Respiratory Rate 20 Blood Pressure 131/70 Pulse Oximetry 97 Oxygen Delivery Me thod Room Air Oxygen Flow Rate 5 Fraction of Inspir ed Oxygen Hydration adequate: Yes Nausea and vomiting: No Pain level: 2 Mental status: Baseline
== END 2023-06-17 10:57 | disposition home or self-care (01) ==
PROVIDERS: PCP Nurse Practitioner; Visit Provider Surgery
PROC: 0DJD8ZZ Inspection of Lower Intestinal Tract, Via Natural or Artificial Opening Endoscopic (ICD-10-PCS; CPT 45378; principal; 2023-06-17 09:30)
DX: Z12.11 Encounter for screening for malignant neoplasm of colon (principal); K57.30 Diverticulosis of large intestine without perforation or abscess without bleeding; D12.2 Benign neoplasm of ascending colon; I25.10 Atherosclerotic heart disease of native coronary artery without angina pectoris; E78.5 Hyperlipidemia, unspecified; I10 Essential (primary) hypertension; Z87.891 Personal history of nicotine dependence; E11.65 Type 2 diabetes mellitus with hyperglycemia; Z79.4 Long term (current) use of insulin
CPT/HCPCS: 36416; 45385; 82962; 88305; J2371; J2704; J7030

== ENCOUNTER → 2023-06-30 13:52 | Outpatient (BNVA) | payer MEDICARE, MEDICAID, SELFPAY | PROVIDERS: PCP Nurse Practitioner; Visit Provider Surgery | DX: Z09 Encounter for follow-up examination after completed treatment for conditions other than malignant neoplasm (principal); D12.6 Benign neoplasm of colon, unspecified | CPT/HCPCS: 99213 ==

== ENCOUNTER → 2023-07-16 09:38 | Outpatient (BNVA) | payer MEDICARE, MEDICAID, SELFPAY | PROVIDERS: PCP Nurse Practitioner; Visit Provider Nurse Practitioner Family | DX: R42 Dizziness and giddiness (principal); I95.1 Orthostatic hypotension; H65.90 Unspecified nonsuppurative otitis media, unspecified ear | CPT/HCPCS: 80053; 81000; 85025 ==

== ENCOUNTER → 2023-08-21 07:56 | Outpatient (BNVA) | payer MEDICARE, MEDICAID, SELFPAY | PROVIDERS: PCP Nurse Practitioner; Visit Provider Nurse Practitioner | DX: E11.65 Type 2 diabetes mellitus with hyperglycemia (principal); I10 Essential (primary) hypertension | CPT/HCPCS: 80053; 80061; 83036; 85025 ==

== ENCOUNTER → 2023-08-25 10:33 | Outpatient (BNVA) | payer MEDICARE, MEDICAID, SELFPAY | PROVIDERS: PCP Nurse Practitioner; Visit Provider Nurse Practitioner | DX: E11.65 Type 2 diabetes mellitus with hyperglycemia (principal); F31.81 Bipolar II disorder; K21.9 Gastro-esophageal reflux disease without esophagitis; I10 Essential (primary) hypertension; F41.9 Anxiety disorder, unspecified; R35.1 Nocturia; Z23 Encounter for immunization | CPT/HCPCS: 81000 ==

== ENCOUNTER → 2023-10-07 09:57 | Outpatient (BNVA) | payer MEDICARE, MEDICAID, SELFPAY | PROVIDERS: PCP Nurse Practitioner; Visit Provider Nurse Practitioner | DX: M16.11 Unilateral primary osteoarthritis, right hip (principal); M25.551 Pain in right hip | CPT/HCPCS: 73502 ==

== ENCOUNTER 2023-10-22 13:18 | Emergency (ER) | payer MEDICARE, MEDICAID, SELFPAY ==
[2023-10-22 13:21] VITALS: BP 145/67; PULSE 74; RESP 18; TEMP 36.6; O2SAT 93; BMI 29.5
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
--- NOTE | 2023-10-22 13:25 | CTR_ITS ---
PROCEDURE INFORMATION: Exam: CT Abdomen And Pelvis With Contrast Exam date and time: 10/22/2023 3:31 PM Age: 78 years old Clinical indication: Abdominal pain; Localized; Right; Additional info: Right abd pain, n/v/d TECHNIQUE: Imaging protocol: Computed tomography of the abdomen and pelvis with contrast. Radiation optimization: All CT scans at this facility use at least one of these dose optimization techniques: automated exposure control; mA and/or kV adjustment per patient size (includes targeted exams where dose is matched to clinical indication); or iterative reconstruction. Contrast material: OMNI 350; Contrast volume: 100 ml; Contrast route: INTRAVENOUS (IV); REPORTING DATA: Count of CT and Cardiac NM exams in prior 12 months: This patient has received 2 known CTs and 0 known cardiac nuclear medicine studies in the 12 months prior to the current study. COMPARISON: CT abdomen pelvis wo con [id number] 02/23/2023 2:44 PM RADIATION DOSE METRICS: Total DLP (mGy-cm): 694 FINDINGS: Lungs: Minor right basilar subsegmental atelectasis. Heart: Mild cardiomegaly. Liver: Normal. No mass. Gallbladder and bile ducts: Previous cholecystectomy. Pancreas: Normal. No ductal dilation. Spleen: Splenic granulomata. Adrenal glands: Normal. No mass. Kidneys and ureters: Several renal cysts which do not warrant further surveillance. Stomach and bowel: Unremarkable. No obstruction. No mucosal thickening. Appendix: No evidence of appendicitis. Intraperitoneal space: Unremarkable. No free air. No significant fluid collection. Vasculature: Mild atherosclerosis. Lymph nodes: Unremarkable. No enlarged lymph nodes. Urinary bladder: Unremarkable as visualized. Reproductive: Unremarkable as visualized. Bones/joints: Previous posterior fusion L5-S1. Degenerative change of both hips. Soft tissues: Unremarkable. CT/CT abdomen pelvis w con* [id number] IMPRESSION: No acute findings. COMMENTS: Consistent with the [employer]'s Incidental Findings Committee white paper (J Am Reece Radiol 2018): Any incidental renal lesion less than 1 cm or classified as too small to characterize, or any incidental cystic renal lesion characterized as simple-appearing, is likely benign. No follow-up imaging is recommended for these lesions per consensus recommendations based on imaging criteria.
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
[2023-10-22 13:28] VITALS: BP 167/71; PULSE 62; RESP 16; O2SAT 95
--- NOTE | 2023-10-22 13:38 | ECG_ITS ---
[facility] Test Date: 2023-10-22 Pat Name: Christ Garza Department: Room: Gender: Male Pump Erector: : 1945 Requested By: Martin Cisse Order Number: [id number] Rebecca MD: Andres Barnett M.D. Measurements Intervals [place] Rate: 69 P: 74 TX: 210 QRS: 92 QRSD: 141 T: 61 QT: 407 QTc: 437 Interpretive Statements SINUS RHYTHM WITH FIRST DEGREE AV BLOCK RIGHT BUNDLE BRANCH BLOCK [120+ ms QRS DURATION, UPRIGHT V1, 40+ ms S IN I/aVL/V4/V5/V6] Compared to ECG 03/25/2023 00:41:22 ST (T wave) deviation no longer present Myocardial infarct finding no longer present Electronically Signed On 10-22-2023 15:12:03 APPOINTMENT SPECIALIST by Andres Barnett M.D. [email or web address] county [email or web address].F[employer] Steward/store/[id number]
[2023-10-22] MEDS: ondansetron 2 mg/ML SDV 2 mL 4 MG IVP (13:41)
[2023-10-22] MEDS: sodium chloride 0.9% 500 ML IV (13:41)
[2023-10-22 13:45] LABS: Basophils % 0.5 %; Eosinophils # 0.1 10^3/uL (0.0-0.8); Eosinophils % 0.8 %; Hematocrit 48.8 % (37-53); Lymphocytes # 1.4 10^3/uL (0.8-4.8); Lymphocytes % 18.1 %; Mean Corpuscular HGB Conc 30.1 g/dL (30-55); Mean Corpuscular Hemoglobin 25.7 pg (27-33); Mean Corpuscular Volume 85.2 fl (82-101); Mean Platelet Volume 9.5 fL (7.4-10.4); Monocytes # 0.7 10^3/uL (0.2-0.9); Monocytes % 9.4 %; Neutrophils # 5.39 10^3/uL (1.8-7.7); Neutrophils % 70.9 %; Nucleated Red Blood Cells % 0 %; Platelet Count 167 10^3/cmm (157-399); Red Blood Count 5.73 10^6/uL (3.85-5.65); White Blood Count 7.59 10^3/uL (3.29-11.43)
[2023-10-22 14:05] LABS: Troponin(5th) Baseline 30 ng/L (0-15)
[2023-10-22 14:06] LABS: Alanine Aminotransferase 50 U/L (0-41); Albumin Level 4.2 g/dL (3.5-5.2); Alkaline Phosphatase 101 U/L (40-130); Anion Gap 15.4 (5-19); Aspartate Amino Transferase 27 U/L (0-40); Blood Urea Nitrogen 27 mg/dL (8-23); Calcium 9.5 mg/dL (8.5-10.5); Carbon Dioxide 27 mmol/L (22-29); Chloride 106 mmol/L (98-107); Creatinine Clr Calc Pharmacy 76.5209; Globulin 2.8 g/dL (1.3-4.6); Glucose 122 mg/dL (65-115); Lipase 32 U/L (13-60); Osmolality Calculated 304 mOsm/kg (285-295); Potassium 4.4 mmol/L (3.5-5.1); Sodium 144 mmol/L (136-145); Total Bilirubin 0.3 mg/dL (0.15-1.2)
[2023-10-22 15:20] LABS: Add Urine Microscopic? NO; Charge for UA Resulting for Rev
[2023-10-22 15:22] LABS: Bilirubin Urine Neg (Negative); Blood Urine Neg (Negative); Glucose Urine UA 4+ (Normal); Ketones Urine Negative (Negative); Leukocyte Esterase Urine Negative (Negative); Nitrate Urine Negative (Negative); Protein Urine Neg (Negative); Urine Appearance Clear (CLEAR); Urine Color Light yellow (Yellow); Urobilinogen Urine Norm (Negative); pH Urine 5 (5-7)
--- NOTE | 2023-10-22 15:24 | ECG_ITS ---
[facility] Test Date: 2023-10-22 Pat Name: Christ Garza Department: Room: Gender: Male Care Team Assistant: : 1945 Requested By: Martin Cisse Order Number: [id number] Rebecca MD: Andres Barnett M.D. Measurements Intervals [place] Rate: 65 P: 82 ME: 234 QRS: 80 QRSD: 142 T: 65 QT: 441 QTc: 459 Interpretive Statements SINUS RHYTHM WITH FIRST DEGREE AV BLOCK RIGHT BUNDLE BRANCH BLOCK [120+ ms QRS DURATION, UPRIGHT V1, 40+ ms S IN I/aVL/V4/V5/V6] Compared to ECG 10/22/2023 13:38:49 No significant changes Electronically Signed On 10-22-2023 17:41:06 STUDENT ADMISSIONS CLERK by Andres Barnett M.D. [email or web address] [id number]
[2023-10-22 15:27] LABS: Troponin 5 2HR 27.24 ng/L (0-15)
[2023-10-22 15:31] LABS: Troponin 5 2HR Delta -2.76 ABS# (0-10)
[2023-10-22] MEDS: iohexol 350 mg/mL 500 mL Btl (per mL) IV (15:49)
[2023-10-22 16:00] VITALS: BP 167/71; PULSE 63; RESP 19; O2SAT 96
[2023-10-22 16:25] VITALS: BP 161/84; PULSE 63; O2SAT 96
== END 2023-10-22 16:28 | disposition home or self-care (01) ==
PROVIDERS: Emergency Provider Nurse Practitioner Family; PCP Nurse Practitioner
DX: K52.9 Noninfective gastroenteritis and colitis, unspecified (principal); Z79.4 Long term (current) use of insulin; Z79.82 Long term (current) use of aspirin; Z79.02 Long term (current) use of antithrombotics/antiplatelets; Z87.891 Personal history of nicotine dependence; I25.10 Atherosclerotic heart disease of native coronary artery without angina pectoris; I25.2 Old myocardial infarction; E11.9 Type 2 diabetes mellitus without complications; E78.5 Hyperlipidemia, unspecified; I10 Essential (primary) hypertension
CPT/HCPCS: 36415; 71045; 74177; 80053; 81003; 83690; 84484; 85025; 93005; 96374; 99285; J2405; J7040; Q9967

== ENCOUNTER → 2023-11-03 11:54 | Outpatient (BNVA) | payer MEDICARE, MEDICAID, SELFPAY | PROVIDERS: PCP Nurse Practitioner; Visit Provider Nurse Practitioner | DX: E11.65 Type 2 diabetes mellitus with hyperglycemia; F31.81 Bipolar II disorder; K21.9 Gastro-esophageal reflux disease without esophagitis; I10 Essential (primary) hypertension; F41.9 Anxiety disorder, unspecified; R35.1 Nocturia | CPT/HCPCS: 80053; 81000; 82607; 83036; 85025 ==

== ENCOUNTER → 2024-02-09 12:01 | Outpatient (BNVA) | payer MEDICARE, MEDICAID, SELFPAY | PROVIDERS: PCP Nurse Practitioner; Visit Provider Nurse Practitioner | DX: E11.65 Type 2 diabetes mellitus with hyperglycemia (principal); F31.81 Bipolar II disorder; E53.8 Deficiency of other specified B group vitamins; K21.9 Gastro-esophageal reflux disease without esophagitis; I10 Essential (primary) hypertension; F41.9 Anxiety disorder, unspecified; R35.1 Nocturia | CPT/HCPCS: 80053; 80061; 81000; 82607; 83036; 83550; 85025 ==

== ENCOUNTER 2024-02-11 10:57 | Emergency (ER) | payer MEDICARE, MEDICAID, SELFPAY ==
[2024-02-11 11:00] VITALS: BP 123/57; PULSE 73; RESP 18; TEMP 36.7; O2SAT 92; BMI 29.5
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
--- NOTE | 2024-02-11 11:04 | ECG_ITS ---
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 Measurements Intervals [place] Rate: 71 P: 63 GA: 212 QRS: 55 QRSD: 145 T: 50 QT: 413 QTc: 451 Interpretive Statements SINUS RHYTHM WITH FIRST DEGREE AV BLOCK RIGHT BUNDLE BRANCH BLOCK [120+ ms QRS DURATION, UPRIGHT V1, 40+ ms S IN I/aVL/V4/V5/V6] Compared to ECG 10/22/2023 15:49:05 No significant changes Electronically Signed On 02-11-2024 11:46:51 CDT by Andres Barnett M.D. [id number] f
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
[2024-02-11 11:23] VITALS: BP 123/57; PULSE 72; RESP 16; O2SAT 92
[2024-02-11 11:24] LABS: Glucose Point of Care 257 mg/dL (70-110)
[2024-02-11] MEDS: morphine 4 mg/mL SDV 1 mL IVP (11:25)
[2024-02-11] MEDS: ondansetron 2 mg/ML SDV 2 mL 4 MG IVP (11:25)
--- NOTE | 2024-02-11 11:25 | PC.PHAR ---
Addendum entered by Priscilla Rivera 02/11/24 11:29: PT STATES TOOK ALL OF HIS INSULINS TODAY Original Note: PT STATES HE HAS A HOME HEALTH NURSE THAT SETS UP HIS MEDICATIONS PT STATES HE CANT REMEMBER THE NAME OF THE COMPANY-PT STATES HE TAKES CARE OF HIS OWN INSULINS-PT STATES HE HAS BEEN TAKING VICTOZA 1.2MG BID RX FILLED 01/18/24 30D/S 1.8MG DAILY [facility] STATES GOT NEW RX FOR 1.2MG DAILY ON 02/09/24-PT STATES HE USES LEVEMIR FLEXPEN U100 STATES USES 60 UNITS BID [facility] LAST FILLED 01/01/24 60 UNITS TID-Juan Francisco RANDOLPH WROTE RX ON 02/09/24 TOUJEO MAX U-300 65 UNITS DAILY [facility] STATES NEVER GOT RX PT STATES DOES NOT TAKE TOUJEO-PT STATES HE TAKES A 81MG ASPIRIN DAILY-MEDICATIONS ENTERED ARE FROM WHAT EXT SHOWS HAS BEEN FILLED RECENTLY AND WHAT THE PT WAS ABLE TO VERIFY
[2024-02-11 11:30] LABS: Basophils # 0.1 10^3/uL (0.0-0.1); Basophils % 0.7 %; Eosinophils # 0.1 10^3/uL (0.0-0.8); Eosinophils % 1.2 %; Hematocrit 34.6 % (37-53); Lymphocytes # 1.1 10^3/uL (0.8-4.8); Lymphocytes % 15.8 %; Mean Corpuscular HGB Conc 29.5 g/dL (30-55); Mean Corpuscular Hemoglobin 23.2 pg (27-33); Mean Corpuscular Volume 78.6 fl (82-101); Mean Platelet Volume 9.2 fL (7.4-10.4); Monocytes # 0.5 10^3/uL (0.2-0.9); Monocytes % 7.4 %; Neutrophils # 5.12 10^3/uL (1.8-7.7); Neutrophils % 74.2 %; Nucleated Red Blood Cells % 0 %; Platelet Count 200 10^3/cmm (157-399); Red Cell Distribution Width 15.3 % (12.1-15.1)
[2024-02-11 11:48] LABS: Troponin(5th) Baseline 31 ng/L (0-15)
[2024-02-11 11:52] LABS: Alanine Aminotransferase 12 U/L (0-41); Alkaline Phosphatase 105 U/L (40-130); Anion Gap 14.2 (5-19); Aspartate Amino Transferase 15 U/L (0-40); Blood Urea Nitrogen 35 mg/dL (8-23); Calcium 8.6 mg/dL (8.5-10.5); Carbon Dioxide 23 mmol/L (22-29); Chloride 108 mmol/L (98-107); Creatinine Clr Calc Pharmacy 76.5209; Globulin 1.6 g/dL (1.3-4.6); Glucose 256 mg/dL (65-115); Lipase 41 U/L (13-60); Osmolality Calculated 307 mOsm/kg (285-295); Potassium 5.2 mmol/L (3.5-5.1); Sodium 140 mmol/L (136-145); Total Bilirubin 0.2 mg/dL (0.15-1.2); Total Protein 5.6 g/dL (6.6-8.7)
[2024-02-11 12:21] VITALS: BP 123/74; PULSE 68; RESP 18; O2SAT 93
[2024-02-11 13:19] LABS: Troponin 5 2HR 29.18 ng/L (0-15)
--- NOTE | 2024-02-11 13:19 | ECG_ITS ---
[facility] Test Date: 2024-02-11 Pat Name: Christ Garza Department: Room: Gender: Male Circulating Nurse: : 1945 Requested By: Mario Rodarte Order Number: [id number] Rebecca MD: Andres Barnett M.D. Measurements Intervals [place] Rate: 63 P: 65 [place]: 228 QRS: 47 QRSD: 148 T: 51 QT: 429 QTc: 440 Interpretive Statements SINUS RHYTHM WITH FIRST DEGREE AV BLOCK RIGHT BUNDLE BRANCH BLOCK [120+ ms QRS DURATION, UPRIGHT V1, 40+ ms S IN I/aVL/V4/V5/V6] Compared to ECG 02/11/2024 11:04:04 No significant changes Electronically Signed On 02-11-2024 14:21:50 CDT by Andres Barnett M.D. [id number]
[2024-02-11 13:23] LABS: Troponin 5 2HR Delta -1.82 ABS# (0-10)
[2024-02-11 13:36] VITALS: BP 110/46; PULSE 78; O2SAT 94
[2024-02-11 13:43] VITALS: PULSE 74; O2SAT 94
--- NOTE | 2024-02-11 21:28 | DCPLANNER ---
Message was sent to Cardiology for follow up- Chest pain
== END 2024-02-11 13:45 | disposition home or self-care (01) ==
PROVIDERS: Emergency Provider Emergency Medicine; PCP Nurse Practitioner
DX: R07.9 Chest pain, unspecified (principal); Z79.02 Long term (current) use of antithrombotics/antiplatelets; Z79.82 Long term (current) use of aspirin; Z79.4 Long term (current) use of insulin; Z87.891 Personal history of nicotine dependence; I25.10 Atherosclerotic heart disease of native coronary artery without angina pectoris; I25.2 Old myocardial infarction; E11.9 Type 2 diabetes mellitus without complications; E78.5 Hyperlipidemia, unspecified; I10 Essential (primary) hypertension
CPT/HCPCS: 36416; 71045; 80053; 82962; 83690; 84484; 85025; 85610; 93005; 96374; 96375; 99285; J2270; J2405

== ENCOUNTER 2024-02-14 18:10 | Emergency (ER) | payer MEDICARE, MEDICAID, SELFPAY ==
[2024-02-14 18:13] VITALS: BP 116/64; PULSE 79; TEMP 36.8; O2SAT 92; BMI 29.5
[2024-02-14 18:22] VITALS: BP 116/64; PULSE 73; O2SAT 94
[2024-02-14 18:29] LABS: Basophils % 0.4 %; Eosinophils # 0.1 10^3/uL (0.0-0.8); Hematocrit 35.7 % (37-53); Lymphocytes # 1.3 10^3/uL (0.8-4.8); Lymphocytes % 16.5 %; Mean Corpuscular HGB Conc 28.9 g/dL (30-55); Mean Corpuscular Hemoglobin 22.5 pg (27-33); Mean Corpuscular Volume 77.9 fl (82-101); Mean Platelet Volume 9.3 fL (7.4-10.4); Monocytes # 0.7 10^3/uL (0.2-0.9); Monocytes % 8.8 %; Neutrophils # 5.87 10^3/uL (1.8-7.7); Neutrophils % 73.1 %; Nucleated Red Blood Cells % 0 %; Platelet Count 197 10^3/cmm (157-399); Red Blood Count 4.58 10^6/uL (3.85-5.65); Red Cell Distribution Width 15.6 % (12.1-15.1); White Blood Count 8.04 10^3/uL (3.29-11.43)
[2024-02-14 18:47] LABS: Alanine Aminotransferase 13 U/L (0-41); Albumin Level 3.8 g/dL (3.5-5.2); Alkaline Phosphatase 87 U/L (40-130); Aspartate Amino Transferase 19 U/L (0-40); Blood Urea Nitrogen 26 mg/dL (8-23); Carbon Dioxide 24 mmol/L (22-29); Chloride 108 mmol/L (98-107); Globulin 2.5 g/dL (1.3-4.6); Glucose 191 mg/dL (65-115); Osmolality Calculated 302 mOsm/kg (285-295); Sodium 141 mmol/L (136-145); Total Bilirubin 0.2 mg/dL (0.15-1.2); Total Protein 6.3 g/dL (6.6-8.7)
[2024-02-14 18:53] LABS: Anion Gap 13.1 (5-19); Potassium 4.1 mmol/L (3.5-5.1)
[2024-02-14 19:00] LABS: INR 0.99 (0.8-1.2)
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
== END 2024-02-14 19:43 | disposition home or self-care (01) ==
PROVIDERS: Emergency Provider Emergency Medicine; PCP Nurse Practitioner
DX: K92.1 Melena (principal); Z79.02 Long term (current) use of antithrombotics/antiplatelets; Z79.82 Long term (current) use of aspirin; Z79.4 Long term (current) use of insulin; Z87.891 Personal history of nicotine dependence; I25.10 Atherosclerotic heart disease of native coronary artery without angina pectoris; I25.2 Old myocardial infarction; E11.9 Type 2 diabetes mellitus without complications; E78.5 Hyperlipidemia, unspecified; I10 Essential (primary) hypertension
CPT/HCPCS: 80053; 85025; 85610; 99283

== ENCOUNTER 2024-03-12 22:14 | Emergency (ER) | payer MEDICARE, MEDICAID, SELFPAY ==
[2024-03-12 22:50] VITALS: BP 120/61; PULSE 74; RESP 16; TEMP 36.4; O2SAT 95; BMI 29.5
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
[2024-03-13 03:19] VITALS: PULSE 68; RESP 18; O2SAT 96
== END 2024-03-13 03:22 | disposition home or self-care (01) ==
PROVIDERS: Emergency Provider Emergency Medicine; PCP Nurse Practitioner
DX: F41.9 Anxiety disorder, unspecified (principal); F41.0 Panic disorder [episodic paroxysmal anxiety]; Z79.02 Long term (current) use of antithrombotics/antiplatelets; Z79.82 Long term (current) use of aspirin; Z79.4 Long term (current) use of insulin; I25.10 Atherosclerotic heart disease of native coronary artery without angina pectoris; I25.2 Old myocardial infarction; E11.9 Type 2 diabetes mellitus without complications; E78.5 Hyperlipidemia, unspecified; I10 Essential (primary) hypertension
CPT/HCPCS: 99283

== ENCOUNTER → 2024-03-28 10:59 | Outpatient (BNVA) | payer MEDICARE, MEDICAID, SELFPAY | PROVIDERS: PCP Nurse Practitioner Family; Visit Provider Nurse Practitioner Family | DX: R06.89 Other abnormalities of breathing (principal) | CPT/HCPCS: 71046 ==

== ENCOUNTER → 2024-03-29 15:11 | Outpatient (BNVA) | payer MEDICARE, MEDICAID, SELFPAY | PROVIDERS: PCP Nurse Practitioner Family; Visit Provider Internal Medicine Cardiovascular Disease | DX: I25.118 Atherosclerotic heart disease of native coronary artery with other forms of angina pectoris (principal); I10 Essential (primary) hypertension; E78.5 Hyperlipidemia, unspecified; R00.1 Bradycardia, unspecified | CPT/HCPCS: 99214 ==

== ENCOUNTER → 2024-04-26 12:11 | Outpatient (BNVA) | payer MEDICARE, MEDICAID, SELFPAY | PROVIDERS: PCP Nurse Practitioner Family; Visit Provider Nurse Practitioner | DX: E11.65 Type 2 diabetes mellitus with hyperglycemia (principal); Z79.4 Long term (current) use of insulin; E53.8 Deficiency of other specified B group vitamins; K21.9 Gastro-esophageal reflux disease without esophagitis; D50.9 Iron deficiency anemia, unspecified; F31.81 Bipolar II disorder; F41.9 Anxiety disorder, unspecified; R35.1 Nocturia; E11.9 Type 2 diabetes mellitus without complications | CPT/HCPCS: 80053; 80061; 81000; 83036 ==

== ENCOUNTER 2024-05-08 01:42 | Emergency (ER) | payer MEDICARE, MEDICAID, SELFPAY ==
[2024-05-08 01:53] VITALS: BP 131/62; PULSE 76; RESP 21; TEMP 37.1; O2SAT 88; BMI 29.5
--- NOTE | 2024-05-08 02:08 | ECG_ITS ---
[facility] Test Date: 2024-05-08 Pat Name: Christ Garza Department: Room: Gender: Male Component Technician: : 1945 Requested By: Juan Miguel Arriaga Order Number: [id number] Rebecca MD: Yaniv Wick M.D. Measurements Intervals [place] Rate: 78 P: 63 [place]: 219 QRS: 48 QRSD: 145 T: 51 QT: 401 QTc: 457 Interpretive Statements SINUS RHYTHM WITH FIRST DEGREE AV BLOCK RIGHT BUNDLE BRANCH BLOCK [120+ ms QRS DURATION, UPRIGHT V1, 40+ ms S IN I/aVL/V4/V5/V6] Compared to ECG 02/11/2024 13:19:48 No significant changes Electronically Signed On 05-08-2024 13:24:51 CDT by Yaniv Wick M.D. [id number]
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
[2024-05-08 02:22] LABS: Basophils % 0.5 %; Eosinophils # 0.1 10^3/uL (0.0-0.8); Eosinophils % 1.2 %; Lymphocytes % 12.7 %; Mean Corpuscular HGB Conc 28.6 g/dL (30-55); Mean Corpuscular Hemoglobin 21.5 pg (27-33); Mean Platelet Volume 9.9 fL (7.4-10.4); Monocytes # 0.6 10^3/uL (0.2-0.9); Neutrophils # 6.19 10^3/uL (1.8-7.7); Neutrophils % 77.2 %; Nucleated Red Blood Cells % 0 %; Platelet Count 208 10^3/cmm (157-399); Red Cell Distribution Width 16.9 % (12.1-15.1); White Blood Count 8.02 10^3/uL (3.29-11.43)
[2024-05-08 02:28] VITALS: BP 119/74; PULSE 79; RESP 18; O2SAT 99
[2024-05-08 02:51] LABS: Troponin(5th) Baseline 49 ng/L (0-15)
[2024-05-08 03:00] LABS: Anion Gap 17.7 (5-19); Blood Urea Nitrogen 43 mg/dL (8-23); Calcium 8.7 mg/dL (8.5-10.5); Carbon Dioxide 24 mmol/L (22-29); Chloride 104 mmol/L (98-107); Glucose 403 mg/dL (65-115); NT Pro B Type Natriuretic Pept 82 pg/mL (0-450); Osmolality Calculated 320 mOsm/kg (285-295); Potassium 4.7 mmol/L (3.5-5.1); Sodium 141 mmol/L (136-145)
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
[2024-05-08 04:09] VITALS: BP 122/78; PULSE 74; O2SAT 97
[2024-05-08 04:19] LABS: Adenovirus Not Detected (NOT DETECT); Chlamydia Pneumoniae Not Detected (NOT DETECT); Coronavirus 229E,HKU1,NL63,OC4 Not Detected (NOT DETECT); Human Metapneumovirus Not Detected (NOT DETECT); Human Rhinovirus/Enterovirus Not Detected (NOT DETECT); Influenza A Not Detected (NOT DETECT); Influenza A H1 Not Detected (NOT DETECT); Influenza A H1-2009 Not Detected (NOT DETECT); Influenza A H3 Not Detected (NOT DETECT); Influenza B Not Detected (NOT DETECT); Mycoplasma Pneumoniae Not Detected (NOT DETECT); Parainfluenza Virus Type 1 Not Detected (NOT DETECT); Parainfluenza Virus Type 2 Not Detected (NOT DETECT); Parainfluenza Virus Type 3 Not Detected (NOT DETECT); Parainfluenza Virus Type 4 Not Detected (NOT DETECT); Respiratory Syncytial Virus A Not Detected (NOT DETECT); Respiratory Syncytial Virus B Not Detected (NOT DETECT); SARS-COV-2 Not Detected (NOT DETECT)
[2024-05-08 05:36] LABS: Troponin 5 2HR 41.61 ng/L (0-15); Troponin 5 2HR Delta -7.39 ABS# (0-10)
== END 2024-05-08 06:17 | disposition home or self-care (01) ==
PROVIDERS: Emergency Provider Emergency Medicine; PCP Nurse Practitioner Family
DX: R07.89 Other chest pain (principal); I10 Essential (primary) hypertension; E78.5 Hyperlipidemia, unspecified; I25.10 Atherosclerotic heart disease of native coronary artery without angina pectoris; I25.2 Old myocardial infarction; I44.0 Atrioventricular block, first degree; I45.10 Unspecified right bundle-branch block; Z79.899 Other long term (current) drug therapy; Z79.4 Long term (current) use of insulin; Z79.84 Long term (current) use of oral hypoglycemic drugs; Z79.85 Long-term (current) use of injectable non-insulin antidiabetic drugs; Z79.82 Long term (current) use of aspirin; Z82.49 Family history of ischemic heart disease and other diseases of the circulatory system
CPT/HCPCS: 36415; 71045; 80048; 83880; 84484; 85025; 87486; 87581; 87633; 93005; 99285

== ENCOUNTER → 2024-05-16 13:00 | Outpatient (BNVA) | payer MEDICARE, MEDICAID, SELFPAY | PROVIDERS: PCP Nurse Practitioner Family; Visit Provider Nurse Practitioner | DX: N39.0 Urinary tract infection, site not specified (principal); E11.65 Type 2 diabetes mellitus with hyperglycemia | CPT/HCPCS: 81000 ==

== ENCOUNTER 2024-05-20 07:52 | Outpatient (CLI) | payer MEDICARE, MEDICAID, SELFPAY ==
[2024-05-20 08:15] VITALS: BMI 29.5
--- NOTE | 2024-05-20 08:17 | ECG_ITS ---
[facility] Test Date: 2024-05-20 Pat Name: Christ Garza Department: Room: Gender: Male [employer] Advocate: Conchita Shah : 1945 Requested By: Angle Orta Order Number: [id number] Rebecca MD: Angle Orta M.D. Interpretive Statements NAME OF STUDY: LEXISCAN SESTAMIBI STRESS TEST INDICATION: Ashd, Fatigue, PROCEDURE: At the baseline, the EKG revealed normal sinus rhythm with a first-degree AV block, right bundle branch block. The baseline heart was 63 bpm with a blood pressue of 148/82 mm of Hg Lexiscan was infused over a period of 20 seconds. A total of 0.4 milligrams of Lexiscan was infused. The stress phase was continued for a total of 5 minutes. Heart rate at the end of the stress phase was 75 bpm with a blood pressure 139/58 mm of Hg. The EKG at the peak infusion revealed no significant changes. Sestamibi was injected 20 seconds after the Lexiscan infusion. Heart rate at the end of the recovery phase was 75 bpm with a blood pressure of 138/58 mm of Hg. CONCLUSION: 1. No significant EKG changes with the LexiScan infusion 2. No LexiScan induced chest pain or cardiac arrhythmia 3. Normal blood pressure and heart rate response 4. Sestamibi/sestamibi perfusion scan pending; see separate report. Electronically Signed On 05-22-2024 21:59:34 CDT by Angle Orta M.D. [id number]
--- NOTE | 2024-05-20 08:17 | NMCV_ITS ---
NM lilly perf SPECT r/s* [id number] Christ Garza Age: 78 Gender: M : 1945 Exam Date: 05/20/2024 08:39 Ordering Phys: Angle Orta MD ([email or web address]) Technologist: TAYLA Ribeiro Exam Location: [facility] Indications: ASHD, FATIGUE STRESS TEST Please see separate stress test report in [facility] for full findings IMAGE PROTOCOL Rest/Stress 1 Lexiscan Day Radiopharmaceutical Dose (mCi) Administration Site Administered by Rest: Tc-99m 10.8 IV TAYLA Ribeiro Sestamibi Stress:Tc-99m 32.9 IV TAYLA Ribeiro Sestamibi Rest: 20-May-2024 60 Discovery 630 Stress: 20-May-2024 30 Discovery 630 0.4mg Lexiscan. Supine position only as patient was unable to lay prone. SPECT RESULTS Technical Quality: Good Raw Data Analysis: unable to do prone images Image Corrections: No attenuation or motion correction applied Summed Stress Score: 8 Summed Rest Score: 6 Summed Difference Score: 2 PERFUSION FINDINGS Moderate area of moderately decreased tracer uptake was noted involving the basal mid and apical inferior, mid inferolateral segments. Some reversibility was noted on the basal inferior region. FUNCTIONAL RESULTS (calculated via Gated SPECT) Stress Image LV EF (%): 77 Stress EDV (mL):84 TID: 1.14 Stress ESV (mL):19 FUNCTIONAL FINDINGS: Segmental wall motion analysis revealing no gross wall motion abnormalities IMPRESSIONS 1. Myocardial perfusion imaging revealing moderate area of moderately decreased tracer uptake involving the inferior and inferolateral region with some reversibility in the basal inferior region. The features are suggestive of myocardial scarring predominantly in the distribution of the right coronary artery with some areas of shante-infarction ischemia. Minimal involvement of the left circumflex artery also was noted. 2. Normal LV ejection fraction of 77%. 3. LV wall motion analysis revealing no gross wall motion abnormalities. 4. Normal LV volume Dr Angle Orta MD FACC (Electronically Signed) Final Date: 20 May 2024 12:29 S
[2024-05-20] MEDS: regadenoson 0.4 Mg/5 ml Syringe IVP (09:25)
[2024-05-20 09:31] VITALS: BP 139/58; PULSE 73
== END 2024-05-20 07:53 | disposition home or self-care (01) ==
LOC: CDL 07:52
PROVIDERS: PCP Nurse Practitioner Family; Visit Provider Internal Medicine Cardiovascular Disease
DX: Z98.61 Coronary angioplasty status (principal); R94.39 Abnormal result of other cardiovascular function study
CPT/HCPCS: 36415; 78452; 93017; 96374; A9500; J2785

== ENCOUNTER → 2024-07-07 13:17 | Outpatient (BNVA) | payer MEDICARE, MEDICAID, SELFPAY | PROVIDERS: PCP Nurse Practitioner; Visit Provider Nurse Practitioner Family | DX: M16.12 Unilateral primary osteoarthritis, left hip (principal); M25.652 Stiffness of left hip, not elsewhere classified; M25.552 Pain in left hip | CPT/HCPCS: 73502 ==

== ENCOUNTER → 2024-07-11 14:08 | Outpatient (BNVA) | payer MEDICARE, MEDICAID, SELFPAY | PROVIDERS: PCP Nurse Practitioner; Visit Provider Nurse Practitioner | DX: E11.9 Type 2 diabetes mellitus without complications (principal) | CPT/HCPCS: 80053; 83036 ==

== ENCOUNTER → 2024-09-20 11:10 | Outpatient (BNVA) | payer MEDICARE, MEDICAID, SELFPAY | PROVIDERS: PCP Nurse Practitioner; Visit Provider Nurse Practitioner | DX: E11.65 Type 2 diabetes mellitus with hyperglycemia (principal) | CPT/HCPCS: 80053; 80061; 82043; 83036 ==

== ENCOUNTER 2024-10-28 22:10 | Emergency (ER) | payer MEDICARE, MEDICAID, SELFPAY ==
[2024-10-28 22:11] VITALS: BP 164/83; PULSE 64; RESP 15; TEMP 36.7; O2SAT 98; BMI 29.5
--- NOTE | 2024-10-28 23:33 | XRR_ITS ---
PROCEDURE INFORMATION: Exam: XR Left Knee Exam date and time: 10/28/2024 11:35 PM Age: 79 years old Clinical indication: Swelling or effusion of joint; Patient HX: C/O pain and swelling to left knee. No injury. ; Additional info: Pain, swelling TECHNIQUE: Imaging protocol: Radiologic exam of the left knee. Views: 3 views. COMPARISON: CR XR femur LT min 2V* [id number] 11/06/2022 1:24 PM FINDINGS: Bones/joints: No acute fracture or dislocation. [id number] tricompartmental osteoarthritis. Questionable small joint effusion. Soft tissues: Normal. XR/XR knee LT 3V* [id number] IMPRESSION: 1. No acute fracture or dislocation. 2. [id number] tricompartmental osteoarthritis. 3. Questionable small joint effusion.
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
--- NOTE | 2024-10-28 23:50 | XRR_ITS ---
PROCEDURE INFORMATION: Exam: XR Left Ankle Exam date and time: 10/28/2024 11:41 PM Age: 79 years old Clinical indication: Swelling or effusion of joint; Patient HX: C/O pain and swelling to left ankle. No injury. TECHNIQUE: Imaging protocol: Radiologic exam of the left ankle. Views: 3 or more views. COMPARISON: CR (LOW EXM, ) 10/28/2024 11:35 PM FINDINGS: Bones/joints: No acute fracture or dislocation. Ankle mortise appears preserved. Minor degenerative changes. No abnormal periosteal reaction or cortical erosion. Soft tissues: Diffuse soft tissue swelling. No soft tissue gas. XR/XR ankle LT min 3V* [id number] IMPRESSION: 1. Diffuse soft tissue swelling. 2. No acute osseous abnormality.
[2024-10-28] MEDS: dexamethasone 10 mg/mL INJ IM (23:54)
== END 2024-10-29 00:49 | disposition home or self-care (01) ==
PROVIDERS: Emergency Provider Physician Assistant; PCP Nurse Practitioner
DX: M17.12 Unilateral primary osteoarthritis, left knee (principal); Z79.4 Long term (current) use of insulin; Z79.02 Long term (current) use of antithrombotics/antiplatelets; Z87.891 Personal history of nicotine dependence; E78.5 Hyperlipidemia, unspecified; I10 Essential (primary) hypertension
CPT/HCPCS: 73562; 73610; 96372; 99284; J1100

== ENCOUNTER → 2024-11-10 10:42 | Outpatient (BNVA) | payer MEDICARE, MEDICAID, SELFPAY | PROVIDERS: PCP Nurse Practitioner; Visit Provider Nurse Practitioner | DX: M16.12 Unilateral primary osteoarthritis, left hip (principal); I10 Essential (primary) hypertension; E55.9 Vitamin D deficiency, unspecified | CPT/HCPCS: 82306 ==

== ENCOUNTER → 2024-11-29 11:05 | Outpatient (BNVA) | payer MEDICARE, MEDICAID, SELFPAY | PROVIDERS: PCP Nurse Practitioner; Visit Provider Nurse Practitioner | DX: E11.9 Type 2 diabetes mellitus without complications (principal) | CPT/HCPCS: 80053; 83036 ==

== ENCOUNTER 2024-12-10 13:49 | Observation (INO) | payer MEDICARE, MEDICAID, SELFPAY ==
[2024-12-10] VITALS (7 sets, daily range): BP systolic 122–156; BP diastolic 65–73; PULSE 88–105; RESP 16–22; TEMP 36.8–37.6; O2SAT 87–96; BMI 29.5; BMI 31.4
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
[2024-12-10 14:46] LABS: Influenza A NEGATIVE (Negative); Influenza B NEGATIVE (Negative); Respiratory Syncytial Virus Ce NEGATIVE (Negative); SARS-CoV-2 PCR NEGATIVE (Negative)
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
[2024-12-10] MEDS: ipratropium-albuterol 3 mL Neb INHALATION (15:20)
[2024-12-10] MEDS: cefUROXime 250 mg Tablet 500 MG PO (15:39)
[2024-12-10] MEDS: doxycycline 100 mg Tablet PO (15:39)
--- NOTE | 2024-12-10 15:52 | PC.NURSE ---
H.O.M.E CONTACTED. 2 HOUR WAIT DUE TO CURRENTLY DELIVERING TO ANOTHER HOME AT THIS TIME. PATIENT NOTIFIED.
[2024-12-10 16:46] LABS: Basophils % 0.3 %; Eosinophils % 0.2 %; Hematocrit 44.5 % (37-53); Lymphocytes # 0.9 10^3/uL (0.8-4.8); Lymphocytes % 7.3 %; Mean Corpuscular Hemoglobin 27.4 pg (27-33); Mean Corpuscular Volume 88.5 fl (82-101); Mean Platelet Volume 8.9 fL (7.4-10.4); Monocytes # 0.8 10^3/uL (0.2-0.9); Monocytes % 6.5 %; Neutrophils % 85.5 %; Nucleated Red Blood Cells % 0 %; Platelet Count 187 10^3/cmm (157-399); Red Blood Count 5.03 10^6/uL (3.85-5.65); Red Cell Distribution Width 13.1 % (12.1-15.1); White Blood Count 12.86 10^3/uL (3.29-11.43)
[2024-12-10 17:17] LABS: Alanine Aminotransferase 24 U/L (0-41); Albumin Level 3.5 g/dL (3.5-5.2); Alkaline Phosphatase 80 U/L (40-130); Anion Gap 12.9 (5-19); Aspartate Amino Transferase 18 U/L (0-40); Blood Urea Nitrogen 13 mg/dL (8-23); Calcium 8.8 mg/dL (8.5-10.5); Carbon Dioxide 25 mmol/L (22-29); Chloride 104 mmol/L (98-107); Creatinine Clr Calc Pharmacy 84.7196; Globulin 2.4 g/dL (1.3-4.6); Glucose 122 mg/dL (65-115); NT Pro B Type Natriuretic Pept 221 pg/mL (0-450); Osmolality Calculated 287 mOsm/kg (285-295); Potassium 3.9 mmol/L (3.5-5.1); Sodium 138 mmol/L (136-145); Total Bilirubin 0.4 mg/dL (0.15-1.2); Total Protein 5.9 g/dL (6.6-8.7)
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
[2024-12-10] MEDS: dexamethasone 4 mg Tablet PO (20:10)
[2024-12-10] MEDS: trazodone 50 mg Tablet PO (20:10)
[2024-12-10] MEDS: cefTRIAXone 1,000 mg SDV 1000 MG IVP (20:10)
[2024-12-10] MEDS: enoxaparin 40 mg/0.4 mL Syringe SUBCUT (20:10)
[2024-12-10 21:01] LABS: Glucose Point of Care 101 mg/dL (70-110)
[2024-12-11] VITALS: BP 121/63; PULSE 79; RESP 22; TEMP 37.1; O2SAT 94
[2024-12-11 04:00] VITALS: BP 134/70; PULSE 71; RESP 19; TEMP 36.7; O2SAT 90
[2024-12-11 05:33] LABS: Basophils % 0.2 %; Hematocrit 44.8 % (37-53); Lymphocytes # 0.8 10^3/uL (0.8-4.8); Lymphocytes % 6.8 %; Mean Corpuscular HGB Conc 31.3 g/dL (30-55); Mean Corpuscular Hemoglobin 27.8 pg (27-33); Mean Corpuscular Volume 88.9 fl (82-101); Mean Platelet Volume 9.5 fL (7.4-10.4); Monocytes # 0.5 10^3/uL (0.2-0.9); Monocytes % 4.6 %; Neutrophils # 9.97 10^3/uL (1.8-7.7); Neutrophils % 87.9 %; Nucleated Red Blood Cells % 0 %; Platelet Count 178 10^3/cmm (157-399); Red Blood Count 5.04 10^6/uL (3.85-5.65); Red Cell Distribution Width 13.3 % (12.1-15.1); White Blood Count 11.34 10^3/uL (3.29-11.43)
[2024-12-11 05:51] LABS: Anion Gap 16.4 (5-19); Blood Urea Nitrogen 19 mg/dL (8-23); Calcium 8.9 mg/dL (8.5-10.5); Carbon Dioxide 22 mmol/L (22-29); Chloride 103 mmol/L (98-107); Creatinine Clr Calc Pharmacy 87.6882; Glucose 223 mg/dL (65-115); Osmolality Calculated 293 mOsm/kg (285-295); Potassium 4.4 mmol/L (3.5-5.1); Sodium 137 mmol/L (136-145)
[2024-12-11] MEDS: benzonatate 100 mg Capsule 200 MG PO (06:18)
[2024-12-11 06:31] LABS: Glucose Point of Care 215 mg/dL (70-110)
[2024-12-11 07:48] VITALS: BP 155/83; PULSE 73; RESP 17; O2SAT 93
[2024-12-11 09:05] VITALS: BP 155/83
[2024-12-11] MEDS: aspirin 81 mg EC Tablet PO (09:05)
[2024-12-11] MEDS: famotidine 20 mg Tablet PO (09:05)
[2024-12-11] MEDS: tamsulosin 0.4 mg Capsule PO (09:05)
[2024-12-11] MEDS: losartan 50 mg Tablet PO (09:05)
[2024-12-11] MEDS: ARIPiprazole 10 mg Tablet PO (09:05)
[2024-12-11] MEDS: dexamethasone 4 mg Tablet PO (09:05)
[2024-12-11] MEDS: clopidogrel 75 mg Tablet PO (09:05)
[2024-12-11] MEDS: insulin lispro 100 unit/1 mL SUBCUT ×2 (09:05→12:09)
[2024-12-11] MEDS: doxycycline 100 mg Tablet PO (09:05)
[2024-12-11] MEDS: sertraline 100 mg Tablet PO (09:05)
[2024-12-11 10:56] LABS: Glucose Point of Care 313 mg/dL (70-110)
--- NOTE | 2024-12-11 13:14 | PM.DCS ---
Discharge Providers Date of Admission: 12/10/24 18:56 Date of Discharge: December 11, 2024 Attending Provider at Admission: Mateo Diamond MD Attending Provider at Discharge: Mateo Diamond MD Consults: None Primary Care Provider: ELKIN Luna Diagnoses at Discharge Discharge Diagnosis (1) Pneumonia: Details from hospital stay: Patient with bibasilar pneumonia treated with Rocephin and doxycycline. He required oxygen in the emergency department last night but is much improved with steroids and antibiotics. Today he no longer requires oxygen and will discharge home on cefdinir for 5 days and doxycycline for 7 days Dexamethasone for 3 days and cough medication Status: Acute (2) Hypoxic: Details from hospital stay: Resolved Status: Acute (3) Coronary artery disease: Details from hospital stay: Stable Status: Acute (4) Uncontrolled diabetes mellitus: Details from hospital stay: Blood sugars elevated here and covered with sliding scale insulin Decadron decreased and weaned off over 3 days Patient instructed to eat 60-calorie weight loss diet as he has been on Mounjaro for 6 months and is only lost 5 pounds this should also correct his blood sugar Status: Chronic Qualifiers: Diabetes mellitus type: type 2 Glycemic state: with hyperglycemia Qualified Code(s): E11.65 - Type 2 diabetes mellitus with hyperglycemia Reason for Visit Reason for Visit: congestion Brief History: Christ Garza is 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 He states that for the last 2 weeks he has had congestion in his sinuses and then in his chest. He has had muscle aches but no fevers nausea or vomiting. He has had some diarrhea. Patient is a poor historian regarding cough production but he says it there is some yellow. It is unclear to me whether it started that way. Hospital Course Hospital Course Treated with Rocephin and doxycycline. He required steroids and oxygen but rapidly improved. Today he is comfortable on room air and no longer needs oxygen. He had difficulty with transportation home but that was arranged for by the supply planner and administration Patient's prescriptions will go to [facility] and he can pick those up in the morning today's medications already given Follow-up with PCP in 05-04 Physical Exam Narrative: General well-developed well-nourished obese male in no acute cardiopulmonary stress CV regular rate and rhythm Lungs clear to auscultation bilaterally with moderate air movement Abdomen soft Calves no tenderness appreciable edema Discharge Data Studies Completed and Pending Completed Studies During Hospitalization Category Date Time Status CXRP [XR chest 1V portable [id number]] Stat Exams 12/10/24 13:50 Completed Radiology Impressions Chest X-Ray 12/10/24 13:50 IMPRESSION: Bibasilar pneumonia. Laboratory Results WBC 11.34 10^3/uL (3.29-11.43) 12/11/24 04:50 RBC 5.04 10^6/uL (3.85-5.65) 12/11/24 04:50 Hgb 14.00 g/dL (11.27-16.99) 12/11/24 04:50 Hct 44.8 % (37-53) 12/11/24 04:50 MCV 88.9 fl (82-101) 12/11/24 04:50 MCH 27.8 pg (27-33) 12/11/24 04:50 MCHC 31.3 g/dL (30-55) 12/11/24 04:50 RDW 13.3 % (12.1-15.1) 12/11/24 04:50 Plt Count 178 10^3/cmm (157-399) 12/11/24 04:50 MPV 9.5 fL (7.4-10.4) 12/11/24 04:50 Neut % (Auto) 87.9 % 12/11/24 04:50 Lymph % (Auto) 6.8 % 12/11/24 04:50 [place] % (Auto) 4.6 % 12/11/24 04:50 Eos % (Auto) 0.0 % 12/11/24 04:50 Baso % (Auto) 0.2 % 12/11/24 04:50 Neut # (Auto) 9.97 10^3/uL (1.8-7.7) H 12/11/24 04:50 Lymph # (Auto) 0.8 10^3/uL (0.8-4.8) 12/11/24 04:50 [place] # (Auto) 0.5 10^3/uL (0.2-0.9) 12/11/24 04:50 Eos # (Auto) 0.0 10^3/uL (0.0-0.8) 12/11/24 04:50 Baso # (Auto) 0.0 10^3/uL (0.0-0.1) 12/11/24 04:50 Nucleated RBC % (auto) 0 % 12/11/24 04:50 Nucleated RBCs # 0.0 /100WBC 12/11/24 04:50 Sodium 137 mmol/L (136-145) 12/11/24 04:50 Potassium 4.4 mmol/L (3.5-5.1) 12/11/24 04:50 Chloride 103 mmol/L (98-107) 12/11/24 04:50 Carbon Dioxide 22 mmol/L (22-29) 12/11/24 04:50 Anion Gap 16.4 (5-19) 12/11/24 04:50 BUN 19 mg/dL (8-23) 12/11/24 04:50 Creatinine 0.8 mg/dL (0.7-1.2) 12/11/24 04:50 GFR Calculation Not Reportable 12/11/24 04:50 Glucose 223 mg/dL (65-115) H 12/11/24 04:50 POC Glucose 313 mg/dL (70-110) H 12/11/24 10:53 Calculated Osmolality 293 mOsm/kg (285-295) 12/11/24 04:50 Calcium 8.9 mg/dL (8.5-10.5) 12/11/24 04:50 Total Bilirubin 0.4 mg/dL (0.15-1.2) 12/10/24 16:40 AST 18 U/L (0-40) 12/10/24 16:40 ALT 24 U/L (0-41) 12/10/24 16:40 Alkaline Phosphatase 80 U/L (40-130) 12/10/24 16:40 NT-Pro-B Natriuret Pep 221 pg/mL (0-450) 12/10/24 16:40 Total Protein 5.9 g/dL (6.6-8.7) L 12/10/24 16:40 Albumin 3.5 g/dL (3.5-5.2) 12/10/24 16:40 Globulin 2.4 g/dL (1.3-4.6) 12/10/24 16:40 Coronavirus (PCR) Negative (Negative) 12/10/24 14:03 Influenza A (PCR) Negative (Negative) 12/10/24 14:03 Influenza Type B (PCR) Negative (Negative) 12/10/24 14:03 RSV (PCR) Negative (Negative) 12/10/24 14:03 Vitals Last Vital Signs Temp 98.0 F 12/11/24 04:00 Pulse 73 12/11/24 07:48 Resp 17 12/11/24 07:48 BP 155/83 12/11/24 09:05 Pulse Ox 93 12/11/24 07:48 O2 Del Method Room Air 12/11/24 07:48 O2 Flow Rate 2 12/10/24 21:13 Discharge Plan Discharge Patient Disposition: Home Condition: Stable Prescriptions: New doxycycline monohydrate 100 mg Tablet 100 mg PO BID Qty: 14 0RF dexamethasone 4 mg Tablet 4 mg PO DAILY Qty: 3 0RF cefdinir 300 mg capsule 300 mg PO BID 5 Days Qty: 10 0RF guaifenesin 1,200 mg tablet extended release 12hr 1,200 mg PO BID Qty: 10 0RF Continued insulin degludec [Tresiba FlexTouch U-200] 200 unit/mL (3 mL) insulin pen 30 unit SUBCUT DAILY Qty: 9 2RF aripiprazole [Abilify] 10 mg tablet 10 mg PO DAILY Qty: 30 2RF atorvastatin 40 mg tablet 40 mg PO QPM Qty: 30 2RF cyanocobalamin (vitamin B-12) 1,000 mcg/mL solution 1,000 mcg IM .every 3 months Qty: 1 0RF ergocalciferol (vitamin D2) 1,250 mcg (50,000 unit) capsule 1,250 mcg PO .weekly Qty: 4 2RF Rx Instructions: famotidine 20 mg tablet 20 mg PO BID Qty: 30 2RF ferrous sulfate 325 mg (65 mg iron) tablet 325 mg PO QDAY Qty: 30 2RF losartan 50 mg tablet 50 mg PO DAILY Qty: 30 2RF sertraline 50 mg tablet 50 mg PO DAILY Qty: 30 2RF Rx Instructions: TAKE WITH 100MG TO =150MG sertraline 100 mg tablet 100 mg PO DAILY Qty: 30 2RF Rx Instructions: take with [id number] day tamsulosin 0.4 mg capsule 0.4 mg PO DAILY Qty: 30 2RF Mounjaro 10 mg/0.5 mL pen injector 10 mg SUBCUT .weekly Qty: 2 2RF trazodone 50 mg tablet 50 mg PO BEDTIME Qty: 30 2RF (DME) Blood Glucose Test Strip See Rx Instructions .ROUTE .MEDSUPPLY Qty: 100 5RF Rx Instructions: testing 3 times daily acetaminophen [Tylenol Arthritis Pain] 650 mg tablet extended release 650 mg PO Q12H Qty: 60 1RF (DME) FreeStyle Leann 2 [place] Misc See Rx Instructions .ROUTE .MEDSUPPLY Qty: 1 0RF Rx Instructions: As directed (DME) FreeStyle Leann 2 Sensor Kit See Rx Instructions .ROUTE .MEDSUPPLY Qty: 2 11RF Rx Instructions: change every 14 days (DME) pen needle, diabetic 33 gauge x 5/32 needle See Rx Instructions .ROUTE .MEDSUPPLY Qty: 100 5RF Rx Instructions: 7 times day clopidogrel 75 mg tablet 75 mg PO DAILY Metamucil Fiber Thin 2.5 gram wafer 2 wafer PO TID PRN (Reason: Constipation) No Action Nitrostat 0.4 mg tablet, sublingual 0.4 mg SUBLINGUAL Q5M PRN (Reason: Chest Pain) Qty: 30 0RF Rx Instructions: do not exceed 3 doses per episode aspirin 81 mg tablet,delayed release (DR/EC) 81 mg PO DAILY Qty: 90 0RF Discharge Orders: Discharge Order (Routine); Ordered 12/11/24 Ordered By: Mateo Diamond Other Ambulatory Orders: DME: Nebulizer with Neb Kit (Order) Location: None Selected Ordered By: Светлана Reeves DME: Oxygen (Order) Location: None Selected Ordered By: Светлана Reeves Referrals: Jorden Adams, SENIOR TABLEAU DEVELOPER-C [Primary Care Provider] - 7-10 days (We have notified your physician's clinic of the need for a follow-up appointment to be scheduled. If you have not heard from them within the next 2 business days, please call them directly. ) Discharge Diet: Cardiac and Diabetic Discharge Activity: Increase activity as tolerated Patient Instructions: Decongestant/Expectorant (By mouth), Doxycycline (By mouth), Dexamethasone (By mouth), Cefdinir (By mouth), Opioid Safety, Pain Management, Pneumonia Stoplight Activity Restrictions/Additional Instructions: Remember to picker/puller your medications at [facility] tomorrow Take cefdinir twice a day for 5 days and doxycycline twice a day for 7 days I also wrote for 3 days of Decadron and some cough medicine You need to cut your calories back to 1600 carla a day for goal weight loss 2 to 3 pounds a week. If you are losing more than that per week then you can eat additional 100 carla a day adjusting until you are losing 2 pounds per week Discharge Attestations Time Spent in Discharge Care*: greater than 30 min Time Spent in Smoking Cessation: Non-smoking Status at Discharge: Cognitive status at discharge: cognitively intact, Behavioral status at discharge: [facility], Quality Metrics Clinical Quality Measures [ No reported AMI, CVA or VTE this stay] Coding Level of Care Code 81638 Diagnoses Pneumonia J18.9 Hypoxic R09.02 Coronary artery disease I25.10 Uncontrolled type 2 diabetes mellitus with hyperglycemia E11.65 Diabetes mellitus type: type 2 Glycemic state: with hyperglycemia Time Spent (min) 45
[2024-12-11 14:21] VITALS: BP 155/83; PULSE 71; RESP 19; TEMP 36.7; O2SAT 94
== END 2024-12-11 14:00 | disposition home or self-care (01) ==
LOC: ER 17:44 → MEDSURG 12-11 08:20
PROVIDERS: Emergency Medicine; Admitting Provider Internal Medicine; Emergency Provider Nurse Practitioner; PCP Nurse Practitioner; Visit Provider Internal Medicine
DX: J18.9 Pneumonia, unspecified organism (principal); R09.02 Hypoxemia; I25.10 Atherosclerotic heart disease of native coronary artery without angina pectoris; J44.9 Chronic obstructive pulmonary disease, unspecified; E78.5 Hyperlipidemia, unspecified; I10 Essential (primary) hypertension; K21.9 Gastro-esophageal reflux disease without esophagitis; Z79.899 Other long term (current) drug therapy; Z79.82 Long term (current) use of aspirin; Z79.4 Long term (current) use of insulin; Z79.85 Long-term (current) use of injectable non-insulin antidiabetic drugs; I25.2 Old myocardial infarction; F31.81 Bipolar II disorder; F41.9 Anxiety disorder, unspecified; H91.91 Unspecified hearing loss, right ear; Z90.49 Acquired absence of other specified parts of digestive tract; Z86.0100 Personal history of colon polyps, unspecified; Z87.891 Personal history of nicotine dependence; E11.65 Type 2 diabetes mellitus with hyperglycemia; Z11.52 Encounter for screening for COVID-19
CPT/HCPCS: 36415; 36416; 71045; 80048; 80053; 82962; 83880; 85025; 87637; 94640; 94760; 96372; 96374; 99285; G0378; J0696; J1650; J1815; J8540

== ENCOUNTER → 2025-02-06 10:41 | Outpatient (BNVA) | payer MEDICARE, MEDICAID, SELFPAY | PROVIDERS: PCP Nurse Practitioner; Visit Provider Internal Medicine Cardiovascular Disease | DX: I11.0 Hypertensive heart disease with heart failure (principal); I50.30 Unspecified diastolic (congestive) heart failure; I25.118 Atherosclerotic heart disease of native coronary artery with other forms of angina pectoris; E78.5 Hyperlipidemia, unspecified; R00.1 Bradycardia, unspecified; Z87.891 Personal history of nicotine dependence | CPT/HCPCS: 99214 ==

== ENCOUNTER → 2025-02-20 08:10 | Outpatient (BNVA) | payer MEDICARE, MEDICAID, SELFPAY | PROVIDERS: PCP Nurse Practitioner; Visit Provider Nurse Practitioner | DX: E55.9 Vitamin D deficiency, unspecified (principal); Z12.5 Encounter for screening for malignant neoplasm of prostate; E11.65 Type 2 diabetes mellitus with hyperglycemia; Z79.4 Long term (current) use of insulin | CPT/HCPCS: 80053; 80061; 82306; 83036; G0103 ==

== ENCOUNTER 2025-03-19 13:04 | Emergency (ER) | payer MEDICARE, MEDICAID, SELFPAY ==
[2025-03-19 13:05] VITALS: BP 126/68; PULSE 77; RESP 17; TEMP 36.7; O2SAT 94; BMI 29.5
--- NOTE | 2025-03-19 13:05 | ECG_ITS ---
[facility] Test Date: 2025-03-19 Pat Name: Christ Garza Department: Room: Gender: Male Admitting Counselor: : 1945 Requested By: Mario Rodarte Order Number: [id number] Reading MD: DMITRIY GIBSON Measurements Intervals [place] Rate: 74 P: 51 RI: 210 QRS: 119 QRSD: 148 T: 33 QT: 397 QTc: 441 Interpretive Statements SINUS RHYTHM WITH FIRST DEGREE AV BLOCK INDETERMINATE AXIS RIGHT BUNDLE BRANCH BLOCK [120+ ms QRS DURATION, UPRIGHT V1, 40+ ms S IN I/aVL/V4/V5/V6] LEFT POSTERIOR FASCICULAR BLOCK [QRS AXIS > 109, INFERIOR Q] POSSIBLE ANTERIOR MYOCARDIAL INFARCTION , OF INDETERMINATE AGE [30 ms Q WAVE IN V3/V4, OR R < 0.2 mV IN V4] Compared to ECG 05/08/2024 01:59:17 Indeterminate axis now present Left posterior fascicular block now present Myocardial infarct finding now present Electronically Signed On 03-20-2025 19:04:52 CDT by DMITRIY GIBSON [email or web address]
--- NOTE | 2025-03-19 13:05 | XRR_ITS ---
PROCEDURE INFORMATION: Exam: XR Chest Exam date and time: 03/19/2025 1:19 PM Age: 79 years old Clinical indication: Chest pressure; Chest pain; Imbedded [place]; Additional info: Cp TECHNIQUE: Imaging protocol: Radiologic exam of the chest. Views: 1 view. COMPARISON: CR XR chest 1V portable [id number] 12/10/2024 2:19 PM FINDINGS: Lungs: Decreased edema and/or pneumonitis in both lower lungs. No other significant pulmonary abnormalities. Pleural spaces: Unremarkable. No pleural effusion. No pneumothorax. Heart/Mediastinum: Unremarkable. No cardiomegaly. Bones/joints: Nothing acute. No change. Soft tissues: Unchanged small metallic foreign bodies. XR/XR chest 1V portable [id number] IMPRESSION: Decreased edema and/or pneumonitis in both lower lungs.
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
[2025-03-19 13:39] LABS: Basophils # 0.1 10^3/uL (0.0-0.1); Basophils % 0.6 %; Eosinophils # 0.1 10^3/uL (0.0-0.8); Eosinophils % 1.1 %; Hematocrit 47.8 % (37-53); Lymphocytes # 1.9 10^3/uL (0.8-4.8); Mean Corpuscular HGB Conc 31.8 g/dL (30-55); Mean Corpuscular Hemoglobin 28.7 pg (27-33); Mean Corpuscular Volume 90.4 fl (82-101); Mean Platelet Volume 9.5 fL (7.4-10.4); Monocytes # 0.5 10^3/uL (0.2-0.9); Monocytes % 6.5 %; Neutrophils # 5.28 10^3/uL (1.8-7.7); Neutrophils % 67.5 %; Nucleated Red Blood Cells % 0 %; Platelet Count 170 10^3/cmm (157-399); Red Blood Count 5.29 10^6/uL (3.85-5.65); Red Cell Distribution Width 13.4 % (12.1-15.1); White Blood Count 7.83 10^3/uL (3.29-11.43)
--- NOTE | 2025-03-19 13:39 | PC.PHAR ---
Pt states he now has a home health nurse who comes on Mondays and sets his medications up. Pt does not recall what company she is from.
[2025-03-19 13:44] LABS: INR 0.92 (0.8-1.2)
[2025-03-19 13:48] LABS: Troponin(5th) Baseline 27 ng/L (0-15)
[2025-03-19 13:50] LABS: Alanine Aminotransferase 11 U/L (0-41); Albumin Level 4.1 g/dL (3.5-5.2); Alkaline Phosphatase 89 U/L (40-130); Anion Gap 13.6 (5-19); Aspartate Amino Transferase 14 U/L (0-40); Blood Urea Nitrogen 10 mg/dL (8-23); Calcium 9.3 mg/dL (8.5-10.5); Carbon Dioxide 27 mmol/L (22-29); Chloride 100 mmol/L (98-107); Creatinine Clr Calc Pharmacy 84.7196; Globulin 1.8 g/dL (1.3-4.6); Glucose 126 mg/dL (65-115); Lipase 22 U/L (13-60); Osmolality Calculated 283 mOsm/kg (285-295); Potassium 4.6 mmol/L (3.5-5.1); Sodium 136 mmol/L (136-145); Total Bilirubin 0.5 mg/dL (0.15-1.2); Total Protein 5.9 g/dL (6.6-8.7)
[2025-03-19 14:38] VITALS: BP 132/106; PULSE 64; O2SAT 97
[2025-03-19 15:24] LABS: Troponin 5 2HR 24.24 ng/L (0-15)
[2025-03-19 15:29] LABS: Troponin 5 2HR Delta -2.76 ABS# (0-10)
[2025-03-19 15:33] VITALS: BP 128/79; PULSE 86; O2SAT 97
[2025-03-19 15:43] VITALS: BP 128/79; PULSE 86; O2SAT 97
== END 2025-03-19 15:45 | disposition home or self-care (01) ==
PROVIDERS: Emergency Provider Emergency Medicine; PCP Nurse Practitioner
DX: R07.9 Chest pain, unspecified (principal); E11.9 Type 2 diabetes mellitus without complications; I10 Essential (primary) hypertension; E78.5 Hyperlipidemia, unspecified; I25.2 Old myocardial infarction; Z79.02 Long term (current) use of antithrombotics/antiplatelets; Z79.4 Long term (current) use of insulin; Z82.49 Family history of ischemic heart disease and other diseases of the circulatory system; Z79.85 Long-term (current) use of injectable non-insulin antidiabetic drugs
CPT/HCPCS: 71045; 80053; 83690; 84484; 85025; 85610; 93005; 99285

== ENCOUNTER 2025-05-21 14:54 | Emergency (ER) | payer MEDICARE, MEDICAID, SELFPAY ==
[2025-05-21 14:57] VITALS: BP 95/58; PULSE 72; RESP 16; TEMP 36.9; O2SAT 93
--- OUTSIDE RECORDS SUMMARY | 2025-05-21 15:01 | XMS_ITS | Clinical Summary ---
[facility] Address [address] 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
--- OUTSIDE RECORDS SUMMARY | 2025-05-21 15:01 | XMS_ITS | Encounter Summary ---
Author Organization [facility] [employer] [facility] Address [address] [place] [address] Care Team Providers Care Pharmacy Service Associate Name Role Phone Unavailable Primary Care Provider Unavailabl e Encounter Details Date Type Department Care Team (Late st Contact Info) Description 01/04/1999 Outpatient Historical HIS [facility] Bryan Santacruz MD [address] [place] [address] Lesion of ulnar nerve (Primary Dx) Social History Tobacco Use Types Packs/Day Years Used Date Smoking Tobacco: Never Assessed Sex and Gender Information Value Date Recorded Sex Assigned at Not on file 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
--- OUTSIDE RECORDS SUMMARY | 2025-05-21 15:01 | XMS_ITS | Encounter Summary ---
Author Organization [employer] [facility] Address [address] [place] [address] Care Team Providers Care Cane Flume Watchman Name Role Phone Unavailable Primary Care Provider Unavailabl e Encounter Details Date Type Department Care Team (Late st Contact Info) Description 03/07/1999 Outpatient Historical HIS [facility] Bryan Santacruz MD [address] [place] [address] Lesion of ulnar nerve (Primary Dx) Social History Tobacco Use Types Packs/Day Years Used Date Smoking Tobacco: Never Assessed Sex and Gender Information Value Date Recorded Sex Assigned at Not on file 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
--- NOTE | 2025-05-21 15:04 | XRR_ITS ---
PROCEDURE INFORMATION: Exam: XR Abdomen Exam date and time: 05/21/2025 4:03 PM Age: 79 years old Clinical indication: Constipation; Prior surgery; Surgery date: 6+ months; Surgery type: Gallbladder, lumbar TECHNIQUE: Imaging protocol: Radiologic exam of the abdomen. Views: Frontal supine view of the abdomen. 1 View. COMPARISON: CT abdomen pelvis w con* [id number] 10/22/2023 3:31 PM FINDINGS: Tubes, catheters and devices: Surgical clips project over right upper quadrant. Spinal fusion hardware is present. Gastrointestinal tract: Nonobstructive bowel gas pattern. Large colonic stool burden. Bones/joints: No acute osseous abnormality. XR/XR KUB [id number] IMPRESSION: No acute findings. Large colonic stool burden, which may be seen with constipation
[2025-05-21] MEDS: polyethylene glycol 3350 Pkt 17 gm PO (17:34)
[2025-05-21 17:50] VITALS: PULSE 71; O2SAT 96
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
[2025-05-21 18:26] VITALS: BP 146/94; PULSE 92; O2SAT 98
== END 2025-05-21 18:35 | disposition home or self-care (01) ==
PROVIDERS: Emergency Provider General Practice; PCP Nurse Practitioner
DX: K59.01 Slow transit constipation (principal); Z79.4 Long term (current) use of insulin; Z79.82 Long term (current) use of aspirin; Z79.02 Long term (current) use of antithrombotics/antiplatelets; Z87.891 Personal history of nicotine dependence; I25.10 Atherosclerotic heart disease of native coronary artery without angina pectoris; E78.5 Hyperlipidemia, unspecified; I10 Essential (primary) hypertension; E11.9 Type 2 diabetes mellitus without complications
CPT/HCPCS: 74018; 99283; J9999

== ENCOUNTER → 2025-05-22 08:15 | Outpatient (BNVA) | payer MEDICARE, MEDICAID, SELFPAY | PROVIDERS: PCP Nurse Practitioner; Visit Provider Nurse Practitioner | DX: E11.65 Type 2 diabetes mellitus with hyperglycemia (principal); E11.9 Type 2 diabetes mellitus without complications; Z79.4 Long term (current) use of insulin | CPT/HCPCS: 80053; 83036 ==

== ENCOUNTER 2025-06-24 15:16 | Emergency (ER) | payer MEDICARE, MEDICAID, SELFPAY ==
[2025-06-24 15:19] VITALS: BP 154/77; PULSE 89; RESP 18; TEMP 36.7; O2SAT 96
--- OUTSIDE RECORDS SUMMARY | 2025-06-24 15:25 | XMS_ITS | Clinical Summary ---
Author Organization [facility] Address [address] 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
--- OUTSIDE RECORDS SUMMARY | 2025-06-24 15:25 | XMS_ITS | Encounter Summary ---
Author Organization [facility] Address [address] [place] [address] Care Team Providers Care Machinery Dismantler Name Role Phone Unavailable Primary Care Provider Unavailabl e Encounter Details Date Type Department Care Team (Late st Contact Info) Description 03/07/1999 Outpatient Historical [facility] Bryan Santacruz MD [address] [place] [address] Lesion of ulnar nerve (Primary Dx) Social History Tobacco Use Types Packs/Day Years Used Date Smoking Tobacco: Never Assessed Sex and Gender Information Value Date Recorded Sex Assigned at Not on file 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
--- OUTSIDE RECORDS SUMMARY | 2025-06-24 15:25 | XMS_ITS | Encounter Summary ---
Author Organization [employer] [facility] Address [address] [place] [address] Care Team Providers Care Trader Name Role Phone Unavailable Primary Care Provider Unavailabl e Encounter Details Date Type Department Care Team (Late st Contact Info) Description 01/04/1999 Outpatient Historical HIS [facility] Bryan Santacruz MD [address] [place] [address] Lesion of ulnar nerve (Primary Dx) Social History Tobacco Use Types Packs/Day Years Used Date Smoking Tobacco: Never Assessed Sex and Gender Information Value Date Recorded Sex Assigned at Not on file 

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
[2025-06-24 15:39] VITALS: BP 156/78; PULSE 81; O2SAT 93
[2025-06-24 15:54] LABS: Hematocrit 46.3 % (37-53); Hemoglobin 15.20 g/dL (11.27-16.99); Mean Corpuscular HGB Conc 32.8 g/dL (30-55); Mean Corpuscular Hemoglobin 28.9 pg (27-33); Mean Corpuscular Volume 88.0 fl (82-101); Nucleated Red Blood Cells % 0 %; Platelet Count 156 10^3/cmm (157-399); Red Blood Count 5.26 10^6/uL (3.85-5.65); White Blood Count 6.98 10^3/uL (3.29-11.43)
[2025-06-24 16:09] LABS: Alanine Aminotransferase 20 U/L (0-41); Albumin Level 4.1 g/dL (3.5-5.2); Alkaline Phosphatase 105 U/L (40-130); Anion Gap 12.9 (5-19); Aspartate Amino Transferase 19 U/L (0-40); Blood Urea Nitrogen 29 mg/dL (8-23); Calcium 9.1 mg/dL (8.5-10.5); Carbon Dioxide 26 mmol/L (22-29); Chloride 103 mmol/L (98-107); Creatinine Clr Calc Pharmacy 81.7905; Globulin 2.6 g/dL (1.3-4.6); Glucose 238 mg/dL (65-115); Lipase 42 U/L (13-60); Osmolality Calculated 300 mOsm/kg (285-295); Potassium 3.9 mmol/L (3.5-5.1); Sodium 138 mmol/L (136-145); Total Protein 6.7 g/dL (6.6-8.7)
[2025-06-24] MEDS: iohexol 350 mg/mL 500 mL Btl (per mL) IV (16:21)
[2025-06-24 16:37] VITALS: BP 157/75; PULSE 81; O2SAT 95
[2025-06-24 17:00] VITALS: BP 164/81; PULSE 72; RESP 16; O2SAT 97
[2025-06-24 17:19] VITALS: BP 158/78; PULSE 77; RESP 16; O2SAT 94
--- NOTE | 2025-06-26 08:15 | DCPLANNER ---
messaged gen surg for er f/u
== END 2025-06-24 17:18 | disposition home or self-care (01) ==
PROVIDERS: Emergency Provider Emergency Medicine; PCP Nurse Practitioner
DX: R11.10 Vomiting, unspecified (principal); Z79.82 Long term (current) use of aspirin; Z79.02 Long term (current) use of antithrombotics/antiplatelets; Z87.891 Personal history of nicotine dependence; E11.9 Type 2 diabetes mellitus without complications; I25.10 Atherosclerotic heart disease of native coronary artery without angina pectoris; E78.5 Hyperlipidemia, unspecified; I10 Essential (primary) hypertension
CPT/HCPCS: 36415; 71045; 74177; 80053; 83690; 85025; 99285; J7030

== ENCOUNTER → 2025-08-14 08:42 | Outpatient (BNVA) | payer MEDICARE, MEDICAID, SELFPAY | PROVIDERS: PCP Nurse Practitioner; Visit Provider Nurse Practitioner | DX: E55.9 Vitamin D deficiency, unspecified (principal); E53.8 Deficiency of other specified B group vitamins; D50.9 Iron deficiency anemia, unspecified; E11.9 Type 2 diabetes mellitus without complications | CPT/HCPCS: 80053; 80061; 82306; 82607; 83036; 83540 ==

== ENCOUNTER 2025-08-23 04:43 | Emergency (ER) | payer MEDICARE, MEDICAID, SELFPAY ==
[2025-08-23 04:43] VITALS: PULSE 75; RESP 18; TEMP 36.7; O2SAT 93; BMI 27.3
--- NOTE | 2025-08-23 04:50 | CTR_ITS ---
PROCEDURE INFORMATION: Exam: CT Abdomen And Pelvis With Contrast Exam date and time: 08/23/2025 5:43 AM Age: 79 years old Clinical indication: Abdominal pain; Additional info: Diffuse abd cramping, nv TECHNIQUE: Imaging protocol: Computed tomography of the abdomen and pelvis with contrast. Radiation optimization: All CT scans at this facility use at least one of these dose optimization techniques: automated exposure control; mA and/or kV adjustment per patient size (includes targeted exams where dose is matched to clinical indication); or iterative reconstruction. Contrast material: OMNI 350; Contrast volume: 100 ml; Contrast route: INTRAVENOUS (IV); COMPARISON: CT abdomen pelvis w con* [id number] 06/24/2025 4:18 PM RADIATION DOSE METRICS: Total DLP (mGy-cm): 811.13 FINDINGS: Lungs: Bibasilar atelectasis/scar. Liver: Normal. No mass. Gallbladder and biliary ducts: Status post cholecystectomy. No evidence of significant biliary obstruction. Pancreas: Normal. No ductal dilation. Spleen: Normal. No splenomegaly. Adrenal glands: Normal. No mass. Kidneys and ureters: Bilateral hypoattenuating renal lesions measuring up to 1.9 cm which do not meet CT criteria for simple cysts. Stomach and bowel: Colonic diverticulosis is present without diverticulitis. Bowel has normal caliber. Appendix: No evidence of appendicitis. Intraperitoneal space: Unremarkable. No free air. No significant fluid collection. Vasculature: Aortoiliac atherosclerotic disease is seen without evidence of aneurysm. Lymph nodes: Unremarkable. No enlarged lymph nodes. Urinary bladder: Unremarkable as visualized. Reproductive: Moderate nonspecific prostate enlargement. Bones/joints: Moderate degenerative changes in the spine. Grade 2 spondylolisthesis L4-L5. Status post remote instrumented posterior spinal fusion L4-L5. No acute or suspicious osseous abnormality. Soft tissues: Unremarkable. CT/CT abdomen pelvis w con* [id number] IMPRESSION: 1. No evidence of acute abdominal or pelvic process. 2. Indeterminate bilateral renal lesions. Follow-up nonemergent renal ultrasound is recommended to exclude solid masses. 3. Moderate nonspecific prostate enlargement. COMMENTS: Consistent with the [place] [employer]'s Incidental Findings Committee white paper (J Am Reece Radiol 2018): Any incidental renal lesion less than 1 cm or classified as too small to characterize, or any incidental cystic renal lesion characterized as simple-appearing, is likely benign. No follow-up imaging is recommended for these lesions per consensus recommendations based on imaging criteria.
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
[2025-08-23 05:08] VITALS: BP 165/71; PULSE 69; RESP 16; O2SAT 97
[2025-08-23 05:10] LABS: Hematocrit 46.2 % (37-53); Hemoglobin 15.40 g/dL (11.27-16.99); Mean Corpuscular HGB Conc 33.3 g/dL (30-55); Mean Corpuscular Hemoglobin 28.9 pg (27-33); Mean Corpuscular Volume 86.8 fl (82-101); Nucleated Red Blood Cells % 0 %; Platelet Count 158 10^3/cmm (157-399); Red Blood Count 5.32 10^6/uL (3.85-5.65); White Blood Count 9.29 10^3/uL (3.29-11.43)
--- NOTE | 2025-08-23 05:21 | ECG_ITS ---
[facility]: 2025[facility]23 Pat Name: Christ Garza Department: Room: Gender: Male Crate Icer: : 1945 Requested By: Julian Coleman Order Number: [id number] Fernandez MD: Seb Jc M.D. Measurements Intervals [place] Rate: 68 P: 71 [place]: 227 QRS: QRSD: 155 T: 71 QT: 419 QTc: 449 Interpretive Statements SINUS RHYTHM WITH FIRST DEGREE AV BLOCK RIGHT BUNDLE BRANCH BLOCK [120+ ms QRS DURATION, UPRIGHT V1, 40+ ms S IN I/aVL/V4/V5/V6] LEFT POSTERIOR FASCICULAR BLOCK Compared to ECG 03/19/2025 13:05:16 NO SIGNIFICANT CHANGE Electronically Signed On 08-24-2025 19:23:49 CDT by Seb Jc M.D. [email or web address]
[2025-08-23 05:22] LABS: Glucose Urine UA Negative (Normal); Nitrate Urine Negative (Negative); Specific Gravity, Urine 1.011 (1.005-1.030)
[2025-08-23 05:27] LABS: Add Urine Microscopic? YES; Lactic Sepsis W/Reflex 0.8 mmol/L (0.5-2.2)
[2025-08-23 05:28] LABS: Troponin(5th) Baseline 28 ng/L (0-15)
[2025-08-23 05:33] VITALS: BP 134/77; PULSE 73; O2SAT 90
[2025-08-23 05:38] LABS: Blood Urea Nitrogen 26 mg/dL (8-23); Calcium 9.4 mg/dL (8.5-10.5); Carbon Dioxide 25 mmol/L (22-29); Chloride 100 mmol/L (98-107); Creatinine Clr Calc Pharmacy 72.7027; Glucose 135 mg/dL (65-115); Lipase 59 U/L (13-60); Magnesium 2.0 mg/dL (1.7-2.3); NT Pro B Type Natriuretic Pept < 36 pg/mL (0-450); Osmolality Calculated 289 mOsm/kg (285-295); Sodium 136 mmol/L (136-145)
[2025-08-23 05:43] LABS: Anion Gap 15.5 (5-19); Potassium 4.5 mmol/L (3.5-5.1)
[2025-08-23] MEDS: iohexol 350 mg/mL 500 mL Btl (per mL) IV (05:48)
[2025-08-23 05:58] LABS: CRP High Sensitivity Cardiac 0.230 mg/dL (0.0-0.3)
[2025-08-23 06:03] VITALS: PULSE 70; O2SAT 97
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
[2025-08-23 06:47] VITALS: BP 162/79; PULSE 71; O2SAT 98
== END 2025-08-23 06:49 | disposition home or self-care (01) ==
PROVIDERS: Emergency Provider Student in an Organized Health Care Education/Training Program; PCP Nurse Practitioner
DX: K52.9 Noninfective gastroenteritis and colitis, unspecified (principal); Z79.02 Long term (current) use of antithrombotics/antiplatelets; Z79.82 Long term (current) use of aspirin; Z79.4 Long term (current) use of insulin; Z87.891 Personal history of nicotine dependence; E78.5 Hyperlipidemia, unspecified; E11.9 Type 2 diabetes mellitus without complications; I10 Essential (primary) hypertension; I25.10 Atherosclerotic heart disease of native coronary artery without angina pectoris
CPT/HCPCS: 71045; 74177; 80048; 81001; 83605; 83690; 83735; 83880; 84484; 85025; 86141; 93005; 99285; J7030

== ENCOUNTER → 2025-09-15 08:07 | Outpatient (BNVA) | payer MEDICARE, MEDICAID, SELFPAY | PROVIDERS: PCP Nurse Practitioner; Visit Provider Nurse Practitioner Family | DX: I11.0 Hypertensive heart disease with heart failure (principal); I50.9 Heart failure, unspecified; I25.10 Atherosclerotic heart disease of native coronary artery without angina pectoris; E78.5 Hyperlipidemia, unspecified; R00.1 Bradycardia, unspecified; Z87.891 Personal history of nicotine dependence; I25.2 Old myocardial infarction; I65.23 Occlusion and stenosis of bilateral carotid arteries | CPT/HCPCS: 99214 ==

== ENCOUNTER 2025-10-10 13:48 | Outpatient (CLI) | payer MEDICARE, MEDICAID, SELFPAY ==
--- NOTE | 2025-10-10 13:30 | USCV_ITS ---
Christ Garza Age: 80 Gender: M : 1945 Exam Date: 10/10/2025 14:24 Ordering Phys: Barb Walker NP Technologist: [email or web address] Exam Location: [facility] [place] Indication: Stenosis Risk Factors: Previous Vascular Surgery: Right Brachial BP: / Left Brachial BP: / Right Left Velocity (cm/s) Spectral Plaque Velocity (cm/s) Spectral Plaque Syst/Diast Broadening Syst/Diast Broadening 59.60/ 15.50 Prox CCA 110.90/ 25.70 38.90/ 8.70 Mid CCA 107.20/ 28.40 30.90/ 9.90 Distal CCA 99.00 / 28.60 109.50/17.60 Prox ICA 121.80/ 32.50 54.20/ 12.30 Mid ICA 126.10/ 36.80 47.40/ 7.50 Distal ICA 150.10/ 36.80 127.70 ECA 123.10 3.50 ICA/CCA 1.20 Antegrade Vertebral Antegrade 48.80/ 15.10 cm/s 68.80/ 26.70 cm/s Tri Subclavian Tri 116.1 155.4 0 0 CONCLUSIONS Right ICA stenosis <50%. Moderate atheromatous plaque right carotid bulb/ICA. Left ICA stenosis <50% at the upper end of the range. Moderate atheromatous plaque left carotid bulb/ICA. Intimal thickening in the common carotid arteries and internal carotid arteries bilaterally. Normal antegrade Doppler flow noted in the right vertebral artery. Normal antegrade Doppler flow noted in the left vertebral artery. Mateo Perez MD (Electronically Signed) Final Date: 10 October 2025 16:18 S
--- NOTE | 2025-10-10 13:58 | USR_ITS ---
PROCEDURE INFORMATION: Exam: US Retroperitoneal, Complete, Kidneys, Aorta, IVC. Exam date and time: 10/10/2025 2:01 PM Age: 80 years old Clinical indication: Condition or disease; Kidney or ureter condition; Cyst of kidney; Additional info: Renal cyst TECHNIQUE: Imaging protocol: Real-time ultrasound of the retroperitoneum with image documentation. Complete exam focused on the bilateral kidneys, aorta, and inferior vena cava. COMPARISON: CT abdomen pelvis w con* [id number] 08/23/2025 5:43 AM FINDINGS: Right kidney: Right kidney measures 9.1 x 6.1 x 5.5 cm. There is good corticomedullary differentiation and no hydronephrosis. Renal cortex measures 0.9 cm. There is a 1.2 x 1.3 x 1.1 cm renal cyst in the inferior pole. Left kidney: Left kidney measures 10.0 x 5.2 x 4.8 cm, good corticomedullary differentiation and no hydronephrosis. Renal cortex measures 1.1 cm. Multiple left renal cysts, the largest measures 2.2 x 2.2 x 2.0 cm in the superior pole of the left kidney. Aorta: Distal aorta measures 1.6 cm. Common iliac arteries: Not evaluated. Inferior vena cava: Not evaluated. Prostate: Prostate measures 4.8 x 4.2 x 3.7 cm with a volume of 39.1 mL. US/US renal BI* [id number] IMPRESSION: 1. No acute findings. 2. Bilateral renal cysts. 3. Prostatomegaly.
== END 2025-10-10 13:49 | disposition home or self-care (01) ==
PROVIDERS: PCP Nurse Practitioner; Visit Provider Nurse Practitioner Family
DX: N28.1 Cyst of kidney, acquired (principal); N40.0 Benign prostatic hyperplasia without lower urinary tract symptoms; I65.23 Occlusion and stenosis of bilateral carotid arteries
CPT/HCPCS: 76770; 93880